=== PATIENT | male | born 1960 | race Caucasian/White ===

== ENCOUNTER 2017-11-24 00:15 | Inpatient (IN) | payer OTHER, SELFPAY ==
[2017-11-24] MEDS ORDERED: Morphine 4 MG/ML VIAL ONE (00:31)
[2017-11-24 01:53] LABS: #Eosinphils 0.6 thou/uL (0.0-0.7); #Lymphocytes 1.1 thou/uL (1.20-3.40); #Monocytes 0.7 thou/uL (0.11-0.59); #Neutrophils 15.6 thou/uL (1.40-6.50); %Basophils 0.2 % (0.0-1.0); %Eosinophils 3.6 % (0.0-10.0); %Lymphocytes 6.1 % (21.0-51.0); %Monocytes 3.8 % (0.0-10.0); %Neutrophils 86.3 % (42.0-75.0); Mean Corpuscular HGB CONC 32.9 g/dL (32.0-36.0); Mean Corpuscular Hemoglobin 29.3 pg (27.0-31.0); Mean Platelet Volume 6.5 fL (7.4-10.4); Platelet Count 448 thou/uL (130-400); RBC Distribution Width 12.1 % (11.5-14.5); Red Blood Cell (RBC) Count 4.11 mill/uL (4.70-6.10); White Blood Cell (WBC) Count 18.1 thou/uL (4.8-10.8)
[2017-11-24 01:56] LABS: Prothrombin Time 13.7 SEC (12.0-14.7)
[2017-11-24 01:57] LABS: ALT (SGPT) 20 U/L (8-55); AST (SGOT) 42 U/L (5-34); Albumin 3.6 g/dL (3.5-5.0); Alkaline Phosphatase 110 U/L (40-150); Anion Gap 21 mmol/L (10-20); BUN (Urea Nitrogen) 70 mg/dL (8.4-25.7); Bilirubin, Total 0.4 mg/dL (0.2-1.2); CK (CPK) 2261 U/L (30-200); Calc. Creatinine Clearance 0 mL/min (70-130); Calcium 7.5 mg/dL (7.8-10.44); Carbon Dioxide 25 mmol/L (22-29); Chloride 88 mmol/L (98-107); Estimated GFR-MDRD 7; Globulin 3.3 g/dL (2.4-3.5); Glucose 105 mg/dL (70-105); Lipase 47 U/L (8-78); PTT 33.9 SEC (22.9-36.1); Potassium 5.1 mmol/L (3.5-5.1); Protein, Total 6.9 g/dL (6.0-8.3); Sodium 129 mmol/L (136-145)
[2017-11-24 02:09] LABS: Troponin I Less than 0.010 ng/mL (< 0.028)
[2017-11-24 02:11] LABS: CKMB 22.8 ng/mL (0-6.6)
[2017-11-24] MEDS ORDERED: Piperacillin/Tazobactam 4.5 GM VIAL ONE (02:24)
[2017-11-24] MEDS ORDERED: Vancomycin HCl 2.5 GM in Sodium Chloride 0.9% 500 ML IVPB SCH (03:00)
[2017-11-24 03:35] LABS: Bilirubin Negative (Negative); Blood, Urine Small (Negative); Clarity CLOUDY (Clear); Glucose, Urine (Dipstick) Negative (Negative); Leukocyte Trace (Negative); Nitrite Negative (Negative); Protein, Urine (Dipstick) Negative (Neg-Trace); Specific Gravity, Urine 1.024 (1.002-1.036); Urobilinogen 0.2 mg/dL (0.2-1.0)
[2017-11-24 03:37] LABS: Bacteria/HPF None Seen HPF (None Seen); Squamous Epithelial 0-3 HPF (0-3); WBC/HPF 0-3 HPF (0-3)
[2017-11-24 03:38] LABS: Pathc Cast-AUWi Flag 5.08 (0-2.49); Yeast-AUWi Flag 97.9 (0-25.0)
[2017-11-24 03:43] LABS: Medtox Reader # READER 1; Opiate Screen Detected (NotDetected)
[2017-11-24 03:44] LABS: Amphetamine Not Detected (NotDetected); Barbiturates Screen Not Detected (NotDetected); Benzodiazepine Screen Not Detected (NotDetected); Cocaine Metabolite Screen Not Detected (NotDetected); Medtox Control Line Valid? VALID (VALID); Methadone Not Detected (NotDetected); Methamphetamine Not Detected (NotDetected); Oxycodone Screen Not Detected (NotDetected); Phencyclidine (PCP) Not Detected (NotDetected); THC/Cannabinoid Screen Not Detected (NotDetected); Tricyclic Screen Not Detected (NotDetected)
[2017-11-24 03:50] LABS: Other Casts/LPF None Seen LPF (0-3 Hyaline); RBC/HPF 0-3 HPF (0-3); Renal Epithelial None Seen HPF (0-3); Transitional Epithelial NONE SEEN HPF (0-3)
--- NOTE | 2017-11-24 03:57 | PDOC.FPRHP ---
- History of Present Illness Chief Complaint: AMS History of Present Illness: This is a 57 yo M who presents to ED after he fell out of bed for the 2nd time today. He was discharged from hospital in [place], [place] 5 days ago with a PICC line being treated for necrotizing fasciitis, MRSA, per the family. They were sent home from hospital with PICC line and were giving him vancomycin at home. They deny any surgeries while at that hospital. He is AxOx1 on presentation with a GCS of 15. He is complaining of pain only on his legs which are dressed. Family states they think he has had slurred speech for 3 days and just decided to bring him in tonight because of the falls. They deny any blows to the head or LOC. Per , patient has had waxing and waning altered mental status stating that he was having delusions but then would have lucid intervals. The states that the patient began having bilateral lower leg wounds in 2011 and has been treated for these wounds off and on since then. She states that since last week the wounds look much improved and are not as erythematous or swollen. Per the , the patient had multiple episodes of vomiting over the last 2 days. The patient also complained of SOB and trouble breathing while lying flat. Denies diarrhea, chest pain, abdominal pain, or fever. ED Course: Central line placed - right IJ; vanc and zosyn; 3L IVF - Allergies/Adverse Reactions Allergies Allergy/AdvReac Type Severity Reaction Status Date / Time No Known Allergies Allergy Unverified 11/24/17 02:51 - History PMHx: MRSA, necrotizing fasciitis, HTN PSHx: debridemnet of wound 1 week ago, carpal tunnel surgery, spinal fusions FHx: non contributory Social: smokeless tobacco daily use; Smoked cigarettes for about 30 years - 1-4 cigarettes/day, quit 10 years ago; no drug use; denied alcohol use - Review of Systems ROS unobtainable: other (obtained from family at the bedside ( and daughter) ) General: denies: fever/chills, weight/appetite/sleep changes, night sweats Respiratory: reports: shortness of breath. denies: cough, congestion Cardiovascular: reports: edema. denies: chest pain, palpitation Gastrointestinal: reports: vomiting. denies: nausea, diarrhea, constipation, abdominal pain Skin: reports: rashes (groin) Psychological: reports: other (delusions) - Vital signs BP: 100/55 HR: 100 RR: 21 Tmax: 98.8F Pox: 99% on 2LNC Wt: 190kg - Physical Exam -Constitutional: in mild distress, uncomfortable on the bed, morbidly obese HEENT: EOMI -Neck: right IJ in place -Heart: hard to appreciate due to body habitus- RRR, no murmurs Lungs: CTAB, no wheezing -Lungs: hard to appreciate due to body habitus Abdomen: soft, bowel sounds present Neurological: no focal deficit -Skin: RLE: trace pitting swelling from knee to foot; erythematous, no drainage LLE: swelling from knee to foot; scaling on calf; no drainage Groin: right groin/testicles mildly erythematous; no drainge -Psychiatric: AXO X 1 FMR H&P: Results - Labs Result Diagrams: 11/24/17 01:20 11/24/17 01:20 Lab results: WBC 18.1 thou/uL (4.8-10.8) H 11/24/17 01:20 Hgb 12.0 g/dL (14.0-18.0) L 11/24/17 01:20 Hct 36.6 % (42.0-52.0) L 11/24/17 01:20 MCV 89.0 fL (78.0-98.0) 11/24/17 01:20 Plt Count 448 thou/uL (130-400) H 11/24/17 01:20 Neutrophils % 86.3 % (42.0-75.0) H 11/24/17 01:20 Sodium 129 mmol/L (136-145) L 11/24/17 01:20 Potassium 5.1 mmol/L (3.5-5.1) 11/24/17 01:20 Chloride 88 mmol/L (98-107) L 11/24/17 01:20 Carbon Dioxide 25 mmol/L (22-29) 11/24/17 01:20 BUN 70 mg/dL (8.4-25.7) H 11/24/17 01:20 Creatinine 8.40 mg/dL (0.6-1.3) H 11/24/17 01:20 Glucose 105 mg/dL (70-105) 11/24/17 01:20 Lactic Acid 0.8 mmol/L (0.5-2.2) 11/24/17 01:20 Calcium 7.5 mg/dL (7.8-10.44) L 11/24/17 01:20 Total Bilirubin 0.4 mg/dL (0.2-1.2) 11/24/17 01:20 AST 42 U/L (5-34) H 11/24/17 01:20 ALT 20 U/L (8-55) 11/24/17 01:20 Alkaline Phosphatase 110 U/L (40-150) 11/24/17 01:20 Ammonia 31 umol/L (18-72) 11/24/17 01:20 Creatine Kinase 2261 U/L (30-200) H 11/24/17 01:20 CK-MB (CK-2) 22.8 ng/mL (0-6.6) H* 11/24/17 01:20 Serum Total Protein 6.9 g/dL (6.0-8.3) 11/24/17 01:20 Albumin 3.6 g/dL (3.5-5.0) 11/24/17 01:20 Lipase 47 U/L (8-78) 11/24/17 01:20 Urine Ketones Trace mg/dL (Negative) H 11/24/17 03:11 Urine Blood Small (Negative) H 11/24/17 03:11 Urine Nitrite Negative (Negative) 11/24/17 03:11 Ur Leukocyte Esterase Trace (Negative) H 11/24/17 03:11 Urine RBC 0-3 HPF (0-3) 11/24/17 03:11 Urine WBC 0-3 HPF (0-3) 11/24/17 03:11 Ur Squamous Epith Cells 0-3 HPF (0-3) 11/24/17 03:11 Urine Bacteria None Seen HPF (None Seen) 11/24/17 03:11 FMR H&P: A/P - Problem List (1) Severe sepsis Current Visit: Yes Status: Acute Code(s): A41.9 - SEPSIS, UNSPECIFIED ORGANISM; R65.20 - SEVERE SEPSIS WITHOUT SEPTIC SHOCK - Plan This is a 57 yo M here with severe sepsis and AMS Severe sepsis - likely 2/2 to inadequately treated necrotizing faciitis vs possible endocarditis vs PICC line infxn - CBC: WBC: 18.1 - blood and urine cx pending; picc line cx pending - Will continue IVF - CXR and CT brain pending - continue zosyn for leg wound; random vanc 45 - given loading dose of 25gms in ER and will check random vanc in 24 hours and dose appropriately - Consider ID consult - Will order Echo due to limited PE from body habitus; EKG showed sinus tach; Discuss case with cards to see if patient needs STEFANY to rule out endocarditis due to patient's hx of MRSA YUNIOR - Will give IVF: LR @ 135mls/hr - BUN/CR: 70/8.4; CrCl is 26 - Will recheck labs on 11/25 Rhabdomyolysis - CK 2261 - Will give IVF: LR @ 135mls/hr - Will trend CK level Encephalopathy - likely 2/2 to sepsis - CT brain pending Hyponatremia - Will give IVF - Will recheck labs HTN - Will hold home meds Case discussed with Dr. Manjarrez FMR H&P: Upper Level - Pertinent history 57 yo male here for AMS for 2+ days. History is obtained from family in the room. Pt has chronic medical history of HTN and b/l lower leg infection for since 2011. Over the past 2 weeks the leg sores have worsened and has required vancomycin via PICC line. Was recently released from [facility]. Wounds were debrided at that time. Starting 3 days ago, says that patient said he didnt feel right, but was unable to further describe what was the matter. He had difficulty speaking appropriately and often answers would not make sense, but then he would snap out of it and return to normal. Has been getting vancomycin in outpatient setting, but apparently his levels were high so she did not give vancomycin 4 days ago and possibly 3 days ago. In ER patient received vanc and zosyn. Central line was placed and he was receiving 2 L NS during interview. - Pertinent findings BP: 97/54 HR: 121 TMax: 99.0 RR: 21 SO2: 99% on 2L exam limited due to body habitus GEN: AOx1, answering questions, but sometimes inappropriately CARD: tachycardic; no m/g/r PULM: CTAB ABD: BSx4, distended, nontender : mildly erythematous rash of right groin extending to scrotum EXTREM: left lateral lower leg erythematous with denuded skin, extending from the ankle to above the midshin, no drainage or bleeding; right lower leg has similar look as left, but slightly smaller in size WBC: 18.1 Neut: 80% Na: 129 BUN: 70 Cr: 8.4 CK: 2261 CKMB: 22.8 Troponin: <0.010 Lactate: 0.8 - Plan Date/Time: 11/24/17 0352 IKain DO, have evaluated this patient and agree with findings/plan as outlined by general internist and physician leader resident. Pertinent changes/additions are listed here. Severe Sepsis Unsure of exact etiology, but he has a couple possible sites of possible infection including his legs with nec fascia MRSA, and PICC line. Blood, urine, and PICC line cultures pending. Continue vanc and zosyn. Will load with vanc 2.5gm and check random vanc at 24 hr paco to dictate how to move forward in dosing. Due to concerns for endocarditis, we will discuss with cardiology for STEFANY. His BP has normalized over the course of the morning; we will continue to monitor and hold off on pressors at this time; central line is in place if the need arises. YUNIOR no baseline, will continue to monitor with daily BMP potassium 5.1 LR @250ml/hr Rhabdo CK: 2261 LR @ 250ml/hr trend with daily checks Hyponatremia fluid rehydration and recheck in AM HTN continue to monitor Encephalopathy suspect this is due to sepsis; will continue to monitor with fall precautions ; PT/OT
[2017-11-24] MEDS ORDERED: Sodium Chloride 0.9% 1,000 ML IV SCH ×2 (05:30→05:47)
[2017-11-24] MEDS ORDERED: Ondansetron HCl/PF 4 MG/2 ML Vial IVP PRN (05:30)
[2017-11-24] MEDS ORDERED: Ondansetron ODT 4 MG TAB SL PRN (05:30)
[2017-11-24] MEDS ORDERED: Acetaminophen 325 MG TAB PO PRN (05:30)
[2017-11-24] MEDS ORDERED: Acetaminophen 650 MG Suppository PR PRN (05:47)
[2017-11-24] MEDS ORDERED: Morphine 4 MG/ML VIAL SLOW IVP PRN (06:06)
--- NOTE | 2017-11-24 07:07 | PDOC.PULCN ---
<Boaz Ordonez - Last Filed: 11/24/17 17:14> Pulmonology Consult: HPI - Date of Consult Date: 11/24/17 Time: 07:00 - Consult Details Reason for Consult: Admission to ICU Requesting Physician: Sheri Cavanaugh - History of Present Illness HPI: GUNNAR CALLE is a 57 year-old Male who presents to ED after falling down at home. Patient was recently hospitalized for Necrotizing Fasciitis in [place], [place]. Patient was then given a PICC line with instructions to continue Vancomycin treatments at home. The patient was not able to get home health services and the patient's family was managing his medications. The patient has had altered mental status for several days and then after two falls and some vomiting at home his family members decided to bring him to the ED. Since admission to the ED, patient is confused and agitated. He can answer questions, however, he may not respond appropriately to all questions. Patient mumbles for many responses. Family was not available at time of this interview and history was obtained through nursing staff, medical records, and patient interview. Pulmonology Consult: ROS - Review of Systems ROS unobtainable: due to mental status Cardiovascular: negative: chest pain Respiratory: negative: no reported symptoms Pulmonology Consult: PMH Source: other Past Medical History: PMHx: MRSA, necrotizing fasciitis, HTN PSHx: debridemnet of wound 1 week ago, carpal tunnel surgery, spinal fusions FHx: non contributory Social: smokeless tobacco daily use; Smoked cigarettes for about 30 years - 1-4 cigarettes/day, quit 10 years ago; no drug use; denied alcohol use - Family History Family history: reviewed and not pertinent - Social History Smoking Status: Former smoker Alcohol Use: none Drug Use History: none Living Situation: independent, Pulmonology Consult: Meds - Medications MAR Reviewed: Yes Medications: Current Medications Acetaminophen (Tylenol) 650 mg PO Q4H PRN PRN Reason: Headache/Fever or Pain Stop: 11/24/17 14:30 Acetaminophen (Tylenol) 650 mg UT Q4H PRN PRN Reason: Headache/Fever or Pain Enoxaparin Sodium (Lovenox) 30 mg SC 0900 LEVON Lactated Ringer's (Lactated Ringer's) 1,000 mls @ 250 mls/hr IV .Q4H LEVON Piperacillin Sod/Tazobactam (Sod 2.25 gm/ Sodium Chloride) 100 mls @ 200 mls/ hr IVPB Q6HR LEVON Morphine Sulfate (Morphine) 2 mg SLOW IVP Q4H PRN PRN Reason: Pain Ondansetron HCl (Zofran) 4 mg IVP Q6H PRN PRN Reason: Nausea/Vomiting Stop: 11/24/17 14:30 Ondansetron HCl (Zofran Odt) 4 mg SL Q6H PRN PRN Reason: Nausea/Vomiting Stop: 11/24/17 14:30 Sodium Chloride (Flush - Normal Saline) 10 ml IVF Q12HR LEVON Sodium Chloride (Flush - Normal Saline) 10 ml IVF PRN PRN PRN Reason: Saline Flush - Allergies Allergies/Adverse Reactions: Allergies Allergy/AdvReac Type Severity Reaction Status Date / Time No Known Allergies Allergy Verified 11/24/17 06:21 Pulmonology Consult: PE - Physical Exam HEENT: moist MMs Deviation from normal: Right IJ in place Cardiovascular: RRR, no significant murmur Deviation from normal: Limited by body habitus Respiratory: clear to auscultation bilaterally Deviation from normal: Limited by body habitus Gastrointestinal: soft, non-tender, no distention, positive bowel sounds Musculoskeletal: no edema Deviation from normal: Trace edema. Open leg wounds bilateral lower extremities with erythema Neurological: moves all 4 limbs Deviation from normal: A&Ox1 Pulmonology Consult: Results - Labs Result Diagrams: 11/24/17 01:20 11/24/17 13:15 Pulmonology Consult: A/P - Problem (1) Metabolic encephalopathy Current Visit: Yes Code(s): G93.41 - METABOLIC ENCEPHALOPATHY Status: Acute (2) Rhabdomyolysis Current Visit: Yes Code(s): M62.82 - RHABDOMYOLYSIS Status: Acute (3) YUNIOR (acute kidney injury) Current Visit: Yes Code(s): N17.9 - ACUTE KIDNEY FAILURE, UNSPECIFIED Status : Acute (4) Hypertension Current Visit: Yes Code(s): I10 - ESSENTIAL (PRIMARY) HYPERTENSION Status: Acute (5) Hyponatremia Current Visit: Yes Code(s): E87.1 - HYPO-OSMOLALITY AND HYPONATREMIA Status : Acute (6) Leg wound, left Current Visit: Yes Code(s): S81.802A - UNSPECIFIED OPEN WOUND, LEFT LOWER LEG , INITIAL ENCOUNTER Status: Acute (7) Leg wound, right Current Visit: Yes Code(s): S81.801A - UNSPECIFIED OPEN WOUND, RIGHT LOWER LEG , INITIAL ENCOUNTER Status: Acute (8) Fungal dermatitis Current Visit: Yes Status: Acute - Time Time: 50% of the time was spent in coordination of care (as documented) at patient's floor/unit and/or counseling patient. Time with Patient: greater than 50 minutes - Plan Plan: 1. Metabolic encephalopathy - Likely secondary to recent infection with treatment of vancomycin - Patient likely got dehydrated from N/V - Hold Vancomycin until levels decrease - Pharmacy to dose Vancomycin going forward - Continue aggressive IVF resuscitation - Request records from previous hospitalization - Obtain more history from family members. - Cultures pending 2. Rhabdomyolysis - Continue IVF fluids - Monitor CK 3. YUNIOR - Unclear baseline Creatinine - Continue IVF - Monitor Creatinine 4. HTN - Hold home BP meds 5. Hyponatremia - Monitor with BMP - Fluid resuscitation 6. Leg wounds bilaterally - Likely source of initial infection - Per family much improved - Continue antibiotics - Wound Care consultation 7. Fungal dermatitis - Groin region - Topical nystatin for symptom relief Disposition: Guarded, continue current plan of care. Obtain more information and await results. <Luis Antonio Schreiber M - Last Filed: 11/25/17 13:37> Pulmonology Consult: HPI - History of Present Illness HPI: LUCGUNNARVIN WADE is a 57 year-old M Pulmonology Consult: Meds - Medications Medications: Current Medications Acetaminophen (Tylenol) 650 mg UT Q4H PRN PRN Reason: Headache/Fever or Pain Heparin Sodium (Porcine) (Heparin) 5,000 units SC TID [facility] Last Admin: 11/25/17 10:16 Dose: 5,000 units Vancomycin HCl 1 gm/ Device 200 mls @ 200 mls/hr IVPB .PENDING LEVEL [facility] Sodium Chloride (1/2 Normal Saline) 1,000 mls @ 50 mls/hr IV .Q20H [facility] Miscellaneous Medication (Pharmacy To Dose) 0 each IVPB PRN PRN PRN Reason: VANC Nystatin (Mycostatin Powder) 1 gm TOP BID PRN PRN Reason: Topical Irritations Last Admin: 11/24/17 13:23 Dose: 1 applic Sodium Chloride (Flush - Normal Saline) 10 ml IVF Q12HR [facility] Last Admin: 11/25/17 10:16 Dose: 10 ml Sodium Chloride (Flush - Normal Saline) 10 ml IVF PRN PRN PRN Reason: Saline Flush Last Admin: 11/24/17 09:19 Dose: 10 ml Pulmonology Consult: Results - Labs Result Diagrams: 11/25/17 04:49 11/25/17 04:49 - ABG Interpretation ABG Results: ABG pH 7.23 (7.35-7.45) L* 11/24/17 10:38 ABG pCO2 61.1 mmHg (35.0-45.0) H* 11/24/17 10:38 ABG O2 Sat Calc/Waqas 97.1 % (94.0-98.0) 11/24/17 10:38 ABG Base Excess -3.4 mEq/L (-2.0 to +3.0) L 11/24/17 10:38 Pulmonology Consult: A/P - Time Time: 50% of the time was spent in coordination of care (as documented) at patient's floor/unit and/or counseling patient. Attending Addendum - Attending Addendum Date/Time: 11/25/17 1336 I personally evaluated the patient and discussed the management with Dr. Ordonez. I agree with the History, Examination, Assessment and Plan documented above with any addition or exceptions noted below. A/P: Acute hypercapnic respiratory failure. MARY. Start BiPAP. 70 minutes have been devoted to this patient in various activities. I personally reviewed all imaging studies and laboratory data noted within this document. For fifty percent of this time, I was interacting with the patient at the bedside or coordinating care with the care team. For the remainder of the time I was immediately available to the patient in the hospital unit.
[2017-11-24] MEDS: Lactated Ringer's 1,000 ML IV SCH ×4 (07:18→16:56)
--- NOTE | 2017-11-24 07:52 | RAD ---
AP VIEW CHEST: HISTORY: Altered mental status. FINDINGS: AP chest is obtained on 11/23/17. Comparison is made to previous exam from 11/17/17. FINDINGS: AP view chest demonstrates a right upper extremity PICC line in place. There has been introduction o f a right jugular central line. Cardiomegaly is seen. Moderate pulmonary vascular congestion is. N o evidence of effusions or pneumonia are seen. IMPRESSION: Cardiomegaly and pulmonary vascular congestion not significantly changed since the previous exam. POS: [facility]
--- NOTE | 2017-11-24 08:52 | CT ---
PRELIMINARY REPORT/[facility]/EMERGENTY AFTER-HOURS PROCEDURE CT Head Without Intravenous Contrast EXAM DATE/TIME: 11/24/2017 1:55 AM CLINICAL HISTORY: Signs and symptoms; Altered mental status/memory loss; Confusion or disorientation TECHNIQUE: Axial computed tomography images of the head/brain without intravenous contrast. COMPARISON: No relevant prior studies available. FINDINGS: Brain: There is minimal bilateral periventricular and subcortical white matter hypodensity which is n onspecific and can be seen in the setting of chronic microvascular angiopathy. Harp-white matter diff erentiation is within normal limits. No hemorrhage. Ventricles: Unremarkable. No ventriculomegaly. Bones/joints: Unremarkable. No acute fracture. Soft tissues: Unremarkable. Vasculature: There is atherosclerotic disease of the internal carotid arteries bilaterally and right vertebral artery. Sinuses: Minimal bilateral maxillary, ethmoid and sphenoid sinus mucosal thickening. Mastoid air cells: Unremarkable as visualized. No mastoid effusion. IMPRESSION: 1. No acute intracranial or extra-axial abnormality. 2. Other findings as above. Thank you for allowing us to participate in the care of your patient. Dictated and Authenticated by: Caridad Farris MD 11/24/2017 2:23 AM Central Time ([place] & [place]) FINAL REPORT CT BRAIN: HISTORY: Altered mental status, memory loss. FINDINGS: Noncontrast-enhanced CT images of the brain are obtained. This the final report. Preliminary exam w as performed by [facility]. I concur with the dictation from [facility]. No evidence of acute intracranial pathology is s een. IMPRESSION: Unremarkable CT brain. POS: [facility]
[2017-11-24] MEDS ORDERED: Enoxaparin Sodium 30 MG/0.3 ML SYRINGE SC SCH (09:00)
[2017-11-24] MEDS ORDERED: Nystatin Powder 15 GM BOT TOP PRN (10:01)
[2017-11-24] MEDS ORDERED: VANCOMYCIN IVPB PRN (10:11)
[2017-11-24 10:58] LABS: Base Excess (BEa) -3.4 mEq/L (-2.0 to +3.0); Calcium, Ionized 0.93 mmol/L (1.12-1.30); Carboxyhemoglobin (COHb) 1.3 gm% (0.0-3.0); Hemoglobin (Hb) 11.9 g/dL (14.0-18.0); Potassium - ABG Lab 4.87 mmol/L (3.70-5.30)
[2017-11-24] MEDS ORDERED: Piperacillin/Tazobactam 2.25 GM in Sodium Chloride 0.9% 100 ML IVPB SCH (12:00)
[2017-11-24 13:24] LABS: ALV-art Gradient 28.265 (0-20); CO2 Tension 61.1 mmHg (35.0-45.0); Puncture Site RRA; pH, Arterial 7.23 (7.35-7.45)
[2017-11-24 13:54] LABS: Anion Gap 18 mmol/L (10-20); BUN (Urea Nitrogen) 65 mg/dL (8.4-25.7); CK (CPK) 1798 U/L (30-200); Calc. Creatinine Clearance 30 mL/min (70-130); Calcium 7.2 mg/dL (7.8-10.44); Carbon Dioxide 22 mmol/L (22-29); Chloride 96 mmol/L (98-107); Estimated GFR-MDRD 10; Glucose 87 mg/dL (70-105); Potassium 4.9 mmol/L (3.5-5.1); Sodium 131 mmol/L (136-145)
[2017-11-24] MEDS: Heparin 5,000 UNITS/ML VIAL SC SCH ×2 (15:28→22:02)
--- NOTE | 2017-11-24 17:10 | EKG ---
Test Reason : SEPSIS Blood Pressure : / mmHG Vent. Rate : 102 BPM Atrial Rate : 102 BPM P-R Int : 156 ms QRS Dur : 080 ms QT Int : 336 ms P-R-T Axes : 041 074 029 degrees QTc Int : 437 ms Sinus tachycardia Low voltage QRS Borderline ECG Confirmed by DR. Lane BORGES MD ([id number]) on 11/24/2017 5:10:08 PM Referred By: Confirmed By:DR. Lane BORGES MD
[2017-11-25] MEDS: Lactated Ringer's 1,000 ML IV SCH ×2 (01:12→08:37)
[2017-11-25 05:04] LABS: #Eosinphils 0.5 thou/uL (0.0-0.7); #Lymphocytes 1.1 thou/uL (1.20-3.40); #Monocytes 0.6 thou/uL (0.11-0.59); #Neutrophils 8.7 thou/uL (1.40-6.50); %Basophils 0.1 % (0.0-1.0); %Eosinophils 4.5 % (0.0-10.0); %Lymphocytes 10.4 % (21.0-51.0); %Monocytes 5.2 % (0.0-10.0); %Neutrophils 79.8 % (42.0-75.0); Hemoglobin 11.8 g/dL (14.0-18.0); Mean Corpuscular HGB CONC 33.1 g/dL (32.0-36.0); Mean Corpuscular Hemoglobin 29.6 pg (27.0-31.0); Mean Corpuscular Volume 89.4 fL (78.0-98.0); Mean Platelet Volume 6.3 fL (7.4-10.4); Platelet Count 446 thou/uL (130-400); RBC Distribution Width 12.2 % (11.5-14.5); Red Blood Cell (RBC) Count 3.98 mill/uL (4.70-6.10); White Blood Cell (WBC) Count 10.9 thou/uL (4.8-10.8)
[2017-11-25 05:24] LABS: Vancomycin, Random 42.3 ug/mL (See Comment)
[2017-11-25 05:28] LABS: Anion Gap 15 mmol/L (10-20); BUN (Urea Nitrogen) 50 mg/dL (8.4-25.7); CK (CPK) 885 U/L (30-200); Calc. Creatinine Clearance 67 mL/min (70-130); Carbon Dioxide 26 mmol/L (22-29); Chloride 100 mmol/L (98-107); Estimated GFR-MDRD 24; Glucose 72 mg/dL (70-105); Magnesium 1.6 mg/dL (1.6-2.6); Phosphorus 4.7 mg/dL (2.3-4.7); Potassium 4.6 mmol/L (3.5-5.1); Sodium 136 mmol/L (136-145)
--- NOTE | 2017-11-25 06:12 | PDOC.FM ---
- Subjective Subjective: Patient is more alert this morning. He knows who he is and what year it is. He is unaware where he is currently at. Patient denies any chest pain, sob, n/v. Patient denies any fevers, chills, or cough. Patient slept with a bipap on last night and is is unsure if he got more sleep or not. Patient denies any diarrhea problems; however, nursing staff has reported at least 8 liquid stools that have saturated his bed. No other complaints today. - Objective Vital Signs & Weight: Vital Signs (12 hours) Temp Pulse Pulse Ox 11/25/17 04:00 97.9 F 11/25/17 02:19 98 11/25/17 00:24 90 11/25/17 00:00 98.0 F 11/24/17 22:55 98 11/24/17 20:00 97.6 F 98 11/24/17 18:40 91 Weight Admit Weight 159.211 kg Weight 159.5 kg Most Recent Monitor Data Heart Rate from ECG 92 NIBP 161/87 NIBP BP-Mean 115 Respiration from ECG 14 SpO2 98 I&O: 11/23/17 11/24/17 11/25/17 06:59 06:59 06:59 Intake Total 4044 Output Total 75 4160 Balance -75 -116 Result Diagrams: 11/25/17 04:49 11/25/17 04:49 <Boaz Ordonez - Last Filed: 11/25/17 10:33> - Objective Vital Signs & Weight: Vital Signs (12 hours) Temp Pulse 11/25/17 11:00 97.5 F L 11/25/17 07:00 97.8 F 11/25/17 06:49 92 11/25/17 04:00 97.9 F 11/25/17 02:19 98 Weight Admit Weight 159.211 kg Weight 159.5 kg Most Recent Monitor Data Heart Rate from ECG 108 NIBP 166/100 NIBP BP-Mean 111 Respiration from ECG 14 SpO2 93 I&O: 11/24/17 11/25/17 11/26/17 06:59 06:59 06:59 Intake Total 4044 Output Total 75 4160 900 Balance -75 -116 -900 Result Diagrams: 11/25/17 04:49 11/25/17 04:49 <Josh Clarke - Last Filed: 11/25/17 13:26> Phys Exam - Physical Examination Constitutional: NAD BIPAP mask in place Neck: no nodes Respiratory: no wheezing, clear to auscultation bilateral limited by body habitus Cardiovascular: RRR, no significant murmur Gastrointestinal: soft, non-tender, no distention, positive bowel sounds Bilateral leg wounds bandaged Neurological: non-focal, moves all 4 limbs Skin: no rash <Boaz Ordonez - Last Filed: 11/25/17 10:33> Dx/Plan (1) Metabolic encephalopathy Code(s): G93.41 - METABOLIC ENCEPHALOPATHY Status: Acute (2) Rhabdomyolysis Code(s): M62.82 - RHABDOMYOLYSIS Status: Acute (3) YUNIOR (acute kidney injury) Code(s): N17.9 - ACUTE KIDNEY FAILURE, UNSPECIFIED Status: Acute (4) Hypertension Code(s): I10 - ESSENTIAL (PRIMARY) HYPERTENSION Status: Acute (5) Hyponatremia Code(s): E87.1 - HYPO-OSMOLALITY AND HYPONATREMIA Status: Acute (6) Leg wound, left Code(s): S81.802A - UNSPECIFIED OPEN WOUND, LEFT LOWER LEG, INITIAL ENCOUNTER Status: Acute (7) Leg wound, right Code(s): S81.801A - UNSPECIFIED OPEN WOUND, RIGHT LOWER LEG, INITIAL ENCOUNTER Status: Acute (8) Fungal dermatitis Status: Acute (9) Diarrhea Code(s): R19.7 - DIARRHEA, UNSPECIFIED Status: Acute - Plan Plan: 1. Metabolic encephalopathy - Likely secondary to recent infection with treatment of vancomycin - Patient likely got dehydrated from N/V - Hold Vancomycin until levels decrease. Random Vanc level this AM 42.3 - Pharmacy to dose Vancomycin going forward - Continue aggressive IVF resuscitation - Request records from previous hospitalization - Obtain more history from family members. - Cultures pending 2. Rhabdomyolysis - Continue IVF fluids - Monitor CK. 885 this AM - Improved 3. YUNIOR - Unclear baseline Creatinine - Continue IVF - Monitor Creatinine. 2.75 this AM - Resolving 4. HTN - Hold home BP meds - If BP continues to run in HTN range will restart 5. Hyponatremia - Monitor with BMP - Fluid resuscitation - Resolved 6. Leg wounds bilaterally - Likely source of initial infection - Per family much improved - Antibiotics held for now, but no systemic signs of infection currently - Wound Care consultation 7. Fungal dermatitis - Groin region - Topical nystatin for symptom relief 8. Diarrhea - Possibly due to Vancomycin use - Will monitor fluid status closely - C diff pending - Rectal tube as needed - Continue IVF Disposition: Stable, continue current plan of care. Can likely move out of ICU today. <Boaz Ordonez - Last Filed: 11/25/17 10:33> Attending Addendum - Attending Addendum Date/Time: 11/25/17 5105 I personally evaluated the patient and discussed the management with Dr. Ordonez. I agree with the History, Examination, Assessment and Plan documented above with any addition or exceptions noted below. <Josh Clarke - Last Filed: 11/25/17 13:26>
[2017-11-25] MEDS: Heparin 5,000 UNITS/ML VIAL SC SCH ×3 (10:16→20:49)
[2017-11-25] MEDS ORDERED: Sodium Chloride 0.45% 1,000 ML IV SCH (10:45)
--- NOTE | 2017-11-25 13:26 | PRG ---
DATE OF SERVICE: 11/25/2017 SERVICE: Pulmonary Medicine. INTERVAL HISTORY: The patient is doing fine from a respiratory standpoint. He is breathing comfortably this morning. He is not confused. He has no apparent complaints. There have been no overnight events. He has not had any fevers or chills. He is not coughing and has no problem with nausea or vomiting. He has had profuse watery diarrhea. OBJECTIVE: VITAL SIGNS: Afebrile, pulse 105, blood pressure 166/100, respirations 13, saturation 93% on room air. GENERAL: The patient is awake, alert, no apparent distress. LUNGS: Decent air entry. There is no prolonged expiratory phase or wheezing present. HEART: Normal rate, regular. ABDOMEN: Soft. Nontender, nondistended. Bowel sounds are positive. MUSCULOSKELETAL: No cyanosis or clubbing. There is no pitting in the bilateral lower extremities. NEUROLOGIC: Grossly nonfocal. LABORATORY DATA: WBC 10.9, hemoglobin 11.8, platelets 446,000. INR 1.3. Creatinine 2.75, BUN 50. Basic metabolic profile, phosphorus and magnesium fall within the normal limits. CK is down trending to 800. Blood cultures are negative in 2 out of 2 from the right IJ. Coag negative Staph is growing in the PICC line which has subsequently been removed. ASSESSMENT: 1. Metabolic encephalopathy, resolved. 2. Acute kidney injury secondary to prerenal azotemia/severe dehydration, resolved. 3. Bilateral lower extremity stasis. 4. Diarrhea. 5. Recent episode of cellulitis and is currently being treated with vancomycin, DISCUSSION AND PLAN: We are still waiting for the vancomycin level to become therapeutic. It is quite elevated. His magnesium and phosphorus will be discontinued. We will allow the patient to eat and start mobilization efforts. He will keep using his BiPAP at night because of his underlying sleep apnea. The patient will need to be diuresed to euvolemia once he stabilizes from this acute insult. That being said, I believe that he previously got too dry too quickly. At this time, he has not need for ongoing pulmonary or critical care opinion, and I will sign off. Please call with additional questions or concerns. MATTHEW
[2017-11-25] MEDS: Sodium Chloride 0.45% 1,000 ML IV SCH (14:24)
[2017-11-25] MEDS ORDERED: Labetalol HCl 100 MG/20 ML VIAL SLOW IVP PRN (17:21)
[2017-11-25] MEDS ORDERED: Acetaminophen 325 MG TAB PO PRN (18:29)
[2017-11-26 05:30] LABS: Vancomycin, Random 17.2 ug/mL (See Comment)
[2017-11-26 05:34] LABS: Band 2 % (5-11); Eosinophils 2 % (0-10); Hemoglobin 12.3 g/dL (14.0-18.0); Lymphocytes 15 % (21-51); MDiff Complete? YES; Mean Corpuscular HGB CONC 33.4 g/dL (32.0-36.0); Mean Corpuscular Hemoglobin 29.8 pg (27.0-31.0); Mean Corpuscular Volume 89.2 fL (78.0-98.0); Mean Platelet Volume 6.5 fL (7.4-10.4); Metamyelocyte 1 % (0-0); Monocytes 7 % (0-10); Neutrophil 72 % (42-75); Platelet Count 484 thou/uL (130-400); Reactive Lymphocytes 1 % (0-10); Red Blood Cell (RBC) Count 4.12 mill/uL (4.70-6.10); White Blood Cell (WBC) Count 11.8 thou/uL (4.8-10.8)
[2017-11-26 05:57] LABS: Anion Gap 16 mmol/L (10-20); BUN (Urea Nitrogen) 29 mg/dL (8.4-25.7); CK (CPK) 384 U/L (30-200); Calc. Creatinine Clearance 163 mL/min (70-130); Carbon Dioxide 25 mmol/L (22-29); Chloride 101 mmol/L (98-107); Estimated GFR-MDRD 67; Glucose 97 mg/dL (70-105); Potassium 4.9 mmol/L (3.5-5.1); Sodium 137 mmol/L (136-145)
[2017-11-26] MEDS ORDERED: Vancomycin HCl 1 GM in Premix Bag 1 BAG IVPB SCH (06:00)
--- NOTE | 2017-11-26 08:49 | PDOC.FM ---
- Subjective Subjective: Pt seen at bedside this am resting in bed. He states that he is cold, but denies any other problems. His diarrhea has resolved and he denies any abdominal pain. Over night the patient removed his rectal tube, this was not replaced. - Objective MAR Reviewed: Yes Vital Signs & Weight: Vital Signs (12 hours) Temp Pulse Resp BP Pulse Ox 11/26/17 04:00 99.1 F 84 18 148/99 H 92 L 11/26/17 00:00 99.1 F 86 18 172/98 H 93 L Weight Admit Weight 159.211 kg Weight 159.778 kg Most Recent Monitor Data Heart Rate from ECG 108 NIBP 166/100 NIBP BP-Mean 111 Respiration from ECG 14 SpO2 93 I&O: 11/25/17 11/26/17 11/27/17 06:59 06:59 06:59 Intake Total 4044 1430 Output Total 4160 3500 Balance -116 -2069 Result Diagrams: 11/26/17 04:21 11/26/17 04:21 <Donaldo Zamora - Last Filed: 11/26/17 08:47> - Objective Vital Signs & Weight: Vital Signs (12 hours) Temp Pulse Resp BP BP Pulse Ox 11/26/17 09:34 82 183/120 H 11/26/17 09:05 98.8 F 82 20 183/120 H 94 L 11/26/17 04:00 99.1 F 84 18 148/99 H 92 L 11/26/17 00:00 99.1 F 86 18 172/98 H 93 L Weight Admit Weight 159.211 kg Weight 159.778 kg Most Recent Monitor Data Heart Rate from ECG 108 NIBP 166/100 NIBP BP-Mean 111 Respiration from ECG 14 SpO2 93 I&O: 11/25/17 11/26/17 11/27/17 06:59 06:59 06:59 Intake Total 4044 1430 Output Total 4160 3500 Balance -116 -207 Result Diagrams: 11/26/17 04:21 11/26/17 04:21 <Josh Clarke - Last Filed: 11/26/17 09:54> Phys Exam - Physical Examination Constitutional: NAD HEENT: PERRLA, moist MMs Neck: no nodes, no JVD Respiratory: clear to auscultation bilateral Difficult to appreciate dt habitus Cardiovascular: RRR, no significant murmur Difficult to appreciate dt habitus Gastrointestinal: soft, non-tender, positive bowel sounds Musculoskeletal: no edema, pulses present Wounds on b/l LE dressed and clean Neurological: non-focal, moves all 4 limbs Skin: no rash, normal turgor <Donaldo Zamora - Last Filed: 11/26/17 08:47> Dx/Plan (1) YUNIOR (acute kidney injury) Code(s): N17.9 - ACUTE KIDNEY FAILURE, UNSPECIFIED Status: Acute (2) Diarrhea Code(s): R19.7 - DIARRHEA, UNSPECIFIED Status: Acute (3) Encephalopathy Code(s): G93.40 - ENCEPHALOPATHY, UNSPECIFIED Status: Acute (4) Hypertension Code(s): I10 - ESSENTIAL (PRIMARY) HYPERTENSION Status: Acute (5) Leg wound, left Code(s): S81.802A - UNSPECIFIED OPEN WOUND, LEFT LOWER LEG, INITIAL ENCOUNTER Status: Acute (6) Leg wound, right Code(s): S81.801A - UNSPECIFIED OPEN WOUND, RIGHT LOWER LEG, INITIAL ENCOUNTER Status: Acute (7) Metabolic encephalopathy Code(s): G93.41 - METABOLIC ENCEPHALOPATHY Status: Acute (8) Rhabdomyolysis Code(s): M62.82 - RHABDOMYOLYSIS Status: Acute - Plan Plan: 1. Metabolic encephalopathy - Given improvement of mental status and toxic vanc level on admission this was most likely secondary to vanc toxicity which has since improved. - Patient likely got dehydrated from N/V which exacerbated the vanc level - Vanc therapeutic this am. - Pharmacy to dose Vancomycin going forward - renal fxn improved, slow IVF. Pt is tolerating PO fluids - Cultures negative 2. Rhabdomyolysis - Improved 3. YUNIOR - improved - Unclear baseline Creatinine - Continue IVF - Monitor Creatinine. 1.13 this am 4. HTN - restart home meds 5. Hyponatremia - resolved 6. Leg wounds bilaterally - Likely source of initial infection - Per family much improved - Wound Care consultation 7. Fungal dermatitis - Groin region - Topical nystatin for symptom relief 8. Diarrhea - Resolved - C diff pending negative Disposition: Stable, continue current plan of care. <LindaDonaldo werner - Last Filed: 11/26/17 08:47> Attending Addendum - Attending Addendum Date/Time: 11/26/17 0954 I personally evaluated the patient and discussed the management with Dr. Zamora. I agree with the History, Examination, Assessment and Plan documented above with any addition or exceptions noted below. <Josh Clarke - Last Filed: 11/26/17 09:54>
[2017-11-26] MEDS ORDERED: Torsemide 20 MG TAB PO SCH (09:00)
[2017-11-26] MEDS: Tamsulosin HCl 0.4 MG CAP PO SCH (09:34)
[2017-11-26] MEDS: Amlodipine 10 MG TAB PO SCH (09:34)
[2017-11-26] MEDS: Heparin 5,000 UNITS/ML VIAL SC SCH ×3 (09:34→19:47)
[2017-11-26] MEDS: Loratadine 10 MG TAB PO SCH (09:34)
[2017-11-26] MEDS: Gabapentin 300 MG CAP PO SCH ×4 (09:34→19:47)
[2017-11-26] MEDS: tiZANidine HCl 4 MG TAB PO SCH ×4 (09:34→19:47)
[2017-11-26] MEDS: Sodium Chloride 0.45% 1,000 ML IV SCH ×2 (09:35→12:14)
[2017-11-26 12:02] VITALS: BMI 53.5
--- NOTE | 2017-11-26 13:04 | PQF ---
CLINICAL DOCUMENTATION IMPROVEMENT CLARIFICATION FORM: ICD-10 Updated PLEASE DO AN ADDENDUM TO THE PROGRESS NOTE WITH ANY DOCUMENTATION UPDATES OR ADDITIONS AND CARRY THROUGH TO DC SUMMARY. THANK YOU. DATE: 11/26 ATTN: DR. MAT LOPEZ/ DR. JULIUS PAEZ Please exercise your independent, professional judgment in responding to the clarification form. Clinical indicators are provided on the bottom of this form for your review. Please check appropriate box(s) to clarify if the following diagnosis has been ruled in or ruled out: SEVERE SEPSIS [ ] Ruled in diagnosis [ ] Continue to treat [ ] Resolved [ x ] Ruled out diagnosis [ ] Other diagnosis [ ] Unable to determine For continuity of documentation, please document condition throughout progress notes and discharge summary. Thank You. CLINICAL INDICATORS - SIGNS / SYMPTOMS / LABS ER PRESENTATION 11/24: ALTERED MENTAL STATUS AR: 106-121 RA SAT 89%, PLACED ON 2L NC: 93-100% BP: 73/54 - 132/113 TREATED W/ 5L NS, IV VANCOMYCIN & ZOSYN ER PHYSICIAN DIAGNOSIS 11/24: SEPSIS, YUNIOR, AMS PHYSICIAN H&P DOCUMENTATION 11/24: PROBLEM LIST: 1) SEVERE SEPSIS; 2) ENCEPHALOPATHY - SUSPECT THIS IS D/T SEPSIS WBC: 18.1 POSITIVE PICC LINE CULTURE: MRSE NO FURTHER MENTION OF SEPSIS TO DATE RISK FACTORS: RECENT HOSPITALIZATION FOR NECROTIZING FASCIITIS & MRSA (DISCHARGED 5 DAYS PRIOR ) PICC LINE MORBID OBESITY ACUTE ENCEPHALOPATHY YUNIOR TREATMENTS: IVF RESUSCITATION (5L NS IN ER, 11/24) IV ANTIBIOTICS (ZOSYN 11/24, VANCOMYCIN 11/24 - PRESENT) IVF (1/2 NS 11/25 - PRESENT) CCU MONITORING (11/24 - ) THANK YOU! Jasmyne (This form is maintained as a part of the permanent medical record) 2014 [employer]. All Rights Reserved Jasmyne Patricia RN, BSN [email or web address] Office: [phone] [facility]
[2017-11-26] MEDS ORDERED: Adenosine 6 MG/2 ML VIAL ONE (13:25)
[2017-11-27] MEDS: Sodium Chloride 0.45% 1,000 ML IV SCH (05:40)
--- NOTE | 2017-11-27 07:07 | PDOC.FM ---
- Subjective Subjective: Pt seen at bedside this am resting comfortably. He denies any problems or new complaints. Over night he pulled his own PICC and refused labs this am. - Objective Vital Signs & Weight: Vital Signs (12 hours) Temp Pulse Resp BP Pulse Ox 11/26/17 20:00 95 11/26/17 19:44 98.1 F 71 16 138/88 95 Weight Admit Weight 159.211 kg Weight 159.778 kg Most Recent Monitor Data Heart Rate from ECG 108 NIBP 166/100 NIBP BP-Mean 111 Respiration from ECG 14 SpO2 93 I&O: 11/26/17 11/27/17 11/28/17 06:59 06:59 06:59 Intake Total 1430 1584 Output Total 3500 1800 Balance -2069 Result Diagrams: 11/26/17 04:21 11/26/17 04:21 <Donaldo Zamora - Last Filed: 11/27/17 07:06> - Objective Vital Signs & Weight: Vital Signs (12 hours) Temp Pulse Resp BP BP Pulse Ox 11/27/17 08:00 94 L 11/27/17 07:51 168/85 H 11/27/17 07:50 84 168/85 H 11/27/17 07:36 98.3 F 84 20 184/102 H 94 L Weight Admit Weight 159.211 kg Weight 159.778 kg Most Recent Monitor Data Heart Rate from ECG 108 NIBP 166/100 NIBP BP-Mean 111 Respiration from ECG 14 SpO2 93 I&O: 11/26/17 11/27/17 11/28/17 06:59 06:59 06:59 Intake Total 1430 1584 Output Total 3500 1800 325 Balance -2069 -325 Result Diagrams: 11/27/17 06:52 11/27/17 06:52 <Gudelia Ayoub - Last Filed: 11/27/17 15:36> Phys Exam - Physical Examination Constitutional: NAD HEENT: PERRLA, moist MMs Neck: no nodes, no JVD Respiratory: clear to auscultation bilateral Difficult to auscultate dt habitus Cardiovascular: RRR, no significant murmur Difficult to auscultate dt habitus Gastrointestinal: soft, non-tender, no distention Musculoskeletal: no edema b/l LE wounds dressed and clean Neurological: moves all 4 limbs Lymphatic: no nodes Psychiatric: normal affect, A&O x 3 Skin: no rash, normal turgor <Donaldo Zamora - Last Filed: 11/27/17 07:06> Dx/Plan (1) YUNIOR (acute kidney injury) Code(s): N17.9 - ACUTE KIDNEY FAILURE, UNSPECIFIED Status: Acute (2) Diarrhea Code(s): R19.7 - DIARRHEA, UNSPECIFIED Status: Acute (3) Encephalopathy Code(s): G93.40 - ENCEPHALOPATHY, UNSPECIFIED Status: Acute (4) Hypertension Code(s): I10 - ESSENTIAL (PRIMARY) HYPERTENSION Status: Acute (5) Leg wound, left Code(s): S81.802A - UNSPECIFIED OPEN WOUND, LEFT LOWER LEG, INITIAL ENCOUNTER Status: Acute (6) Leg wound, right Code(s): S81.801A - UNSPECIFIED OPEN WOUND, RIGHT LOWER LEG, INITIAL ENCOUNTER Status: Acute (7) Metabolic encephalopathy Code(s): G93.41 - METABOLIC ENCEPHALOPATHY Status: Acute (8) Rhabdomyolysis Code(s): M62.82 - RHABDOMYOLYSIS Status: Acute - Plan Plan: 1. Metabolic encephalopathy - Given improvement of mental status and toxic vanc level on admission this was most likely secondary to vanc toxicity which has since improved. - Vanc dc'd today as he has run his 7 day course as ordered by his surgeon in [place]. - Cultures negative 2. Rhabdomyolysis - Improved 3. YUNIOR - improved. Pt refused labs this am, however he is taking PO without issue and was likely at baseline yesterday. 4. HTN - restart home meds 5. Hyponatremia - resolved 6. Leg wounds bilaterally - Likely source of initial infection - Will need outpatient follow up for wound care 7. Fungal dermatitis - Groin region - Topical nystatin for symptom relief 8. Diarrhea - Resolved - C diff pending negative Disposition: Stable, ready to discharge today pending outpatient follow up for wound care <Donaldo Zamora - Last Filed: 11/27/17 07:06> Attending Addendum - Attending Addendum Date/Time: 11/27/17 3379 I personally evaluated the patient and discussed the management with Dr. Zamora. I agree with the History, Examination, Assessment and Plan documented above with any addition or exceptions noted below. The patient's vanc will be d/c'd today. He refused lab draws and pulled out picc though 7 day course of antibiotics is complete. Will work towards discharge. <Gudelia Ayoub - Last Filed: 11/27/17 15:36>
[2017-11-27 07:15] LABS: #Eosinphils 0.6 thou/uL (0.0-0.7); #Lymphocytes 1.9 thou/uL (1.20-3.40); #Monocytes 0.7 thou/uL (0.11-0.59); #Neutrophils 7.8 thou/uL (1.40-6.50); %Basophils 0.2 % (0.0-1.0); %Eosinophils 5.1 % (0.0-10.0); %Lymphocytes 17.1 % (21.0-51.0); %Monocytes 6.5 % (0.0-10.0); Hemoglobin 12.5 g/dL (14.0-18.0); Mean Corpuscular HGB CONC 33.8 g/dL (32.0-36.0); Mean Corpuscular Hemoglobin 30.2 pg (27.0-31.0); Mean Corpuscular Volume 89.3 fL (78.0-98.0); Platelet Count 491 thou/uL (130-400); RBC Distribution Width 11.9 % (11.5-14.5); Red Blood Cell (RBC) Count 4.13 mill/uL (4.70-6.10)
[2017-11-27 07:27] LABS: Vancomycin, Trough 10.8 ug/mL
[2017-11-27 07:29] LABS: Anion Gap 10 mmol/L (10-20); BUN (Urea Nitrogen) 17 mg/dL (8.4-25.7); CK (CPK) 127 U/L (30-200); Calc. Creatinine Clearance 194 mL/min (70-130); Calcium 9.1 mg/dL (7.8-10.44); Carbon Dioxide 31 mmol/L (22-29); Chloride 101 mmol/L (98-107); Estimated GFR-MDRD 82; Glucose 105 mg/dL (70-105); Potassium 4.3 mmol/L (3.5-5.1); Sodium 138 mmol/L (136-145)
[2017-11-27 07:37] VITALS: TEMP 98.3
[2017-11-27] MEDS: Gabapentin 300 MG CAP PO SCH ×3 (07:50→17:23)
[2017-11-27] MEDS: Amlodipine 10 MG TAB PO SCH (07:50)
[2017-11-27] MEDS: tiZANidine HCl 4 MG TAB PO SCH ×3 (07:50→17:23)
[2017-11-27] MEDS: Heparin 5,000 UNITS/ML VIAL SC SCH ×2 (07:51→14:38)
[2017-11-27] MEDS: Loratadine 10 MG TAB PO SCH (07:51)
[2017-11-27] MEDS: Tamsulosin HCl 0.4 MG CAP PO SCH (07:51)
[2017-11-27 07:56] VITALS: BP 168/85
[2017-11-27] MEDS ORDERED: Vancomycin HCl 1 GM in Premix Bag 1 BAG IVPB SCH (08:00)
[2017-11-27] MEDS ORDERED: Ibuprofen 800 MG TAB PO PRN (13:41)
[2017-11-27] MEDS ORDERED: traMADol HCl 50 MG TAB PO PRN (13:41)
--- NOTE | 2017-11-29 14:16 | DIS-2 ---
DATE OF ADMISSION: 11/24/2017 DATE OF DISCHARGE: 11/27/2017 ADMITTING ATTENDING: Eleazar Manjarrez M.D. DISCHARGE ATTENDING: Josh Clarke M.D. RESIDENT: Donaldo Zamora D.O. CONSULTATIONS: Pulmonology, Dr. Luis Antonio Schreiber. PROCEDURES: 1. CT brain on 11/24/2017 with finding of no acute intracranial or extraaxial abnormalities. Minima l periventricular and subcortical hypodensity. 2. Chest x-ray on 11/24/2017, finding of cardiomegaly and pulmonary vascular congestion no significa nt change since previous exam. ADMITTING DIAGNOSES: Toxic encephalopathy and acute kidney injury. SECONDARY DIAGNOSES: Rhabdomyolysis, hypertension, hyponatremia, bilateral leg wounds, fungal dermat itis. DISCHARGE MEDICATIONS: Zyrtec 10 mg p.o. daily, Norvasc 10 mg p.o. daily, torsemide 20 mg p.o. daily , promethazine 25 mg p.o. q.6h. p.r.n. nausea, vomiting. Osteo Bi-Flex 1 tab p.o. daily, Benadryl 25 mg p.o. q.6h. p.r.n. seasonal allergies, simethicone 125 mg p.o. t.i.d. p.r.n. gas. Tramadol 50 mg p.o. q.6 hours p.r.n. for pain, ranitidine 150 mg p.o. daily, tizanidine 4 mg p.o. q. i.d., [place] 10 one p.o. q.6 p.r.n. pain, gabapentin 600 mg p.o. q.i.d., diclofenac 50 mg p.o. b.i.d., benazepril 40 mg p.o. daily, Flomax 0.4 mg p.o. daily and Nystatin powder 1 gram topical b.i.d. unti l resolution of infection. DISCONTINUED MEDICATIONS: None. HISTORY OF PRESENT ILLNESS AND HOSPITAL COURSE: This is a 57-year-old male who initially presented t o the emergency room with acute altered mental status. The patient had previously been admitted to a hospital in [place], [place] where he was diagnosed with necrotizing fasciitis in both legs, is statu s post debridement. During the hospitalization in [place] he had been started on IV vancomycin; how ever, the patient left the hospital AMA, prior to leaving the hospital, a PICC line was placed. The patient was set up with outpatient antibiotics and home health nursing. The patient returned to his home here in [place]. After being home for 2 days his family noticed that he has become obtunded and p resented to the emergency room. In the emergency room, the patient was noted to have a random vancom ycin level of 45. The patient was hypotensive and acute kidney injury was noted with an initial crea tinine of 8.4 and a GFR of 7. After being seen the vancomycin was discontinued. The patient receive d volume resuscitation over the course of the next few days in the ICU. The patient's renal function improved significantly back to what was baseline. Additionally, his vancomycin concentration was fo llowed daily and with a pharmacy order to restart dosing once his level became within therapeutic ran ge. On the second day of admission, the patient's sensorium had improved significantly. After the day of admission, the patient was moved out of the ICU and onto the medical floor. After review of previous hospital records the initial plan by the surgeon in [place] was 10 days of IV antibioti cs, this 10th day was completed, the day prior to discharge home. Therefore, upon discharge, the PIC C line was discontinued or the patient was not sent home with continued IV antibiotics. On the day p rior to admission, the patient pulled his own PICC line out and began to refuse labs as he stated catrachita t he was ready to go home. The patient was discharged home with plans for continued wound care in e outpatient setting. On the day before discharge the patient's vancomycin level was 17.2 and day of discharge it was 10.8 and his GFR on the date of discharge was 82 with a creatinine of 0.95. DISCHARGE INSTRUCTIONS: 1. Location: Home. 2. Diet: Heart healthy. 3. Activity: Ad javi. 4. Followup: Follow up with PCP within 1 week.
== END 2017-11-27 18:38 | disposition home or self-care (01) | DRG 682 ==
LOC: ERS 00:15 → CCU 04:51 → T4-B 11-25 12:28
PROVIDERS: ADMIT Family Medicine; ATTEND Family Medicine
DX: N17.9 Acute kidney failure, unspecified (principal); G93.41 Metabolic encephalopathy; M62.82 Rhabdomyolysis; E87.1 Hypo-osmolality and hyponatremia; E86.0 Dehydration; I10 Essential (primary) hypertension; Z86.14 Personal history of Methicillin resistant Staphylococcus aureus infection; F17.290 Nicotine dependence, other tobacco product, uncomplicated
CPT/HCPCS: 36415; 36556; 51702; 70450; 71045; 80048; 80053; 80202; 80306; 81003; 81015; 82140; 82550; 82553; 82805; 83605; 83690; 83735; 84100; 84443; 84484; 85025; 85610; 85730; 87040; 87324; 87449; 93005; 94660; 96361; 96365; 96367; A4216; G8978-GP-CN; G8979-GP-CM; G8987-GO-CL; G8988-GO-CJ; J0153; J1644; J1650; J2270; J2543; J3370; J7050

== ENCOUNTER 2017-12-08 13:28 | Outpatient (CLI) | payer OTHER ==
[2017-12-08] MEDS ORDERED: Sodium Chloride 0.9% 15 ML NEB ONE (15:00)
--- NOTE | 2017-12-08 18:42 | HP ---
DATE OF SERVICE: 12/08/2017 HISTORY OF PRESENT ILLNESS: Mr. Avi Herrera is a very pleasant 57-year-old gentleman who pre sents to the Wound Center for evaluation of a wound of the right lateral lower leg subsequent to intr aoperative debridement for necrotizing fasciitis in [place], [place]. The patient is accompanied by h is daughter today. He states that during his hospital stay at [facility], the wound improved markedly with dressing changes of Medihoney. Upon the patient's discharge from [facility], the patient was referred to the Wound Center for further evaluation and treatment of the right lateral lower leg wound. Mr. Herrera has no other complaints today. He denies any fever or chills. PAST MEDICAL HISTORY: 1. Hypertension. 2. History of rhabdomyolysis. PAST SURGICAL HISTORY: 1. Carpal tunnel. 2. Neck surgery. 3. Back surgery x2. 4. Intraoperative debridement for necrotizing fasciitis of right and left lower legs. 5. Surgery of left lower extremity x11 for broken callus. 6. Left shoulder surgery. MEDICATIONS: 1. Amlodipine. 2. Benazepril. 3. Torsemide. 4. Diclofenac. 5. Flomax. 6. Tizanidine. 7. Zantac. 8. Phenergan. 9. Ultram. 10. Gabapentin. ALLERGIES: PROPOXYPHENE. SOCIAL HISTORY: Negative for tobacco or ETOH use. FAMILY HISTORY: Significant for coronary artery disease. The patient's mother was diagnosed with co ronary artery disease. Family history is negative for diabetes mellitus. PHYSICAL EXAMINATION: VITAL SIGNS: Temperature 98.0, pulse 111, respirations 21, blood pressure 157/75. GENERAL: A 57-year-old gentleman lying on table in examination room in no acute distress. HEENT: Normocephalic, atraumatic. NECK: No nuchal rigidity. CHEST: Clear to auscultation. CARDIAC: Regular rate and rhythm. ABDOMEN: Soft. EXTREMITIES: A large wound of the right lateral lower leg is present which measures approximately 12 .5 x 7.8 cm. Granulation tissue is present within the wound margins. No purulent drainage is associ ated with the wound. No cellulitis of the right lower leg is appreciated. No maceration of the skin of the periwound is noted. A dorsalis pedis pulse or posterior tibial pulse is not palpable on the right; however, significant edema of the right foot and lower leg is present on exam today. ASSESSMENT AND PLAN: 1. Wound of right lateral lower leg as described above. Dressing changes of Medihoney, Mepilex bord er, Kerlix, and Eder bandages will be initiated today. These dressing changes are to be performed 3 t imes per week after cleansing and irrigation with the assistance of the patient's family members. Ar rangements will be made for the home delivery of dressing supplies. I will see Mr. Herrera again in tw o weeks. No antibiotics will be prescribed today based upon the appearance of the wound. The patien al and his daughter understand and are in agreement with the preceding treatment plan. 2. Hypertension. 3. History of rhabdomyolysis.
== END 2017-12-08 13:29 | disposition home or self-care (01) ==
LOC: WCC 13:28
PROVIDERS: ATTEND Family Medicine
DX: T81.89XD Other complications of procedures, not elsewhere classified, subsequent encounter (principal); I10 Essential (primary) hypertension
CPT/HCPCS: 29581; 99204; A4218; G0463

== ENCOUNTER 2017-12-27 13:26 | Outpatient (CLI) | payer OTHER ==
--- NOTE | 2017-12-27 16:52 | PRG ---
DATE OF SERVICE: 12/27/2017 HISTORY: Mr. Avi Herrera is a very pleasant 57-year-old gentleman who presents to the Wound Center for evaluation of a wound of the right lateral lower leg subsequent to intraoperative debridem ent for necrotizing fasciitis in [place], [place]. The patient is accompanied by his son today. The patient previously stated that during his hospital stay at [facility]. The wo und markedly improved with dressing changes of Medihoney. Upon the patient's discharge from [facility], the patient was referred to the Wound Center for further evaluation and tr eatment of the right lateral lower leg wound. Today, the patient states that he has been experiencin g copious serous drainage from the wound of his right lateral lower leg. The patient has been receiv ing assistance with dressing changes of Medihoney from his son and daughter. The patient has no othe r complaints today. He denies any fever or chills. PHYSICAL EXAMINATION: VITAL SIGNS: Temperature 98.2, pulse 104, respirations 21, blood pressure 174/78. EXTREMITIES: A large wound of the right lateral lower leg is present which measures approximately 19 .5 x 20.0 cm. Granulation tissue is present within the wound margins. A sample of the serous draina ge associated with the wound was sent for aerobic and anaerobic cultures. No purulent drainage is as sociated with the wound. No cellulitis of the right lower leg is appreciated. No maceration of the skin of the periwound is noted. Significant edema of the right foot and lower leg is present on exam today. ASSESSMENT AND PLAN: 1. Wound of right lateral lower leg as described above. Dressing changes of Medihoney will be disco ntinued. Dressing changes of Xeroform gauze, ABDs, Kerlix, and Eder bandages will be initiated today. These dressing changes are to be performed 3 times per week and as needed after cleansing and irrig ation with the assistance of the patient's son and daughter. Arrangements will again be made for the home delivery of dressing supplies. I will see Mr. Herrera again in 3 weeks. The patient has been gi josesito a prescription for Bactrim DS #20 one p.o. b.i.d. x10 days. Antibiotic therapy will be modified based upon the results of the cultures obtained today. The patient and his son understand and are in agreement with the preceding treatment plan. 2. Hypertension. 3. History of rhabdomyolysis.
== END 2017-12-27 13:27 | disposition home or self-care (01) ==
LOC: WCC 13:26
PROVIDERS: ATTEND Family Medicine
DX: M72.6 Necrotizing fasciitis (principal); I10 Essential (primary) hypertension; Z98.890 Other specified postprocedural states; Z87.39 Personal history of other diseases of the musculoskeletal system and connective tissue
CPT/HCPCS: 87070; 87077; 87186; 87205; 97602

== ENCOUNTER 2018-02-03 10:26 | Outpatient (CLI) | payer OTHER ==
--- NOTE | 2018-02-03 11:55 | PRG ---
DATE OF SERVICE: 02/03/2018 SUBJECTIVE: Mr. Avi Herrera is a very pleasant 58-year-old gentleman, who presents to the Wound Center for evaluation of a wound of the right lateral lower leg subsequent to intraoperative debridement for necrotizing fascitis in [place], [place]. The patient is accompanied by his son today. The patient previously stated that during his hospital stay at [facility], the wound markedly improved with dressing changes of Medihoney. Upon the patient's discharge from [facility], the patient was referred to the Wound Center for further evaluation and treatment of the right lateral lower leg wound. Because of copious serous drainage from the wound of his right lateral lower leg, the dressing changes of Medihoney that the patient had been receiving after his discharge from [facility] were discontinued. The patient was placed on dressing changes of Xeroform gauze, ABDs, Kerlix, and Eder bandages. The patient has been receiving these dressing changes on a daily basis after cleansing and irrigation with the assistance of the patient's son and daughter. The patient was also placed on p.o. antibiotics, which he completed taking as prescribed. The patient states that he noted a marked improvement in the appearance of his wound upon completion of the antibiotics. PHYSICAL EXAMINATION: VITAL SIGNS: Pulse 107, respirations 19, blood pressure 171/74. EXTREMITIES: A large wound of the right lateral lower leg is present, which measures approximately 9.0 x 5.5 cm. No purulent drainage is associated with the wound. No cellulitis of the right lower leg is appreciated. No maceration of the skin of the periwound is noted. A posterior tibial pulse is palpable on the right and on the left. Edema of the right foot and lower leg is present on exam today. ASSESSMENT AND PLAN: 1. Wound of right lateral lower leg as described above. Dressing changes of Xeroform gauze, ABDs, Kerlix, and Eder bandages will be continued on a daily basis after cleansing and irrigation with the assistance of the patient's son and daughter. Arrangements were previously made for the home delivery of dressing supplies. I will see Mr. Herrera again in four weeks. The patient has been given a prescription for compression garments, knee-high, open or closed toe to yield a compression of 20 to 30 mmHg. Compression garments will first try to be obtained via home delivery per the patient's request. 2. Hypertension. 3. History of rhabdomyolysis. Job ID: [id number]
== END 2018-02-03 10:27 | disposition home or self-care (01) ==
LOC: WCC 10:26
PROVIDERS: ATTEND Family Medicine
DX: T81.89XD Other complications of procedures, not elsewhere classified, subsequent encounter (principal); I10 Essential (primary) hypertension; Z87.39 Personal history of other diseases of the musculoskeletal system and connective tissue

== ENCOUNTER 2018-02-16 11:29 | Outpatient (CLI) | payer OTHER ==
--- NOTE | 2018-02-16 14:01 | PRG ---
DATE OF SERVICE: 02/16/2018 SUBJECTIVE: Mr. Avi Herrera is a very pleasant 58-year-old gentleman, who presents to the wound center for evaluation of a wound of the right lateral lower leg subsequent to intraoperative debridement for necrotizing fasciitis in [place], [place]. The patient is again accompanied by his son today. The patient previously stated that during his hospital stay at [facility], the wound markedly improved with dressing changes of Medihoney. Upon the patient's discharge from [facility], the patient was referred to the wound center for further evaluation and treatment of the right lateral lower leg wound. Because of copious serous drainage from the wound of his right lateral lower leg, the dressing changes of Medihoney that the patient had been receiving after his discharge from [facility] were discontinued. The patient was placed on dressing changes of Xeroform gauze, ABDs, Kerlix, and Eder bandages. The patient has been receiving these dressing changes on a daily basis after cleansing and irrigation with the assistance of his son and daughter. The patient was also placed on a course of p.o. antibiotics, which he completed taking as prescribed. The patient stated that he noted marked improvement in the appearance of his wound upon completion of the antibiotics. Today, the patient reports copious serous drainage associated with his wound. OBJECTIVE: VITAL SIGNS: Temperature 97.7, pulse 100, respirations 22, and blood pressure 157/90. EXTREMITIES: A large wound of the right lateral lower leg is still present. No purulent drainage is associated with the wound. Copious serous drainage is noted on exam today from the wound and from the skin of the right lower leg. Cellulitis of the right lower leg is also present. Maceration of the skin of the right lower leg is present. Significant edema of the right foot and lower leg is also noted on today's exam. ASSESSMENT AND PLAN: 1. Right lower leg cellulitis. As stated above, a large wound of the right lateral lower leg is also still present. Dressing changes of Xeroform gauze, ABDs, Kerlix, and Eder bandages will be continued on a daily basis after cleansing and irrigation with the assistance of the patient's son and daughter. Arrangements were previously made for the home delivery of dressing supplies. I will see Mr. Herrera again in 4 weeks. The patient has been given a prescription for Levaquin 500 mg #10 one p.o. daily x10 days. The patient has also been given a prescription for Tylenol No. 3 #30 one to two p.o. q.4 to 6 hours p.r.n. pain. 2. Hypertension. 3. History of rhabdomyolysis. Job ID: [id number]
[2018-02-16] MEDS ORDERED: Sodium Chloride 0.9% 15 ML NEB ONE (15:00)
== END 2018-02-16 11:30 | disposition home or self-care (01) ==
LOC: WCC 11:29
PROVIDERS: ATTEND Family Medicine
DX: L03.115 Cellulitis of right lower limb (principal); I10 Essential (primary) hypertension
CPT/HCPCS: 97602; A4218

== ENCOUNTER 2018-02-20 10:29 | Inpatient (IN) | payer OTHER ==
[2018-02-20 11:09] LABS: #Eosinphils 0.2 thou/uL (0.0-0.7); #Lymphocytes 0.9 thou/uL (1.20-3.40); #Monocytes 0.5 thou/uL (0.11-0.59); #Neutrophils 10.4 thou/uL (1.40-6.50); %Basophils 0.2 % (0.0-1.0); %Eosinophils 1.9 % (0.0-10.0); %Lymphocytes 7.7 % (21.0-51.0); %Monocytes 3.9 % (0.0-10.0); %Neutrophils 86.3 % (42.0-75.0); Mean Corpuscular HGB CONC 32.7 g/dL (32.0-36.0); Mean Corpuscular Hemoglobin 28.7 pg (27.0-31.0); Mean Corpuscular Volume 87.9 fL (78.0-98.0); Mean Platelet Volume 6.2 fL (7.4-10.4); Platelet Count 526 thou/uL (130-400); RBC Distribution Width 12.5 % (11.5-14.5); Red Blood Cell (RBC) Count 4.17 mill/uL (4.70-6.10)
[2018-02-20] MEDS ORDERED: Heparin 1,000 UNITS/ML VIAL ONE (11:11)
[2018-02-20 11:35] LABS: ALT (SGPT) 12 U/L (8-55); AST (SGOT) 21 U/L (5-34); Albumin 3.3 g/dL (3.5-5.0); Alkaline Phosphatase 93 U/L (40-150); Anion Gap 17 mmol/L (10-20); BUN (Urea Nitrogen) 66 mg/dL (8.4-25.7); Bilirubin, Total 0.3 mg/dL (0.2-1.2); Calc. Creatinine Clearance 0 mL/min (70-130); Carbon Dioxide 21 mmol/L (22-29); Chloride 99 mmol/L (98-107); Estimated GFR-MDRD 9; Globulin 3.3 g/dL (2.4-3.5); Glucose 136 mg/dL (70-105); Potassium 5.3 mmol/L (3.5-5.1); Protein, Total 6.6 g/dL (6.0-8.3); Sodium 132 mmol/L (136-145)
[2018-02-20 11:42] LABS: Bilirubin Small (Negative); Blood, Urine Small (Negative); Clarity CLOUDY (Clear); Glucose, Urine (Dipstick) Negative (Negative); Leukocyte Negative (Negative); Nitrite Negative (Negative); Protein, Urine (Dipstick) 30 mg/dL (Neg-Trace); Urobilinogen 0.2 mg/dL (0.2-1.0)
[2018-02-20 11:51] LABS: Bacteria/HPF None Seen HPF (None Seen); RBC/HPF 0-3 HPF (0-3); WBC/HPF 0-3 HPF (0-3)
[2018-02-20 11:54] LABS: Pathc Cast-AUWi Flag 8.86 (0-2.49)
--- NOTE | 2018-02-20 11:58 | RAD ---
PORTABLE CHEST 1 VIEW: Date: 02/20/18 Time: 1115 hours HISTORY: Altered mental status. FINDINGS/IMPRESSION: Comparison made with exam of 11/24/17. The heart is enlarged. The lungs are well expanded without lobar consolidation, pneumothoraces, marilu pulmonary edema, or large effusions. POS: [facility]
[2018-02-20 11:59] LABS: CKMB 18.5 ng/mL (0-6.6)
[2018-02-20 12:00] LABS: Hyaline Casts/LPF 0-3 HYALINE CAST LPF (0-3 Hyaline); Yeast-All Forms 1+ HPF (None Seen)
[2018-02-20] MEDS ORDERED: Naloxone HCl 0.4 mg/ml Vial ONE (12:01)
--- NOTE | 2018-02-20 12:14 | CT ---
HEAD CT WITHOUT CONTRAST: Date: 02/20/18 COMPARISON: None. HISTORY: Altered mental status. TECHNIQUE: Axial CT imaging is obtained at 5 mm intervals from vertex through skull base without contrast. FINDINGS: The imaged paranasal sinuses and mastoid air cells appear well aerated. There is no displaced calvari al fracture. No intracranial hemorrhage, midline shift, mass effect, or ventricular enlargement. IMPRESSION: No acute findings. POS: [facility]
[2018-02-20] MEDS ORDERED: Norepinephrine 8 MG/0.9% NS 250 ML ONE (15:00)
[2018-02-20 15:35] LABS: Troponin I 0.038 ng/mL (< 0.028)
[2018-02-20] MEDS ORDERED: Norepinephrine 8 MG/0.9% NS 250 ML IVPB SCH (15:45)
[2018-02-20 16:20] VITALS: BMI 59.9
[2018-02-20 16:24] LABS: Base Excess (BEa) -7.7 mEq/L (-2.0 to +3.0); CO2 Tension 56.7 mmHg (35.0-45.0); Carboxyhemoglobin (COHb) 1.5 gm% (0.0-3.0); Hemoglobin (Hb) 12.9 g/dL (14.0-18.0); O2 Tension (PaO2) 63.1 mmHg (80.0-100.0); Potassium - ABG Lab 5.07 mmol/L (3.70-5.30)
--- NOTE | 2018-02-20 16:26 | CON ---
DATE OF CONSULTATION: NEPHROLOGY CONSULT REASON FOR CONSULTATION: Hyperkalemia. HISTORY OF PRESENT ILLNESS: This is a very pleasant 58-year-old gentleman, who presented to the ER with altered mental status. The patient can give no further history. The patient was hyperkalemic with a BUN of 66 and was not waking up. The patient had a creatinine of 0.95 three months ago, which has increased to 6.5. The patient has had previous episodes of acute renal failure. PAST MEDICAL HISTORY: Morbid obesity; history of multiple antibiotic therapy, on Bactrim, on NSAIDs; history of osteoarthritis; history of altered mentation; history of mental retardation; history of necrotizing fasciitis; hypertension; spinal fusion. SOCIAL HISTORY: No alcohol abuse. FAMILY HISTORY: Negative for ESRD. MEDICATIONS: Home medication, list reviewed. Hospital medication, list reviewed. REVIEW OF SYSTEMS: Unobtainable. PHYSICAL EXAMINATION: CONSTITUTIONAL: On examination, the patient is resting. VITAL SIGNS: Afebrile, pulse 70, breathing is 16, and blood pressure was 70/40. GENERAL APPEARANCE AND MENTAL STATUS: Fair. HEAD/NECK: Normocephalic. Atraumatic. EYES: EOMI. No deformity. EARS: Clear. No ulcers. NOSE: Intact. No lesions. MOUTH: Clear. No discharge. THROAT: Clear. No exudate. LUNGS: Clear. No crackles. CARDIAC: S1, S2. No rub. ABDOMEN: Benign. Bowel sounds positive. GENITALIA/RECTUM: Sanders absent. BACK/EXTREMITIES: Edema 0+. NEUROLOGICAL: Alert and motor intact. SKIN: Shows multiple wounds and lesions. LABORATORY DATA: Labs show potassium 5.3, creatinine 6.52. ASSESSMENT AND RECOMMENDATIONS: 1. Acute kidney injury with chronic kidney disease and hyperkalemia and altered mentation. The patient is anuric. We will plan dialysis. 2. Hyperkalemia, plan dialysis. 3. Anemia, stable. 4. Sepsis management per primary team. Overall prognosis is very poor. 5. Medications based on glomerular filtration rate, avoid diclofenac, avoid Bactrim, and avoid high-dose Neurontin. 6. Acid-base disorder. I wound recommend getting a blood gas. Job ID: [id number]
[2018-02-20 16:30] LABS: ALV-art Gradient 15.755 (0-20); Puncture Site LRA; pH, Arterial 7.19 (7.35-7.45)
[2018-02-20 16:42] LABS: HBSAB Concentration 1.13 mIU/mL; HBSAg Index 0.19 S/CO (0-0.99); Hep B Core Total Ab Non-Reactive (NonReactive); Hep B Core Total Index 0.06 S/CO (0-0.79); Hep B Surf AB Non-Reactive (NonReactive); Hep B Surf Ag Non-Reactive S/CO (NonReactive); Hep C IgG Ab Non-Reactive (NonReactive); Hep C Index 0.07 S/CO (0-0.79)
[2018-02-20] MEDS ORDERED: DAPTOmycin 500 MG in Sodium Chloride 0.9% 100 ML IVPB SCH (18:00)
[2018-02-20] MEDS: Heparin 5,000 UNITS/ML VIAL SC SCH (20:46)
[2018-02-20 21:56] LABS: Troponin I 0.031 ng/mL (< 0.028)
--- NOTE | 2018-02-20 22:05 | HP ---
CHIEF COMPLAINT: Acute onset of confusion. HISTORY OF PRESENTING ILLNESS: This is a 58-year-old gentleman with chronic right leg cellulitis who presented to the ER with 1 to 2 days of increasing confusion and unresponsiveness, weeping RLE cellulitis, hypotension and YUNIOR. The patient was found by his daughter, getting out of bed with garbled speech and not understanding of where he was and what he was doing. The patient was brought to the ER, where the patient became unresponsive and was not responding even to sternal rub. Eventually, the patient responded to Narcan and was more alert. On arrival to the ER, the patient was hypotensive and had to be treated with Levophed GTT. Patient also was uremic with elevated BUN and creatinine of 6+ thought to be side effect of Bactrim he is on presently for his RLE Cellulitis. History is complicated by right LE necrotizing fasciates, rhabdo and repeated B/ L LE cellulitis. Traetment with vanc previously led to severe ATN with subsequent complete recovery of renal function. Patient again now presenting with uremia and acute renal failure with bactrim? The patient also has a history of hypertension. No diabetes. The patient is also morbidly obese and has complaints of confusion and forgetfulness. Family is mentioning that the patient might have overdosed on his narcotics, tizanidine that was prescribed for his pain and muscle cramps. The patient is forgetful and sometimes does not know that he has already taken medication and goes back and takes the same medication all over again. He does live with his and two adult children, but it does not look like anybody is helping him with managing of this medication. PAST MEDICAL HISTORY: Lower extremity cellulitis, necrotizing fasciitis, repeated infection with MRSA. Acute renal failure, initially with vancomycin, now with Bactrim. PAST SURGICAL HISTORY: Right lower extremity Staph infection, requiring extensive I and D; bilateral ankle surgeries, back surgeries x3, neck surgery, right shoulder surgery. REVIEW OF SYSTEMS: CONSTITUTIONAL: The patient does not appear to be in any acute distress. HEENT: No complaints of headache. No complaints of eye pain or discharge from the eyes. No complaints of pain or discharge from the ears. No complaints of sore throat. RESPIRATORY/CHEST: No complaints of chest pain or shortness of breath. CARDIOVASCULAR: No complaints of any palpitations or chest pain. GI: No complaints of nausea, vomiting, constipation, or diarrhea. MUSCULOSKELETAL: Right lower extremity cellulitis that has been ongoing for a long time and weeping in nature. NEUROLOGIC: Complaints of forgetfulness, confusion. PHYSICAL EXAMINATION: VITAL SIGNS: On arrival, the patient's blood pressure was 74/43, pulse 73, respiratory rate 15, and temperature is 97.9. CONSTITUTIONAL: The patient appears in not really any distress. HEENT: Normocephalic and atraumatic head. Normal eyelids and conjunctivae. Reactive and round pupils reactive to light equally. External ears and tympanic membranes are Within normal limits. No redness or discharge seen. Trachea is midline. No nodes felt with full range of motion of the neck. RESPIRATORY/CHEST: No respiratory distress noted. Good air entry into both lung weaver. No wheezes, no rales. CARDIOVASCULAR: Regular rate and rhythm, no murmurs, no gallops, no rubs. MUSCULOSKELETAL: 2+ pitting edema in both lower extremities, right lower extremity is swollen, red with weeping discharge all over. NEUROLOGIC: The patient appears to be confused, alert, and oriented x1. No focal deficits noted. The patient is moving all the four extremities equally. LABORATORY DATA: White count is 12, hemoglobin 12 with hematocrit of 36.7, and platelet count of 726. Sodium is 132, high potassium at 5.3 with BUN 66 and creatinine of 6.52. The patient's creatinine in 10/2017 was within normal limits. Mildly elevated troponin, initial troponin is 0.038. Next one was 0.040. Creatine kinase is elevated at 917. Brain CT was obtained, showed no acute findings. ASSESSMENT AND PLAN: 1. Toxic encephalopathy: Multifactorial cause, possible overdosing on the medications, in the setting of severe acute renal failure and uremia. 2. Severe acute renal failure: Renal was consulted and the patient has been started on dialysis, home Bactrim was discontinued. The patient had similar acute renal failure with vancomycin in the past. We will avoid both Bactrim and vancomycin in the future. 3. Hypotension: Requiring Levophed here in the hospital. We titrated it accordingly and keep blood pressure around systolic of 100 at least and try to wean as the patient can sustain it. 4. Right lower extremity cellulitis. We will dose the patient with daptomycin x1 and we will renally dosed the patient once in 48 hours. Also have consulted ID. We will wait for the ID recommendation for antibiotics in the future. Job ID: [id number] [facility]TD[facility]
[2018-02-20] MEDS: HYDROcodone/Acetaminophen 5/325 mg Tablet PO PRN (22:56)
[2018-02-21] MEDS: Sodium Chloride 0.9% 1,000 ML IV SCH ×3 (00:20→21:34)
[2018-02-21 05:10] LABS: ALT (SGPT) 15 U/L (8-55); AST (SGOT) 25 U/L (5-34); Albumin 3.6 g/dL (3.5-5.0); Alkaline Phosphatase 108 U/L (40-150); Anion Gap 20 mmol/L (10-20); BUN (Urea Nitrogen) 52 mg/dL (8.4-25.7); Bilirubin, Total 0.3 mg/dL (0.2-1.2); CK (CPK) 827 U/L (30-200); Calc. Creatinine Clearance 31 mL/min (70-130); Calcium 8.2 mg/dL (7.8-10.44); Carbon Dioxide 17 mmol/L (22-29); Chloride 102 mmol/L (98-107); Estimated GFR-MDRD 10; Globulin 3.8 g/dL (2.4-3.5); Glucose 87 mg/dL (70-105); Potassium 5.8 mmol/L (3.5-5.1); Protein, Total 7.4 g/dL (6.0-8.3); Sodium 133 mmol/L (136-145)
[2018-02-21 05:16] LABS: Band 2 % (5-11); Hemoglobin 12.7 g/dL (14.0-18.0); Lymphocytes 7 % (21-51); MDiff Complete? YES; Mean Corpuscular HGB CONC 34.3 g/dL (32.0-36.0); Mean Corpuscular Hemoglobin 29.5 pg (27.0-31.0); Mean Corpuscular Volume 86.1 fL (78.0-98.0); Mean Platelet Volume 6.3 fL (7.4-10.4); Monocytes 8 % (0-10); Neutrophil 83 % (42-75); Platelet Count 423 thou/uL (130-400); RBC Distribution Width 12.7 % (11.5-14.5); Red Blood Cell (RBC) Count 4.29 mill/uL (4.70-6.10); White Blood Cell (WBC) Count 15.5 thou/uL (4.8-10.8)
[2018-02-21] MEDS: Heparin 5,000 UNITS/ML VIAL SC SCH ×3 (09:07→21:04)
[2018-02-21] MEDS: HYDROcodone/Acetaminophen 5/325 mg Tablet PO PRN ×2 (09:10→17:18)
--- NOTE | 2018-02-21 12:16 | PRG ---
DATE OF SERVICE: 02/21/2018 SUBJECTIVE: A 58-year-old gentleman, being seen for acute kidney injury. The patient denies any nausea, vomiting, or chest pain. OBJECTIVE: CONSTITUTIONAL: On examination, the patient is awake and alert, in no acute distress. VITAL SIGNS: Afebrile, pulse 96, breathing 16, and blood pressure 135/94. GENERAL APPEARANCE AND MENTAL STATUS: Fair. HEAD/NECK: Normocephalic, atraumatic. EYES: EOMI. No deformity. EARS: Clear. No ulcers. NOSE: Intact. No lesions. MOUTH: Clear. No discharge. THROAT: Clear. No exudate. LUNGS: Clear. No crackles. CARDIAC: S1, S2. No rub. ABDOMEN: Benign. Bowel sounds positive. GENITALIA/RECTUM: Sanders absent. BACK/EXTREMITIES: Edema 0+. NEUROLOGICAL: Alert and motor intact. LABORATORY DATA: Labs show hemoglobin 12.7, potassium 5.8. ASSESSMENT AND PLAN: 1. Acute kidney injury with chronic kidney disease. We will plan dialysis. 2. Hyperkalemia. We will plan dialysis. 3. Anemia, stable. Job ID: [id number]
--- NOTE | 2018-02-21 12:34 | PDOC.PN ---
- Subjective Encounter Start Date: 02/21/18 Encounter Start Time: 12:33 Subjective: feels better, has no recollection of yesterday - Objective Resuscitation Status - Order Detail: 02/20/18 15:25 Resuscitation Status Routine Resuscitation Status: FULL: Full Resuscitation MAR Reviewed: Yes Vital Signs & Weight: Vital Signs (12 hours) Temp Pulse Ox 02/21/18 08:00 98.8 F 97 02/21/18 04:00 99.8 F H Weight Weight 360 lb 0.238 oz Most Recent Monitor Data Heart Rate from ECG 96 NIBP 135/94 NIBP BP-Mean 107 Respiration from ECG 29 SpO2 95 I&O: 02/20/18 02/21/18 02/22/18 06:59 06:59 06:59 Intake Total 1191.8 Output Total 252 90 Balance 939.8 -90 Result Diagrams: 02/21/18 04:18 02/21/18 04:18 Phys Exam - Physical Examination morbid obesity HEENT: PERRLA, moist MMs, sclera anicteric, TM's clear, oral pharynx no lesions , 2+ tonsils Neck: no nodes, no JVD, supple Respiratory: no wheezing, no rales Cardiovascular: RRR, no significant murmur Gastrointestinal: soft, non-tender, no distention Musculoskeletal: edema present Deviation from normal: right lower extremity cellulitis, weeping edema, redness Dx/Plan (1) Encephalopathy Code(s): G93.40 - ENCEPHALOPATHY, UNSPECIFIED Status: Acute Comment: Possible accidentla overdosing of narcotics, muscle relaxants and etc. Looks like patient has baseline dementia, family mentions that he is often forgetful and takes meds again and again. Cause is also multifactorial with YUNIOR, significant uremia and cellulites. We will hold all narcotics and muscle relxants for now and observe. CTH with no acute changes (2) Hypotension Status: Acute Qualifiers: Hypotension type: hypotension due to drug Qualified Code(s): I95.2 - Hypotension due to drugs Comment: possibly due to accidental overdosing of narcotics, initiually was treated with Levophed. Will hold home BP meds and reinstitute as needed. (3) Cellulitis Code(s): L03.90 - CELLULITIS, UNSPECIFIED Status: Acute Qualifiers: Site of cellulitis of extremity: lower extremity Laterality: right Comment: Daptomycin X 2 q 48 hours, will switch to Clindamycin after that. Follow up on CK levels. History of Rhabdo and now with increased CK on admission that is trending down now. ID consulted (4) YUNIOR (acute kidney injury) Code(s): N17.9 - ACUTE KIDNEY FAILURE, UNSPECIFIED Status: Acute Comment: Patient had significant YUNIOR previously with Vanc, function had completely recovered as of Oct 2017. Patient again with severe renal failure, possibly with Bactrim. Will avoid both medicines in the future. Patient started on dialysis, persisting uremia and hyperkalemia. Renal on board (5) Rhabdomyolysis Code(s): M62.82 - RHABDOMYOLYSIS Status: Acute Qualifiers: Rhabdomyolysis type: non-traumatic Qualified Code(s): M62.82 - Rhabdomyolysis Comment: history of Rhabdo, trend CK especially with Daptomycin - Plan cont current plan of care, continue antibiotics, DVT proph w/lovenox * .
--- NOTE | 2018-02-21 12:53 | CON ---
DATE OF CONSULTATION: 02/21/2018 SERVICE: Pulmonary Medicine. REASON FOR CONSULT: ICU patient. HISTORY OF PRESENT ILLNESS: The patient is a 58-year-old white male with past medical history significant for chronic pain and discomfort. He ended up presenting to the emergency department with altered mentation. This was an acute onset. Apparently, he has been given some pain medication, and muscle relaxants previously. In the emergency department, he was incoherent, had an acute kidney injury, and he was not making any sense. His blood pressure was extremely low. As such, he was tucked in the ICU. He was initiated on dialysis. He is making nonsensical speech. It is essentially just garbled/word salad. He cannot provide any additional elements of the history at this point. PAST MEDICAL HISTORY: 1. Morbid obesity. 2. History of necrotizing fasciitis. PAST SURGERY HISTORY: 1. Dialysis catheter placement. 2. Right lower extremity debridement for necrotizing fasciitis. 3. Ankle surgery, bilateral. 4. Back surgery x3. 5. Neck surgery. 6. Shoulder surgery. FAMILY HISTORY: Noncontributory. SOCIAL HISTORY: Negative for significant alcohol, tobacco, or illicit drug use currently. Otherwise, this cannot be obtained. ALLERGIES: NO KNOWN DRUG ALLERGIES. MEDICATIONS: List of the patient's inpatient medications was reviewed. Couple of small updates were made. REVIEW OF SYSTEMS: This cannot be obtained as the patient is not able to provide any significant history here. PHYSICAL EXAMINATION: HEENT: Normocephalic and atraumatic. Sclerae white. Conjunctivae pink. Oral mucosa is moist without lesions. VITAL SIGNS: His T-max overnight was 99.8. Pulse 97, blood pressure 130/69, respirations 24, and saturation 97% on 3 L nasal cannula. GENERAL: The patient is awake and alert, in no apparent distress. LUNGS: Decent air entry. Dependent crackles are noted. No prolonged expiratory phase or wheezing is appreciated. HEART: Normal rate, regular. ABDOMEN: Soft, nontender, and nondistended. Bowel sounds are positive. MUSCULOSKELETAL: No cyanosis or clubbing. There is diffuse pitting throughout bilateral upper and lower extremities. : No Sanders. NEUROLOGIC: Grossly nonfocal. This is with the exception that he is not able to generate coherent speech. That being said, he is moving all 4 extremities and following some simple commands. LABORATORY DATA: WBC 15.5, hemoglobin 12.7, and platelets 423,000. Band count is 2% on top of 83% neutrophils. A pH of 7.19, pCO2 of 56, and pO2 of 63. Creatinine 6.0 and downtrending, BUN 52. Basic metabolic profile is otherwise unremarkable except for potassium that is up trending to 5.8. Liver function studies are essentially unremarkable. CK is downtrending, troponin is 0.031. This is also downtrending. Urinalysis is unremarkable. Influenza A and B are unremarkable. Urine culture is also unremarkable. IMAGING: CT of the brain demonstrates no acute intracranial abnormality. Chest x-ray demonstrates no acute cardiopulmonary abnormality. ASSESSMENT: 1. Metabolic encephalopathy. 2. Acute kidney injury. DISCUSSION AND PLAN: From my perspective, the patient is stable for transition out of the ICU to the medical unit. Pulmonary/Critical Care will continue to follow along for the time being. If the encephalopathy does not continue to clear within 24 to 48 hours, and he persistently has problems with speech, an MRI of the brain will need to be considered. Antibiotics per Primary Service and Infectious Disease. 70 minutes have been devoted to this patient in various activities. I personally reviewed all imaging studies and laboratory data noted within this document. For fifty percent of this time, I was interacting with the patient at the bedside or coordinating care with the care team. For the remainder of the time I was immediately available to the patient in the hospital unit. Job ID: [id number] [facility]
--- NOTE | 2018-02-21 17:48 | CON ---
DATE OF CONSULTATION: 02/21/2018 REASON FOR CONSULTATION: Sepsis, cellulitis. HISTORY OF PRESENT ILLNESS: A 58-year-old patient, who has a history of hypertension and previous soft tissue infection of the right leg, which was labeled as necrotizing fasciitis elsewhere a few years ago and treated I believe in [place], [place]. Reportedly had MRSA retrieved from the site. In October 2017, the patient had been discharged from the hospital in [place], [place] with a PICC line for treatment of the necrotizing fasciitis and they had been administering vancomycin at home. He then developed slurred speech, and they noticed that he had been falling frequently with delusional thinking process. The laboratory data indicated one set of blood cultures with coagulase negative Staph likely contaminant and his white cell count was 18,000, hemoglobin 12.3, platelets of 484. His pH then was 7.23 , his pCO2 was 61, and the sodium was 131 and potassium 4.6, and creatinine was 6.07. CK was 2200. CT scan of brain then showed no acute intracranial abnormalities. A chest x-ray with cardiomegaly and pulmonary vascular congestion. According to the history from the recent admission at [facility], the patient had left the hospital in the [place] against medical advice after a PICC line had been placed. It is not clear this part of the history. The patient was admitted to the ICU and given volume resuscitation with steady improvement and renal function back to baseline. He was discharged on Zyrtec, torsemide, promethazine, Osteo Bi-Flex, Benadryl, simethicone, tramadol, ranitidine, tizanidine, [place], gabapentin, diclofenac, benazepril, Flomax. The patient was followed at [facility] since and she initially saw him in November 2017 and discontinued Medihoney dressing changes because of increase in drainage. There is no evidence of cellulitis in the right lower leg appreciated. Dressings were performed with ABDs, Kerlix, and Eder bandages, and he was given a prescription for Bactrim twice daily for 10 days. Next visit was in February 03, and the wound measured 9 x 5.5 cm without purulent drainage and no cellulitis appreciated. Finally, on February 16, he was seen again at the wound care center and the wound still present and he was given a prescription for levofloxacin and Tylenol No.3. Two days later, the found the patient confused and less responsive with garbled speech and was immediately brought to the emergency room, he became unresponsive and was given Narcan and became more alert. He was started on Levophed because of hypotension, after IV fluids. Initial BP was 74/ 43, pulse 73, respirations 15, and temperature 97.9. He does not appear to be in distress. The lung examination was normal. Heart examination was normal. Abdomen was nontender. There was pitting edema in lower extremities with an erythematous right leg. Initial white cell count was 12,000 with hemoglobin 12, platelets 526 with 86% neutrophils. Sodium was 132, creatinine 6.52, carbon dioxide 21. Liver profile normal. Troponin was 0.049. BNP 151. Albumin 3.3. Urinalysis with 0 to 3 wbc's and 30 protein. Hepatitis serology was nonreactive. Cultures obtained from Dr. Canela's office in November, which prompted her to start the antimicrobials described above included MRSA and Pseudomonas aeruginosa, but those were surface wound cultures, which could perfectly represent colonization of the surface of the skin rather than pathogenic role. The patient has had a Trialysis catheter inserted in the right groin and has been dialyzed at this point finishing his dialysis. He is awake, but has altered mental status. He is a bit drowsy. He is able to reply to questions, but pretty much just repeats what I say to him. Therefore, the reliability of his personal account is questionable. He denied any headaches. No sore throat. Denied shortness of breath or abdominal pain. He has a Sanders catheter in place and right Trialysis catheter. PAST MEDICAL HISTORY: Obesity. He must have some element of hypoventilation syndrome in view of the findings above with CO2 retention, but this is not listed in his past history. Recurrent episodes of acute renal failure associated with those admissions where he is brought in with altered mental status. The last one was associated with rhabdomyolysis and recurring problems with lower extremity inflammatory process, most likely associated with venous insufficiency and cellulitis. There is reported diagnosis of necrotizing fasciitis secondary to MRSA made elsewhere. We do not have the records to evaluate that diagnosis. PAST SURGICAL HISTORY: As above. He also had laminectomy and some form of neck surgery, right shoulder repair. SOCIAL HISTORY: No smoking history. No history of alcoholic beverage use. Lives with family. ALLERGIES: TYLENOL AND CODEINE WITH UNKNOWN ADVERSE REACTION. CURRENT MEDICATIONS: 1. Tylenol. 2. [place]. 3. Cubicin. 4. Heparin. 5. Levophed. 6. Zofran. PHYSICAL EXAMINATION: VITAL SIGNS: T-max 99.8, blood pressure 130/94. I believe he is off pressors right now, respiratory rate 29, O2 saturation 95% with 2 L. SKIN: Shows the linear wound in the lateral aspect of the right leg and sort of area of hyperemia in the right leg, which appears more consistent with stasis dermatitis or what appears to be a residual hyperemia from the recent cellulitic episodes. He has evidence of stasis dermatitis in the right lower extremity. Trialysis catheter in the right groin. HEENT: His ocular movements are conjugate. Nasal passage is patent. Oral cavity normal. NECK: Supple. No jugular venous distention. LUNGS: Symmetric air entry. S1, S2. Regular rate. ABDOMEN: Soft, moderately distended without tenderness. Bowel sounds are present. No penile or scrotal edema. EXTREMITIES: Pulses are 1+ in dorsalis pedis. He is able to move extremities on command. NEUROLOGIC: He is awake, knows his name. He could not tell me where he was, but he just kept repeating what I said to him to replace his own thought process sort of. LABORATORY DATA: His white cell count is now at 15.5, hemoglobin 12.7, platelets 423, 83% neutrophils. Sodium 132, creatinine 6.52 and now it is 6.03. Sodium 133, carbon dioxide 17. Liver profile normal. CK had peaked on arrival at 917 and now is down to 827. Urinalysis has been discussed. IMAGING STUDIES: Include a chest x-ray with enlarged heart, well-expanded lungs , but no consolidation. There is a brain CT scan done on admission with no acute findings. ASSESSMENT: 1. Obesity. 2. Likely some element of hypoventilation syndrome. 3. Polypharmacy with number of prescribed medications with psychotropic effects. 4. Soft tissue infection in the right leg, treated elsewhere with a diagnosis of necrotizing fasciitis, having been discharged on IV vancomycin with PICC line. This story is somewhat confusing since it is reported that he had tried to sign out against medical advice, ended up receiving vancomycin for another 10 days and gets admitted to [facility] with acute renal failure, rhabdomyolysis, altered mental status, and now the exact same presentation again with these changes in the right leg and altered mental status, hypotension, and acute renal failure. DISCUSSION: The differential diagnosis includes polypharmacy with numerous agents that are associated with sedation, which may have led to repeated falls and rhabdomyolysis plus medications that are associated with reduction in glomerular filtration rate and the combination may have led to the repeat of what he had experienced in October of this year. The findings in the right leg could be the aftermath of the treatment for the previous episodes of cellulitis. The organisms that are retrieved from the surface of the wound are more likely to represent colonization of that area rather than have a true pathogenic role. In that regard, it is possible that he does not require antimicrobial therapy whatsoever, but we will continue what he is on right now or could use another antistaphylococcal agent or even just plain Rocephin since beta-hemolytic streptococci are the more likely agents for this type of process. I still believe that he probably has what represents the aftermath of the previous episodes of cellulitis and does not require treatment with antimicrobial therapy just compression devices. The delayed healing is probably secondary to this to the absence of compressive dressing or the inadequacy of the compressive dressing applied by the family in the home setting. The CO2 retention probably is evidence of some underlying hypoventilation syndrome and then this has contributed to the visual cycle of the events that has led to those recurrences. So, in summarizing, I believe that polypharmacy, some underlying hypoventilation syndrome has led to rhabdomyolysis episodes and that the right leg most likely represents the aftermath of the previous cellulitic episodes rather than true active cellulitis at this point in time. Job ID: [id number] [facility]
--- NOTE | 2018-02-21 18:10 | ULT ---
BILATERAL LOWER EXTREMITY VENOUS ULTRASOUND: Date: 02/21/18 COMPARISON: None. HISTORY: Right lower extremity edema. Recent cardiac catheterization. TECHNIQUE: Multiplanar Harp scale and color Doppler images were obtained in a bilateral lower extremity venous u ltrasound. Spectral analysis of the Doppler waveforms were performed. FINDINGS: The left common femoral vein, profunda femoral vein, superficial femoral vein, and popliteal vein are normal in appearance without visible thrombus. These vessels demonstrate normal compression, flow, a nd augmentation. Evaluation of the right lower extremity was limited secondary to catheter in the patient's right groi n and an overlying bandage. The right common femoral vein and greater saphenous vein were not complet lili compressible secondary to catheter in the inguinal region. The right proximal superficial femoral vein and popliteal vein were not visualized secondary to bandage for the patient's catheter. The mid and distal right superficial femoral vein and popliteal vein are patent without evidence of thrombus . The right common femoral vein shows normal flow without evidence of thrombus, although was noncomp ressible as staged above secondary to catheter. The venous structures distal to the knee are unremarkable. IMPRESSION: No evidence of deep venous thrombosis in either leg. Please note evaluation of the proximal aspect of the right leg is limited secondary to the inguinal catheter and overlying dressing. POS: GRADY
[2018-02-21] MEDS ORDERED: Ziprasidone 20 MG VIAL IM SCH (21:15)
[2018-02-22] MEDS: Heparin 5,000 UNITS/ML VIAL SC SCH ×3 (08:30→20:14)
[2018-02-22 09:09] LABS: Hemoglobin 12.3 g/dL (14.0-18.0)
[2018-02-22 09:27] LABS: Anion Gap 17 mmol/L (10-20); BUN (Urea Nitrogen) 39 mg/dL (8.4-25.7); Calc. Creatinine Clearance 54 mL/min (70-130); Calcium 8.9 mg/dL (7.8-10.44); Carbon Dioxide 22 mmol/L (22-29); Chloride 103 mmol/L (98-107); Estimated GFR-MDRD 18; Glucose 83 mg/dL (70-105); Sodium 137 mmol/L (136-145)
[2018-02-22] MEDS: Linezolid 600 MG in Premix Bag 1 BAG IVPB SCH ×2 (10:36→20:14)
[2018-02-22] MEDS: Acetaminophen 325 MG TAB PO PRN (10:38)
--- NOTE | 2018-02-22 11:08 | PDOC.PN ---
- Subjective Encounter Start Date: 02/22/18 Encounter Start Time: 11:03 Subjective: very confused, talking loudly to himself, keeps repeating -: Does not look distressed - Objective Resuscitation Status - Order Detail: 02/20/18 15:25 Resuscitation Status Routine Resuscitation Status: FULL: Full Resuscitation MAR Reviewed: Yes Vital Signs & Weight: Vital Signs (12 hours) Temp Pulse Resp BP Pulse Ox 02/22/18 08:12 100.8 F H 112 H 20 149/85 H 95 02/22/18 04:00 98.7 F 114 H 20 150/81 H 93 L 02/22/18 00:00 98.7 F 111 H 20 151/81 H 92 L Weight Weight 360 lb 0.238 oz Most Recent Monitor Data Heart Rate from ECG 101 NIBP 126/98 NIBP BP-Mean 107 Respiration from ECG 23 SpO2 99 I&O: 02/21/18 02/22/18 02/23/18 06:59 06:59 06:59 Intake Total 1191.8 1439 Output Total 252 2470 Balance 939.8 -1031 Result Diagrams: 02/22/18 09:00 02/22/18 09:00 Phys Exam - Physical Examination HEENT: PERRLA, moist MMs, sclera anicteric, TM's clear, oral pharynx no lesions , 2+ tonsils Neck: no nodes, no JVD, supple, full ROM Respiratory: no wheezing, no rales Cardiovascular: no significant murmur, no rub Tachy Gastrointestinal: soft, non-tender, no distention 3+ pitting edema of right LE, VERY Cofused, not following commands Lymphatic: no nodes Deviation from normal: weeping cellulites of the right LE Dx/Plan (1) Encephalopathy Code(s): G93.40 - ENCEPHALOPATHY, UNSPECIFIED Status: Acute Comment: Patient more confused than when he was admitted. Narcotics withdrawal? Started on PRN Seroquel. (Admitted for confusion and lethargey with Possible accidental overdosing of narcotics, muscle relaxants and etc. Looks like patient has baseline dementia, family mentions that he is often forgetful and takes meds again and again. Cause is also multifactorial with YUNIOR, significant uremia and cellulites. We will hold all narcotics and muscle relxants for now and observe. CTH with no acute changes). (2) Hypotension Status: Acute Qualifiers: Hypotension type: hypotension due to drug Qualified Code(s): I95.2 - Hypotension due to drugs Comment: possibly due to accidental overdosing of narcotics, initiually was treated with Levophed. Will hold home BP meds and reinstitute as needed. (3) Cellulitis Code(s): L03.90 - CELLULITIS, UNSPECIFIED Status: Acute Qualifiers: Site of cellulitis of extremity: lower extremity Laterality: right Comment: Daptomycin X 1 q. Stopped Dapto with increasing CK 900>1300 (History of Rhanbdo and admission CK was in 900's). Patient started on Zyvox by ID (4) YUNIOR (acute kidney injury) Code(s): N17.9 - ACUTE KIDNEY FAILURE, UNSPECIFIED Status: Acute Comment: Patient had significant YUNIOR previously with Vanc, function had completely recovered as of Oct 2017. Patient again with severe renal failure, possibly with Bactrim. Will avoid both medicines in the future. Patient started on dialysis, persisting uremia and hyperkalemia. Renal on board (5) Rhabdomyolysis Code(s): M62.82 - RHABDOMYOLYSIS Status: Acute Qualifiers: Rhabdomyolysis type: non-traumatic Qualified Code(s): M62.82 - Rhabdomyolysis Comment: history of Rhabdo, trend CK especially with Daptomycin - Plan cont current plan of care, continue antibiotics, DVT proph w/lovenox * .
--- NOTE | 2018-02-22 11:56 | PRG ---
DATE OF SERVICE: 02/22/2018 SUBJECTIVE: A 58-year-old gentleman, being seen for acute kidney injury. The patient denies any nausea, vomiting, or chest pain. PHYSICAL EXAMINATION: GENERAL: The patient is awake and alert. VITAL SIGNS: Afebrile. Pulse 114, breathing 16, blood pressure 149/85. Awake, alert, in no acute distress. GENERAL APPEARANCE AND MENTAL STATUS: Fair. HEAD/NECK: Normocephalic. Atraumatic. EYES: EOMI. No deformity. EARS: Clear. No ulcers. NOSE: Intact. No lesions. MOUTH: Clear. No discharge. THROAT: Clear. No exudate. LUNGS: Clear. No crackles. CARDIAC: S1, S2. No rub. ABDOMEN: Benign. Bowel sounds positive. GENITALIA/RECTUM: Sanders absent. BACK/EXTREMITIES: Edema 0+. NEUROLOGICAL: Alert and motor intact. SKIN: LYMPHATICS: LABORATORY DATA: Labs show hemoglobin 12.3. Potassium 5.0. ASSESSMENT: 1. Acute kidney injury with chronic kidney disease, stable. 2. Hyperkalemia, stable. 3. Uremia, stable. 4. No urgent indication for dialysis today. We will plan dialysis tomorrow if needed. Job ID: [id number]
[2018-02-22] MEDS: Sodium Chloride 0.9% 1,000 ML IV SCH ×2 (14:12→18:18)
[2018-02-22] MEDS ORDERED: DAPTOmycin 500 MG VIAL SLOW IVP SCH (17:00)
--- NOTE | 2018-02-22 17:15 | PRG ---
DATE OF SERVICE: 02/22/2018 SUBJECTIVE: Mr. Herrera remains encephalopathic. OBJECTIVE: VITAL SIGNS: His temperature is up to 100.8 this morning, heart rate is 112 with his fever, respiratory rate is 20, oximetry is 95% on room air, and blood pressure 149/85. LUNGS: Clear. HEART: Regular rate and rhythm. ABDOMEN: Soft, nontender. EXTREMITIES: Without edema. For some reason, the mobile lab technician did not have the nurse remove the Sanders catheter dressing on the right thigh, so yesterday's venogram was compromised by that. Otherwise, there were no clots seen. IMPRESSION: 1. Febrile illness, encephalopathy. 2. He told he has not improved at all. 3. He reportedly has a history of necrotizing fasciitis, negative head CT. 4. He is stable from a Pulmonary standpoint, but still encephalopathic. 5. There is no clear focus of any infection. Evidence of stasis changes in his lower extremities. 6. There are no blood cultures that reported out so far. 7. I would doubt that he has sleep apnea but I doubt that would explain his encephalopathy. Infectious Disease is following. We will follow. He is stable for now. Job ID: [id number]
[2018-02-23] MEDS: Sodium Chloride 0.9% 1,000 ML IV SCH ×2 (05:39→13:10)
[2018-02-23] MEDS: Heparin 5,000 UNITS/ML VIAL SC SCH ×3 (08:50→20:38)
[2018-02-23 10:12] LABS: Anion Gap 17 mmol/L (10-20); BUN (Urea Nitrogen) 32 mg/dL (8.4-25.7); Calc. Creatinine Clearance 93 mL/min (70-130); Calcium 9.5 mg/dL (7.8-10.44); Carbon Dioxide 24 mmol/L (22-29); Chloride 105 mmol/L (98-107); Estimated GFR-MDRD 34; Glucose 96 mg/dL (70-105); Potassium 4.3 mmol/L (3.5-5.1); Sodium 142 mmol/L (136-145)
[2018-02-23] MEDS: Linezolid 600 MG in Premix Bag 1 BAG IVPB SCH ×2 (10:22→21:32)
--- NOTE | 2018-02-23 11:29 | PRG ---
DATE OF SERVICE: SUBJECTIVE: This is a 58-year-old male being seen for acute kidney injury. The patient is nonverbal. OBJECTIVE: CONSTITUTIONAL: The patient is resting. VITAL SIGNS: Afebrile. Pulse 93, breathing 16, blood pressure 172/89. CONSTITUTIONAL: Awake, alert, in no acute distress. GENERAL APPEARANCE AND MENTAL STATUS: Fair. HEAD/NECK: Normocephalic. Atraumatic. EYES: EOMI. No deformity. EARS: Clear. No ulcers. NOSE: Intact. No lesions. MOUTH: Clear. No discharge. THROAT: Clear. No exudate. LUNGS: Clear. No crackles. CARDIAC: S1, S2. No rub. ABDOMEN: Benign. Bowel sounds positive. GENITALIA/RECTUM: Sanders absent. BACK/EXTREMITIES: Edema 0+. NEUROLOGICAL: Alert and motor intact. SKIN: LYMPHATICS: LABORATORY DATA: Creatinine is 2.0. ASSESSMENT: 1. Acute kidney injury, improved. 2. Hypertension, stable. 3. Anemia, stable. 4. Hyperlipidemia, stable. No indication for dialysis. Job ID: [id number]
--- NOTE | 2018-02-23 12:20 | PDOC.PN ---
- Subjective Encounter Start Date: 02/23/18 Encounter Start Time: 12:00 Subjective: Patient a little more coherent today, but still mostly not -: making sense. Did know it was 2017 which is an improvement -: per . - Objective Resuscitation Status - Order Detail: 02/20/18 15:25 Resuscitation Status Routine Resuscitation Status: FULL: Full Resuscitation MAR Reviewed: Yes Vital Signs & Weight: Vital Signs (12 hours) Temp Pulse Resp BP Pulse Ox 02/23/18 08:57 99.9 F H 93 20 171/105 H 95 02/23/18 04:00 98.5 F 99 20 172/89 H 97 02/23/18 02:11 94 L Weight Weight 360 lb 0.238 oz Most Recent Monitor Data Heart Rate from ECG 101 NIBP 126/98 NIBP BP-Mean 107 Respiration from ECG 23 SpO2 99 I&O: 02/22/18 02/23/18 02/24/18 06:59 06:59 06:59 Intake Total 1439 3620 Output Total 2470 4450 Balance -1031 -830 Result Diagrams: 02/22/18 09:00 02/23/18 09:12 Phys Exam - Physical Examination mildly agitated HEENT: moist MMs Respiratory: no wheezing, no rales, no rhonchi Cardiovascular: RRR, no significant murmur Gastrointestinal: soft, non-tender, positive bowel sounds Obese right leg with dressing in place Neurological: non-focal, moves all 4 limbs Deviation from normal: Oriented to person and year only Dx/Plan (1) Encephalopathy Code(s): G93.40 - ENCEPHALOPATHY, UNSPECIFIED Status: Acute Comment: Patient more confused than when he was admitted. Narcotics withdrawal? Started on PRN Seroquel. (Admitted for confusion and lethargey with Possible accidental overdosing of narcotics, muscle relaxants and etc. Looks like patient has baseline dementia, family mentions that he is often forgetful and takes meds again and again. Cause is also multifactorial with YUNIOR, significant uremia and cellulites. We will hold all narcotics and muscle relxants for now and observe. CTH with no acute changes). (2) Hypotension Status: Resolved Qualifiers: Hypotension type: hypotension due to drug Qualified Code(s): I95.2 - Hypotension due to drugs Comment: possibly due to accidental overdosing of narcotics, initiually was treated with Levophed. Will hold home BP meds and reinstitute as needed. (3) Hypertension Code(s): I10 - ESSENTIAL (PRIMARY) HYPERTENSION Status: Chronic Qualifiers: Hypertension type: essential hypertension Qualified Code(s): I10 - Essential (primary) hypertension Comment: Up after holding home meds. Will slowly reintroduce. (4) Cellulitis Code(s): L03.90 - CELLULITIS, UNSPECIFIED Status: Acute Qualifiers: Site of cellulitis of extremity: lower extremity Laterality: right Comment: Daptomycin X 1 q. Stopped Dapto with increasing CK 900>1300 (History of Rhanbdo and admission CK was in 900's). Patient started on Zyvox by ID (5) YUNIOR (acute kidney injury) Code(s): N17.9 - ACUTE KIDNEY FAILURE, UNSPECIFIED Status: Acute Comment: Patient had significant YUNIOR previously with Vanc, function had completely recovered as of Oct 2017. Patient again with severe renal failure, possibly with Bactrim. Will avoid both medicines in the future. Creatinine improving after dialysis, no further dialysis at this time per Dr. Hubbard. (6) Rhabdomyolysis Code(s): M62.82 - RHABDOMYOLYSIS Status: Acute Qualifiers: Rhabdomyolysis type: non-traumatic Qualified Code(s): M62.82 - Rhabdomyolysis Comment: improving after Dapto stopped - Plan cont current plan of care, continue antibiotics, DVT proph w/heparin * . - Discharge Day Encounter end time: 12:15
[2018-02-23] MEDS ORDERED: Amlodipine 10 MG TAB PO SCH (13:00)
[2018-02-23] MEDS: Acetaminophen 325 MG TAB PO PRN ×2 (13:03→20:39)
[2018-02-23] MEDS: Ondansetron ODT 4 MG TAB PO PRN ×2 (14:31→20:48)
[2018-02-23] MEDS: Labetalol HCl 100 MG/20 ML VIAL SLOW IVP PRN (20:37)
--- NOTE | 2018-02-24 07:47 | PDOC.PN ---
- Subjective Encounter Start Date: 02/24/18 Encounter Start Time: 09:30 Subjective: Patient still very confused. Labile emotions. - Objective Resuscitation Status - Order Detail: 02/20/18 15:25 Resuscitation Status Routine Resuscitation Status: FULL: Full Resuscitation MAR Reviewed: Yes Vital Signs & Weight: Vital Signs (12 hours) Temp Pulse Resp BP BP Pulse Ox 02/24/18 07:14 97 02/24/18 03:00 98.9 F 63 18 173/93 H 93 L 02/24/18 00:00 98.8 F 87 18 173/94 H 95 02/23/18 21:39 177/98 H 02/23/18 20:37 102 H 183/96 H 02/23/18 20:00 95 02/23/18 19:59 99.5 F 102 H 20 95 Weight Admit Weight 360 lb 0.238 oz Weight 360 lb 0.238 oz Most Recent Monitor Data Heart Rate from ECG 101 NIBP 126/98 NIBP BP-Mean 107 Respiration from ECG 23 SpO2 99 I&O: 02/23/18 02/24/18 02/25/18 06:59 06:59 06:59 Intake Total 3620 1100 Output Total 4450 650 Balance -830 450 Result Diagrams: 02/24/18 07:11 02/24/18 07:11 Phys Exam - Physical Examination Constitutional: NAD HEENT: moist MMs Respiratory: no wheezing, no rales, no rhonchi Cardiovascular: RRR, no significant murmur Gastrointestinal: soft, non-tender, positive bowel sounds Neurological: non-focal, moves all 4 limbs Deviation from normal: Oriented only to person Dx/Plan (1) Encephalopathy Code(s): G93.40 - ENCEPHALOPATHY, UNSPECIFIED Status: Acute Comment: Patient more confused than when he was admitted. Narcotics withdrawal? Started on PRN Seroquel. (Admitted for confusion and lethargey with Possible accidental overdosing of narcotics, muscle relaxants and etc. Looks like patient has baseline dementia, family mentions that he is often forgetful and takes meds again and again. Cause is also multifactorial with YUNIOR, significant uremia and cellulites. We will hold all narcotics and muscle relxants for now and observe. CTH with no acute changes). (2) Hypotension Status: Resolved Qualifiers: Hypotension type: hypotension due to drug Qualified Code(s): I95.2 - Hypotension due to drugs Comment: possibly due to accidental overdosing of narcotics, initiually was treated with Levophed. Will hold home BP meds and reinstitute as needed. (3) Hypertension Code(s): I10 - ESSENTIAL (PRIMARY) HYPERTENSION Status: Chronic Qualifiers: Hypertension type: essential hypertension Qualified Code(s): I10 - Essential (primary) hypertension Comment: Up after holding home meds. Will slowly reintroduce. (4) Cellulitis Code(s): L03.90 - CELLULITIS, UNSPECIFIED Status: Acute Qualifiers: Site of cellulitis of extremity: lower extremity Laterality: right Comment: Daptomycin X 1 q. Stopped Dapto with increasing CK 900>1300 (History of Rhanbdo and admission CK was in 900's). Patient started on Zyvox by ID (5) YUNIOR (acute kidney injury) Code(s): N17.9 - ACUTE KIDNEY FAILURE, UNSPECIFIED Status: Acute Comment: Patient had significant YUNIOR previously with Vanc, function had completely recovered as of Oct 2017. Patient again with severe renal failure, possibly with Bactrim. Will avoid both medicines in the future. Creatinine improving after dialysis, no further dialysis at this time per Dr. Hubbard. (6) Rhabdomyolysis Code(s): M62.82 - RHABDOMYOLYSIS Status: Acute Qualifiers: Rhabdomyolysis type: non-traumatic Qualified Code(s): M62.82 - Rhabdomyolysis Comment: improving after Dapto stopped - Plan cont current plan of care Awaiting AM lab results * . - Discharge Day Encounter end time: 09:45
[2018-02-24 07:50] LABS: Hemoglobin 13.9 g/dL (14.0-18.0); Mean Corpuscular HGB CONC 32.4 g/dL (32.0-36.0); Mean Corpuscular Hemoglobin 27.9 pg (27.0-31.0); Mean Platelet Volume 6.1 fL (7.4-10.4); Platelet Count 547 thou/uL (130-400); RBC Distribution Width 12.1 % (11.5-14.5); Red Blood Cell (RBC) Count 4.98 mill/uL (4.70-6.10); White Blood Cell (WBC) Count 18.8 thou/uL (4.8-10.8)
[2018-02-24 07:55] LABS: Anion Gap 16 mmol/L (10-20); BUN (Urea Nitrogen) 33 mg/dL (8.4-25.7); Calc. Creatinine Clearance 110 mL/min (70-130); Calcium 9.6 mg/dL (7.8-10.44); Carbon Dioxide 28 mmol/L (22-29); Chloride 103 mmol/L (98-107); Estimated GFR-MDRD 42; Glucose 137 mg/dL (70-105); Potassium 4.6 mmol/L (3.5-5.1); Sodium 142 mmol/L (136-145)
[2018-02-24] MEDS: Amlodipine 10 MG TAB PO SCH (08:43)
[2018-02-24] MEDS: Heparin 5,000 UNITS/ML VIAL SC SCH ×3 (08:44→21:00)
[2018-02-24 09:30] LABS: Band 3 % (5-11); Lymphocytes 6 % (21-51); MDiff Complete? YES; Monocytes 8 % (0-10); Neutrophil 83 % (42-75); RBC Morphology Normal
--- NOTE | 2018-02-24 10:52 | PRG ---
DATE OF SERVICE: SUBJECTIVE: Mr. Herrera continues to be very confused, having hallucinations and delusional thinking process. The patient is not restrained at this point in time. OBJECTIVE: VITAL SIGNS: Temperature max 100.6, blood pressure 170/90, pulse 72, respiratory rate is 20, O2 saturation 95%. EXTREMITIES: Right leg with area of erythema and in the same area is the linear ulcerated region which is the one that which is having a very delayed healing process. It has a yellow greenish base along the entire extension of the wound. There is a lot of flaky skin numbing the surface of the erythematous patch along the right leg. It has a little of a purpuric color rather than bright red. No lymphadenopathy. HEENT: Ocular movements conjugate. Oral cavity moist. LUNGS: Symmetric. Clear breath sounds. HEART: S1 and S2, regular rate. ABDOMEN: Slightly distended, but not tender to palpation. The patient has indwelling Sandesr catheter. LABORATORY DATA: White cell count was at 15.5 two days ago, and has not been repeated since. Hemoglobin 12.7, platelets 423 with 83% neutrophils. Sodium stable, creatinine is down to 2.01. Liver profile normal. CK is at 480. 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 ASSESSMENT AND DISCUSSION: 1. Morbid obesity. 2. Hypoventilation syndrome. 3. Polypharmacy with psychotropic medications with delirium. 4. Previous soft-tissue cellulitis in the right leg, treated elsewhere with a diagnosis of necrotizing fascitis. At this point in time, it is not clear that this represents active infection or if it could be just a residual or the aftermath of recent cellulitis/abscess. patient will continue on Zyvox for few days, but for the most part, he will require compressive device, probably a velcro-wrapped type device or compression with elastic band in the right leg for acceleration of the healing process. Still with quite a bit of delirium associated with multiple psychotropic medications that he takes on chronic basis. Job ID: [id number] [facility]
[2018-02-24] MEDS: Linezolid 600 MG in Premix Bag 1 BAG IVPB SCH ×2 (12:00→21:03)
[2018-02-24] MEDS: Sodium Chloride 0.9% 1,000 ML IV SCH ×3 (12:30→21:04)
--- NOTE | 2018-02-25 01:40 | PRG ---
DATE OF SERVICE: 02/24/2018 SUBJECTIVE: A 58-year-old male being seen for acute kidney injury. The patient denies any nausea, vomiting, or chest pain. OBJECTIVE: CONSTITUTIONAL: On examination, the patient is awake, alert. VITAL SIGNS: , breathing is 16, and blood pressure 174/100. GENERAL APPEARANCE AND MENTAL STATUS: Fair. HEAD/NECK: Normocephalic. Atraumatic. EYES: EOMI. No deformity. EARS: Clear. No ulcers. NOSE: Intact. No lesions. MOUTH: Clear. No discharge. THROAT: Clear. No exudate. LUNGS: Clear. No crackles. CARDIAC: S1, S2. No rub. ABDOMEN: Benign. Bowel sounds positive. GENITALIA/RECTUM: Sanders absent. BACK/EXTREMITIES: Edema 0+. NEUROLOGICAL: Alert and motor intact. LABORATORY DATA: Labs show hemoglobin 13.9, creatinine 1.6. ASSESSMENT AND PLAN: 1. Acute kidney injury, improved. 2. Hypertension, stable. 3. Hyperlipidemia, stable. 4. No indication for dialysis. I will remove central line. Job ID: [id number]
[2018-02-25] MEDS: Labetalol HCl 100 MG/20 ML VIAL SLOW IVP PRN ×2 (02:30→11:35)
--- NOTE | 2018-02-25 08:01 | PDOC.PN ---
- Subjective Encounter Start Date: 02/25/18 Encounter Start Time: 13:00 Subjective: Patient sleeping currently. Was still confused this AM. BP shot up. - Objective Resuscitation Status - Order Detail: 02/20/18 15:25 Resuscitation Status Routine Resuscitation Status: FULL: Full Resuscitation MAR Reviewed: Yes Vital Signs & Weight: Vital Signs (12 hours) Temp Pulse Resp BP BP BP Pulse Ox 02/25/18 07:35 98.5 F 80 18 156/97 H 96 02/25/18 05:07 83 18 171/94 H 02/25/18 04:26 98.3 F 88 18 175/107 H 96 02/25/18 02:30 81 180/106 H 02/25/18 00:00 98.5 F 81 18 180/106 H 95 Weight Admit Weight 360 lb 0.238 oz Weight 360 lb 0.238 oz Most Recent Monitor Data Heart Rate from ECG 101 NIBP 126/98 NIBP BP-Mean 107 Respiration from ECG 23 SpO2 99 I&O: 02/24/18 02/25/18 02/26/18 06:59 06:59 06:59 Intake Total 1100 1301 Output Total 650 501 Balance 450 800 Result Diagrams: 02/24/18 07:11 02/25/18 08:36 Additional Labs: Accuchecks 02/25/18 02/24/18 05:02 20:11 POC Glucose 94 110 Phys Exam - Physical Examination Constitutional: NAD HEENT: moist MMs Respiratory: no wheezing, no rales, no rhonchi Cardiovascular: RRR, no significant murmur Gastrointestinal: soft, non-tender, positive bowel sounds obese right leg wound with dressing in place, c/d/i Neurological: non-focal Deviation from normal: sleeping Dx/Plan (1) Encephalopathy Code(s): G93.40 - ENCEPHALOPATHY, UNSPECIFIED Status: Acute Comment: Patient more confused than when he was admitted. Narcotics withdrawal? Started on PRN Seroquel. (Admitted for confusion and lethargey with Possible accidental overdosing of narcotics, muscle relaxants and etc. Looks like patient has baseline dementia, family mentions that he is often forgetful and takes meds again and again. Cause is also multifactorial with YUNIOR, significant uremia and cellulites. We will hold all narcotics and muscle relxants for now and observe. CTH with no acute changes). (2) Hypotension Status: Resolved Qualifiers: Hypotension type: hypotension due to drug Qualified Code(s): I95.2 - Hypotension due to drugs Comment: possibly due to accidental overdosing of narcotics, initiually was treated with Levophed. Back on Amlodipine and adding carvedilol. (3) Hypertension Code(s): I10 - ESSENTIAL (PRIMARY) HYPERTENSION Status: Chronic Qualifiers: Hypertension type: essential hypertension Qualified Code(s): I10 - Essential (primary) hypertension Comment: back on Amlodipine, adding carvedilol. (4) Cellulitis Code(s): L03.90 - CELLULITIS, UNSPECIFIED Status: Acute Qualifiers: Site of cellulitis of extremity: lower extremity Laterality: right Comment: Daptomycin X 1 q. Stopped Dapto with increasing CK 900>1300 (History of Rhanbdo and admission CK was in 900's). Patient started on Zyvox by ID (5) YUNIOR (acute kidney injury) Code(s): N17.9 - ACUTE KIDNEY FAILURE, UNSPECIFIED Status: Acute Comment: Patient had significant YUNIOR previously with Vanc, function had completely recovered as of Oct 2017. Patient again with severe renal failure, possibly with Bactrim. Will avoid both medicines in the future. Creatinine improving after dialysis, no further dialysis at this time per Dr. Hubbard. (6) Rhabdomyolysis Code(s): M62.82 - RHABDOMYOLYSIS Status: Acute Qualifiers: Rhabdomyolysis type: non-traumatic Qualified Code(s): M62.82 - Rhabdomyolysis Comment: improving after Dapto stopped - Plan cont current plan of care, continue antibiotics, PT/OT, DVT proph w/heparin * . - Discharge Day Encounter end time: 13:20
[2018-02-25 09:15] LABS: Anion Gap 16 mmol/L (10-20); BUN (Urea Nitrogen) 28 mg/dL (8.4-25.7); Calc. Creatinine Clearance 144 mL/min (70-130); Calcium 8.8 mg/dL (7.8-10.44); Carbon Dioxide 25 mmol/L (22-29); Chloride 103 mmol/L (98-107); Estimated GFR-MDRD 57; Glucose 96 mg/dL (70-105); Potassium 4.3 mmol/L (3.5-5.1); Sodium 140 mmol/L (136-145)
[2018-02-25] MEDS: Amlodipine 10 MG TAB PO SCH (09:15)
[2018-02-25] MEDS: Heparin 5,000 UNITS/ML VIAL SC SCH ×3 (09:16→20:20)
[2018-02-25] MEDS: Sodium Chloride 0.9% 1,000 ML IV SCH (09:16)
[2018-02-25] MEDS: Linezolid 600 MG in Premix Bag 1 BAG IVPB SCH ×2 (11:38→21:40)
--- NOTE | 2018-02-25 15:22 | PRG ---
DATE OF SERVICE: 02/25/2018 SUBJECTIVE: A 58-year-old gentleman, being seen for acute kidney injury. The patient denies nausea, vomiting, or chest pain. OBJECTIVE: CONSTITUTIONAL: On examination, the patient is awake and alert. VITAL SIGNS: Afebrile, pulse 80, breathing 16, and blood pressure 156/97. GENERAL APPEARANCE AND MENTAL STATUS: Fair. HEAD/NECK: Normocephalic, atraumatic. EYES: EOMI. No deformity. EARS: Clear. No ulcers. NOSE: Intact. No lesions. MOUTH: Clear. No discharge. THROAT: Clear. No exudate. LUNGS: Clear. No crackles. CARDIAC: S1, S2. No rub. ABDOMEN: Benign. Bowel sounds positive. GENITALIA/RECTUM: Sanders absent. BACK/EXTREMITIES: Edema 0+. NEUROLOGICAL: Alert and motor intact. LABORATORY DATA: Labs show hemoglobin 13.9, creatinine 1.2. ASSESSMENT AND PLAN: 1. Acute kidney injury, resolved. 2. Hypertension, stable. 3. Anemia, stable. 4. Chronic kidney disease, stage 3, stable. I will sign off on this patient. The patient will follow up to see me in 1 month. Job ID: [id number]
[2018-02-25] MEDS ORDERED: Carvedilol 6.25 MG TAB PO SCH (17:00)
[2018-02-25] MEDS: Acetaminophen 325 MG TAB PO PRN (20:20)
--- NOTE | 2018-02-26 07:47 | PDOC.PN ---
- Subjective Encounter Start Date: 02/26/18 Encounter Start Time: 08:45 Subjective: Patient cleared mentally yesterday afternoon. Now completely oriented -: and talkative. Still a bit goofy personality, but making sense. No pain -: currently. Thinks he may have accidentally taken his home meds mult times. - Objective Resuscitation Status - Order Detail: 02/20/18 15:25 Resuscitation Status Routine Resuscitation Status: FULL: Full Resuscitation MAR Reviewed: Yes Vital Signs & Weight: Vital Signs (12 hours) Temp Pulse Resp BP BP Pulse Ox 02/26/18 07:25 98.4 F 75 19 166/100 H 94 L 02/25/18 20:00 98.5 F 75 18 175/83 H 94 L Weight Admit Weight 360 lb 0.238 oz Weight 360 lb 0.238 oz Most Recent Monitor Data Heart Rate from ECG 101 NIBP 126/98 NIBP BP-Mean 107 Respiration from ECG 23 SpO2 99 I&O: 02/25/18 02/26/18 02/27/18 06:59 06:59 06:59 Intake Total 1301 1330 Output Total 501 1550 Balance 800 -220 Result Diagrams: 02/24/18 07:11 02/25/18 08:36 Additional Labs: Accuchecks 02/25/18 11:29 POC Glucose 101 Phys Exam - Physical Examination Constitutional: NAD HEENT: moist MMs Respiratory: no wheezing, no rales, no rhonchi Cardiovascular: RRR, no significant murmur Gastrointestinal: soft, non-tender, positive bowel sounds Musculoskeletal: edema present right leg with dressing intact Neurological: non-focal, moves all 4 limbs Psychiatric: normal affect, A&O x 3 Dx/Plan (1) Encephalopathy Code(s): G93.40 - ENCEPHALOPATHY, UNSPECIFIED Status: Acute Comment: Patient more confused than when he was admitted. Narcotics withdrawal? Started on PRN Seroquel. (Admitted for confusion and lethargey with Possible accidental overdosing of narcotics, muscle relaxants and etc. Looks like patient has baseline dementia, family mentions that he is often forgetful and takes meds again and again. Cause is also multifactorial with YUNIOR, significant uremia and cellulites. We will hold all narcotics and muscle relxants for now and observe. CTH with no acute changes). (2) Hypotension Status: Resolved Qualifiers: Hypotension type: hypotension due to drug Qualified Code(s): I95.2 - Hypotension due to drugs Comment: possibly due to accidental overdosing of narcotics, initiually was treated with Levophed. Back on Amlodipine and adding carvedilol. (3) Hypertension Code(s): I10 - ESSENTIAL (PRIMARY) HYPERTENSION Status: Chronic Qualifiers: Hypertension type: essential hypertension Qualified Code(s): I10 - Essential (primary) hypertension Comment: back on Amlodipine, adding carvedilol. (4) Cellulitis Code(s): L03.90 - CELLULITIS, UNSPECIFIED Status: Acute Qualifiers: Site of cellulitis of extremity: lower extremity Laterality: right Comment: Daptomycin X 1 q. Stopped Dapto with increasing CK 900>1300 (History of Rhanbdo and admission CK was in 900's). Patient started on Zyvox by ID (5) YUNIOR (acute kidney injury) Code(s): N17.9 - ACUTE KIDNEY FAILURE, UNSPECIFIED Status: Acute Comment: Patient had significant YUNIOR previously with Vanc, function had completely recovered as of Oct 2017. Patient again with severe renal failure, possibly with Bactrim. Will avoid both medicines in the future. Creatinine improving after dialysis, no further dialysis at this time per Dr. Hubbard. (6) Rhabdomyolysis Code(s): M62.82 - RHABDOMYOLYSIS Status: Resolved Qualifiers: Rhabdomyolysis type: non-traumatic Qualified Code(s): M62.82 - Rhabdomyolysis Comment: improving after Dapto stopped - Plan cont current plan of care, continue antibiotics, PT/OT PT to ambulate, may be able to go home in next couple days if can move -: around, otherwise will need SNF. Patient agrees that he needs to start -: having his give him his medications at home. * . - Discharge Day Encounter end time: 09:00
[2018-02-26] MEDS: Heparin 5,000 UNITS/ML VIAL SC SCH ×3 (08:58→21:01)
[2018-02-26] MEDS: Amlodipine 10 MG TAB PO SCH (08:58)
[2018-02-26] MEDS: Carvedilol 6.25 MG TAB PO SCH ×2 (09:07→18:42)
[2018-02-26] MEDS: Linezolid 600 MG in Premix Bag 1 BAG IVPB SCH ×2 (14:59→15:00)
[2018-02-26] MEDS: HYDROcodone/Acetaminophen 5/325 mg Tablet PO PRN (15:13)
--- NOTE | 2018-02-26 17:16 | EKG ---
Test Reason : Blood Pressure : / mmHG Vent. Rate : 076 BPM Atrial Rate : 076 BPM P-R Int : 144 ms QRS Dur : 094 ms QT Int : 368 ms P-R-T Axes : 011 080 030 degrees QTc Int : 414 ms Normal sinus rhythm Low voltage QRS Borderline ECG Confirmed by HUANG SMITH ([id number]), slot editor CAROLANN HERNÁNDEZ ([id number]) on 02/26/2018 5:16:04 PM Referred By: Confirmed By:HUANG SMITH
[2018-02-26] MEDS: Acetaminophen 325 MG TAB PO PRN (21:01)
[2018-02-27] MEDS: Linezolid 600 MG in Premix Bag 1 BAG IVPB SCH ×2 (02:18→15:16)
[2018-02-27] MEDS: Nystatin Powder 15 GM BOT TOP PRN (02:24)
[2018-02-27 07:14] LABS: Anion Gap 15 mmol/L (10-20); BUN (Urea Nitrogen) 21 mg/dL (8.4-25.7); Calc. Creatinine Clearance 171 mL/min (70-130); Calcium 9.3 mg/dL (7.8-10.44); Carbon Dioxide 26 mmol/L (22-29); Chloride 101 mmol/L (98-107); Estimated GFR-MDRD 69; Glucose 95 mg/dL (70-105); Potassium 4.3 mmol/L (3.5-5.1); Sodium 138 mmol/L (136-145)
[2018-02-27 07:33] LABS: #Basophils 0.1 thou/uL (0.0-0.2); #Eosinphils 0.7 thou/uL (0.0-0.7); #Monocytes 0.7 thou/uL (0.11-0.59); #Neutrophils 10.5 thou/uL (1.40-6.50); %Basophils 0.5 % (0.0-1.0); %Eosinophils 4.9 % (0.0-10.0); %Lymphocytes 14.6 % (21.0-51.0); %Monocytes 4.9 % (0.0-10.0); %Neutrophils 75.2 % (42.0-75.0); Hemoglobin 13.8 g/dL (14.0-18.0); Mean Corpuscular HGB CONC 32.9 g/dL (32.0-36.0); Mean Corpuscular Hemoglobin 27.8 pg (27.0-31.0); Mean Corpuscular Volume 84.3 fL (78.0-98.0); Mean Platelet Volume 6.2 fL (7.4-10.4); Platelet Count 545 thou/uL (130-400); RBC Distribution Width 12.1 % (11.5-14.5); Red Blood Cell (RBC) Count 4.98 mill/uL (4.70-6.10)
[2018-02-27] MEDS: Heparin 5,000 UNITS/ML VIAL SC SCH ×3 (08:27→21:21)
[2018-02-27] MEDS: Carvedilol 6.25 MG TAB PO SCH ×2 (08:28→16:27)
[2018-02-27] MEDS: Amlodipine 10 MG TAB PO SCH (08:28)
[2018-02-27] MEDS: HYDROcodone/Acetaminophen 5/325 mg Tablet PO PRN ×2 (08:33→16:26)
--- NOTE | 2018-02-27 14:12 | PDOC.PN ---
- Subjective Encounter Start Date: 02/27/18 Encounter Start Time: 14:00 Subjective: f/u for AMS likely iatrogenic due to polypharmacy and Rx medication -: overdose. Overall improved. States he hasn't eaten in over a week due -: to nausea and vomiting after eating. Wt 360lbs. - Objective Resuscitation Status - Order Detail: 02/20/18 15:25 Resuscitation Status Routine Resuscitation Status: FULL: Full Resuscitation MAR Reviewed: Yes Vital Signs & Weight: Vital Signs (12 hours) Temp Pulse Resp BP BP Pulse Ox 02/27/18 08:28 71 166/88 H 02/27/18 08:00 94 L 02/27/18 07:33 98.5 F 71 20 166/93 H 94 L Weight Admit Weight 360 lb 0.238 oz Weight 360 lb 0.238 oz Most Recent Monitor Data Heart Rate from ECG 101 NIBP 126/98 NIBP BP-Mean 107 Respiration from ECG 23 SpO2 99 I&O: 02/26/18 02/27/18 02/28/18 06:59 06:59 06:59 Intake Total 1330 840 Output Total 1550 1500 Balance -220 -660 Result Diagrams: 02/27/18 06:22 02/27/18 06:22 Additional Labs: Laboratory Tests 02/20/18 02/21/18 02/24/18 10:58 04:18 07:11 WBC 12.0 H 15.5 H 18.8 H BUN Creatinine 02/25/18 08:36 WBC BUN 28 H Creatinine 1.29 Phys Exam - Physical Examination Constitutional: NAD HEENT: PERRLA, sclera anicteric, oral pharynx no lesions Neck: no nodes, no JVD, supple, full ROM Respiratory: no wheezing, no rales, no rhonchi, clear to auscultation bilateral S1, S2 Cardiovascular: RRR, no significant murmur, no rub, gallop Gastrointestinal: soft, non-tender, no distention, positive bowel sounds RLE wound dressing in place Musculoskeletal: pulses present, edema present Neurological: normal sensation, moves all 4 limbs Psychiatric: A&O x 3 Skin: normal turgor, cap refill <2 seconds Dx/Plan (1) Acute metabolic encephalopathy Code(s): G93.41 - METABOLIC ENCEPHALOPATHY Status: Acute Comment: Secondary to polypharmacy and rx-medication overdose, resolving (2) Cellulitis Code(s): L03.90 - CELLULITIS, UNSPECIFIED Status: Acute Qualifiers: Site of cellulitis of extremity: lower extremity Laterality: right Comment: Currently on Linezolid, consider po option for home rx (3) YUNIOR (acute kidney injury) Code(s): N17.9 - ACUTE KIDNEY FAILURE, UNSPECIFIED Status: Acute Comment: s/ p HD, renal function stabilized, avoid nephrotoxic meds and limit contrast exposure (4) Leg wound, right Code(s): S81.801A - UNSPECIFIED OPEN WOUND, RIGHT LOWER LEG, INITIAL ENCOUNTER Status: Acute Comment: Continue Linezolid, consider po option, WCT (5) Rhabdomyolysis Code(s): M62.82 - RHABDOMYOLYSIS Status: Acute Qualifiers: Rhabdomyolysis type: non-traumatic Qualified Code(s): M62.82 - Rhabdomyolysis Comment: Improved and likely iatrogenic - Plan continue antibiotics, 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
[2018-02-27] MEDS: Acetaminophen 325 MG TAB PO PRN (21:21)
[2018-02-28] MEDS: Linezolid 600 MG in Premix Bag 1 BAG IVPB SCH ×2 (02:27→14:10)
[2018-02-28] MEDS: HYDROcodone/Acetaminophen 5/325 mg Tablet PO PRN ×2 (08:20→14:09)
[2018-02-28] MEDS: Carvedilol 6.25 MG TAB PO SCH ×2 (08:21→15:49)
[2018-02-28] MEDS: Amlodipine 10 MG TAB PO SCH (08:21)
[2018-02-28] MEDS: Heparin 5,000 UNITS/ML VIAL SC SCH ×3 (08:22→20:59)
--- NOTE | 2018-02-28 12:24 | PDOC.PN ---
- Subjective Encounter Start Date: 02/28/18 Encounter Start Time: 12:05 Subjective: f/u for AMS, YUNIOR now resolved. Feels ok except for LE neuropathy( chronic) -: which is worse being off his Gabapentin. Appetite better. - Objective Resuscitation Status - Order Detail: 02/20/18 15:25 Resuscitation Status Routine Resuscitation Status: FULL: Full Resuscitation MAR Reviewed: Yes Vital Signs & Weight: Vital Signs (12 hours) Temp Pulse Resp BP BP Pulse Ox 02/28/18 08:21 80 154/91 H 02/28/18 08:00 98.5 F 80 18 154/91 H 92 L Weight Admit Weight 360 lb 0.238 oz Weight 360 lb 0.238 oz Most Recent Monitor Data Heart Rate from ECG 101 NIBP 126/98 NIBP BP-Mean 107 Respiration from ECG 23 SpO2 99 I&O: 02/27/18 02/28/18 03/01/18 06:59 06:59 06:59 Intake Total 840 1100 240 Output Total 1500 3250 Balance -660 -2150 240 Result Diagrams: 02/27/18 06:22 02/27/18 06:22 Additional Labs: Laboratory Tests 02/20/18 02/21/18 02/24/18 10:58 04:18 07:11 WBC 12.0 H 15.5 H 18.8 H BUN Creatinine 02/25/18 08:36 WBC BUN 28 H Creatinine 1.29 Phys Exam - Physical Examination Constitutional: NAD HEENT: PERRLA, sclera anicteric, oral pharynx no lesions Neck: no nodes, no JVD, supple, full ROM Respiratory: no wheezing, no rales, no rhonchi, clear to auscultation bilateral S1, S2 Cardiovascular: RRR, no significant murmur, no rub, gallop Gastrointestinal: soft, non-tender, no distention, positive bowel sounds RLE with chronic venous stasis changes, dried skin, bandage over ulcer Musculoskeletal: pulses present, edema present Neurological: normal sensation, moves all 4 limbs Psychiatric: A&O x 3 Skin: normal turgor, cap refill <2 seconds Dx/Plan (1) Acute metabolic encephalopathy Code(s): G93.41 - METABOLIC ENCEPHALOPATHY Status: Acute Comment: Secondary to polypharmacy and rx-medication overdose, resolving (2) Cellulitis Code(s): L03.90 - CELLULITIS, UNSPECIFIED Status: Acute Qualifiers: Site of cellulitis of extremity: lower extremity Laterality: right Comment: Currently on Linezolid, likely will d/c abx for home (3) YUNIOR (acute kidney injury) Code(s): N17.9 - ACUTE KIDNEY FAILURE, UNSPECIFIED Status: Acute Comment: s/ p HD, renal function stabilized, avoid nephrotoxic meds and limit contrast exposure (4) Leg wound, right Code(s): S81.801A - UNSPECIFIED OPEN WOUND, RIGHT LOWER LEG, INITIAL ENCOUNTER Status: Acute Comment: Continue Linezolid, local WCT, compression dressings , outpt wound care (5) Rhabdomyolysis Code(s): M62.82 - RHABDOMYOLYSIS Status: Acute Qualifiers: Rhabdomyolysis type: non-traumatic Qualified Code(s): M62.82 - Rhabdomyolysis Comment: Improved and likely iatrogenic - Plan continue antibiotics, PT/OT, 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
[2018-02-28] MEDS ORDERED: Non-Formulary Item 1 EACH (Gabapentin [Gabapentin] 600 MG) PO SCH (12:30)
[2018-02-28] MEDS ORDERED: Gabapentin 300 MG CAP PO SCH (12:30)
[2018-02-28] MEDS: Gabapentin 300 MG CAP PO SCH (20:59)
[2018-03-01] MEDS: Linezolid 600 MG in Premix Bag 1 BAG IVPB SCH ×2 (01:30→14:17)
[2018-03-01] MEDS: HYDROcodone/Acetaminophen 5/325 mg Tablet PO PRN ×2 (02:46→08:51)
[2018-03-01] MEDS: Carvedilol 6.25 MG TAB PO SCH (08:49)
[2018-03-01] MEDS: Gabapentin 300 MG CAP PO SCH (08:50)
[2018-03-01] MEDS: Amlodipine 10 MG TAB PO SCH (08:50)
[2018-03-01] MEDS: Heparin 5,000 UNITS/ML VIAL SC SCH (08:51)
[2018-03-01] MEDS ORDERED: Tamsulosin HCl 0.4 MG CAP PO SCH (09:00)
[2018-03-01] MEDS: Nystatin Powder 15 GM BOT TOP PRN (09:01)
--- NOTE | 2018-03-01 09:53 | DIS ---
DATE OF ADMISSION: 02/20/2018 DATE OF DISCHARGE: 03/01/2018 DISCHARGE DIAGNOSES: 1. Acute metabolic encephalopathy, multifactorial including polypharmacy, resolved. 2. Acute on chronic right lower extremity cellulitis, improved. 3. Acute kidney injury, iatrogenic, resolving. 4. Acute rhabdomyolysis, iatrogenic, resolving. 5. Chronic lower extremity venous stasis dermatitis/lymphedema. 6. Morbid obesity. CONSULTATIONS: 1. Dr. Hubbard with Nephrology Service. 2. Dr. Salvadro with Infectious Disease Service. 3. Dr. Goins with Pulmonology/Critical Care Service. PERTINENT LABORATORY DATA AND X-RAY FINDINGS: Creatinine ranged between 1.09 to 6.52. Estimated GFR ranged between 9 to 69. Lactic acid level 1.3. Total CK ranged between 480 and 1392. CBC showed a white blood cell count ranged between 12.0 to 18.8, hemoglobin ranged between 12.0 to 13.9. Potassium level ranged between 4.3 to 5.8. Hepatitis B and C negative on 02/20/2018. Urine culture dated on 02/20/2018 showed presumptive Irma species. Influenza A and B antigen on 02/20/2018, negative. C difficile antigen and toxin on 02/25/2018, negative. Stool Hemoccult dated on 02/25/2018, negative x1. CT of the brain without contrast dated on 02/20/2018 showed no acute intracranial process. Portable chest x-ray dated on 02/20/2018 showed no acute cardiopulmonary process. Bilateral lower extremity venous Doppler study dated on 02/21/2018 showed no evidence for DVT. HOSPITAL COURSE: The patient was initially admitted to the Critical Care Unit after presenting with acute confusional state and altered mentation. The patient with multiple metabolic derangements including acute kidney injury as well as likely toxic metabolic encephalopathy. The patient was initially placed on IV fluids in addition to Levophed due to hypotension. The patient with multifactorial encephalopathy secondary to polypharmacy and likely medication overdose. The patient also noted with severe acute kidney injury, likely iatrogenic with multiple medications renally cleared on an outpatient basis. The patient was evaluated by the Nephrology Service, at which point the patient received hemodialysis initially for stabilization. The patient's overall renal function did stabilize with hemodialysis and avoidance of nephrotoxic agents with normalization of the creatinine prior to discharge. The patient was also noted with severe encephalopathy, slow to clinically improve. However, discontinuation of multiple psychotropic and pain medications showed overall improving mentation throughout the hospital course. The patient was titrated on his antihypertensive regimen as well as multiple medications, which were renally cleared including diclofenac and AUDI inhibitors. The patient was evaluated by the Physical Therapy Service and received local care by the Wound Care Service for chronic right lower extremity cellulitis and venous stasis changes. The patient did receive antibiotic therapy after evaluation by the Infectious Disease Service. The patient was placed on Zyvox during the hospital course, however, recommendations were to discontinue prior to discharge and to continue local care for the lower extremity including management of edema. I have examined the patient at the time of discharge and discussed followup instructions. The patient verbalizes understanding and agreement and ready for discharge on 03/01/2018. DISCHARGE MEDICATIONS: 1. Amlodipine 10 mg p.o. daily. 2. Gabapentin 600 mg two tablets p.o. b.i.d. 3. [place] 10/325 mg one tablet p.o. q.6 hours p.r.n. 4. Ranitidine 150 mg p.o. daily. 5. Simethicone 125 mg p.o. t.i.d. 6. Flomax 0.4 mg p.o. daily. 7. Coreg 12.5 mg p.o. b.i.d. FOLLOWUP: The patient may follow up with a local community health clinic or [facility] to establish care in the [facility] [place]. CONDITION ON DISCHARGE: Fair. ACTIVITY: Ad-javi. DIET: Heart healthy. CODE STATUS: Full. DISPOSITION: To home on 03/01/2018. Total time preparing and coordinating discharge, 32 minutes. Job ID: [id number]
[2018-03-01 14:08] VITALS: BP 115/87; TEMP 98.2
== END 2018-03-01 14:04 | disposition home or self-care (01) | DRG 917 ==
LOC: ERS 10:29 → CCU 16:01 → T4-A 02-21 19:47
PROVIDERS: ADMIT Family Medicine; ATTEND Family Medicine
PROC: 5A1D70Z Performance of Urinary Filtration, Intermittent, Less than 6 Hours Per Day (ICD-10-PCS; principal; 2018-02-20)
DX: T42.8X1A Poisoning by antiparkinsonism drugs and other central muscle-tone depressants, accidental (unintentional), initial encounter (principal); G92 Toxic encephalopathy; N17.9 Acute kidney failure, unspecified; L03.115 Cellulitis of right lower limb; Z68.43 Body mass index [BMI] 50.0-59.9, adult; M62.82 Rhabdomyolysis; E66.2 Morbid (severe) obesity with alveolar hypoventilation; E87.5 Hyperkalemia; D64.9 Anemia, unspecified; I95.9 Hypotension, unspecified; Z86.14 Personal history of Methicillin resistant Staphylococcus aureus infection; N18.3 Chronic kidney disease, stage 3 (moderate); I12.9 Hypertensive chronic kidney disease with stage 1 through stage 4 chronic kidney disease, or unspecified chronic kidney disease; I87.8 Other specified disorders of veins
CPT/HCPCS: 36415; 36416; 36556; 51701; 70450; 71045; 80048; 80053; 81003; 81015; 82274; 82550; 82553; 82805; 83605; 83630; 83880; 84484; 85007; 85014; 85018; 85025; 85027; 86704; 86706; 86803; 87045; 87046; 87086; 87324; 87340; 87449; 87804; 87899; 90935; 93005; 93970; 96361; 96365; 96375; G0257; G8978-GP-CK; G8979-GP-CI; J0878; J1644; J2020; J2310; J3486; J7050; Q0162

== ENCOUNTER 2018-03-05 16:59 | Inpatient (IN) | payer OTHER, SELFPAY ==
[2018-03-05 17:48] LABS: #Eosinphils 0.2 thou/uL (0.0-0.7); #Lymphocytes 1.4 thou/uL (1.20-3.40); #Monocytes 0.7 thou/uL (0.11-0.59); #Neutrophils 10.9 thou/uL (1.40-6.50); %Basophils 0.1 % (0.0-1.0); %Eosinophils 1.6 % (0.0-10.0); %Lymphocytes 10.4 % (21.0-51.0); %Monocytes 5.4 % (0.0-10.0); %Neutrophils 82.5 % (42.0-75.0); Hemoglobin 13.2 g/dL (14.0-18.0); Mean Corpuscular Hemoglobin 28.9 pg (27.0-31.0); Mean Corpuscular Volume 84.8 fL (78.0-98.0); Mean Platelet Volume 5.9 fL (7.4-10.4); Platelet Count 642 thou/uL (130-400); RBC Distribution Width 12.9 % (11.5-14.5); Red Blood Cell (RBC) Count 4.56 mill/uL (4.70-6.10); White Blood Cell (WBC) Count 13.2 thou/uL (4.8-10.8)
[2018-03-05 18:09] LABS: ALT (SGPT) 37 U/L (8-55); AST (SGOT) 15 U/L (5-34); Acetaminophen Less than 6.0 mcg/mL (10.0-30.0); Albumin 3.5 g/dL (3.5-5.0); Alcohol Less than 10 mg/dL (Less than 10); Alkaline Phosphatase 103 U/L (40-150); Anion Gap 20 mmol/L (10-20); BUN (Urea Nitrogen) 65 mg/dL (8.4-25.7); Bilirubin, Total 0.4 mg/dL (0.2-1.2); Calc. Creatinine Clearance 0 mL/min (70-130); Carbon Dioxide 20 mmol/L (22-29); Chloride 98 mmol/L (98-107); Estimated GFR-MDRD 7; Glucose 105 mg/dL (70-105); Lipase 30 U/L (8-78); Potassium 4.4 mmol/L (3.5-5.1); Protein, Total 7.5 g/dL (6.0-8.3); Salicylate Less than 8.0 mg/dL (15.0-30.0); Sodium 134 mmol/L (136-145)
[2018-03-05 19:07] LABS: Bilirubin Small (Negative); Blood, Urine Moderate (Negative); Clarity CLOUDY (Clear); Glucose, Urine (Dipstick) Negative (Negative); Leukocyte Moderate (Negative); Nitrite Negative (Negative); Protein, Urine (Dipstick) 30 mg/dL (Neg-Trace); Specific Gravity, Urine 1.017 (1.002-1.036); Urobilinogen 0.2 mg/dL (0.2-1.0)
[2018-03-05 19:10] LABS: Bacteria/HPF 1+ HPF (None Seen); Pathc Cast-AUWi Flag 1.01 (0-2.49); RBC/HPF 0-3 HPF (0-3); Squamous Epithelial 0-3 HPF (0-3)
[2018-03-05 19:12] LABS: Yeast-AUWi Flag 82.4 (0-25.0)
[2018-03-05 19:17] LABS: Amphetamine Not Detected (NotDetected); Barbiturates Screen Not Detected (NotDetected); Benzodiazepine Screen Not Detected (NotDetected); Cocaine Metabolite Screen Not Detected (NotDetected); Medtox Control Line Valid? VALID (VALID); Medtox Reader # READER 1; Methadone Not Detected (NotDetected); Methamphetamine Not Detected (NotDetected); Opiate Screen Detected (NotDetected); Oxycodone Screen Not Detected (NotDetected); Phencyclidine (PCP) Not Detected (NotDetected); THC/Cannabinoid Screen Not Detected (NotDetected); Tricyclic Screen Not Detected (NotDetected)
[2018-03-05 19:19] LABS: Hyaline Casts/LPF NONE SEEN LPF (0-3 Hyaline); Yeast-All Forms None Seen HPF (None Seen)
--- NOTE | 2018-03-05 19:43 | RAD ---
FRONTAL VIEW CHEST SERIES: 03/05/18 COMPARISON: 02/20/18. INDICATION: Altered mental status. FINDINGS: There is extrinsic artifact overlying the chest which limits assessment. There remains enlargement of the cardiomediastinal silhouette. No obvious consolidation within normal limitations. Chest is other hunter similar. IMPRESSION: Extrinsic artifact limits visualization. Chest is grossly stable to 02/20/18 exam. POS: [facility]
--- NOTE | 2018-03-05 19:50 | CT ---
HEAD CT NONCONTRAST: 03/05/18 COMPARISON: 02/20/18. INDICATION: Altered mental status. FINDINGS: No evidence of intracranial hemorrhage, mass effect, midline shift, or ventriculomegaly. Exam is [place] sly stable to 02/20/18 exam. IMPRESSION: No acute intracranial hemorrhage or mass effect. POS: [facility]
[2018-03-05] MEDS ORDERED: cefTRIAXone\\ROCEPHIN 1 GM VIAL ONE (21:42)
[2018-03-06] MEDS ORDERED: Guaifenesin DM 100-10/5 ML UDCUP PO PRN (01:10)
[2018-03-06] MEDS ORDERED: Senokot S 8.6-50 MG TAB PO PRN (01:10)
[2018-03-06] MEDS ORDERED: hydrALAZINE 20 MG/ML VIAL SLOW IVP PRN (01:10)
[2018-03-06] MEDS ORDERED: Acetaminophen 650 MG Suppository PR PRN (01:10)
[2018-03-06] MEDS ORDERED: Acetaminophen 325 MG TAB PO PRN (01:10)
[2018-03-06] MEDS ORDERED: Aspirin 300 MG Suppository PR SCH (01:15)
--- NOTE | 2018-03-06 02:06 | HP ---
REASON FOR ADMISSION: Acute encephalopathy, possible CVA with aphasia, acute renal failure, and urinary tract infection. HISTORY OF PRESENTING ILLNESS: Please note majority of this history is obtained by talking to the patient's at bedside as patient is encephalopathic and is noncommunicative at present. Per , patient got discharged on the . He was hospitalized here on the for a staph infection in his right leg. Patient also went into renal failure and had dialysis done twice. He was evaluated by Dr. Hubbard. After going home, patient has been eating less and was urinating less. From on, patient has been bed bound and has stopped completely eating and barely sipping some water. He has been off medications from last three days as his speech was not legible per . This has been going on from the . The also mentions that he was like this during his previous hospitalization here, but then became more lucid on the and was discharged on the 01 of March home. Before his last hospitalization on the 20 of February, patient was using crutches and was mobilizing himself a little bit, but since then has not been ambulating now. PAST MEDICAL HISTORY AND PAST SURGICAL HISTORY: 1. Was briefly on dialysis during his last hospitalization here. He has had this done twice. During last hospitalization before, he pulled his hemodialysis catheter from his right groin area. 2. History of CKD. 3. History of necrotizing fasciitis with MRSA infection in the past. 4. Hypertension. 5. Prior history of rhabdomyolysis. 6. Carpal tunnel surgery. 7. Neck surgery and back surgery x2. 8. He has had multiple surgeries on both his lower extremities. 9. Left shoulder surgery. SOCIAL HISTORY: Chews tobacco. Does not abuse alcohol or drugs. FAMILY HISTORY: Mother in her 60s, had a history of [place] and had a defibrillator as well. Father was in the [employer] and was exposed to Agent [place] and of its complications in his 60s. CODE STATUS: Full. Power of bankruptcy attorney is his . I have discussed this with her at bedside. ALLERGIES: NO KNOWN DRUG ALLERGIES. MEDICATIONS: The patient was discharged on: 1. Norvasc 10 mg daily. 2. Ranitidine 150 mg daily. 3. Simethicone 125 mg twice daily. 4. Flomax 0.4 mg daily. 5. Coreg 12.5 mg twice daily. 6. Gabapentin 1200 mg p.o. twice daily. REVIEW OF SYSTEMS: Cannot be done as patient has encephalopathy at present. PHYSICAL EXAMINATION: GENERAL: Patient is a 58-year-old male who is currently encephalopathic and is not oriented fully. VITAL SIGNS: Blood pressure on arrival 150/106, pulse 106 per minute, respiratory rate 20 per minute, temperature 98.7 degrees Fahrenheit, and saturating 94% on room air. NECK: Supple. No elevated JVD. HEENT: Eyes; extraocular muscles intact. Pupils reacting to light. Oral cavity, mucous membranes are dry. No exudates or congestion. CARDIOVASCULAR SYSTEM: S1 and S2 heard, loud S2. No murmur. Regular rhythm. RESPIRATORY SYSTEM: Air entry 1+ bilateral. No rales or rhonchi. ABDOMEN: Soft. Bowel sounds heard. No tenderness, rigidity, or guarding. EXTREMITIES: Patient has chronic wounds on the right lower extremity and has dressings on it. Peripheral pulses are 1+ bilateral. No ischemic gangrene seen on the toes. CENTRAL NERVOUS SYSTEM: Patient appears to have aphasia. He seems to move his right extremities better than left extremities. A thorough neurologic exam is difficult due to patient's current encephalopathy. On repeated verbal stimuli at least 3 to 4 times, patient follows 1 to 2 out of 5 times. He is seen freely moving both upper extremities, but not so much in the lower extremities. He has moved his toes, but has not been able to bend his knee or lift his legs in both extremities. The patient is left handed and he seems to have a strength of 3/5 in the left upper extremity when compared to right. PSYCHIATRIC: Cannot be accurately assessed as the patient is encephalopathic at present. LABORATORY DATA: Chest x-ray done, shows no acute infiltrate. CT brain shows no acute intracranial hemorrhage or mass effect. White count of 13, H and H 13 and 38, platelet count 642, MCV is 84 with 82% neutrophils. Serum bicarb 20, BUN 65, and creatinine 7.8. Creatinine was 1.0 on the 30th. Albumin is 3.5. Ammonia levels are 18. UA shows moderate leukocyte esterase, greater than 50 wbc's, and 1+ bacteria. Urine tox screen is positive for opiates. EKG done, shows sinus tach at 110 beats per minute. There is poor R-wave progression seen. CLINICAL IMPRESSION AND PLAN: Patient will be admitted to telemetry for acute renal failure, acute encephalopathy, possible acute cerebrovascular accident with left hemiparesis and aphasia. It is the dominant side for patient. He will be on aspirin 300 mg per rectal daily, D5 water at 75 mL per hour, hydralazine p.r.n. IV. We will keep him n.p.o. until cleared by Speech. He will be on ceftriaxone 1 g IV daily for urinary tract infection. The patient likely needs to get back on hemodialysis. We will consult Dr. Hubbard for Nephrology. If Patient is not co- operative at present for an MRI, this can be done when he is more conscious and oriented. We will obtain echo with 2D Doppler for LV function, MRI without contrast to rule out CVA. We will continue his Flomax and atorvastatin orally when he is cleared by Speech. Wound Care will be consulted for the chronic wounds in right lower extremity. His overall prognosis is guarded. His code status is full. I have discussed this with at bedside. We will also consult Dr. Chiu for Neurology who is on-call. Job ID: [id number] [facility]
[2018-03-06 03:32] LABS: #Eosinphils 0.2 thou/uL (0.0-0.7); #Lymphocytes 1.5 thou/uL (1.20-3.40); #Monocytes 0.8 thou/uL (0.11-0.59); #Neutrophils 9.3 thou/uL (1.40-6.50); %Basophils 0.1 % (0.0-1.0); %Eosinophils 1.8 % (0.0-10.0); %Lymphocytes 12.9 % (21.0-51.0); %Monocytes 6.8 % (0.0-10.0); %Neutrophils 78.4 % (42.0-75.0); Hemoglobin 13.5 g/dL (14.0-18.0); Mean Corpuscular HGB CONC 34.6 g/dL (32.0-36.0); Mean Corpuscular Hemoglobin 29.2 pg (27.0-31.0); Mean Corpuscular Volume 84.6 fL (78.0-98.0); Mean Platelet Volume 5.9 fL (7.4-10.4); Platelet Count 628 thou/uL (130-400); RBC Distribution Width 12.9 % (11.5-14.5); Red Blood Cell (RBC) Count 4.62 mill/uL (4.70-6.10); White Blood Cell (WBC) Count 11.9 thou/uL (4.8-10.8)
[2018-03-06 03:53] LABS: Albumin 3.4 g/dL (3.5-5.0); Anion Gap 19 mmol/L (10-20); BUN (Urea Nitrogen) 69 mg/dL (8.4-25.7); BUN/Creatinine Ratio 13.12; Calc. Creatinine Clearance 0 mL/min (70-130); Calcium 9.3 mg/dL (7.8-10.44); Carbon Dioxide 18 mmol/L (22-29); Cardiac Risk 2.5 (Less than 4.5); Chloride 103 mmol/L (98-107); Cholesterol 121 mg/dl (< 200 Desired); Estimated GFR-MDRD 11; Glucose 96 mg/dL (70-105); HDL Cholesterol 49 mg/dL (>60 Neg Risk); LDL Cholesterol, Calculated 53 mg/dL; Potassium 4.3 mmol/L (3.5-5.1); Sodium 136 mmol/L (136-145); Triglycerides 95 mg/dL (Less than 150)
[2018-03-06] MEDS ORDERED: Aspirin 300 MG Suppository ONE (03:57)
[2018-03-06] MEDS: Dextrose 5% in Water 1,000 ML IV SCH ×2 (03:59→15:46)
[2018-03-06 08:35] VITALS: BMI 56.7
[2018-03-06] MEDS ORDERED: Prevnar 13-Val Conj/PF 0.5 ML SYRINGE IM ONE (09:00)
--- NOTE | 2018-03-06 10:05 | PDOC.PN ---
- Subjective Encounter Start Date: 03/06/18 Encounter Start Time: 10:04 Mr. Herrera was seen today in follow-up of metabolic encephalopathy. He is confused and talking but not making sense. - Objective Resuscitation Status - Order Detail: 03/06/18 01:06 Resuscitation Status Routine Resuscitation Status: FULL: Full Resuscitation Discussed with: POA: BERNICE Reviewed: Yes Vital Signs & Weight: Vital Signs (12 hours) Temp Pulse Resp BP Pulse Ox 03/06/18 07:46 98.4 F 108 H 19 164/96 H 97 03/06/18 04:13 98.2 F 109 H 20 121/78 100 Weight Weight 320 lb 1.779 oz I&O: 03/05/18 03/06/18 03/07/18 06:59 06:59 06:59 Intake Total 225 Balance 225 Result Diagrams: 03/06/18 03:19 03/06/18 03:19 Phys Exam - Physical Examination HEENT: PERRLA Respiratory: no wheezing, no rales, no rhonchi, clear to auscultation bilateral Cardiovascular: RRR, no significant murmur, no rub Gastrointestinal: soft, non-tender, positive bowel sounds Musculoskeletal: pulses present, edema present Left leg dressed Dx/Plan (1) YUNIOR (acute kidney injury) Code(s): N17.9 - ACUTE KIDNEY FAILURE, UNSPECIFIED Status: Acute Comment: s/ p HD, renal function stabilized, avoid nephrotoxic meds and limit contrast exposure (2) Acute metabolic encephalopathy Code(s): G93.41 - METABOLIC ENCEPHALOPATHY Status: Acute Comment: Secondary to polypharmacy and rx-medication overdose, resolving (3) Leg wound, left Code(s): S81.802A - UNSPECIFIED OPEN WOUND, LEFT LOWER LEG, INITIAL ENCOUNTER Status: Acute (4) Hypertension Code(s): I10 - ESSENTIAL (PRIMARY) HYPERTENSION Status: Chronic Qualifiers: Hypertension type: essential hypertension Qualified Code(s): I10 - Essential (primary) hypertension Comment: back on Amlodipine, adding carvedilol. (5) Morbid obesity with BMI of 50.0-59.9, adult Code(s): E66.01 - MORBID (SEVERE) OBESITY DUE TO EXCESS CALORIES; Z68.43 - BODY MASS INDEX (BMI) 50-59.9, ADULT Status: Acute - Plan * Metabolic encephalopathy- ? etiology- possibly due to acute kidney injury, and there is also concern for CVA, with expressive aphasia * Acute kidney injury- his GFR is elevated- possibly due to pre-renal azotemia- continue hydration and follow- Nephrology has also been consulted * ? CVA- MRI has been ordered, and await Neurology input * HTN- blood pressure is elevated- continue PRN medications * Obesity- morbid- his describes periods of somnolence- ? undiagnosed sleep apnea- will need outpatient sleep study- and if present this may explain some of the encephalopathy.
[2018-03-06 14:26] LABS: Anion Gap 18 mmol/L (10-20); BUN (Urea Nitrogen) 66 mg/dL (8.4-25.7); Calc. Creatinine Clearance 49 mL/min (70-130); Calcium 9.3 mg/dL (7.8-10.44); Carbon Dioxide 19 mmol/L (22-29); Chloride 104 mmol/L (98-107); Estimated GFR-MDRD 19; Glucose 110 mg/dL (70-105); Potassium 4.4 mmol/L (3.5-5.1); Sodium 137 mmol/L (136-145)
[2018-03-06] MEDS: Aspirin 300 MG Suppository PR SCH (14:40)
[2018-03-06] MEDS: Famotidine 20 MG TAB PO SCH (14:41)
[2018-03-06] MEDS: Tamsulosin HCl 0.4 MG CAP PO SCH (14:42)
--- NOTE | 2018-03-06 15:16 | PRG ---
DATE OF SERVICE: 03/06/2018 SUBJECTIVE: A 58-year-old gentleman being seen for acute kidney injury. The patient is alert with more awake today. OBJECTIVE: CONSTITUTIONAL: Awake, alert, in no acute distress. VITAL SIGNS: Afebrile. Pulse , breathing 16, blood pressure 121/78. GENERAL APPEARANCE AND MENTAL STATUS: Fair. HEAD/NECK: Normocephalic. Atraumatic. EYES: EOMI. No deformity. EARS: Clear. No ulcers. NOSE: Intact. No lesions. MOUTH: Clear. No discharge. THROAT: Clear. No exudate. LUNGS: Clear. No crackles. CARDIAC: S1, S2. No rub. ABDOMEN: Benign. Bowel sounds positive. GENITALIA/RECTUM: Sanders absent. BACK/EXTREMITIES: Edema 0+. NEUROLOGICAL: Alert and motor intact. SKIN: LYMPHATICS: LABORATORY DATA: Show creatinine 5.2. ASSESSMENT AND PLAN: 1. Acute kidney injury, improved. 2. Hypertension, stable. 3. Anemia, stable. No indication for dialysis. I will get nurse educated for Palliative evaluation. Job ID: [id number]
[2018-03-06] MEDS: Sodium Chloride 0.9% 1,000 ML IV SCH (17:12)
[2018-03-06] MEDS: Enoxaparin Sodium 30 MG/0.3 ML SYRINGE SC SCH (17:15)
--- NOTE | 2018-03-06 18:04 | CON ---
DATE OF CONSULTATION: 03/05/2018 This is a nephrology consult. REASON FOR CONSULTATION: Elevated creatinine. HISTORY OF PRESENT ILLNESS: A 58-year-old gentleman, who has altered mental status, presented to the hospital again with acute renal failure. His last creatinine was 1 and is now more than 7. The patient has had poor p.o. intake per family. The patient can give no further history. PAST MEDICAL HISTORY: History of acute kidney injury, CKD, hypertension, rhabdomyolysis, noncompliance with medication, overdosing of medications, narcotics, and left shoulder surgery. SOCIAL HISTORY: No alcohol or drug use. FAMILY HISTORY: Family history is negative for ESRD. ALLERGIES: REVIEWED. REVIEW OF SYSTEMS: Unobtainable. PHYSICAL EXAMINATION: GENERAL: The patient is resting. VITAL SIGNS: Afebrile, pulse 80, breathing 16, and blood pressure 150/106. GENERAL APPEARANCE AND MENTAL STATUS: Fair. HEAD/NECK: Normocephalic. Atraumatic. EYES: EOMI. No deformity. EARS: Clear. No ulcers. NOSE: Intact. No lesions. MOUTH: Clear. No discharge. THROAT: Clear. No exudate. LUNGS: Clear. No crackles. CARDIAC: S1, S2. No rub. ABDOMEN: Benign. Bowel sounds positive. GENITALIA/RECTUM: Sanders absent. BACK/EXTREMITIES: Edema 0+. NEUROLOGICAL: Alert and motor intact. LABORATORY DATA: Labs show creatinine is 7.8, potassium 4.0. 1. Acute kidney injury with chronic kidney disease due to decreased effective arterial blood volume. No indication for dialysis. 2. Hypertension, stable. 3. Anemia, stable. 4. Medication list is not available. Prognosis is poor. I would recommend hospice. Job ID: [id number]
[2018-03-06] MEDS: cefTRIAXone\\ROCEPHIN 1 GM in Sodium Chloride 0.9% 100 ML IVPB SCH (22:23)
[2018-03-06] MEDS: Atorvastatin Calcium 40 MG TAB PO SCH (22:23)
[2018-03-06] MEDS: Loperamide HCl 2 MG CAP PO PRN (23:12)
[2018-03-07] MEDS: cefTRIAXone\\ROCEPHIN 1 GM in Sodium Chloride 0.9% 100 ML IVPB SCH (00:25)
[2018-03-07] MEDS: Sodium Chloride 0.9% 1,000 ML IV SCH ×2 (02:13→18:25)
[2018-03-07] MEDS: Loperamide HCl 2 MG CAP PO PRN ×2 (02:13→18:24)
[2018-03-07 06:02] LABS: #Eosinphils 0.2 thou/uL (0.0-0.7); #Lymphocytes 1.7 thou/uL (1.20-3.40); #Monocytes 0.9 thou/uL (0.11-0.59); #Neutrophils 10.3 thou/uL (1.40-6.50); %Basophils 0.1 % (0.0-1.0); %Eosinophils 1.7 % (0.0-10.0); %Lymphocytes 12.9 % (21.0-51.0); %Monocytes 6.5 % (0.0-10.0); %Neutrophils 78.8 % (42.0-75.0); Hemoglobin 14.3 g/dL (14.0-18.0); Mean Corpuscular HGB CONC 33.7 g/dL (32.0-36.0); Mean Corpuscular Hemoglobin 28.2 pg (27.0-31.0); Mean Corpuscular Volume 83.7 fL (78.0-98.0); Platelet Count 668 thou/uL (130-400); RBC Distribution Width 12.8 % (11.5-14.5); Red Blood Cell (RBC) Count 5.09 mill/uL (4.70-6.10)
[2018-03-07 06:13] LABS: Anion Gap 17 mmol/L (10-20); BUN (Urea Nitrogen) 58 mg/dL (8.4-25.7); Calc. Creatinine Clearance 87 mL/min (70-130); Calcium 9.5 mg/dL (7.8-10.44); Carbon Dioxide 21 mmol/L (22-29); Chloride 104 mmol/L (98-107); Estimated GFR-MDRD 37; Glucose 99 mg/dL (70-105); Potassium 4.1 mmol/L (3.5-5.1); Sodium 138 mmol/L (136-145)
[2018-03-07] MEDS: Aspirin 300 MG Suppository PR SCH (11:02)
[2018-03-07] MEDS: Saccharomyces boulardii 250 MG CAP PO SCH (11:03)
[2018-03-07] MEDS: Famotidine 20 MG TAB PO SCH (11:03)
[2018-03-07] MEDS: Tamsulosin HCl 0.4 MG CAP PO SCH (11:03)
[2018-03-07] MEDS: Enoxaparin Sodium 30 MG/0.3 ML SYRINGE SC SCH (12:07)
--- NOTE | 2018-03-07 15:26 | PDOC.PN ---
- Subjective Encounter Start Date: 03/07/18 Encounter Start Time: 11:00 Mr. Herrera was seen today in follow-up of Altered mental status. He is a bit better today. He is still saying things that do not make sense with regards to the question asked, but he isnot repeating things over and over, and not calling out constantly as he was yesterday. - Objective Resuscitation Status - Order Detail: 03/06/18 01:06 Resuscitation Status Routine Resuscitation Status: FULL: Full Resuscitation Discussed with: POA: BERNICE Reviewed: Yes Vital Signs & Weight: Vital Signs (12 hours) Temp Pulse Resp BP Pulse Ox 03/07/18 11:44 98.2 F 96 18 164/86 H 96 03/07/18 08:30 98 03/07/18 07:58 98.5 F 108 H 20 190/90 H 99 03/07/18 06:20 97.7 F 103 H 18 136/100 H 98 Weight Admit Weight 320 lb 1.779 oz Weight 320 lb 1.779 oz I&O: 03/06/18 03/07/18 03/08/18 06:59 06:59 06:59 Intake Total 225 600 Balance 225 600 Result Diagrams: 03/07/18 05:41 03/07/18 05:41 Phys Exam - Physical Examination HEENT: PERRLA Respiratory: no wheezing, no rales, no rhonchi, clear to auscultation bilateral Cardiovascular: RRR, no significant murmur, no rub Gastrointestinal: soft, non-tender, no distention, positive bowel sounds Musculoskeletal: pulses present, edema present + lower extremity edema, and mild erythema, wound to left lower extremity is dressed Dx/Plan (1) YUNIOR (acute kidney injury) Code(s): N17.9 - ACUTE KIDNEY FAILURE, UNSPECIFIED Status: Acute Comment: s/ p HD, renal function stabilized, avoid nephrotoxic meds and limit contrast exposure (2) Acute metabolic encephalopathy Code(s): G93.41 - METABOLIC ENCEPHALOPATHY Status: Acute Comment: Secondary to polypharmacy and rx-medication overdose, resolving (3) Leg wound, left Code(s): S81.802A - UNSPECIFIED OPEN WOUND, LEFT LOWER LEG, INITIAL ENCOUNTER Status: Chronic (4) Hypertension Code(s): I10 - ESSENTIAL (PRIMARY) HYPERTENSION Status: Chronic Qualifiers: Hypertension type: essential hypertension Qualified Code(s): I10 - Essential (primary) hypertension Comment: back on Amlodipine, adding carvedilol. (5) Morbid obesity with BMI of 50.0-59.9, adult Code(s): E66.01 - MORBID (SEVERE) OBESITY DUE TO EXCESS CALORIES; Z68.43 - BODY MASS INDEX (BMI) 50-59.9, ADULT Status: Acute - Plan * Metabolic encephalopathy- likely from acute kidney injury, and suspected Obesity Hypoventilation Syndrome. * Acute Kidney injury- improving with hydration * Possible CVA- awaiting MRI, and Neurology evaluation * Morbid Obesity- Administrative Appeals Tribunal Member consult once he is more lucid- Suspected MARY- discussed with the patient's - She explains that he gets so somnolent that he sleeps for 2-3 days stright, during which time he doesn't eat or drink ( this could be due to MARY)- then he likely becomes severely dehydrated, and then develops YUNIOR- She says he has been told to Obtain a sleep study, but has not yet * HTN- blood pressure is elevated- will re-start Amlodipine
[2018-03-07] MEDS ORDERED: Gabapentin 400 MG CAP PO SCH (17:00)
[2018-03-07] MEDS ORDERED: HYDROcodone/Acetaminophen 10/325 mg Tablet PO PRN (17:08)
[2018-03-07] MEDS ORDERED: HYDROcodone/Acetaminophen 5/325 mg Tablet PO PRN (18:05)
--- NOTE | 2018-03-07 18:07 | PDOC.EVN ---
Event Note - Event Note Event Note: Gabapentin and [place] were re-started but at a lower dose due to his confusion
[2018-03-07] MEDS: Amlodipine 10 MG TAB PO SCH (23:29)
[2018-03-07] MEDS: Atorvastatin Calcium 40 MG TAB PO SCH (23:29)
[2018-03-07] MEDS: Gabapentin 300 MG CAP PO SCH (23:30)
--- NOTE | 2018-03-08 00:27 | PDOC.EVN ---
Event Note - Event Note Event Note: Nurse notified me that the patient's IV has been lost and a new one could not be established. BP is high. Patient taking PO's. Ordered Hydralazine PO and IM Rocephin for tonight. May need PICC in am.
[2018-03-08] MEDS: cefTRIAXone\\ROCEPHIN 1 GM in Sodium Chloride 0.9% 100 ML IVPB SCH (00:44)
[2018-03-08] MEDS ORDERED: cefTRIAXone\\ROCEPHIN 1 GM VIAL IM SCH (00:45)
[2018-03-08] MEDS ORDERED: hydrALAZINE 25 MG TAB PO SCH ×2 (01:15→21:00)
--- NOTE | 2018-03-08 07:40 | PRG ---
DATE OF SERVICE: 03/07/2018 SUBJECTIVE: Patient was seen and examined at bedside and overnight events noted. Patient denies any shortness of breath or chest pain or palpitation. No history of nausea or vomiting or diarrhea or fever or chills or cramps. OBJECTIVE: GENERAL: This is a well-built male, in no apparent distress. VITAL SIGNS: Temperature 98.2, pulse 96, respiratory rate, 18. Blood pressure 164/86. HEENT: Atraumatic, normocephalic. Oral mucosa is moist NECK: Supple. CARDIOVASCULAR: S1, S2 heard. Rate and rhythm regular. RESPIRATORY: Clear to auscultation. GASTROINTESTINAL: Abdomen is soft. MUSCULOSKELETAL: No tenderness. No edema. DERMATOLOGIC: No skin rash. NEUROLOGIC: Alert and awake and oriented X3. No focal neurologic deficits. Moving all the extremities. PSYCHIATRIC: Mood and affect normal. LABORATORY DATA: Potassium is 4.1, BUN is 58, creatinine 1.9. ASSESSMENT AND PLAN: 1. Acute kidney injury . 2. Hypertension, stable. 3. Anemia, stable. 4. much better. Avoid nephrotoxins and we will follow. Job ID: [id number]
[2018-03-08] MEDS ORDERED: Cipro 250 MG TAB PO SCH (09:00)
[2018-03-08 09:35] LABS: Anion Gap 15 mmol/L (10-20); BUN (Urea Nitrogen) 37 mg/dL (8.4-25.7); Calc. Creatinine Clearance 126 mL/min (70-130); Calcium 9.4 mg/dL (7.8-10.44); Carbon Dioxide 25 mmol/L (22-29); Chloride 102 mmol/L (98-107); Estimated GFR-MDRD 56; Glucose 142 mg/dL (70-105); Potassium 3.8 mmol/L (3.5-5.1); Sodium 138 mmol/L (136-145)
[2018-03-08] MEDS: Aspirin 325 MG TAB PO SCH (10:58)
[2018-03-08] MEDS: Saccharomyces boulardii 250 MG CAP PO SCH (10:59)
[2018-03-08] MEDS: Gabapentin 300 MG CAP PO SCH ×4 (10:59→21:19)
[2018-03-08] MEDS: Enoxaparin Sodium 30 MG/0.3 ML SYRINGE SC SCH (10:59)
[2018-03-08] MEDS: Sodium Chloride 0.9% 1,000 ML IV SCH (10:59)
[2018-03-08] MEDS: Famotidine 20 MG TAB PO SCH (10:59)
[2018-03-08] MEDS: Tamsulosin HCl 0.4 MG CAP PO SCH (11:00)
--- NOTE | 2018-03-08 13:15 | PDOC.PN ---
- Subjective Encounter Start Date: 03/08/18 Encounter Start Time: 09:30 Subjective: is awake, conversing well, son at bedside -: is moving all extremities -: is fully oriented and has no trouble with speech this morning - Objective Resuscitation Status - Order Detail: 03/06/18 01:06 Resuscitation Status Routine Resuscitation Status: FULL: Full Resuscitation Discussed with: POA: BERNICE Reviewed: Yes Vital Signs & Weight: Vital Signs (12 hours) Temp Pulse Resp BP BP Pulse Ox 03/08/18 11:58 98.0 F 87 20 176/96 H 95 03/08/18 07:46 97.9 F 98 18 172/87 H 96 03/08/18 05:06 97.5 F L 107 H 16 144/85 H 96 03/08/18 01:45 99 210/110 H Weight Admit Weight 320 lb 1.779 oz Weight 320 lb 1.779 oz I&O: 03/07/18 03/08/18 03/09/18 06:59 06:59 06:59 Intake Total 1794 Balance 1794 Result Diagrams: 03/07/18 05:41 03/08/18 08:55 Phys Exam - Physical Examination HEENT: PERRLA, moist MMs Neck: no JVD, supple Respiratory: no wheezing, no rales Cardiovascular: RRR, no significant murmur Gastrointestinal: soft, non-tender, positive bowel sounds Musculoskeletal: pulses present, edema present Neurological: non-focal, moves all 4 limbs Psychiatric: normal affect, A&O x 3 Dx/Plan (1) YUNIOR (acute kidney injury) Code(s): N17.9 - ACUTE KIDNEY FAILURE, UNSPECIFIED Status: Acute (2) Acute metabolic encephalopathy Code(s): G93.41 - METABOLIC ENCEPHALOPATHY Status: Acute (3) Physical deconditioning Code(s): R53.81 - OTHER MALAISE Status: Chronic (4) Morbid obesity with BMI of 50.0-59.9, adult Code(s): E66.01 - MORBID (SEVERE) OBESITY DUE TO EXCESS CALORIES; Z68.43 - BODY MASS INDEX (BMI) 50-59.9, ADULT Status: Chronic (5) Leg wound, right Code(s): S81.801A - UNSPECIFIED OPEN WOUND, RIGHT LOWER LEG, INITIAL ENCOUNTER Status: Chronic (6) Hypertension Code(s): I10 - ESSENTIAL (PRIMARY) HYPERTENSION Status: Chronic Qualifiers: Hypertension type: essential hypertension Qualified Code(s): I10 - Essential (primary) hypertension - Plan no evidence of cva, suspected aphasia initially is fully resolved, likely -: -from met encephalopathy, yunior and uremia -: june tx to med floor -: PT to mobilize with crutches as tolerated -: d/w CM, has no insurance, [facility] will be arranged along with med assist * . continue asp, lipitor, norvasc, gabapentin. cipro for uti, no cultures are available add hydralazine for htn bid. Review of Systems - Medications/Allergies Allergies/Adverse Reactions: Allergies Allergy/AdvReac Type Severity Reaction Status Date / Time codeine Allergy Verified 03/06/18 14:24 Medications: Current Medications Acetaminophen (Tylenol) 650 mg PO Q4H PRN PRN Reason: Headache/Fever/Mild Pain (1-3) Acetaminophen (Tylenol) 650 mg LA Q4H PRN PRN Reason: Headache/Fever/Mild Pain (1-3) Hydrocodone Bitart/Acetaminophen ([place] 5/325) 1 tab PO Q6HR PRN PRN Reason: Moderate Pain (4-6) Amlodipine Besylate (Norvasc) 10 mg PO HS [facility] Last Admin: 03/07/18 23:29 Dose: 10 mg Aspirin (Aspirin) 300 mg PO DAILY [facility] Last Admin: 03/08/18 10:58 Dose: 300 mg Atorvastatin Calcium (Lipitor) 40 mg PO HS [facility] Last Admin: 03/07/18 23:29 Dose: 40 mg Ciprofloxacin (Cipro) 250 mg PO 0600,2000 [facility] Enoxaparin Sodium (Lovenox) 30 mg SC 0900 [facility] Last Admin: 03/08/18 10:59 Dose: 30 mg Famotidine (Pepcid) 20 mg PO DAILY [facility] Last Admin: 03/08/18 10:59 Dose: 20 mg Gabapentin (Neurontin) 600 mg PO QID [facility] Last Admin: 03/08/18 10:59 Dose: 600 mg Guaifenesin/Dextromethorphan (Robitussin Dm) 15 ml PO Q4H PRN PRN Reason: Cough Hydralazine HCl (Apresoline) 10 mg SLOW IVP Q4H PRN PRN Reason: BP > 220/110 Loperamide HCl (Imodium) 2 mg PO PRN PRN PRN Reason: Diarrhea/Loose Stools Last Admin: 03/07/18 18:24 Dose: 2 mg Saccharomyces Boulardii (Florastor) 250 mg PO DAILY [facility] Last Admin: 03/08/18 10:59 Dose: 250 mg Senna/Docusate Sodium (Senokot S) 2 tab PO BIDPRN PRN PRN Reason: Constipation Sodium Chloride (Flush - Normal Saline) 10 ml IVF PRN PRN PRN Reason: Saline Flush Tamsulosin HCl (Flomax) 0.4 mg PO DAILY [facility] Last Admin: 03/08/18 11:00 Dose: 0.4 mg
--- NOTE | 2018-03-08 17:13 | PRG ---
DATE OF SERVICE: 03/08/2018 SUBJECTIVE: Patient was seen and examined at bedside and overnight events noted. Patient denies any shortness of breath or chest pain or palpitation. No history of nausea or vomiting or diarrhea or fever or chills or cramps. OBJECTIVE: GENERAL: This is a well-built male, in no apparent distress. VITAL SIGNS: Temperature 97.8. Heart rate 85. Respiratory rate 20. Blood pressure 179/108. HEENT: Atraumatic, normocephalic. Oral mucosa is moist NECK: Supple. CARDIOVASCULAR: S1, S2 heard. Rate and rhythm regular. RESPIRATORY: Clear to auscultation. GASTROINTESTINAL: Abdomen is soft. MUSCULOSKELETAL: No tenderness. No edema. DERMATOLOGIC: No skin rash. NEUROLOGIC: Alert and awake and oriented X3. No focal neurologic deficits. Moving all the extremities. PSYCHIATRIC: Mood and affect normal. LABORATORY DATA: Potassium is 3.8, BUN is 37, and creatinine is 1.3. ASSESSMENT AND PLAN: 1. Acute kidney injury, much better. 2. Edema, controlled. 3. Hypertension. 4. Anemia. Creatinine is much better. I will sign off. Please call back with any questions. Job ID: [id number]
[2018-03-08] MEDS: Cipro 250 MG TAB PO SCH (21:18)
[2018-03-08] MEDS: Amlodipine 10 MG TAB PO SCH (21:19)
[2018-03-08] MEDS: Atorvastatin Calcium 40 MG TAB PO SCH (21:19)
[2018-03-09] MEDS: Cipro 250 MG TAB PO SCH ×2 (06:13→21:03)
[2018-03-09] MEDS: Saccharomyces boulardii 250 MG CAP PO SCH (09:00)
[2018-03-09] MEDS: Enoxaparin Sodium 30 MG/0.3 ML SYRINGE SC SCH (09:00)
[2018-03-09] MEDS: Tamsulosin HCl 0.4 MG CAP PO SCH (09:00)
[2018-03-09] MEDS: hydrALAZINE 25 MG TAB PO SCH ×3 (09:01→20:44)
[2018-03-09] MEDS: Gabapentin 300 MG CAP PO SCH ×4 (09:01→20:42)
[2018-03-09] MEDS: Famotidine 20 MG TAB PO SCH (09:01)
[2018-03-09] MEDS: Aspirin 325 MG TAB PO SCH (09:03)
[2018-03-09] MEDS: Furosemide 40 MG TAB PO SCH (09:04)
--- NOTE | 2018-03-09 10:03 | PDOC.PN ---
- Subjective Encounter Start Date: 03/09/18 Encounter Start Time: 09:15 Subjective: no sob or chest pain -: has not amb yet, wants crutches to mobilize - Objective Resuscitation Status - Order Detail: 03/06/18 01:06 Resuscitation Status Routine Resuscitation Status: FULL: Full Resuscitation Discussed with: POA: BERNICE Reviewed: Yes Vital Signs & Weight: Vital Signs (12 hours) Temp Pulse Resp BP BP Pulse Ox 03/09/18 09:01 96 192/102 H 03/09/18 08:00 98.1 F 96 20 192/102 H 97 03/09/18 04:00 98.4 F 106 H 16 174/94 H 93 L 03/09/18 03:22 140/93 H 03/09/18 00:20 97.7 F 92 16 183/97 H 94 L 03/08/18 22:20 97.9 F 97 20 170/86 H 94 L Weight Admit Weight 320 lb 1.779 oz Weight 320 lb 1.779 oz I&O: 03/08/18 03/09/18 03/10/18 06:59 06:59 06:59 Intake Total 1794 1230 Output Total 525 Balance 1794 705 Result Diagrams: 03/07/18 05:41 03/08/18 08:55 Phys Exam - Physical Examination HEENT: PERRLA, moist MMs Neck: no JVD, supple Respiratory: no wheezing, no rales Cardiovascular: RRR, no significant murmur Gastrointestinal: soft, non-tender, positive bowel sounds Musculoskeletal: pulses present, edema present Neurological: non-focal, moves all 4 limbs Psychiatric: normal affect, A&O x 3 Dx/Plan (1) YUNIOR (acute kidney injury) Code(s): N17.9 - ACUTE KIDNEY FAILURE, UNSPECIFIED Status: Acute Comment: resolving (2) Acute metabolic encephalopathy Code(s): G93.41 - METABOLIC ENCEPHALOPATHY Status: Resolved (3) Physical deconditioning Code(s): R53.81 - OTHER MALAISE Status: Chronic (4) Morbid obesity with BMI of 50.0-59.9, adult Code(s): E66.01 - MORBID (SEVERE) OBESITY DUE TO EXCESS CALORIES; Z68.43 - BODY MASS INDEX (BMI) 50-59.9, ADULT Status: Chronic (5) Leg wound, right Code(s): S81.801A - UNSPECIFIED OPEN WOUND, RIGHT LOWER LEG, INITIAL ENCOUNTER Status: Chronic (6) Hypertension Code(s): I10 - ESSENTIAL (PRIMARY) HYPERTENSION Status: Chronic Qualifiers: Hypertension type: essential hypertension Qualified Code(s): I10 - Essential (primary) hypertension Comment: uncontrolled - Plan is on lasix before meals -: increase hydralazine to 75mg tid -: to ambulate with PT today -: encephalopathy has cleared up from last 48hrs now -: renal function is stabilizing, almost at baseline * . Review of Systems - Medications/Allergies Allergies/Adverse Reactions: Allergies Allergy/AdvReac Type Severity Reaction Status Date / Time codeine Allergy Verified 03/06/18 14:24 Medications: Current Medications Acetaminophen (Tylenol) 650 mg PO Q4H PRN PRN Reason: Headache/Fever/Mild Pain (1-3) Acetaminophen (Tylenol) 650 mg SC Q4H PRN PRN Reason: Headache/Fever/Mild Pain (1-3) Hydrocodone Bitart/Acetaminophen ([place] 5/325) 1 tab PO Q6HR PRN PRN Reason: Moderate Pain (4-6) Amlodipine Besylate (Norvasc) 10 mg PO HS [facility] Last Admin: 03/08/18 21:19 Dose: 10 mg Aspirin (Aspirin) 300 mg PO DAILY [facility] Last Admin: 03/09/18 09:03 Dose: 300 mg Atorvastatin Calcium (Lipitor) 40 mg PO HS [facility] Last Admin: 03/08/18 21:19 Dose: 40 mg Ciprofloxacin (Cipro) 250 mg PO 0600,1999 [facility] Last Admin: 03/09/18 06:13 Dose: 250 mg Enoxaparin Sodium (Lovenox) 30 mg SC 0900 [facility] Last Admin: 03/09/18 09:00 Dose: 30 mg Famotidine (Pepcid) 20 mg PO DAILY [facility] Last Admin: 03/09/18 09:01 Dose: 20 mg Furosemide (Lasix) 40 mg PO DAILY-AC [facility] Last Admin: 03/09/18 09:04 Dose: 40 mg Gabapentin (Neurontin) 600 mg PO QID [facility] Last Admin: 03/09/18 09:01 Dose: 600 mg Guaifenesin/Dextromethorphan (Robitussin Dm) 15 ml PO Q4H PRN PRN Reason: Cough Hydralazine HCl (Apresoline) 10 mg SLOW IVP Q4H PRN PRN Reason: SBP Greater Than 170 Hydralazine HCl (Apresoline) 75 mg PO TID [facility] Last Admin: 03/09/18 09:01 Dose: 75 mg Loperamide HCl (Imodium) 2 mg PO PRN PRN PRN Reason: Diarrhea/Loose Stools Last Admin: 03/07/18 18:24 Dose: 2 mg Saccharomyces Boulardii (Florastor) 250 mg PO DAILY [facility] Last Admin: 03/09/18 09:00 Dose: 250 mg Senna/Docusate Sodium (Senokot S) 2 tab PO BIDPRN PRN PRN Reason: Constipation Sodium Chloride (Flush - Normal Saline) 10 ml IVF PRN PRN PRN Reason: Saline Flush Tamsulosin HCl (Flomax) 0.4 mg PO DAILY [facility] Last Admin: 03/09/18 09:00 Dose: 0.4 mg
[2018-03-09 10:38] LABS: Albumin 3.3 g/dL (3.5-5.0)
[2018-03-09 10:39] LABS: Chloride 100 mmol/L (98-107); Potassium 3.4 mmol/L (3.5-5.1); Sodium 138 mmol/L (136-145)
[2018-03-09 10:40] LABS: Calcium 9.2 mg/dL (7.8-10.44); Glucose 153 mg/dL (70-105)
[2018-03-09 10:42] LABS: Anion Gap 14 mmol/L (10-20); Carbon Dioxide 27 mmol/L (22-29)
[2018-03-09 10:43] LABS: Phosphorus 2.8 mg/dL (2.3-4.7)
[2018-03-09 10:44] LABS: BUN (Urea Nitrogen) 23 mg/dL (8.4-25.7); BUN/Creatinine Ratio 19.49; Calc. Creatinine Clearance 140 mL/min (70-130); Estimated GFR-MDRD 63
[2018-03-09] MEDS: Amlodipine 10 MG TAB PO SCH (20:42)
[2018-03-09] MEDS: Atorvastatin Calcium 40 MG TAB PO SCH (20:42)
[2018-03-10] MEDS: Cipro 250 MG TAB PO SCH (05:37)
[2018-03-10 06:18] LABS: Albumin 3.6 g/dL (3.5-5.0); Anion Gap 18 mmol/L (10-20); BUN (Urea Nitrogen) 17 mg/dL (8.4-25.7); BUN/Creatinine Ratio 15.74; Calc. Creatinine Clearance 153 mL/min (70-130); Calcium 9.3 mg/dL (7.8-10.44); Carbon Dioxide 26 mmol/L (22-29); Chloride 97 mmol/L (98-107); Estimated GFR-MDRD 70; Glucose 109 mg/dL (70-105); Phosphorus 2.8 mg/dL (2.3-4.7); Potassium 3.6 mmol/L (3.5-5.1); Sodium 137 mmol/L (136-145)
[2018-03-10] MEDS: Gabapentin 300 MG CAP PO SCH ×3 (08:02→18:04)
[2018-03-10] MEDS: hydrALAZINE 25 MG TAB PO SCH ×2 (08:02→17:27)
[2018-03-10] MEDS: Enoxaparin Sodium 30 MG/0.3 ML SYRINGE SC SCH (08:02)
[2018-03-10] MEDS: Furosemide 40 MG TAB PO SCH (08:03)
[2018-03-10] MEDS: Tamsulosin HCl 0.4 MG CAP PO SCH (08:03)
[2018-03-10] MEDS: Aspirin 325 MG TAB PO SCH (08:04)
[2018-03-10] MEDS: Famotidine 20 MG TAB PO SCH (08:04)
[2018-03-10] MEDS: Saccharomyces boulardii 250 MG CAP PO SCH (08:05)
[2018-03-10 09:24] VITALS: TEMP 98.1
--- NOTE | 2018-03-10 09:59 | PDOC.PN ---
- Subjective Encounter Start Date: 03/10/18 Encounter Start Time: 09:15 Subjective: awake, oriented well -: says he can walk with crutches and will use walker as well -: wants to go home - Objective Resuscitation Status - Order Detail: 03/06/18 01:06 Resuscitation Status Routine Resuscitation Status: FULL: Full Resuscitation Discussed with: POA: BERNICE Reviewed: Yes Vital Signs & Weight: Vital Signs (12 hours) Temp Pulse Resp BP BP Pulse Ox 03/10/18 08:02 97 178/101 H 03/10/18 08:00 98.1 F 97 18 178/101 H 97 03/10/18 04:00 97.9 F 98 18 144/94 H 97 Weight Admit Weight 320 lb 1.779 oz Weight 320 lb 1.779 oz I&O: 03/09/18 03/10/18 03/11/18 06:59 06:59 06:59 Intake Total 1230 1100 Output Total 525 125 Balance 705 975 Result Diagrams: 03/07/18 05:41 03/10/18 04:25 Additional Labs: Accuchecks 03/09/18 19:38 POC Glucose 149 H Phys Exam - Physical Examination HEENT: PERRLA, moist MMs Neck: no JVD, supple Respiratory: no wheezing, no rales Cardiovascular: RRR, no significant murmur Gastrointestinal: soft, non-tender, positive bowel sounds Musculoskeletal: pulses present, edema present Neurological: non-focal, moves all 4 limbs Psychiatric: normal affect, A&O x 3 Dx/Plan (1) YUNIOR (acute kidney injury) Code(s): N17.9 - ACUTE KIDNEY FAILURE, UNSPECIFIED Status: Resolved (2) Acute metabolic encephalopathy Code(s): G93.41 - METABOLIC ENCEPHALOPATHY Status: Resolved (3) Physical deconditioning Code(s): R53.81 - OTHER MALAISE Status: Chronic (4) Morbid obesity with BMI of 50.0-59.9, adult Code(s): E66.01 - MORBID (SEVERE) OBESITY DUE TO EXCESS CALORIES; Z68.43 - BODY MASS INDEX (BMI) 50-59.9, ADULT Status: Chronic (5) Leg wound, right Code(s): S81.801A - UNSPECIFIED OPEN WOUND, RIGHT LOWER LEG, INITIAL ENCOUNTER Status: Chronic (6) Hypertension Code(s): I10 - ESSENTIAL (PRIMARY) HYPERTENSION Status: Chronic Qualifiers: Hypertension type: essential hypertension Qualified Code(s): I10 - Essential (primary) hypertension Comment: - Plan hemostable -: renal function normal today -: has deconditioning, needs to amb with PT -: dc plan based on PT mobilization -: counselled reg med and diet compliance, to reduce pain meds * . He was told not to take all pain meds at once and to redistribute it through out the day as prescribed. All his meds were faxed to pharmacy. Review of Systems - Medications/Allergies Allergies/Adverse Reactions: Allergies Allergy/AdvReac Type Severity Reaction Status Date / Time codeine Allergy Verified 03/06/18 14:24 Medications: Current Medications Acetaminophen (Tylenol) 650 mg PO Q4H PRN PRN Reason: Headache/Fever/Mild Pain (1-3) Acetaminophen (Tylenol) 650 mg IN Q4H PRN PRN Reason: Headache/Fever/Mild Pain (1-3) Hydrocodone Bitart/Acetaminophen ([place] 5/325) 1 tab PO Q6HR PRN PRN Reason: Moderate Pain (4-6) Amlodipine Besylate (Norvasc) 10 mg PO HS [facility] Last Admin: 03/09/18 20:42 Dose: 10 mg Aspirin (Aspirin) 300 mg PO DAILY [facility] Last Admin: 03/10/18 08:04 Dose: 300 mg Atorvastatin Calcium (Lipitor) 40 mg PO HS [facility] Last Admin: 03/09/18 20:42 Dose: 40 mg Ciprofloxacin (Cipro) 250 mg PO 0600,2000 [facility] Last Admin: 03/10/18 05:37 Dose: 250 mg Enoxaparin Sodium (Lovenox) 30 mg SC 0900 [facility] Last Admin: 03/10/18 08:02 Dose: 30 mg Famotidine (Pepcid) 20 mg PO DAILY [facility] Last Admin: 03/10/18 08:04 Dose: 20 mg Furosemide (Lasix) 40 mg PO DAILY-AC [facility] Last Admin: 03/10/18 08:03 Dose: 40 mg Gabapentin (Neurontin) 600 mg PO QID [facility] Last Admin: 03/10/18 08:02 Dose: 600 mg Guaifenesin/Dextromethorphan (Robitussin Dm) 15 ml PO Q4H PRN PRN Reason: Cough Hydralazine HCl (Apresoline) 10 mg SLOW IVP Q4H PRN PRN Reason: SBP Greater Than 170 Hydralazine HCl (Apresoline) 75 mg PO TID [facility] Last Admin: 03/10/18 08:02 Dose: 75 mg Loperamide HCl (Imodium) 2 mg PO PRN PRN PRN Reason: Diarrhea/Loose Stools Last Admin: 03/07/18 18:24 Dose: 2 mg Saccharomyces Boulardii (Florastor) 250 mg PO DAILY [facility] Last Admin: 03/10/18 08:05 Dose: 250 mg Senna/Docusate Sodium (Senokot S) 2 tab PO BIDPRN PRN PRN Reason: Constipation Sodium Chloride (Flush - Normal Saline) 10 ml IVF PRN PRN PRN Reason: Saline Flush Tamsulosin HCl (Flomax) 0.4 mg PO DAILY [facility] Last Admin: 03/10/18 08:03 Dose: 0.4 mg
[2018-03-10 12:58] VITALS: BP 134/84
== END 2018-03-10 19:45 | disposition home or self-care (01) | DRG 682 ==
LOC: ERS 16:59 → ERHOLD 22:15 → 2SE 03-06 15:30 → ONC 03-08 22:02
PROVIDERS: ADMIT Internal Medicine; ATTEND Internal Medicine
DX: N17.9 Acute kidney failure, unspecified (principal); G93.41 Metabolic encephalopathy; Z68.43 Body mass index [BMI] 50.0-59.9, adult; N39.0 Urinary tract infection, site not specified; F17.220 Nicotine dependence, chewing tobacco, uncomplicated; D64.9 Anemia, unspecified; I12.9 Hypertensive chronic kidney disease with stage 1 through stage 4 chronic kidney disease, or unspecified chronic kidney disease; N18.9 Chronic kidney disease, unspecified; E66.01 Morbid (severe) obesity due to excess calories; Z79.899 Other long term (current) drug therapy; Z88.5 Allergy status to narcotic agent
CPT/HCPCS: 36415; 36416; 51701; 70450; 71045; 80048; 80053; 80061; 80069; 80306; 80307; 81003; 81015; 82140; 83690; 85025; 87324; 87449; 90471; 90686; 93005; 93306; 96374; G0008; J0696; J1650; J7050

== ENCOUNTER 2018-03-16 09:03 | Outpatient (CLI) | payer OTHER ==
--- NOTE | 2018-03-16 10:56 | PRG ---
DATE OF SERVICE: 03/16/2018 SUBJECTIVE: Mr. Avi Herrera is a very pleasant 58-year-old gentleman, who presents to the Wound Center for evaluation of a wound of the right lateral lower leg subsequent to intraoperative debridement for necrotizing fasciitis in [place], [place]. Since the patient's last visit, Mr. Herrera was admitted to [facility] with acute renal failure. Today, the patient presents with multiple small superficial ulcerations of the left anterior lower leg. The patient continues to receive assistance with dressing changes from his son and daughter. The patient has no other complaints today. He denies any fever or chills. OBJECTIVE: VITAL SIGNS: Temperature 98.3, pulse 105, respirations 23, and blood pressure 158/77. EXTREMITIES: A large wound of the right lateral lower leg is present, which measures approximately 11.7 x 5.5 cm. Multiple small superficial ulcerations are present over the left anterior lower leg. No purulent drainage is associated with any of the wounds. No maceration of the skin of the periwound of any of the wound is noted. A dorsalis pedis pulse is palpable on the left. Edema of the right and left feet and lower legs is present on exam today. ASSESSMENT AND PLAN: 1. Multiple ulcerations of right and left lower leg as described above. Xeroform gauze, ABD, Webril, and 3M Coban 2 Layer Compression System will be applied to the ulcerations of the left anterior lower leg. For the right lower leg ulceration, dressing changes of Xeroform gauze, ABDs, Kerlix, and Eder bandages will be continued on a daily basis after cleansing and irrigation with the assistance of the patient's son and daughter. Arrangements were previously made for the home delivery of dressing supplies. I will see Mr. Herrera again in 4 weeks. The patient's son and daughter have been instructed to discontinue the compression wrap in one week and resume dressing changes of Xeroform gauze, ABDs, Kerlix, and Eder bandages on a daily basis. The patient and his son and daughter understand and are in agreement with the preceding treatment plan. 2. Hypertension. 3. History of rhabdomyolysis. Job ID: [id number]
[2018-03-16] MEDS ORDERED: Sodium Chloride 0.9% 15 ML NEB ONE (13:33)
== END 2018-03-16 09:04 | disposition home or self-care (01) ==
LOC: WCC 09:03
PROVIDERS: ATTEND Family Medicine
DX: L97.929 Non-pressure chronic ulcer of unspecified part of left lower leg with unspecified severity (principal); L97.919 Non-pressure chronic ulcer of unspecified part of right lower leg with unspecified severity; I10 Essential (primary) hypertension; Z87.39 Personal history of other diseases of the musculoskeletal system and connective tissue
CPT/HCPCS: A4218

== ENCOUNTER 2018-05-25 15:37 | Outpatient (CLI) | payer OTHER ==
--- NOTE | 2018-05-25 16:26 | PRG ---
DATE OF SERVICE: 05/25/2018 HISTORY: Mr. Avi Herrera is a very pleasant 58-year-old gentleman, who presents to the Wound Center for evaluation of a wound of the right lateral lower leg subsequent to intraoperative debridement for necrotizing fasciitis in [place], [place]. The patient continues to receive assistance with dressing changes of Xeroform gauze for the wound of his right lateral lower leg from his son and daughter. Today, Mr. Herrera complains of copious green drainage associated with his right lower leg wound. The patient denies any fever or chills. PHYSICAL EXAMINATION: VITAL SIGNS: Temperature 97.7, pulse 106, and blood pressure 131/102. EXTREMITIES: A large wound of the right lateral lower leg is present, which measures approximately 13.0 x 6.0 cm. Copious green serous drainage is associated with the wound. Cellulitis of the right lower leg is present. Edema of the right foot and lower leg is present on exam today. ASSESSMENT AND PLAN: 1. Ulceration of right lateral lower leg as described above. Xeroform gauze, ABDs, Webril, and the 3M Coban 2 layer Compression System will be applied to the right lateral lower leg ulceration today. The patient has also been given a prescription for ciprofloxacin 500 mg #21 p.o. b.i.d. x10 days. The patient states he will schedule a followup visit in 4 weeks or alternatively follow up as needed. The patient's son has been instructed to discontinue the compression wrap in 1 week and resume dressing changes of Xeroform gauze, ABDs, Kerlix, and Eder bandages on a daily basis. The patient and his son understand and are in agreement with the preceding treatment plan. 2. Hypertension. 3. History of rhabdomyolysis. Job ID: [id number]
== END 2018-05-25 15:38 | disposition home or self-care (01) ==
LOC: WCC 15:37
PROVIDERS: ATTEND Family Medicine
DX: L97.919 Non-pressure chronic ulcer of unspecified part of right lower leg with unspecified severity (principal); I10 Essential (primary) hypertension; Z87.39 Personal history of other diseases of the musculoskeletal system and connective tissue
CPT/HCPCS: 29581

== ENCOUNTER 2018-07-18 15:28 | Outpatient (CLI) | payer OTHER ==
--- NOTE | 2018-07-18 16:26 | PRG ---
DATE OF SERVICE: 07/18/2018 HISTORY: Mr. Avi Herrera is a very pleasant 58-year-old gentleman, who presents to the Wound Center for evaluation of a wound of the right lateral lower leg subsequent to intraoperative debridement for necrotizing fasciitis in [place], [place]. The patient continues to receive assistance with dressing changes of Xeroform gauze for the wound of his right lateral lower leg from his son and daughter. Today, Mr. Herrera complains of significant erythema of his right lower extremity in addition to copious drainage from another wound of his right lower extremity. The patient denies any fever or chills. PHYSICAL EXAMINATION: VITAL SIGNS: Temperature 98.1, pulse 119, respirations 23, blood pressure 175/85. EXTREMITIES: A wound of the right lateral lower leg is present, which measures approximately 12.0 x 5.0 cm. Copious green serous drainage is associated with another wound of the right lateral lower leg just below the knee. Cellulitis of the right lower leg is present. Edema of the right and left feet and lower legs is present on today's exam. ASSESSMENT AND PLAN: 1. Right lower extremity cellulitis. The patient has been given a prescription for ciprofloxacin 500 mg, #20, one p.o. b.i.d. x10 days. 2. Ulceration of right lateral lower leg. Xeroform gauze, ABDs, Kerlix, and Eder bandages will be applied to the right lateral lower leg ulceration today. The preceding dressing changes are to be performed on a daily basis after cleansing and irrigation. The patient states he will contact the Wound Center in order to schedule a followup visit. 3. Lymphedema. The patient will be referred to [facility] for lymphedema therapy. 4. Hypertension. 5. History of rhabdomyolysis. Job ID: [id number]
== END 2018-07-18 15:29 | disposition home or self-care (01) ==
LOC: WCC 15:28
PROVIDERS: ATTEND Family Medicine
DX: L97.919 Non-pressure chronic ulcer of unspecified part of right lower leg with unspecified severity (principal); L03.115 Cellulitis of right lower limb; I89.0 Lymphedema, not elsewhere classified; I10 Essential (primary) hypertension; Z87.39 Personal history of other diseases of the musculoskeletal system and connective tissue
CPT/HCPCS: 97602

== ENCOUNTER 2018-07-30 23:32 | Inpatient (IN) | payer MEDICARE, OTHER ==
[2018-07-31] MEDS ORDERED: Clindamycin/D5W 600 mg/50 ml Premix Bag ONE (00:17)
[2018-07-31] MEDS ORDERED: Morphine 4 MG/ML VIAL ONE (00:17)
[2018-07-31] MEDS ORDERED: Ondansetron PF 4 MG/2 ML Vial ONE ×2 (00:17→00:23)
[2018-07-31] MEDS ORDERED: Piperacillin/Tazobactam 4.5 GM VIAL ONE (00:17)
[2018-07-31 00:30] LABS: #Basophils 0.1 thou/uL (0.0-0.2); #Eosinphils 0.4 thou/uL (0.0-0.7); #Monocytes 0.6 thou/uL (0.11-0.59); #Neutrophils 6.5 thou/uL (1.40-6.50); %Basophils 0.7 % (0.0-1.0); %Eosinophils 4.5 % (0.0-10.0); %Neutrophils 67.9 % (42.0-75.0); Hemoglobin 13.2 g/dL (14.0-18.0); Mean Corpuscular HGB CONC 31.5 g/dL (32.0-36.0); Mean Corpuscular Volume 79.4 fL (78.0-98.0); Mean Platelet Volume 6.6 fL (7.4-10.4); Platelet Count 440 thou/uL (130-400); RBC Distribution Width 14.9 % (11.5-14.5); Red Blood Cell (RBC) Count 5.27 mill/uL (4.70-6.10); White Blood Cell (WBC) Count 9.6 thou/uL (4.8-10.8)
[2018-07-31 00:50] LABS: ALT (SGPT) 11 U/L (8-55); AST (SGOT) 13 U/L (5-34); Alkaline Phosphatase 141 U/L (40-150); Anion Gap 12 mmol/L (10-20); BUN (Urea Nitrogen) 13 mg/dL (8.4-25.7); Bilirubin, Total 0.4 mg/dL (0.2-1.2); Calc. Creatinine Clearance 0 mL/min (70-130); Calcium 9.7 mg/dL (7.8-10.44); Carbon Dioxide 28 mmol/L (22-29); Chloride 99 mmol/L (98-107); Estimated GFR-MDRD 76; Globulin 4.2 g/dL (2.4-3.5); Glucose 133 mg/dL (70-105); Potassium 3.7 mmol/L (3.5-5.1); Protein, Total 8.2 g/dL (6.0-8.3); Sodium 135 mmol/L (136-145)
[2018-07-31] MEDS ORDERED: cloNIDine 0.1 MG TAB PO PRN (02:25)
[2018-07-31] MEDS ORDERED: hydrALAZINE 20 MG/ML VIAL SLOW IVP PRN (02:25)
[2018-07-31] MEDS ORDERED: Ondansetron PF 4 MG/2 ML Vial IVP PRN (02:30)
[2018-07-31] MEDS ORDERED: Acetaminophen 325 MG TAB PO PRN (02:30)
[2018-07-31] MEDS ORDERED: Ondansetron ODT 4 MG TAB PO PRN (02:30)
[2018-07-31] MEDS ORDERED: Calcium Carbonate 500 MG ChewTAB PO PRN (02:30)
[2018-07-31] MEDS ORDERED: hydrALAZINE 20 MG/ML VIAL ONE (02:50)
[2018-07-31] MEDS ORDERED: RENALLY ADJUST ANTIBIOTICS IVPB PRN (03:10)
[2018-07-31] MEDS: Morphine 2 MG/ML SYRINGE SLOW IVP PRN ×3 (04:25→11:22)
[2018-07-31] MEDS: Piperacillin/Tazobactam 3.375 GM in Sodium Chloride 0.9% 100 ML IVPB SCH ×3 (05:22→18:34)
[2018-07-31] MEDS: Vancomycin HCl 1.5 GM in Sodium Chloride 0.9% 250 ML 300 ML IVPB SCH ×3 (05:26→22:25)
[2018-07-31] MEDS: HYDROcodone/Acetaminophen 5/325 mg Tablet PO PRN ×2 (06:18→10:01)
[2018-07-31] MEDS: Enoxaparin Sodium 40 MG/0.4 ML SYRINGE SC SCH (08:36)
[2018-07-31] MEDS: Aspirin 81 mg Enteric Coated Tablet PO SCH (08:36)
[2018-07-31] MEDS: hydrALAZINE 25 MG TAB PO SCH ×3 (08:36→20:16)
[2018-07-31] MEDS: Gabapentin 400 MG CAP PO SCH ×3 (08:37→20:16)
[2018-07-31] MEDS: Amlodipine 10 MG TAB PO SCH (08:38)
[2018-07-31] MEDS: Senokot S 8.6-50 MG TAB PO SCH ×2 (08:38→20:17)
[2018-07-31] MEDS: Nystatin Powder 15 GM BOT TOP SCH ×2 (08:39→20:17)
--- NOTE | 2018-07-31 13:24 | RAD ---
Exam: Chest one view HISTORY:Fever Comparison: 03/05/2018 FINDINGS: Lungs: Bilateral interstitial, and linear parenchymal densities Cardiac silhouette:Enlarged Pulmonary vessels: Engorged Pleural Spaces: No significant effusion Pneumothorax: None Osseous abnormalities: None of acuity. IMPRESSION: CHF. Linear densities bilaterally some of which likely relate to edema. Superimposed subsegmental atelecta sis also present.
--- NOTE | 2018-07-31 14:04 | PDOC.PN ---
- Subjective Encounter Start Date: 07/31/18 Encounter Start Time: 10:15 Subjective: pt up in bed complains of pain to his lower ext - Objective Resuscitation Status - Order Detail: 07/31/18 02:30 Resuscitation Status Routine Resuscitation Status: FULL: Full Resuscitation Vital Signs & Weight: Vital Signs (12 hours) Temp Pulse Resp BP BP Pulse Ox 07/31/18 11:40 98.3 F 89 18 151/81 H 94 L 07/31/18 08:38 101 H 146/76 H 07/31/18 08:36 101 H 146/76 H 07/31/18 08:00 98.0 F 95 20 153/78 H 94 L 07/31/18 07:00 95 07/31/18 04:46 99 07/31/18 03:35 97.8 F 101 H 24 H 146/76 H 99 Weight Weight 335 lb 3.2 oz Result Diagrams: 07/31/18 00:12 07/31/18 00:12 Phys Exam - Physical Examination Neck: no nodes, no JVD, supple, full ROM Respiratory: no wheezing, no rales, no rhonchi, wheezing present, clear to auscultation bilateral Cardiovascular: RRR, no significant murmur, no rub, gallop, irregular Gastrointestinal: soft, non-tender, no distention, positive bowel sounds Musculoskeletal: edema present significant erythema to lower ext and fungal Neurological: non-focal, normal sensation, moves all 4 limbs Dx/Plan (1) Cellulitis Code(s): L03.90 - CELLULITIS, UNSPECIFIED Status: Acute Qualifiers: Site of cellulitis of extremity: lower extremity Laterality: right Comment: Currently on Linezolid, likely will d/c abx for home (2) Fungal dermatitis Status: Acute (3) Hypertension Code(s): I10 - ESSENTIAL (PRIMARY) HYPERTENSION Status: Chronic Qualifiers: Hypertension type: essential hypertension Qualified Code(s): I10 - Essential (primary) hypertension Comment: (4) Morbid obesity with BMI of 50.0-59.9, adult Code(s): E66.01 - MORBID (SEVERE) OBESITY DUE TO EXCESS CALORIES; Z68.43 - BODY MASS INDEX (BMI) 50-59.9, ADULT Status: Chronic - Plan will get dopplers to rule of dvt, will add antifungal cream -: will also give a dose of lasix. wound care consulted * . Review of Systems - Review of Systems Respiratory: negative: Cough, Dry, Shortness of Breath, Hemoptysis, SOB with Excertion, Pleuritic Pain, Sputum, Wheezing Cardiovascular: negative: chest pain, palpitations, orthopnea, paroxysmal nocturnal dyspnea, edema, light headedness, other Gastrointestinal: negative: Nausea, Vomiting, Abdominal Pain, Diarrhea, Constipation, Melena, Hematochezia, Other - Medications/Allergies Allergies/Adverse Reactions: Allergies Allergy/AdvReac Type Severity Reaction Status Date / Time venom-wasp Allergy Severe Anaphylaxis Verified 07/31/18 04:00 propoxyphene Allergy Mild Rash Verified 07/31/18 03:58 Medications: Current Medications Acetaminophen (Tylenol) 650 mg PO Q4H PRN PRN Reason: Headache/Fever/Mild Pain (1-3) Amlodipine Besylate (Norvasc) 10 mg PO DAILY [facility] Last Admin: 07/31/18 08:38 Dose: 10 mg Aspirin (Ecotrin) 81 mg PO DAILY [facility] Last Admin: 07/31/18 08:36 Dose: 81 mg Calcium Carbonate (Tums) 1,000 mg PO Q4H PRN PRN Reason: Heartburn or Indigestion Clonidine (Catapres) 0.1 mg PO Q4H PRN PRN Reason: SBP Greater Than 180 Clotrimazole (Lotrimin 1% Cream) 1 gm TOP DAILY [facility] Enoxaparin Sodium (Lovenox) 40 mg SC 0900 [facility] Last Admin: 07/31/18 08:36 Dose: 40 mg Furosemide (Lasix) 40 mg SLOW IVP ONE [facility] Gabapentin (Neurontin) 800 mg PO TID [facility] Last Admin: 07/31/18 08:37 Dose: 800 mg Hydralazine HCl (Apresoline) 75 mg PO TID [facility] Last Admin: 07/31/18 08:36 Dose: 75 mg Hydralazine HCl (Apresoline) 10 mg SLOW IVP Q4H PRN PRN Reason: SBP Greater Than 180 Vancomycin HCl 1.5 gm/ Sodium (Chloride) 300 mls @ 300 mls/hr IVPB Q8HR [facility] Last Admin: 07/31/18 05:26 Dose: 300 mls Piperacillin Sod/Tazobactam (Sod 3.375 gm/ Sodium Chloride) 100 mls @ 200 mls/ hr IVPB Q6HR [facility] Last Admin: 07/31/18 11:23 Dose: 100 mls Miscellaneous Medication (Pharmacy To Dose) 1 each IVPB PRN PRN PRN Reason: Pharmacy to dose Miscellaneous Medication (Pharmacy To Dose) 1 each IVPB PRN PRN PRN Reason: Pharmacy to dose Nystatin (Mycostatin Powder) 0 gm TOP BID [facility] Last Admin: 07/31/18 08:39 Dose: 1 applic Ondansetron HCl (Zofran Odt) 4 mg PO Q6H PRN PRN Reason: Nausea/Vomiting Ondansetron HCl (Zofran) 4 mg IVP Q6H PRN PRN Reason: Nausea/Vomiting Senna/Docusate Sodium (Senokot S) 1 tab PO BID [facility] Last Admin: 07/31/18 08:38 Dose: 1 tab Sodium Chloride (Flush - Normal Saline) 10 ml IVF PRN PRN PRN Reason: Saline Flush
[2018-07-31] MEDS ORDERED: Furosemide 40 MG/4 ML VIAL SLOW IVP SCH (14:15)
[2018-07-31] MEDS: HYDROcodone/Acetaminophen 10/325 mg Tablet PO PRN ×2 (16:46→22:25)
[2018-07-31] MEDS: traMADol HCl 50 MG TAB PO PRN (21:24)
[2018-08-01] MEDS: HYDROcodone/Acetaminophen 10/325 mg Tablet PO PRN ×3 (00:03→15:33)
[2018-08-01] MEDS: Piperacillin/Tazobactam 3.375 GM in Sodium Chloride 0.9% 100 ML IVPB SCH ×4 (01:29→18:19)
[2018-08-01] MEDS ORDERED: Morphine 2 MG/ML SYRINGE SLOW IVP SCH (02:15)
[2018-08-01 05:34] LABS: Anion Gap 11 mmol/L (10-20); BUN (Urea Nitrogen) 8 mg/dL (8.4-25.7); Calc. Creatinine Clearance 180 mL/min (70-130); Calcium 8.8 mg/dL (7.8-10.44); Carbon Dioxide 31 mmol/L (22-29); Chloride 95 mmol/L (98-107); Estimated GFR-MDRD 80; Glucose 131 mg/dL (70-105); Magnesium 2.2 mg/dL (1.6-2.6); Potassium 4.3 mmol/L (3.5-5.1); Sodium 133 mmol/L (136-145)
[2018-08-01] MEDS: Vancomycin HCl 1.5 GM in Sodium Chloride 0.9% 250 ML 300 ML IVPB SCH (05:39)
[2018-08-01] MEDS ORDERED: Furosemide 100 MG/10 ML VIAL SLOW IVP SCH (06:00)
[2018-08-01 06:34] LABS: Band 9 % (5-11); Eosinophils 2 % (0-10); Hemoglobin 13.4 g/dL (14.0-18.0); Lymphocytes 7 % (21-51); MDiff Complete? YES; Mean Corpuscular HGB CONC 31.3 g/dL (32.0-36.0); Mean Corpuscular Volume 79.9 fL (78.0-98.0); Mean Platelet Volume 6.9 fL (7.4-10.4); Monocytes 4 % (0-10); Neutrophil 77 % (42-75); Platelet Count 428 thou/uL (130-400); Red Blood Cell (RBC) Count 5.36 mill/uL (4.70-6.10); White Blood Cell (WBC) Count 10.5 thou/uL (4.8-10.8)
[2018-08-01] MEDS: Gabapentin 400 MG CAP PO SCH ×3 (08:12→20:17)
[2018-08-01] MEDS: Aspirin 81 mg Enteric Coated Tablet PO SCH (08:12)
[2018-08-01] MEDS: Enoxaparin Sodium 40 MG/0.4 ML SYRINGE SC SCH (08:12)
[2018-08-01] MEDS: Tamsulosin HCl 0.4 MG CAP PO SCH (08:13)
[2018-08-01] MEDS: Amlodipine 10 MG TAB PO SCH (08:13)
[2018-08-01] MEDS: hydrALAZINE 25 MG TAB PO SCH ×3 (08:13→20:17)
--- NOTE | 2018-08-01 08:13 | HP ---
CHIEF COMPLAINT: Bilateral lower extremity erythema, right more than left. HISTORY OF PRESENT ILLNESS: The patient is a 58-year-old male with recent right lower extremity cellulitis, completed ciprofloxacin, along with venous stasis in bilateral lower extremity, presented to the emergency room with above complaints. The patient was evaluated by Dr. Canela recently for right lower extremity erythema along with increased drainage. He was diagnosed with cellulitis and was started on ciprofloxacin. He completed ciprofloxacin yesterday. However, he continues to have significant erythema along with tenderness and increased serosanguineous drainage from the right leg. He felt feverish, however, did not record his temperature. He denies any trauma or injury to his right leg. He contacted the Wound Care team and was advised to go to the emergency room for IV antibiotics. His pain in the right leg is 9/10, constant without any aggravating or relieving factor. PAST MEDICAL HISTORY: 1. History of necrotizing fasciitis with MRSA in the past. 2. Hypertension. 3. Obesity. 4. Chronic pain syndrome. 5. Benign prostatic hypertrophy. 6. History of renal failure, requiring dialysis in the past. PAST SURGICAL HISTORY: 1. Carpal tunnel surgery. 2. Back surgery x2. 3. Multiple surgeries on his lower extremity. 4. Left shoulder surgery. ALLERGIES: THE PATIENT IS ALLERGIC TO CODEINE. CURRENT HOME MEDICATIONS: The patient is unable to recall any of his home medications. He is able to name some of them which include amlodipine, gabapentin, and Flomax. FAMILY HISTORY: Mother in her 60s from cardiac issues. SOCIAL HISTORY: The patient chews tobacco. Denies any alcohol or drug use. REVIEW OF SYSTEMS: All other review of systems were reviewed and were found negative. PHYSICAL EXAMINATION: VITAL SIGNS: In the emergency room, temperature 97.8, respirations 22, pulse rate of 94, blood pressure of 205/83, O2 saturation 95% on room air. GENERAL: A 58-year-old male, in mild distress due to pain. HEENT: Head, atraumatic and normocephalic. Sclerae anicteric. Moist mucous membranes. No oral lesion. NECK: Supple. No JVD appreciated. No carotid bruit. LUNGS: Showed diminished air entry at bilateral bases. No wheezing, rales, or rhonchi. HEART: S1 and S2 present. Regular rate and rhythm. No significant heaves or pulsation. ABDOMEN: Soft, obese. Bowel sounds present. EXTREMITIES: There is significant erythema along with warmth and tenderness, mainly in the right leg. There is chronic venous stasis in bilateral lower extremity. There is serosanguineous drainage from bilateral leg. There is 4+ pitting edema. SKIN: As discussed above. LYMPH NODES: No palpable lymph nodes in the neck. PERIPHERAL VASCULAR: Radial pulses palpable bilaterally. MUSCULOSKELETAL: No joint swelling or tenderness. LABORATORY FINDINGS: WBC of 9.6 with hemoglobin 13.2, hematocrit 41.8, platelets 440. Chemistry showed sodium 135, potassium 3.7, chloride 99, bicarb 28, BUN 13, creatinine 1.01. Lactic acid was normal. LFTs in normal range. Blood cultures were sent. EKG by my review showed sinus rhythm without significant ST-T wave changes. IMPRESSION: 1. Right lower extremity cellulitis. Please note that the patient failed outpatient therapy. 2. Bilateral lower extremity venous stasis. 3. Lymphedema. 4. Hypertension with hypertensive urgency. 5. Chronic kidney disease, stage 2. 6. Mild hyponatremia. 7. Mild chronic anemia. 8. Benign prostatic hypertrophy. 9. Hyperlipidemia. 10. Chronic pain syndrome. 11. Physical deconditioning. PLAN: The patient will be monitored on the medical floor. He has been started on vancomycin and Zosyn, which will be continued. We will monitor vancomycin level closely. He has a history of renal failure, requiring dialysis in the past. We will resume selected home medications once confirmed. P.r.n. antihypertensives. We will resume amlodipine, hydralazine, as well as Flomax based on recent discharge summary. Wound Care consult. Plan of care was discussed with the patient in detail. He stated understanding. Job ID: [id number]
[2018-08-01] MEDS: Senokot S 8.6-50 MG TAB PO SCH ×2 (08:14→20:11)
[2018-08-01] MEDS ORDERED: Morphine 4 MG/ML VIAL SLOW IVP SCH ×2 (11:45→13:45)
--- NOTE | 2018-08-01 12:29 | PDOC.PN ---
- Subjective Encounter Start Date: 08/01/18 Encounter Start Time: 10:15 Subjective: pt up in bed complains of pain to his right leg and hip area - Objective Resuscitation Status - Order Detail: 07/31/18 02:30 Resuscitation Status Routine Resuscitation Status: FULL: Full Resuscitation Vital Signs & Weight: Vital Signs (12 hours) Temp Pulse Resp BP BP Pulse Ox 08/01/18 12:00 98.3 F 68 20 117/70 94 L 08/01/18 08:13 109 H 143/79 H 08/01/18 08:00 98.9 F 104 H 20 143/79 H 98 08/01/18 05:06 100.1 F H 109 H 16 143/79 H 98 08/01/18 02:45 100.8 F H Weight Weight 335 lb 3.2 oz I&O: 07/31/18 08/01/18 08/02/18 06:59 06:59 06:59 Intake Total 1315 Output Total 4500 1800 Balance -4500 -485 Result Diagrams: 08/01/18 04:56 08/01/18 04:56 Phys Exam - Physical Examination Neck: no nodes, no JVD, supple, full ROM Respiratory: no wheezing, no rales, no rhonchi, wheezing present, clear to auscultation bilateral Cardiovascular: RRR, no significant murmur, no rub, gallop, irregular Gastrointestinal: soft, non-tender, no distention, positive bowel sounds Musculoskeletal: edema present erythema to bilateral lower ext Dx/Plan (1) Cellulitis Code(s): L03.90 - CELLULITIS, UNSPECIFIED Status: Acute Qualifiers: Site of cellulitis of extremity: lower extremity Laterality: right Comment: Currently on Linezolid, likely will d/c abx for home (2) Fungal dermatitis Status: Acute (3) Hypertension Code(s): I10 - ESSENTIAL (PRIMARY) HYPERTENSION Status: Chronic Qualifiers: Hypertension type: essential hypertension Qualified Code(s): I10 - Essential (primary) hypertension Comment: (4) Morbid obesity with BMI of 50.0-59.9, adult Code(s): E66.01 - MORBID (SEVERE) OBESITY DUE TO EXCESS CALORIES; Z68.43 - BODY MASS INDEX (BMI) 50-59.9, ADULT Status: Chronic - Plan will give pain meds iv x1 one since pt states his right leg -: hurts. pt initially refused doppler due to pain -: pt's swelling has improved. will continue abx * . Review of Systems - Review of Systems Respiratory: negative: Cough, Dry, Shortness of Breath, Hemoptysis, SOB with Excertion, Pleuritic Pain, Sputum, Wheezing Cardiovascular: negative: chest pain, palpitations, orthopnea, paroxysmal nocturnal dyspnea, edema, light headedness, other Gastrointestinal: negative: Nausea, Vomiting, Abdominal Pain, Diarrhea, Constipation, Melena, Hematochezia, Other Genitourinary: negative: Dysuria, Frequency, Incontinence, Hematuria, Retention , Other - Medications/Allergies Allergies/Adverse Reactions: Allergies Allergy/AdvReac Type Severity Reaction Status Date / Time venom-wasp Allergy Severe Anaphylaxis Verified 07/31/18 04:00 propoxyphene Allergy Mild Rash Verified 07/31/18 03:58 Medications: Current Medications Acetaminophen (Tylenol) 650 mg PO Q4H PRN PRN Reason: Headache/Fever/Mild Pain (1-3) Last Admin: 08/01/18 02:50 Dose: 650 mg Hydrocodone Bitart/Acetaminophen ([place] 10/325) 1 tab PO Q6H PRN PRN Reason: Pain 4-6 Last Admin: 08/01/18 05:54 Dose: 1 tab Amlodipine Besylate (Norvasc) 10 mg PO DAILY [facility] Last Admin: 08/01/18 08:13 Dose: 10 mg Aspirin (Ecotrin) 81 mg PO DAILY [facility] Last Admin: 08/01/18 08:12 Dose: 81 mg Calcium Carbonate (Tums) 1,000 mg PO Q4H PRN PRN Reason: Heartburn or Indigestion Clonidine (Catapres) 0.1 mg PO Q4H PRN PRN Reason: SBP Greater Than 180 Clotrimazole (Lotrimin 1% Cream) 1 gm TOP DAILY [facility] Enoxaparin Sodium (Lovenox) 40 mg SC 0900 [facility] Last Admin: 08/01/18 08:12 Dose: 40 mg Fluticasone Propionate (Flonase Nasal [place]) 1 gm NASAL DAILY [facility] Gabapentin (Neurontin) 800 mg PO TID [facility] Last Admin: 08/01/18 08:12 Dose: 800 mg Hydralazine HCl (Apresoline) 75 mg PO TID [facility] Last Admin: 08/01/18 08:13 Dose: 75 mg Hydralazine HCl (Apresoline) 10 mg SLOW IVP Q4H PRN PRN Reason: SBP Greater Than 180 Piperacillin Sod/Tazobactam (Sod 3.375 gm/ Sodium Chloride) 100 mls @ 200 mls/ hr IVPB Q6HR [facility] Last Admin: 08/01/18 11:45 Dose: 100 mls Vancomycin HCl 1.5 gm/ Sodium (Chloride) 300 mls @ 300 mls/hr IVPB .PENDING LEVEL <20 [facility] Miscellaneous Medication (Pharmacy To Dose) 1 each IVPB PRN PRN PRN Reason: Pharmacy to dose Miscellaneous Medication (Pharmacy To Dose) 1 each IVPB PRN PRN PRN Reason: Pharmacy to dose Morphine Sulfate (Morphine) 4 mg SLOW IVP ONE [facility] Stop: 08/01/18 14:00 Morphine Sulfate (Morphine) 4 mg SLOW IVP Q6H PRN PRN Reason: Mild-Moderate Pain (1-5) Nystatin (Mycostatin Powder) 0 gm TOP BID [facility] Last Admin: 07/31/18 20:17 Dose: 1 applic Ondansetron HCl (Zofran Odt) 4 mg PO Q6H PRN PRN Reason: Nausea/Vomiting Ondansetron HCl (Zofran) 4 mg IVP Q6H PRN PRN Reason: Nausea/Vomiting Senna/Docusate Sodium (Senokot S) 1 tab PO BID [facility] Last Admin: 08/01/18 08:14 Dose: Not Given Sodium Chloride (Flush - Normal Saline) 10 ml IVF PRN PRN PRN Reason: Saline Flush Tamsulosin HCl (Flomax) 0.4 mg PO DAILY [facility] Last Admin: 08/01/18 08:13 Dose: 0.4 mg Tramadol HCl (Ultram) 50 mg PO TID PRN PRN Reason: Pain Last Admin: 07/31/18 21:24 Dose: 50 mg
[2018-08-01] MEDS: Fluticasone Propionate Nasal Spray 16 gm Bottle NASAL SCH (12:49)
[2018-08-01] MEDS: Nystatin Powder 15 GM BOT TOP SCH ×2 (12:49→20:19)
[2018-08-01] MEDS: Clotrimazole 1 % Cream 30 GM TUBE TOP SCH (12:49)
--- NOTE | 2018-08-01 14:42 | ULT ---
BILATERAL LOWER EXTREMITY VENOUS DOPPLER ULTRASOUND EVALUATION: HISTORY: Bilateral lower extremity swelling, necrotizing fasciitis. FINDINGS: Multiple longitudinal and transverse images of the right and left lower extremity venous systems are obtained using MultiHertz linear ray transducer. Real-time, color flow and spectral waveform Doppler analysis demonstrates no evidence of acute or old clot seen in the right or left common femor al, superficial femoral, femoral profunda, popliteal, posterior tibial veins and greater saphenous veins. Exam is limited due to patient's body habitus. IMPRESSION: No evidence of right or left lower extremity deep venous thrombosis. Transcribed Date/Time: 08/01/2018 2:53 PM
--- NOTE | 2018-08-01 14:43 | PQF ---
CLINICAL DOCUMENTATION IMPROVEMENT CLARIFICATION FORM: ICD-10 Updated PLEASE DO AN ADDENDUM TO THE PROGRESS NOTE WITH ANY DOCUMENTATION UPDATES OR ADDITIONS AND CARRY THROUGH TO DC SUMMARY. THANK YOU. DATE: 07/31/18 ATTN: DR. MCCRACKEN Please exercise your independent, professional judgment in responding to the clarification form. Clinical indicators are provided on the bottom of this form for your review Please check appropriate box(s) to clarify if the following diagnosis has been ruled in or ruled out: "SEPSIS" [ ] Ruled in diagnosis [ ] Continue to treat [ ] Resolved [ x ] Ruled out diagnosis [ ] Cannot rule out diagnosis [ ] Other diagnosis [ ] Unable to determine In addition, please specify: Present on Admission (POA): [ x] Yes [ ] No [ ] Unable to determine For continuity of documentation, please document condition throughout progress notes and discharge summary. Thank You. CLINICAL INDICATORS - SIGNS / SYMPTOMS / LABS ER NOTE: "SEPSIS" PULSE 101-109 RR 22 "CHILLS" PER ER NOTE RISKS: WOUNDS TO BILATERAL LOWER EXTREMITIES TREATMENT: IV VANCOMYCIN (ER-/2) IV ZOSYN (ER-PRESENT) IV CLINDAMYCIN (ER) BLOOD CULTURES (This form is maintained as a part of the permanent medical record) [employer] Secretary/Transcriptionist [employer] 2015 [employer]. All Rights Reserved [email or web address] Office: [phone] MATTHEW
[2018-08-01 18:00] LABS: Vancomycin, Random 17.1 ug/mL (See Comment)
[2018-08-01] MEDS ORDERED: Vancomycin HCl 1.5 GM in Sodium Chloride 0.9% 250 ML 300 ML IVPB SCH (18:00)
[2018-08-01] MEDS: Morphine 4 MG/ML VIAL SLOW IVP PRN (20:16)
[2018-08-01] MEDS: Vancomycin HCl 1 GM in Premix Bag 1 BAG IVPB SCH (20:33)
[2018-08-02] MEDS: Piperacillin/Tazobactam 3.375 GM in Sodium Chloride 0.9% 100 ML IVPB SCH ×5 (00:31→22:59)
[2018-08-02] MEDS: HYDROcodone/Acetaminophen 10/325 mg Tablet PO PRN (00:35)
[2018-08-02] MEDS: Morphine 4 MG/ML VIAL SLOW IVP PRN ×2 (02:07→22:52)
[2018-08-02] MEDS ORDERED: Metoprolol Tartrate 5 MG/5 ML VIAL ONE (08:46)
[2018-08-02] MEDS ORDERED: Lorazepam 2 MG/ML VIAL ONE (08:46)
[2018-08-02] MEDS ORDERED: Diltiazem 125 MG in Sodium Chloride 0.9% 100 ML IVPB SCH ×2 (09:00→11:08)
[2018-08-02 09:05] LABS: #Eosinphils 0.5 thou/uL (0.0-0.7); #Lymphocytes 1.5 thou/uL (1.20-3.40); #Monocytes 0.6 thou/uL (0.11-0.59); #Neutrophils 7.1 thou/uL (1.40-6.50); %Basophils 0.2 % (0.0-1.0); %Eosinophils 4.9 % (0.0-10.0); %Lymphocytes 15.1 % (21.0-51.0); %Monocytes 6.5 % (0.0-10.0); %Neutrophils 73.3 % (42.0-75.0); Hemoglobin 13.9 g/dL (14.0-18.0); Mean Corpuscular HGB CONC 30.6 g/dL (32.0-36.0); Mean Corpuscular Hemoglobin 24.8 pg (27.0-31.0); Mean Platelet Volume 6.5 fL (7.4-10.4); Platelet Count 440 thou/uL (130-400); RBC Distribution Width 14.9 % (11.5-14.5); Red Blood Cell (RBC) Count 5.63 mill/uL (4.70-6.10); White Blood Cell (WBC) Count 9.6 thou/uL (4.8-10.8)
[2018-08-02 09:18] LABS: INR-International Normal Ratio 1.1; Prothrombin Time 14.5 SEC (12.0-14.7)
[2018-08-02 09:22] LABS: Anion Gap 10 mmol/L (10-20); BUN (Urea Nitrogen) 8 mg/dL (8.4-25.7); Calc. Creatinine Clearance 184 mL/min (70-130); Carbon Dioxide 34 mmol/L (22-29); Chloride 96 mmol/L (98-107); Estimated GFR-MDRD 82; Glucose 148 mg/dL (70-105); Potassium 3.5 mmol/L (3.5-5.1); Sodium 136 mmol/L (136-145)
[2018-08-02] MEDS: Gabapentin 400 MG CAP PO SCH ×3 (09:49→21:38)
[2018-08-02] MEDS: Aspirin 81 mg Enteric Coated Tablet PO SCH (09:49)
[2018-08-02] MEDS: Amlodipine 10 MG TAB PO SCH (09:49)
[2018-08-02] MEDS: Enoxaparin Sodium 40 MG/0.4 ML SYRINGE SC SCH ×2 (09:49→21:34)
[2018-08-02] MEDS: Tamsulosin HCl 0.4 MG CAP PO SCH (09:49)
[2018-08-02] MEDS: Senokot S 8.6-50 MG TAB PO SCH ×3 (09:49→22:48)
[2018-08-02] MEDS: Fluticasone Propionate Nasal Spray 16 gm Bottle NASAL SCH (09:50)
[2018-08-02] MEDS: Clotrimazole 1 % Cream 30 GM TUBE TOP SCH (09:51)
[2018-08-02] MEDS: Nystatin Powder 15 GM BOT TOP SCH ×2 (09:51→21:35)
[2018-08-02] MEDS: Vancomycin HCl 1 GM in Premix Bag 1 BAG IVPB SCH (09:54)
[2018-08-02] MEDS: hydrALAZINE 25 MG TAB PO SCH ×3 (09:54→21:33)
[2018-08-02] MEDS ORDERED: Potassium Chloride 20 MEQ TAB PO SCH (11:15)
[2018-08-02] MEDS ORDERED: Enoxaparin Sodium 120 MG/0.8 ML SYRINGE SC SCH (11:30)
[2018-08-02] MEDS ORDERED: Enoxaparin Sodium 100 MG/ML SYRINGE SC SCH (11:30)
[2018-08-02] MEDS ORDERED: Enoxaparin Sodium 40 MG/0.4 ML SYRINGE SC SCH (11:30)
--- NOTE | 2018-08-02 11:43 | CON ---
DATE OF CONSULTATION: 08/02/2018 REASON FOR CONSULTATION: The patient had a code green from atrial fibrillation with rapid ventricular response. HISTORY OF PRESENT ILLNESS: This patient was admitted to the hospital by Dr. Garrison on 07/31 for the treatment of lower extremity cellulitis that had failed outpatient therapy. He has been started on IV antibiotics. He was up on the medical floor when he had a heart rate up to 150 and was discovered to be in atrial fibrillation with rapid ventricular response. He has been started on a Cardizem drip. He was also given some Ativan. The history I obtained from him somewhat limited. I do not know if this is an effect of the Ativan or if this is his baseline. PAST MEDICAL HISTORY: 1. Necrotizing fasciitis from MRSA. 2. Lower extremity cellulitis. 3. MARY, currently not on CPAP at home, but he says he has had a study in the past. 4. Hypertension. 5. Obesity. 6. Chronic pain. 7. Prostatic hypertrophy. 8. Renal failure requiring dialysis in the past. PAST SURGICAL HISTORY: 1. Carpal tunnel release. 2. Back surgery x2. 3. Multiple surgeries in lower extremity. 4. Left shoulder surgery. ALLERGIES: CODEINE. FAMILY MEDICAL HISTORY: Remarkable for coronary artery disease. SOCIAL HISTORY: Chews tobacco. Does not use alcohol. Does not use illicit drugs. REVIEW OF SYSTEMS: Difficult to obtain due to the patient's seemingly altered mental status. MEDICATIONS: Prior to admission; 1. Hydralazine 75 mg t.i.d. 2. Nystatin powder topically b.i.d. 3. Neurontin 800 mg t.i.d. 4. Lasix 40 mg daily. 5. Tamsulosin 0.4 mg daily. 6. Amlodipine 10 mg daily. 7. Hydrocodone/APAP one every 6 hours as needed. PHYSICAL EXAMINATION: VITAL SIGNS: Temperature 98.4, pulse is currently 116, blood pressure 129/91, and O2 saturation 100%. GENERAL: The patient is lying comfortably in bed. HEENT: Pupils are reactive. Sclerae icteric. Oropharynx, class 4 Mallampati airway. NECK: No JVD. No bruits. CARDIAC: S1 and S2. Irregularly irregular and tachycardic. LUNGS: Clear to auscultation. ABDOMEN: Soft and obese. EXTREMITIES: He has extreme stasis changes between his knees and his ankles bilaterally with weeping wounds. LABORATORY DATA: White blood cell count 9.6, hematocrit 45.6, and platelet count 440. INR 1.1. Sodium 136, potassium 3.5, chloride 96, CO2 of 34, BUN 8, creatinine 0.9, and glucose 148. ASSESSMENT: 1. Atrial fibrillation with rapid ventricular response, seemingly new onset. 2. Lower extremity cellulitis. 3. Obstructive sleep apnea. 4. Morbid obesity. 5. History of hypertension. PLAN: 1. The patient is currently on a Cardizem drip, may need to be increased above current rate. 2. Initiate BiPAP therapy while sleep given the patient probably has underlying MARY, which may be exacerbating his atrial fibrillation. 3. Continue IV antibiotics for lower extremity cellulitis. 4. I will inform Dr. Schreiber, the patient's admission since he has seen the patient before. Job ID: [id number]
--- NOTE | 2018-08-02 13:20 | EKG ---
Test Reason : CODE GREEN Blood Pressure : / mmHG Vent. Rate : 158 BPM Atrial Rate : 144 BPM P-R Int : 000 ms QRS Dur : 084 ms QT Int : 260 ms P-R-T Axes : 000 104 -03 degrees QTc Int : 421 ms Atrial fibrillation with rapid ventricular response Rightward axis Junctional ST depression, probably normal Abnormal QRS-T angle, consider primary T wave abnormality Abnormal ECG No previous ECGs available Confirmed by JONY BONNER, SGenny ([id number]) on 08/02/2018 1:19:52 PM Referred By: Confirmed By:DR. Lane BORGES MD
--- NOTE | 2018-08-02 15:20 | CON ---
DATE OF CONSULTATION: 08/02/2018 REASON FOR CONSULTATION: Atrial fibrillation with rapid ventricular response. HISTORY OF PRESENT ILLNESS: Mr. Avi Herrera is a 58-year-old gentleman with severe cellulitis and obstructive sleep apnea with morbid obesity, who developed atrial fibrillation with a rapid rate. Mr. Herrera was admitted to the hospital, 07/31/2018, with severe cellulitis associated with severe peripheral edema. He has been on intravenous antibiotics. The patient this morning developed a rapid heart rate and was transferred to the intermediate care unit for further therapy. The patient is on CPAP now, very sleepy. The patient was admitted to the hospital with increasing cellulitis with increased drainage. PAST MEDICAL HISTORY: 1. Necrotizing fasciitis, MRSA in the past. 2. Hypertension. 3. Obesity. 4. Obesity hypoventilation. 5. Benign prostatic hypertrophy. 6. History of renal failure, at one point required dialysis. PAST SURGICAL HISTORY: Carpal tunnel surgery, back surgery, multiple surgeries in lower extremities, left shoulder surgery. ALLERGIES: CODEINE. MEDICATION: Uncertain at home, that was the initial understanding. Currently listed home medicines were, 1. Hydrocodone. 2. Furosemide. 3. Hydralazine. 4. Amlodipine. 5. Gabapentin. The patient now is on intravenous diltiazem. PHYSICAL EXAMINATION: VITAL SIGNS: This is an extremely overweight, 5 feet 9 inches tall, 335 pounds, BMI 49.5, which correlates with severe morbid obesity. The patient has had the CPAP in place. Blood pressure 126/88, pulse is variable anywhere between 100 to 140, it is irregularly irregular. GENERAL: He is sleepy, but he wakes up appropriately. NECK: Veins normal. Carotid normal upstrokes. LUNGS: Clear. CARDIAC: Irregularly irregular. ABDOMEN: Severe obesity. EXTREMITIES: There is cellulitis noted in the right lower extremity, severe. Please see the notes for full details. PERTINENT LABORATORY DATA: Potassium is 3.5, BUN is 8, creatinine 0.9. Hemoglobin is 13.9. IMAGING STUDIES: EKG did show atrial fibrillation with a rapid ventricular response. ASSESSMENT: 1. Atrial fibrillation with a rapid ventricular response. 2. Obesity hypoventilation. 3. Cellulitis. PLAN: 1. He is on the intravenous diltiazem, will increase the heart rate. 2. Full anticoagulation. 3. Add Multaq later today. 4. We will follow with you. 5. Echocardiogram done earlier this year revealed normal left ventricular function. Ejection fraction of 60% to 60%. Mild mitral regurgitation. Mild tricuspid insufficiency. Job ID: [id number]
[2018-08-02] MEDS: Dronedarone HCl 400 MG TAB PO SCH (17:25)
--- NOTE | 2018-08-02 17:40 | PDOC.PN ---
- Subjective Encounter Start Date: 08/02/18 Encounter Start Time: 08:45 Subjective: pt was found to be in afib with RVR -: code green was called - Objective Resuscitation Status - Order Detail: 07/31/18 02:30 Resuscitation Status Routine Resuscitation Status: FULL: Full Resuscitation Vital Signs & Weight: Vital Signs (12 hours) Temp Pulse Resp BP BP Pulse Ox 08/02/18 15:33 96.7 F L 08/02/18 15:04 103 H 08/02/18 14:09 122 H 08/02/18 12:00 100 08/02/18 11:06 97.1 F L 08/02/18 10:45 122 H 08/02/18 09:54 149 H 08/02/18 09:49 149 H 124/93 H 08/02/18 09:33 149 H 08/02/18 09:12 97 08/02/18 08:26 98.4 F 149 H 18 128/75 96 Weight Admit Weight 335 lb 3.2 oz Weight 335 lb 3.2 oz Most Recent Monitor Data Heart Rate from ECG 118 NIBP 125/91 NIBP BP-Mean 102 Respiration from ECG 19 SpO2 98 I&O: 08/01/18 08/02/18 08/03/18 06:59 06:59 06:59 Intake Total 1315 Output Total 4500 1800 Balance -4500 -485 Result Diagrams: 08/02/18 08:54 08/02/18 08:54 Additional Labs: Accuchecks 08/02/18 08:42 POC Glucose 136 H Phys Exam - Physical Examination Neck: no nodes, no JVD, supple, full ROM Respiratory: no wheezing, no rales, no rhonchi, wheezing present, clear to auscultation bilateral Cardiovascular: RRR, no significant murmur, no rub, gallop, irregular Gastrointestinal: soft, non-tender, no distention, positive bowel sounds Dx/Plan (1) Cellulitis Code(s): L03.90 - CELLULITIS, UNSPECIFIED Status: Acute Qualifiers: Site of cellulitis of extremity: lower extremity Laterality: right Comment: Currently on Linezolid, likely will d/c abx for home (2) Fungal dermatitis Status: Acute (3) Hypertension Code(s): I10 - ESSENTIAL (PRIMARY) HYPERTENSION Status: Chronic Qualifiers: Hypertension type: essential hypertension Qualified Code(s): I10 - Essential (primary) hypertension Comment: (4) Morbid obesity with BMI of 50.0-59.9, adult Code(s): E66.01 - MORBID (SEVERE) OBESITY DUE TO EXCESS CALORIES; Z68.43 - BODY MASS INDEX (BMI) 50-59.9, ADULT Status: Chronic (5) Atrial fibrillation Code(s): I48.91 - UNSPECIFIED ATRIAL FIBRILLATION Status: Acute - Plan pt was very agitated and was given ativan, pt put on cpap in imcu -: He was given cardizam and started on a drip -: will discontinue his vanco, venous doppler negative -: will consult PT * . Review of Systems - Review of Systems Respiratory: negative: Cough, Dry, Shortness of Breath, Hemoptysis, SOB with Excertion, Pleuritic Pain, Sputum, Wheezing Cardiovascular: negative: chest pain, palpitations, orthopnea, paroxysmal nocturnal dyspnea, edema, light headedness, other Gastrointestinal: negative: Nausea, Vomiting, Abdominal Pain, Diarrhea, Constipation, Melena, Hematochezia, Other - Medications/Allergies Allergies/Adverse Reactions: Allergies Allergy/AdvReac Type Severity Reaction Status Date / Time venom-wasp Allergy Severe Anaphylaxis Verified 07/31/18 04:00 propoxyphene Allergy Mild Rash Verified 07/31/18 03:58 Medications: Current Medications Acetaminophen (Tylenol) 650 mg PO Q4H PRN PRN Reason: Headache/Fever/Mild Pain (1-3) Last Admin: 08/01/18 02:50 Dose: 650 mg Hydrocodone Bitart/Acetaminophen ([place] 10/325) 1 tab PO Q6H PRN PRN Reason: Pain 4-6 Last Admin: 08/02/18 00:35 Dose: 1 tab Amlodipine Besylate (Norvasc) 10 mg PO DAILY [facility] Last Admin: 08/02/18 09:49 Dose: 10 mg Aspirin (Ecotrin) 81 mg PO DAILY [facility] Last Admin: 08/02/18 09:49 Dose: 81 mg Calcium Carbonate (Tums) 1,000 mg PO Q4H PRN PRN Reason: Heartburn or Indigestion Clonidine (Catapres) 0.1 mg PO Q4H PRN PRN Reason: SBP Greater Than 180 Clotrimazole (Lotrimin 1% Cream) 1 gm TOP DAILY [facility] Last Admin: 08/02/18 09:51 Dose: Not Given Dronedarone (Multaq) 400 mg PO BID-WM [facility] Last Admin: 08/02/18 17:25 Dose: 400 mg Enoxaparin Sodium (Lovenox) 100 mg SC 0900,2100 [facility] Enoxaparin Sodium (Lovenox) 40 mg SC Q12HR [facility] Fluticasone Propionate (Flonase Nasal [place]) 1 gm NASAL DAILY [facility] Last Admin: 08/02/18 09:50 Dose: 1 spray Gabapentin (Neurontin) 800 mg PO TID [facility] Last Admin: 08/02/18 14:09 Dose: Not Given Hydralazine HCl (Apresoline) 75 mg PO TID [facility] Last Admin: 08/02/18 14:09 Dose: Not Given Hydralazine HCl (Apresoline) 10 mg SLOW IVP Q4H PRN PRN Reason: SBP Greater Than 180 Piperacillin Sod/Tazobactam (Sod 3.375 gm/ Sodium Chloride) 100 mls @ 200 mls/ hr IVPB Q6HR [facility] Last Admin: 08/02/18 17:26 Dose: 100 mls Diltiazem HCl 125 mg/ Sodium (Chloride) 125 mls @ 10 mls/hr IVPB INF [facility]; Protocol Miscellaneous Medication (Pharmacy To Dose) 1 each IVPB PRN PRN PRN Reason: Pharmacy to dose Miscellaneous Medication (Pharmacy To Dose) 1 each IVPB PRN PRN PRN Reason: Pharmacy to dose Morphine Sulfate (Morphine) 4 mg SLOW IVP Q6H PRN PRN Reason: Mild-Moderate Pain (1-5) Last Admin: 08/02/18 02:07 Dose: 4 mg Nystatin (Mycostatin Powder) 0 gm TOP BID [facility] Last Admin: 08/02/18 09:51 Dose: 1 applic Ondansetron HCl (Zofran Odt) 4 mg PO Q6H PRN PRN Reason: Nausea/Vomiting Ondansetron HCl (Zofran) 4 mg IVP Q6H PRN PRN Reason: Nausea/Vomiting Senna/Docusate Sodium (Senokot S) 1 tab PO BID [facility] Last Admin: 08/02/18 09:49 Dose: Not Given Sodium Chloride (Flush - Normal Saline) 10 ml IVF PRN PRN PRN Reason: Saline Flush Tamsulosin HCl (Flomax) 0.4 mg PO DAILY [facility] Last Admin: 08/02/18 09:49 Dose: 0.4 mg Tramadol HCl (Ultram) 50 mg PO TID PRN PRN Reason: Pain Last Admin: 07/31/18 21:24 Dose: 50 mg
[2018-08-02] MEDS: Enoxaparin Sodium 100 MG/ML SYRINGE SC SCH (21:34)
[2018-08-03] MEDS: Piperacillin/Tazobactam 3.375 GM in Sodium Chloride 0.9% 100 ML IVPB SCH ×3 (05:21→17:13)
[2018-08-03] MEDS: Morphine 4 MG/ML VIAL SLOW IVP PRN (06:55)
--- NOTE | 2018-08-03 08:50 | PDOC.PULPN ---
Progress Note: Subj/Obj - Subjective Date: 08/03/18 Time: 08:45 - Objective Allergies/Adverse Reactions: Allergies Allergy/AdvReac Type Severity Reaction Status Date / Time venom-wasp Allergy Severe Anaphylaxis Verified 07/31/18 04:00 propoxyphene Allergy Mild Rash Verified 07/31/18 03:58 Vital Signs: Vital Signs Temp 97.9 F 08/03/18 07:00 Pulse 80 08/02/18 22:20 Resp 18 08/02/18 08:26 BP 124/93 H 08/02/18 09:49 Pulse Ox 96 08/03/18 07:39 Intake & Output 08/02/18 08/03/18 08/03/18 18:59 06:59 18:59 Intake Total 716.3 480 Output Total 1025 Balance 716.3 -545 Intake: Intake, IV Amount 476.3 Diltiazem 125 mg In 74.3 Sodium Chloride 0.9% 100 ml @ 10 mls/hr IVPB INF [facility] Rx#:[id number] Diltiazem HCl 10 mg SLOW 2 IVP NOW [facility] Rx#:[id number] Piperacillin/Tazobactam 3 200 .375 gm In Sodium Chloride 0.9% 100 ml @ 200 mls/hr IVPB Q6HR [facility] Rx#:[id number] Vancomycin HCl 1 gm In 200 Premix Bag 1 bag @ 300 mls/hr IVPB Q12HR [facility] Rx# :[id number] Oral 240 480 Output: Urine 1025 Other: Voiding Method Urinal Urinal # Urine Diapers 1 # Bowel Movements 1 Progress Note: Data - Labs Result Diagrams: 08/02/18 08:54 08/02/18 08:54 Progress Note: A/P - Problems (1) Atrial fibrillation Current Visit: Yes Status: Acute Code(s): I48.91 - UNSPECIFIED ATRIAL FIBRILLATION (2) Hypertension Current Visit: No Status: Chronic Code(s): I10 - ESSENTIAL (PRIMARY) HYPERTENSION Qualifiers: Hypertension type: essential hypertension Qualified Code(s): I10 - Essential (primary) hypertension (3) Leg wound, right Current Visit: No Status: Chronic Code(s): S81.801A - UNSPECIFIED OPEN WOUND , RIGHT LOWER LEG, INITIAL ENCOUNTER (4) Morbid obesity with BMI of 50.0-59.9, adult Current Visit: No Status: Chronic Code(s): E66.01 - MORBID (SEVERE) OBESITY DUE TO EXCESS CALORIES; Z68.43 - BODY MASS INDEX (BMI) 50-59.9, ADULT (5) Physical deconditioning Current Visit: No Status: Chronic Code(s): R53.81 - OTHER MALAISE (6) YUNIOR (acute kidney injury) Current Visit: No Status: Resolved Code(s): N17.9 - ACUTE KIDNEY FAILURE, UNSPECIFIED - Plan Plan: HPI: No acute events overnight. On amio PO and diltiazem drip. HR well-controlled overnight. Mild pain in legs somewhat better than yesterday. PHYSICAL EXAMINATION: General: NAD, alert and oriented x3 HEENT: PERRLA Heart/Cardiovascular System: RRR, Cap refill < 3 seconds, no rub, no murmur Lungs/Respiratory System: clear to auscultation bilaterally. No increased work of breathing. Room air. Abdomen/Gastro-Intestinal System: no abdominal tenderness, normal bowel sounds, no masses, no organomegaly Extremities: Warm extremities. Venous stasis changes on lower extremities, tender to palpation, no induration Neuro: No gross deficits appreciated. CN 2-12 grossly intact Skin: venous stasis changes to bilateral lower extremities Musculoskeletal: walks with walker at home per report, PT/OT consulted ASSESSMENT AND PLAN # new onset a fib with RVR- controlled - likely paroxysmal, now controlled on diltiazem 10 gtt, amio PO - anticipate transition to PO diltiazem today - continue telemetry - echo Mar 2018 shows EF 60-65% # failed outpt tx of cellulitus, venous stasis - hx of MRSA nec fasc, finished course of Cipro before admission - Bcx NGTD, WBC 9.6] - venous Doppler negative bilaterally - on zosyn # MARY - used bipap overnight - snores at home, never had sleep study, sleeps in another room - would benefit from cpap at home # CKD w/ Hx of dialysis - gfr 82 PPx: lovenox Dispo: likely ok for transfer to [facility] today Addendum - Attending - Attending Attestation Date/Time: 08/03/18 [id number] I personally evaluated the patient and discussed the management with Dr. Lagunas. I agree with the History, Examination, Assessment and Plan documented above with any addition or exceptions noted below.
[2018-08-03] MEDS: Enoxaparin Sodium 100 MG/ML SYRINGE SC SCH ×2 (09:59→21:32)
[2018-08-03] MEDS: Enoxaparin Sodium 40 MG/0.4 ML SYRINGE SC SCH ×2 (10:00→21:33)
[2018-08-03] MEDS: Fluticasone Propionate Nasal Spray 16 gm Bottle NASAL SCH (10:01)
[2018-08-03] MEDS: Gabapentin 400 MG CAP PO SCH ×3 (10:01→21:33)
[2018-08-03] MEDS: Senokot S 8.6-50 MG TAB PO SCH ×2 (10:02→21:33)
[2018-08-03] MEDS: Amlodipine 10 MG TAB PO SCH (10:02)
[2018-08-03] MEDS: Aspirin 81 mg Enteric Coated Tablet PO SCH (10:02)
[2018-08-03] MEDS: Dronedarone HCl 400 MG TAB PO SCH ×2 (10:03→17:13)
[2018-08-03] MEDS: Nystatin Powder 15 GM BOT TOP SCH ×2 (10:05→21:33)
[2018-08-03] MEDS: Tamsulosin HCl 0.4 MG CAP PO SCH (10:06)
[2018-08-03] MEDS: hydrALAZINE 25 MG TAB PO SCH ×3 (10:09→21:33)
[2018-08-03] MEDS: Clotrimazole 1 % Cream 30 GM TUBE TOP SCH (11:00)
--- NOTE | 2018-08-03 13:25 | PRG ---
DATE OF SERVICE: 08/03/2018 SUBJECTIVE: Mr. Herrera is doing better. He is much more awake and alert today. No chest pain or pressure. He is back in normal sinus rhythm. OBJECTIVE: VITAL SIGNS: Blood pressure is 148/109 as recorded, pulse in the 70s and sinus. LUNGS: Clear. CARDIAC: Normal S1, normal S2. ABDOMEN: Obese, nontender. ASSESSMENT: 1. Paroxysmal atrial fibrillation, now in sinus rhythm. 2. Morbid obesity. 3. Obesity hypoventilation. PLAN: 1. Stop intravenous diltiazem. 2. We will reduce enoxaparin, back in sinus rhythm. 3. When he goes home, would need to be on antithrombotic such as Eliquis. The patient could be moved off intermediate care unit from my standpoint. Job ID: [id number]
[2018-08-03] MEDS ORDERED: Enoxaparin Sodium 100 MG/ML SYRINGE SC SCH (21:00)
[2018-08-03] MEDS ORDERED: Enoxaparin Sodium 40 MG/0.4 ML SYRINGE SC SCH ×2 (21:00)
[2018-08-04] MEDS: Piperacillin/Tazobactam 3.375 GM in Sodium Chloride 0.9% 100 ML IVPB SCH ×5 (00:10→23:31)
--- NOTE | 2018-08-04 07:37 | PDOC.PN ---
- Subjective Encounter Start Date: 08/03/18 Encounter Start Time: 10:30 Subjective: pt up in bed no complains - Objective Resuscitation Status - Order Detail: 07/31/18 02:30 Resuscitation Status Routine Resuscitation Status: FULL: Full Resuscitation Vital Signs & Weight: Vital Signs (12 hours) Temp Pulse BP Pulse Ox 08/04/18 03:00 98.5 F 08/04/18 02:48 94 08/03/18 23:00 98.6 F 08/03/18 22:15 96 08/03/18 21:33 97 138/88 08/03/18 20:00 98 Weight Admit Weight 335 lb 3.2 oz Weight 335 lb 3.2 oz Most Recent Monitor Data Heart Rate from ECG 95 NIBP 139/79 NIBP BP-Mean 99 Respiration from ECG 16 SpO2 97 I&O: 08/03/18 08/04/18 08/05/18 06:59 06:59 06:59 Intake Total 1196.3 1320 Output Total 1025 3100 Balance 171.3 -1780 Result Diagrams: 08/02/18 08:54 08/02/18 08:54 Phys Exam - Physical Examination Neck: no nodes, no JVD, supple, full ROM Respiratory: no wheezing, no rales, no rhonchi, wheezing present, clear to auscultation bilateral Cardiovascular: RRR, no significant murmur, no rub, gallop, irregular Gastrointestinal: soft, non-tender, no distention, positive bowel sounds Dx/Plan (1) Cellulitis Code(s): L03.90 - CELLULITIS, UNSPECIFIED Status: Acute Qualifiers: Site of cellulitis of extremity: lower extremity Laterality: right Comment: Currently on Linezolid, likely will d/c abx for home (2) Fungal dermatitis Status: Acute (3) Hypertension Code(s): I10 - ESSENTIAL (PRIMARY) HYPERTENSION Status: Chronic Qualifiers: Hypertension type: essential hypertension Qualified Code(s): I10 - Essential (primary) hypertension Comment: (4) Morbid obesity with BMI of 50.0-59.9, adult Code(s): E66.01 - MORBID (SEVERE) OBESITY DUE TO EXCESS CALORIES; Z68.43 - BODY MASS INDEX (BMI) 50-59.9, ADULT Status: Chronic (5) Atrial fibrillation Code(s): I48.91 - UNSPECIFIED ATRIAL FIBRILLATION Status: Acute - Plan will need AC per cardiology, pt back to SR. -: will change his abx to oral today -: pt can be transferred out of IM -: pt on antiarrthymic * . Review of Systems - Review of Systems Respiratory: negative: Cough, Dry, Shortness of Breath, Hemoptysis, SOB with Excertion, Pleuritic Pain, Sputum, Wheezing Cardiovascular: negative: chest pain, palpitations, orthopnea, paroxysmal nocturnal dyspnea, edema, light headedness, other - Medications/Allergies Allergies/Adverse Reactions: Allergies Allergy/AdvReac Type Severity Reaction Status Date / Time venom-wasp Allergy Severe Anaphylaxis Verified 07/31/18 04:00 propoxyphene Allergy Mild Rash Verified 07/31/18 03:58 Medications: Current Medications Acetaminophen (Tylenol) 650 mg PO Q4H PRN PRN Reason: Headache/Fever/Mild Pain (1-3) Last Admin: 08/01/18 02:50 Dose: 650 mg Hydrocodone Bitart/Acetaminophen ([place] 10/325) 1 tab PO Q6H PRN PRN Reason: Pain 4-6 Last Admin: 08/02/18 00:35 Dose: 1 tab Amlodipine Besylate (Norvasc) 10 mg PO DAILY [facility] Last Admin: 08/03/18 10:02 Dose: 10 mg Aspirin (Ecotrin) 81 mg PO DAILY [facility] Last Admin: 08/03/18 10:02 Dose: 81 mg Calcium Carbonate (Tums) 1,000 mg PO Q4H PRN PRN Reason: Heartburn or Indigestion Clonidine (Catapres) 0.1 mg PO Q4H PRN PRN Reason: SBP Greater Than 180 Clotrimazole (Lotrimin 1% Cream) 1 gm TOP DAILY [facility] Last Admin: 08/03/18 11:00 Dose: 1 applic Dronedarone (Multaq) 400 mg PO BID-WM [facility] Last Admin: 08/03/18 17:13 Dose: 400 mg Enoxaparin Sodium (Lovenox) 100 mg SC 0900,2100 [facility] Last Admin: 08/03/18 21:32 Dose: 100 mg Enoxaparin Sodium (Lovenox) 40 mg SC Q12HR [facility] Last Admin: 08/03/18 21:33 Dose: 40 mg Fluticasone Propionate (Flonase Nasal [place]) 1 gm NASAL DAILY [facility] Last Admin: 08/03/18 10:01 Dose: 1 spray Gabapentin (Neurontin) 800 mg PO TID [facility] Last Admin: 08/03/18 21:33 Dose: 800 mg Hydralazine HCl (Apresoline) 75 mg PO TID [facility] Last Admin: 08/03/18 21:33 Dose: 75 mg Hydralazine HCl (Apresoline) 10 mg SLOW IVP Q4H PRN PRN Reason: SBP Greater Than 180 Piperacillin Sod/Tazobactam (Sod 3.375 gm/ Sodium Chloride) 100 mls @ 200 mls/ hr IVPB Q6HR [facility] Last Admin: 08/04/18 05:47 Dose: 100 mls Miscellaneous Medication (Pharmacy To Dose) 1 each IVPB PRN PRN PRN Reason: Pharmacy to dose Morphine Sulfate (Morphine) 4 mg SLOW IVP Q6H PRN PRN Reason: Mild-Moderate Pain (1-5) Last Admin: 08/03/18 06:55 Dose: 4 mg Nystatin (Mycostatin Powder) 0 gm TOP BID [facility] Last Admin: 08/03/18 21:33 Dose: 1 applic Ondansetron HCl (Zofran Odt) 4 mg PO Q6H PRN PRN Reason: Nausea/Vomiting Ondansetron HCl (Zofran) 4 mg IVP Q6H PRN PRN Reason: Nausea/Vomiting Senna/Docusate Sodium (Senokot S) 1 tab PO BID [facility] Last Admin: 08/03/18 21:33 Dose: 1 tab Sodium Chloride (Flush - Normal Saline) 10 ml IVF PRN PRN PRN Reason: Saline Flush Tamsulosin HCl (Flomax) 0.4 mg PO DAILY [facility] Last Admin: 08/03/18 10:06 Dose: 0.4 mg Tramadol HCl (Ultram) 50 mg PO TID PRN PRN Reason: Pain Last Admin: 07/31/18 21:24 Dose: 50 mg
[2018-08-04] MEDS: Enoxaparin Sodium 100 MG/ML SYRINGE SC SCH (09:27)
[2018-08-04] MEDS: Nystatin Powder 15 GM BOT TOP SCH ×2 (09:43→21:59)
[2018-08-04] MEDS: Fluticasone Propionate Nasal Spray 16 gm Bottle NASAL SCH (09:43)
[2018-08-04] MEDS: Dronedarone HCl 400 MG TAB PO SCH ×2 (09:44→17:04)
[2018-08-04] MEDS: Clotrimazole 1 % Cream 30 GM TUBE TOP SCH (09:44)
[2018-08-04] MEDS: Amlodipine 10 MG TAB PO SCH (09:46)
[2018-08-04] MEDS: Gabapentin 400 MG CAP PO SCH ×3 (09:46→21:57)
[2018-08-04] MEDS: Enoxaparin Sodium 40 MG/0.4 ML SYRINGE SC SCH ×2 (09:47→21:56)
[2018-08-04] MEDS: Aspirin 81 mg Enteric Coated Tablet PO SCH (09:47)
[2018-08-04] MEDS: hydrALAZINE 25 MG TAB PO SCH ×3 (09:47→21:57)
[2018-08-04] MEDS: Tamsulosin HCl 0.4 MG CAP PO SCH (09:47)
[2018-08-04] MEDS: Senokot S 8.6-50 MG TAB PO SCH ×2 (09:48→21:57)
--- NOTE | 2018-08-04 11:35 | PRG ---
DATE OF SERVICE: 08/04/2018 SUBJECTIVE: Mr. Herrera is feeling much better. He is awake, alert, and in no distress. He is continuing to use the BiPAP at night. 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 He has never had a formal outpatient sleep study. OBJECTIVE: VITAL SIGNS: His temperature is 98.4, pulse 95, and blood pressure 139/97. HEENT: Unremarkable. NECK: No adenopathy or JVD. LUNGS: Clear. CARDIAC: S1 and S2. Regular. ABDOMEN: Soft and nontender. EXTREMITIES: He has cellulitis changes over both ankle regions. LABORATORY DATA: No labs were done today. ASSESSMENT: 1. Paroxysmal atrial fibrillation - now sinus rhythm. 2. Likely underlying severe obstructive sleep apnea. 3. Lower extremity cellulitis. PLAN: This patient is stable for transfer out to the floor. He is continuing antibiotic therapy for his cellulitis. He will need an outpatient sleep study. In the meantime, he can continue BiPAP at night while in the hospital. Job ID: [id number]
[2018-08-04 11:41] LABS: #Eosinphils 0.3 thou/uL (0.0-0.7); #Lymphocytes 1.9 thou/uL (1.20-3.40); #Monocytes 0.8 thou/uL (0.11-0.59); #Neutrophils 5.8 thou/uL (1.40-6.50); %Basophils 0.2 % (0.0-1.0); %Lymphocytes 21.9 % (21.0-51.0); %Monocytes 9.4 % (0.0-10.0); %Neutrophils 65.6 % (42.0-75.0); Hemoglobin 13.5 g/dL (14.0-18.0); Mean Corpuscular HGB CONC 31.7 g/dL (32.0-36.0); Mean Corpuscular Volume 78.8 fL (78.0-98.0); Mean Platelet Volume 6.8 fL (7.4-10.4); Platelet Count 467 thou/uL (130-400); RBC Distribution Width 15.4 % (11.5-14.5); Red Blood Cell (RBC) Count 5.42 mill/uL (4.70-6.10); White Blood Cell (WBC) Count 8.8 thou/uL (4.8-10.8)
--- NOTE | 2018-08-04 13:39 | PDOC.PN ---
- Subjective Encounter Start Date: 08/04/18 Encounter Start Time: 10:15 Subjective: pt up in bed no complains - Objective Resuscitation Status - Order Detail: 07/31/18 02:30 Resuscitation Status Routine Resuscitation Status: FULL: Full Resuscitation Vital Signs & Weight: Vital Signs (12 hours) Temp Pulse BP 08/04/18 11:10 98.0 F 08/04/18 09:46 100 160/101 H 08/04/18 07:42 98.4 F 08/04/18 03:00 98.5 F 08/04/18 02:48 94 Weight Admit Weight 335 lb 3.2 oz Weight 335 lb 3.2 oz Most Recent Monitor Data Heart Rate from ECG 94 NIBP 181/98 NIBP BP-Mean 125 Respiration from ECG 28 SpO2 98 I&O: 08/03/18 08/04/18 08/05/18 06:59 06:59 06:59 Intake Total 1196.3 1320 Output Total 1025 3100 550 Balance 171.3 -1780 -550 Result Diagrams: 08/04/18 11:21 08/02/18 08:54 Phys Exam - Physical Examination Neck: no nodes, no JVD, supple, full ROM Respiratory: no wheezing, no rales, no rhonchi, wheezing present, clear to auscultation bilateral Cardiovascular: RRR, no significant murmur, no rub, gallop, irregular Gastrointestinal: soft, non-tender, no distention, positive bowel sounds Dx/Plan (1) Cellulitis Code(s): L03.90 - CELLULITIS, UNSPECIFIED Status: Acute Qualifiers: Site of cellulitis of extremity: lower extremity Laterality: right Comment: Currently on Linezolid, likely will d/c abx for home (2) Fungal dermatitis Status: Acute (3) Hypertension Code(s): I10 - ESSENTIAL (PRIMARY) HYPERTENSION Status: Chronic Qualifiers: Hypertension type: essential hypertension Qualified Code(s): I10 - Essential (primary) hypertension Comment: (4) Morbid obesity with BMI of 50.0-59.9, adult Code(s): E66.01 - MORBID (SEVERE) OBESITY DUE TO EXCESS CALORIES; Z68.43 - BODY MASS INDEX (BMI) 50-59.9, ADULT Status: Chronic (5) Atrial fibrillation Code(s): I48.91 - UNSPECIFIED ATRIAL FIBRILLATION Status: Acute - Plan pt now in SR will add eliquis -: will change abx to oral * . Review of Systems - Review of Systems Respiratory: negative: Cough, Dry, Shortness of Breath, Hemoptysis, SOB with Excertion, Pleuritic Pain, Sputum, Wheezing Cardiovascular: negative: chest pain, palpitations, orthopnea, paroxysmal nocturnal dyspnea, edema, light headedness, other Gastrointestinal: negative: Nausea, Vomiting, Abdominal Pain, Diarrhea, Constipation, Melena, Hematochezia, Other - Medications/Allergies Allergies/Adverse Reactions: Allergies Allergy/AdvReac Type Severity Reaction Status Date / Time venom-wasp Allergy Severe Anaphylaxis Verified 07/31/18 04:00 propoxyphene Allergy Mild Rash Verified 07/31/18 03:58 Medications: Current Medications Acetaminophen (Tylenol) 650 mg PO Q4H PRN PRN Reason: Headache/Fever/Mild Pain (1-3) Last Admin: 08/01/18 02:50 Dose: 650 mg Hydrocodone Bitart/Acetaminophen ([place] 10/325) 1 tab PO Q6H PRN PRN Reason: Pain 4-6 Last Admin: 08/02/18 00:35 Dose: 1 tab Amlodipine Besylate (Norvasc) 10 mg PO DAILY [facility] Last Admin: 08/04/18 09:46 Dose: 10 mg Apixaban (Eliquis) 5 mg PO BID [facility] Calcium Carbonate (Tums) 1,000 mg PO Q4H PRN PRN Reason: Heartburn or Indigestion Clonidine (Catapres) 0.1 mg PO Q4H PRN PRN Reason: SBP Greater Than 180 Clotrimazole (Lotrimin 1% Cream) 1 gm TOP DAILY [facility] Last Admin: 08/04/18 09:44 Dose: 1 applic Dronedarone (Multaq) 400 mg PO BID-WM [facility] Last Admin: 08/04/18 09:44 Dose: 400 mg Enoxaparin Sodium (Lovenox) 40 mg SC Q12HR [facility] Last Admin: 08/04/18 09:47 Dose: 40 mg Fluticasone Propionate (Flonase Nasal [place]) 1 gm NASAL DAILY [facility] Last Admin: 08/04/18 09:43 Dose: 1 spray Gabapentin (Neurontin) 800 mg PO TID [facility] Last Admin: 08/04/18 09:46 Dose: 800 mg Hydralazine HCl (Apresoline) 75 mg PO TID [facility] Last Admin: 08/04/18 09:47 Dose: 75 mg Hydralazine HCl (Apresoline) 10 mg SLOW IVP Q4H PRN PRN Reason: SBP Greater Than 180 Piperacillin Sod/Tazobactam (Sod 3.375 gm/ Sodium Chloride) 100 mls @ 200 mls/ hr IVPB Q6HR [facility] Last Admin: 08/04/18 12:59 Dose: 100 mls Miscellaneous Medication (Pharmacy To Dose) 1 each IVPB PRN PRN PRN Reason: Pharmacy to dose Morphine Sulfate (Morphine) 4 mg SLOW IVP Q6H PRN PRN Reason: Mild-Moderate Pain (1-5) Last Admin: 08/03/18 06:55 Dose: 4 mg Nystatin (Mycostatin Powder) 0 gm TOP BID [facility] Last Admin: 08/04/18 09:43 Dose: 1 applic Ondansetron HCl (Zofran Odt) 4 mg PO Q6H PRN PRN Reason: Nausea/Vomiting Last Admin: 08/04/18 13:05 Dose: 4 mg Ondansetron HCl (Zofran) 4 mg IVP Q6H PRN PRN Reason: Nausea/Vomiting Potassium Chloride (K-Dur) 40 meq PO ONE [facility] Senna/Docusate Sodium (Senokot S) 1 tab PO BID [facility] Last Admin: 08/04/18 09:48 Dose: Not Given Sodium Chloride (Flush - Normal Saline) 10 ml IVF PRN PRN PRN Reason: Saline Flush Tamsulosin HCl (Flomax) 0.4 mg PO DAILY [facility] Last Admin: 08/04/18 09:47 Dose: 0.4 mg Tramadol HCl (Ultram) 50 mg PO TID PRN PRN Reason: Pain Last Admin: 07/31/18 21:24 Dose: 50 mg
[2018-08-04] MEDS ORDERED: Potassium Chloride 20 MEQ TAB PO SCH (13:45)
--- NOTE | 2018-08-04 16:05 | PRG ---
DATE OF SERVICE: 08/04/2018 SUBJECTIVE: Mr. Herrera is doing well, no complaints. He has been maintaining normal sinus rhythm. OBJECTIVE: VITAL SIGNS: Blood pressure 160/100 earlier, it is 138/88. Pulse 90, it is regular, it is sinus. LUNGS: Clear. CARDIAC: Normal S1 and normal S2. ASSESSMENT: 1. Paroxysmal atrial fibrillation. 2. Sleep apnea. 3. Morbid obesity. PLAN: 1. Change from enoxaparin to Eliquis. 2. We will go ahead and stop aspirin at this point since he is going to be on Eliquis. 3. Continue Multaq. Job ID: [id number]
[2018-08-04] MEDS ORDERED: Famotidine 20 MG TAB PO SCH (17:30)
[2018-08-04] MEDS: Apixaban 5 MG TAB PO SCH (21:58)
[2018-08-04] MEDS: Famotidine 20 MG TAB PO SCH (21:58)
[2018-08-04] MEDS: HYDROcodone/Acetaminophen 10/325 mg Tablet PO PRN (22:22)
[2018-08-05 04:54] LABS: #Basophils 0.1 thou/uL (0.0-0.2); #Eosinphils 0.3 thou/uL (0.0-0.7); #Lymphocytes 1.8 thou/uL (1.20-3.40); #Monocytes 0.5 thou/uL (0.11-0.59); #Neutrophils 6.2 thou/uL (1.40-6.50); %Basophils 1.2 % (0.0-1.0); %Lymphocytes 20.2 % (21.0-51.0); %Neutrophils 69.7 % (42.0-75.0); Hemoglobin 12.5 g/dL (14.0-18.0); Mean Corpuscular HGB CONC 30.8 g/dL (32.0-36.0); Mean Corpuscular Hemoglobin 24.7 pg (27.0-31.0); Mean Corpuscular Volume 80.1 fL (78.0-98.0); Mean Platelet Volume 7.1 fL (7.4-10.4); Platelet Count 409 thou/uL (130-400); RBC Distribution Width 15.6 % (11.5-14.5); Red Blood Cell (RBC) Count 5.08 mill/uL (4.70-6.10); White Blood Cell (WBC) Count 8.9 thou/uL (4.8-10.8)
[2018-08-05 05:15] LABS: Calc. Creatinine Clearance 204 mL/min (70-130); Estimated GFR-MDRD Greater than 90
[2018-08-05] MEDS: Piperacillin/Tazobactam 3.375 GM in Sodium Chloride 0.9% 100 ML IVPB SCH (05:28)
[2018-08-05] MEDS ORDERED: Potassium Chloride 20 MEQ TAB PO SCH (08:45)
[2018-08-05] MEDS ORDERED: Lisinopril 10 MG TAB PO SCH (09:00)
[2018-08-05] MEDS ORDERED: Famotidine 20 MG TAB PO SCH (09:00)
--- NOTE | 2018-08-05 09:53 | PRG ---
DATE OF SERVICE: 08/05/2018 SUBJECTIVE: Mr. Herrera is doing well. He awakens to stimuli, but then goes right back to sleep. OBJECTIVE: VITAL SIGNS: Blood pressure 119/70, pulse 88. LUNGS: Clear. CARDIAC: Normal S1 and normal S2. ABDOMEN: Soft, nontender. EXTREMITIES: He has cellulitis. He has also severe edema. ASSESSMENT: 1. Obstructive sleep apnea. 2. Paroxysmal atrial fibrillation, back in sinus rhythm. 3. Peripheral edema. 4. History of hypokalemia. PLAN: 1. Stop amlodipine. 2. Change to lisinopril that amlodipine causes. 3. Reduce hydralazine, try to simplify medications. 4. He is on Eliquis and Multaq. 5. We will sign off at this point. Please re-consult if needed. My partners will be available if needed. I will be out next week. Job ID: [id number]
[2018-08-05] MEDS: Apixaban 5 MG TAB PO SCH ×2 (10:07→21:07)
[2018-08-05] MEDS: Lisinopril 10 MG TAB PO SCH (10:08)
[2018-08-05] MEDS: Famotidine 20 MG TAB PO SCH ×2 (10:08→21:06)
[2018-08-05] MEDS: Gabapentin 400 MG CAP PO SCH ×3 (10:08→21:06)
[2018-08-05] MEDS: Doxycycline 100 MG CAP PO SCH ×2 (10:08→21:07)
[2018-08-05] MEDS: Dronedarone HCl 400 MG TAB PO SCH ×2 (10:09→18:04)
[2018-08-05] MEDS: Senokot S 8.6-50 MG TAB PO SCH ×2 (10:09→21:07)
[2018-08-05] MEDS: Tamsulosin HCl 0.4 MG CAP PO SCH (10:09)
[2018-08-05] MEDS: Fluticasone Propionate Nasal Spray 16 gm Bottle NASAL SCH (10:10)
[2018-08-05] MEDS: Clotrimazole 1 % Cream 30 GM TUBE TOP SCH (10:10)
[2018-08-05] MEDS: Nystatin Powder 15 GM BOT TOP SCH ×2 (10:11→21:07)
[2018-08-05] MEDS: hydrALAZINE 25 MG TAB PO SCH ×3 (10:14→21:05)
--- NOTE | 2018-08-05 11:03 | PRG ---
DATE OF SERVICE: 08/05/2018 SUBJECTIVE: Mr. Herrera is rather quite today, does not have much to say. He used the BiPAP last night. OBJECTIVE: VITAL SIGNS: Temperature 97.7, pulse 80, blood pressure 119/71, and O2 saturation 100%. HEENT: Unremarkable. NECK: No JVD. LUNGS: Clear. CARDIAC: S1 and S2, regular. ABDOMEN: Soft and obese. EXTREMITIES: Edematous with cellulitis in both ankle regions. LABORATORY DATA: White blood cell count 8.9, hematocrit 40, and platelet count 409. ASSESSMENT: 1. Cellulitis. 2. Likely underlying severe obstructive sleep apnea. 3. Paroxysmal atrial fibrillation. PLAN: The patient is stable to move to medical. He still needs an outpatient sleep study that can be arranged as an outpatient through my office. Job ID: [id number]
[2018-08-05] MEDS: HYDROcodone/Acetaminophen 10/325 mg Tablet PO PRN ×2 (15:09→21:09)
[2018-08-05] MEDS: traMADol HCl 50 MG TAB PO PRN (18:08)
[2018-08-06] MEDS: Morphine 4 MG/ML VIAL SLOW IVP PRN ×2 (04:07→12:18)
[2018-08-06 04:31] VITALS: BMI 47.6
[2018-08-06] MEDS: Doxycycline 100 MG CAP PO SCH (09:51)
[2018-08-06] MEDS: Famotidine 20 MG TAB PO SCH (09:52)
[2018-08-06] MEDS: hydrALAZINE 25 MG TAB PO SCH ×2 (09:52→16:48)
[2018-08-06] MEDS: Gabapentin 400 MG CAP PO SCH ×2 (09:52→16:47)
[2018-08-06] MEDS: Dronedarone HCl 400 MG TAB PO SCH (09:53)
[2018-08-06] MEDS: Tamsulosin HCl 0.4 MG CAP PO SCH (09:53)
[2018-08-06] MEDS: Lisinopril 10 MG TAB PO SCH (09:53)
[2018-08-06] MEDS: Senokot S 8.6-50 MG TAB PO SCH (09:54)
[2018-08-06] MEDS: Fluticasone Propionate Nasal Spray 16 gm Bottle NASAL SCH (09:55)
[2018-08-06] MEDS: Clotrimazole 1 % Cream 30 GM TUBE TOP SCH (09:56)
[2018-08-06] MEDS: Nystatin Powder 15 GM BOT TOP SCH (09:56)
[2018-08-06] MEDS: Apixaban 5 MG TAB PO SCH (09:57)
[2018-08-06 10:26] VITALS: TEMP 98.1
[2018-08-06] MEDS ORDERED: Furosemide 40 MG/4 ML VIAL SLOW IVP SCH (11:45)
[2018-08-06 12:14] VITALS: BP 150/83
[2018-08-06 12:38] LABS: Anion Gap 11 mmol/L (10-20); BUN (Urea Nitrogen) 19 mg/dL (8.4-25.7); Calc. Creatinine Clearance 196 mL/min (70-130); Calcium 9.5 mg/dL (7.8-10.44); Carbon Dioxide 26 mmol/L (22-29); Chloride 103 mmol/L (98-107); Estimated GFR-MDRD Greater than 90; Glucose 109 mg/dL (70-105); Potassium 4.2 mmol/L (3.5-5.1); Sodium 136 mmol/L (136-145)
--- NOTE | 2018-08-06 15:11 | EKG ---
Test Reason : Blood Pressure : / mmHG Vent. Rate : 097 BPM Atrial Rate : 097 BPM P-R Int : 132 ms QRS Dur : 090 ms QT Int : 346 ms P-R-T Axes : 051 089 031 degrees QTc Int : 439 ms Normal sinus rhythm Normal ECG Confirmed by JUDITH TUCKER ([id number]), international editorial producer JANINE KAPLAN ([id number]) on 08/06/2018 3:11:22 PM Referred By: Confirmed By:JUDITH TUCKER
[2018-08-06] MEDS: HYDROcodone/Acetaminophen 10/325 mg Tablet PO PRN (16:47)
--- NOTE | 2018-08-06 17:19 | PDOC.PN ---
- Subjective Encounter Start Date: 08/05/18 Encounter Start Time: 10:30 Subjective: pt up in bed no complains - Objective Resuscitation Status - Order Detail: 07/31/18 02:30 Resuscitation Status Routine Resuscitation Status: FULL: Full Resuscitation MAR Reviewed: Yes Vital Signs & Weight: Vital Signs (12 hours) Temp Pulse Resp BP BP Pulse Ox 08/06/18 16:48 150/83 H 08/06/18 12:00 81 18 150/83 H 100 08/06/18 10:26 98.1 F 08/06/18 09:53 145/78 H 08/06/18 09:52 84 145/78 H 08/06/18 07:40 100 08/06/18 07:08 97.5 F L Weight Admit Weight 335 lb 3.2 oz Weight 321 lb 11.2 oz Most Recent Monitor Data Heart Rate from ECG 82 NIBP 150/83 NIBP BP-Mean 105 Respiration from ECG 14 SpO2 100 I&O: 08/05/18 08/06/18 08/07/18 06:59 06:59 06:59 Intake Total 2500 1960 Output Total 1965 920 Balance 535 1040 Result Diagrams: 08/05/18 03:59 08/06/18 11:57 Phys Exam - Physical Examination Neck: no nodes, no JVD, supple, full ROM Respiratory: no wheezing, no rales, no rhonchi, clear to auscultation bilateral Cardiovascular: RRR, no significant murmur, no rub, gallop, irregular Gastrointestinal: soft, non-tender, no distention, positive bowel sounds Musculoskeletal: no edema, pulses present, edema present Dx/Plan (1) Cellulitis Code(s): L03.90 - CELLULITIS, UNSPECIFIED Status: Acute Qualifiers: Site of cellulitis of extremity: lower extremity Laterality: right Comment: Currently on Linezolid, likely will d/c abx for home (2) Fungal dermatitis Status: Acute (3) Hypertension Code(s): I10 - ESSENTIAL (PRIMARY) HYPERTENSION Status: Chronic Qualifiers: Hypertension type: essential hypertension Qualified Code(s): I10 - Essential (primary) hypertension Comment: (4) Morbid obesity with BMI of 50.0-59.9, adult Code(s): E66.01 - MORBID (SEVERE) OBESITY DUE TO EXCESS CALORIES; Z68.43 - BODY MASS INDEX (BMI) 50-59.9, ADULT Status: Chronic (5) Atrial fibrillation Code(s): I48.91 - UNSPECIFIED ATRIAL FIBRILLATION Status: Acute - Plan will change abx to oral -: possible home in am -: pt will need sleep study -: Did talk to pt about weight loss diet and exercise. * . Review of Systems - Review of Systems Respiratory: negative: Cough, Dry, Shortness of Breath, Hemoptysis, SOB with Excertion, Pleuritic Pain, Sputum, Wheezing Cardiovascular: negative: chest pain, palpitations, orthopnea, paroxysmal nocturnal dyspnea, edema, light headedness, other Gastrointestinal: negative: Nausea, Vomiting, Abdominal Pain, Diarrhea, Constipation, Melena, Hematochezia, Other - Medications/Allergies Allergies/Adverse Reactions: Allergies Allergy/AdvReac Type Severity Reaction Status Date / Time venom-wasp Allergy Severe Anaphylaxis Verified 07/31/18 04:00 propoxyphene Allergy Mild Rash Verified 07/31/18 03:58 Medications: Current Medications Acetaminophen (Tylenol) 650 mg PO Q4H PRN PRN Reason: Headache/Fever/Mild Pain (1-3) Last Admin: 08/01/18 02:50 Dose: 650 mg Hydrocodone Bitart/Acetaminophen ([place] 10/325) 1 tab PO Q6H PRN PRN Reason: Pain 4-6 Last Admin: 08/06/18 16:47 Dose: 1 tab Apixaban (Eliquis) 5 mg PO BID [facility] Last Admin: 08/06/18 09:57 Dose: 5 mg Calcium Carbonate (Tums) 1,000 mg PO Q4H PRN PRN Reason: Heartburn or Indigestion Last Admin: 08/04/18 17:03 Dose: 1,000 mg Clonidine (Catapres) 0.1 mg PO Q4H PRN PRN Reason: SBP Greater Than 180 Clotrimazole (Lotrimin 1% Cream) 1 gm TOP DAILY [facility] Last Admin: 08/06/18 09:56 Dose: 1 applic Doxycycline Hyclate (Vibramycin) 100 mg PO BID [facility] Last Admin: 08/06/18 09:51 Dose: 100 mg Dronedarone (Multaq) 400 mg PO BID[facility] Last Admin: 08/06/18 09:53 Dose: 400 mg Famotidine (Pepcid) 20 mg PO BID [facility] Last Admin: 08/06/18 09:52 Dose: 20 mg Fluticasone Propionate (Flonase Nasal [place]) 1 gm NASAL DAILY [facility] Last Admin: 08/06/18 09:55 Dose: 1 spray Gabapentin (Neurontin) 800 mg PO TID [facility] Last Admin: 08/06/18 16:47 Dose: 800 mg Hydralazine HCl (Apresoline) 10 mg SLOW IVP Q4H PRN PRN Reason: SBP Greater Than 180 Hydralazine HCl (Apresoline) 50 mg PO TID [facility] Last Admin: 08/06/18 16:48 Dose: 50 mg Lisinopril (Zestril) 20 mg PO DAILY [facility] Last Admin: 08/06/18 09:53 Dose: 20 mg Miscellaneous Medication (Pharmacy To Dose) 1 each IVPB PRN PRN PRN Reason: Pharmacy to dose Morphine Sulfate (Morphine) 4 mg SLOW IVP Q6H PRN PRN Reason: Mild-Moderate Pain (1-5) Last Admin: 08/06/18 12:18 Dose: 4 mg Nystatin (Mycostatin Powder) 0 gm TOP BID [facility] Last Admin: 08/06/18 09:56 Dose: 1 applic Ondansetron HCl (Zofran Odt) 4 mg PO Q6H PRN PRN Reason: Nausea/Vomiting Last Admin: 08/04/18 13:05 Dose: 4 mg Ondansetron HCl (Zofran) 4 mg IVP Q6H PRN PRN Reason: Nausea/Vomiting Senna/Docusate Sodium (Senokot S) 1 tab PO BID [facility] Last Admin: 08/06/18 09:54 Dose: 1 tab Sodium Chloride (Flush - Normal Saline) 10 ml IVF PRN PRN PRN Reason: Saline Flush Last Admin: 08/05/18 21:05 Dose: 10 ml Tamsulosin HCl (Flomax) 0.4 mg PO DAILY [facility] Last Admin: 08/06/18 09:53 Dose: 0.4 mg Tramadol HCl (Ultram) 50 mg PO TID PRN PRN Reason: Pain Last Admin: 08/05/18 18:08 Dose: 50 mg
--- NOTE | 2018-08-06 19:43 | DIS ---
DATE OF ADMISSION: 07/31/2018 DATE OF DISCHARGE: 08/06/2018 DISCHARGE DIAGNOSES: 1. . 2. Fungal dermatitis. 3. Hypertension. 4. Atrial fibrillation with rapid ventricular response. 5. Obesity. HOSPITAL COURSE: The patient is a 58-year-old male, who has a history of chronic lower extremity venous stasis and has an ulcer, which has been worked on by Wound Care, who presented to the hospital with worsening right leg pain. The patient did undergo a venogram, which did not indicate any acute DVT. The patient at this time also was put on IV antibiotics. However, he never really had leukocytosis. The patient's pain continued to improve. He was also given some IV diuretics, which really help with his lower extremity swelling. However, while he was in the hospital, he went into atrial fibrillation with rapid ventricular response and at this time, he was transferred to the [facility], was put on Cardizem drip and was seen by Cardiology. The patient's echo in March 2018 showed an EF of 60% to 65%. He was also seen by Pulmonary while he was in the [facility] and recommendation was to do a sleep study as an outpatient. The patient also was educated about diet, exercise, and weight loss. The patient's IV medications for his atrial fibrillation were changed to oral. He was put on dronedarone 400 mg b.i.d. and also was put on Eliquis b.i.d. Risks and benefits of bleeding was discussed with the patient, the patient understood. The patient will be discharged home and follow up with his primary care doctor, Cardiology and also with Pulmonology for sleep study. MEDICATIONS: As of the followin. Eliquis 5 mg b.i.d. 2. Doxycycline 100 mg b.i.d. 3. Multaq 400 mg b.i.d. 4. Pepcid 20 mg daily. 5. He wanted torsemide 40 mg daily. 6. Lisinopril 20 mg daily. 7. Hydralazine 50 mg t.i.d. 8. Norvasc was discontinued. 9. Flomax 0.4 mg daily. 10. Neurontin 800 mg t.i.d. PHYSICAL EXAMINATION: VITAL SIGNS: Temperature of 98.8, heart rate 81, 100% on room air, 150/80. GENERAL: He is awake, alert, oriented x3. Does not appear in pain or distress. CV: S1, S2 present. No murmurs, rubs, or gallops. ABDOMEN: Soft and nontender. Bowel sounds are present x2. EXTREMITIES: No edema. Pedal pulses are present x2. Again, he will be discharged home, follow up with primary care doctor and Cardiology. Job ID: [id number]
--- NOTE | 2018-08-08 12:31 | PRG ---
DATE OF SERVICE: 08/06/2018 SUBJECTIVE: Mr. Herrera is tentatively scheduled to go home. He is tolerating wearing BiPAP in the hospital. He is hemodynamically stable. His lungs are clear. Heart, regular rhythm. Abdomen is soft. 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 He tells me based on simply overnight oximetry. He needs a sleep study. I have given him my phone number. He will call the office next week and we will see if we can get one arranged either by just placing an order or if he does not qualify by having him come to the office, so we can do [id number] visit in the office to get him in for a sleep study either in the sleep lab or home sleep study. Probably benefit from an in-lab study given his size. Apparently wound care arrangements have been made. We will see him as an outpatient in our office. Job ID: [id number]
== END 2018-08-06 17:56 | disposition home health service (06) | DRG 603 ==
LOC: ERS 23:32 → T4-B 07-31 03:29 → IMCU/EMU 08-02 08:57
PROVIDERS: ADMIT Internal Medicine; ATTEND Internal Medicine
DX: L03.115 Cellulitis of right lower limb (principal); E87.1 Hypo-osmolality and hyponatremia; E66.2 Morbid (severe) obesity with alveolar hypoventilation; N17.9 Acute kidney failure, unspecified; Z68.42 Body mass index [BMI] 45.0-49.9, adult; I48.0 Paroxysmal atrial fibrillation; G89.4 Chronic pain syndrome; N40.0 Benign prostatic hyperplasia without lower urinary tract symptoms; F17.220 Nicotine dependence, chewing tobacco, uncomplicated; I12.9 Hypertensive chronic kidney disease with stage 1 through stage 4 chronic kidney disease, or unspecified chronic kidney disease; N18.2 Chronic kidney disease, stage 2 (mild); L03.116 Cellulitis of left lower limb; D64.9 Anemia, unspecified; E78.5 Hyperlipidemia, unspecified; B36.9 Superficial mycosis, unspecified; R53.81 Other malaise; Z99.2 Dependence on renal dialysis; Z88.5 Allergy status to narcotic agent; Z98.890 Other specified postprocedural states
CPT/HCPCS: 36415; 36416; 71045; 80048; 80053; 80202; 82565; 83036; 83605; 83735; 85025; 85610; 87040; 93005; 93010; 93970; 94660; 96365; 96367; 96375; J0360; J1650; J1940; J2060; J2270; J2405; J2543; J3370; J3490; J7050; Q0162

== ENCOUNTER 2018-08-23 10:07 | Inpatient (IN) | payer MEDICARE ==
[2018-08-23 11:01] LABS: #Eosinphils 0.4 thou/uL (0.0-0.7); #Lymphocytes 1.6 thou/uL (1.20-3.40); #Monocytes 0.5 thou/uL (0.11-0.59); #Neutrophils 6.9 thou/uL (1.40-6.50); %Basophils 0.3 % (0.0-1.0); %Eosinophils 4.1 % (0.0-10.0); %Lymphocytes 16.5 % (21.0-51.0); %Monocytes 5.7 % (0.0-10.0); %Neutrophils 73.4 % (42.0-75.0); Hemoglobin 11.7 g/dL (14.0-18.0); Mean Corpuscular HGB CONC 31.4 g/dL (32.0-36.0); Mean Corpuscular Volume 79.8 fL (78.0-98.0); Mean Platelet Volume 7.3 fL (7.4-10.4); Platelet Count 350 thou/uL (130-400); RBC Distribution Width 16.3 % (11.5-14.5); Red Blood Cell (RBC) Count 4.66 mill/uL (4.70-6.10); White Blood Cell (WBC) Count 9.4 thou/uL (4.8-10.8)
[2018-08-23] MEDS ORDERED: Piperacillin/Tazobactam 4.5 GM VIAL ONE (11:03)
[2018-08-23] MEDS ORDERED: Sodium Chloride 0.9% 100 ML ONE (11:03)
--- NOTE | 2018-08-23 11:07 | RAD ---
XR Chest 1 View Portable HISTORY: Shortness of breath COMPARISON: 07/31/2018 study FINDINGS: Heart size is enlarged. No signs of overt failure or focal infiltrates. IMPRESSION: Cardiomegaly.
[2018-08-23 11:28] LABS: ALT (SGPT) 12 U/L (8-55); AST (SGOT) 12 U/L (5-34); Albumin 3.8 g/dL (3.5-5.0); Alkaline Phosphatase 122 U/L (40-150); Anion Gap 15 mmol/L (10-20); BUN (Urea Nitrogen) 41 mg/dL (8.4-25.7); Bilirubin, Total 0.5 mg/dL (0.2-1.2); CK (CPK) 53 U/L (30-200); Calc. Creatinine Clearance 0 mL/min (70-130); Calcium 8.6 mg/dL (7.8-10.44); Carbon Dioxide 28 mmol/L (22-29); Chloride 93 mmol/L (98-107); Estimated GFR-MDRD 15; Globulin 3.8 g/dL (2.4-3.5); Glucose 74 mg/dL (70-105); Lipase 13 U/L (8-78); Potassium 5.1 mmol/L (3.5-5.1); Protein, Total 7.6 g/dL (6.0-8.3); Sodium 131 mmol/L (136-145)
[2018-08-23] MEDS ORDERED: Enoxaparin Sodium 60 MG/0.6 ML SYRINGE ONE (11:50)
[2018-08-23] MEDS ORDERED: Enoxaparin Sodium 100 MG/ML SYRINGE ONE (11:50)
[2018-08-23] MEDS ORDERED: hydrALAZINE 20 MG/ML VIAL SLOW IVP PRN (11:59)
[2018-08-23] MEDS ORDERED: Nitroglycerin 0.4 MG TAB (25 Tab Bottle) SL PRN (11:59)
[2018-08-23] MEDS ORDERED: cloNIDine 0.1 MG TAB PO PRN (11:59)
[2018-08-23] MEDS ORDERED: Acetaminophen 325 MG TAB PO PRN (11:59)
[2018-08-23] MEDS ORDERED: Calcium Carbonate 500 MG ChewTAB PO PRN (11:59)
[2018-08-23] MEDS ORDERED: Ondansetron ODT 4 MG TAB PO PRN (11:59)
[2018-08-23] MEDS ORDERED: Benzonatate 100 MG CAP PO PRN (11:59)
[2018-08-23] MEDS ORDERED: Sodium Chloride 0.65% Nasal 44 ML BOT EA NARE PRN (11:59)
[2018-08-23] MEDS ORDERED: Diabetic Tussin 200 MG/10 ML UDCUP PO PRN (11:59)
[2018-08-23] MEDS ORDERED: Ondansetron PF 4 MG/2 ML Vial IVP PRN ×2 (11:59)
[2018-08-23] MEDS ORDERED: Bisacodyl 5 MG TAB PO PRN ×2 (11:59)
[2018-08-23] MEDS ORDERED: Senokot S 8.6-50 MG TAB PO PRN ×2 (11:59)
[2018-08-23] MEDS ORDERED: Morphine 4 MG/ML VIAL ONE (12:47)
--- NOTE | 2018-08-23 13:32 | ULT ---
BILATERAL LOWER EXTREMITY VENOUS DOPPLER ULTRASOUND: 08/23/18 HISTORY: Bilateral lower leg pain. Staph infections in the bilateral lower legs with bandages. TECHNIQUE: Harp scale, color flow and spectral Doppler imaging of the deep venous system of the lower extremity was performed bilaterally. The posterior tibial veins are not satisfactorily visualized due to presen ce of bandages. FINDINGS: There is good flow, compression and augmentation noted in the common femoral, femoral, deep femoral, popliteal, and visualized portions of the posterior tibial veins. IMPRESSION: No definite evidence of DVT in either lower extremity. POS: OFF
--- NOTE | 2018-08-23 14:07 | CON ---
DATE OF CONSULTATION: 08/23/2018 CONSULTING PHYSICIAN: ER doctor. REASON FOR CONSULT: Acute kidney injury. REASON FOR ADMISSION: Not feeling well. HISTORY OF PRESENT ILLNESS: This is a 58-year-old white male with history of necrotizing fascitis, hypertension, and CKD, came to the hospital with above complaints and was found to have elevated creatinine. His baseline creatinine is around 0.8, which was 2 weeks back and this morning it was found to be 4.03. Nephrology was consulted. The patient complaints of nausea and few episodes of vomiting yesterday. No diarrhea. No chest pain or palpitation. No fever or chills. PAST MEDICAL HISTORY: Positive for necrotizing fascitis; hypertension; obesity; chronic pain; BPH; and history of YUNIOR, needing dialysis. PAST SURGICAL HISTORY: Carpal tunnel surgery, back surgery, left shoulder surgery, and lower extremity surgery. HOME MEDICATIONS: List includes; 1. Hydralazine. 2. Demadex. 3. Flomax. 4. Sen[place]ot. 5. Nystatin. 6. Lisinopril. 7. Neurontin. 8. Flonase. 9. Pepcid. 10. Multaq. 11. Vibramycin. 12. Eliquis. ALLERGIES: TO PROPOXYPHENE. SOCIAL HISTORY: No smoking, alcohol, or illicit drug use. He chews tobacco. FAMILY HISTORY: No history of kidney disease. REVIEW OF SYSTEMS: CONSTITUTIONAL: Negative for weight loss or gain, ability to conduct usual activities. SKIN: Negative for rash, itching. EYES: Negative for double vision, pain. ENT/MOUTH: Negative for nose bleeding, neck stiffness, pain, tenderness. CARDIOVASCULAR: Negative for palpitations, dyspnea on exertion, orthopnea. RESPIRATORY: Negative for shortness of breath, wheezing, cough, hemoptysis, fever or night sweats. GASTROINTESTINAL: Negative for poor appetite, abdominal pain, heartburn, nausea, vomiting, constipation, or diarrhea. GENITOURINARY: Negative for urgency, frequency, dysuria, nocturia. MUSCULOSKELETAL: Negative for pain, swelling. NEUROLOGIC/PSYCHIATRIC: Negative for anxiety, depression. ALLERGY/IMMUNOLOGIC: Negative for skin rash, bleeding tendency. Rest are negative review of systems. PHYSICAL EXAMINATION: GENERAL: This is a well built, morbidly obese white male, in no apparent distress. VITAL SIGNS: Temperature 98.6, pulse 78, respiratory rate 18, and blood pressure 176/84. HEENT: Atraumatic and normocephalic. Oral mucosa is moist. NECK: Supple. CV: S1 and S2 heard. Regular rate and rhythm. RESPIRATORY: Clear. GI: Abdomen is soft. MUSCULOSKELETAL: 2+ edema. DERMATOLOGIC: Chronic skin lesions. NEUROLOGIC: Alert and awake. PSYCH: Normal mood and affect. LABORATORY DATA: Hemoglobin is 7.7. Potassium is 5.1, BUN is 41, and creatinine is 4.0. ASSESSMENT AND PLAN: 1. Acute kidney injury, most likely secondary to volume depletion. Recommend hydration as tolerated. 2. Hyperkalemia, mild. Hold lisinopril and limit potassium. 3. Hyponatremia. IV fluids as tolerated. 4. Hypochloremia. 5. Anemia of chronic disease. 6. Morbid obesity. 7. Edema. 8. Mild hypoalbuminemia. Plan to continue hydration if tolerated with close monitoring. Avoid nephrotoxins. We will follow. Thank you for the consult. Job ID: [id number]
[2018-08-23] MEDS ORDERED: Gabapentin 300 MG CAP PO SCH (15:00)
[2018-08-23] MEDS ORDERED: Sodium Chloride 0.9% 1,000 ML IV SCH (15:30)
--- NOTE | 2018-08-23 16:12 | HP ---
PRIMARY CARE PHYSICIAN: Dr. Gamez at [facility]. CHIEF COMPLAINT: Excessive somnolence and lethargy. HISTORY OF PRESENTING ILLNESS: Mr. Herrera is a 58-year-old male with multiple medical problems including chronic lymphedema as well as recurrent cellulitis; history of renal failure, requiring transient dialysis in 2018; as well as hypertension; BPH; necrotizing fasciitis with MRSA in the past of leg, who presented to the emergency room with above-mentioned complaint. History is mainly obtained by the patient's present at the bedside. The patient is somewhat somnolent and defers to his for history taking. The patient was recently admitted to the hospital from 07/31/2018 to 08/06/2018. During that hospitalization, he was once again diagnosed with having cellulitis and received a total of 10 days of doxycycline inpatient and outpatient. During that hospitalization earlier this month: He was found to have AFib with RVR. He was seen by Cardiology and was started on Multaq and Eliquis and was supposed to follow up in the outpatient setting. He was also seen by Pulmonary Medicine and it was thought that he most likely has obesity hypoventilation versus sleep apnea, and would require outpatient sleep study. Since then, they have established with [facility], and have been referred to [facility], but they have not been able to establish care at the [facility] yet. His brought him to the emergency room today for complaints of worsening lethargy, somnolence for the last 2 or 3 days. He has been having slurred speech and has been "just sleeping for the last 3 days and acting abnormal." He also had some episode of vomiting last night. Denies any fever or chills. Denies any chest pain or shortness of breath. The thinks that he is taking his Ultram and tizanidine back again since his discharge and that was a contributing to his sleepiness. She also stated that he has been complaining more and more of the back pain. She also reports that, since earlier this morning, his legs have started to seep more and more and now they are having bloody discharge. She reported that when he was discharged from the hospital on 08/06/2018: His legs had definitely looked better, but for the last day or so, they have started to look more red and swollen. Upon presentation to the emergency room, he was found to have low blood pressure and with systolic as low as 90s as per the emergency room physician. I do not see documented however. His oxygen saturation was low 90s on room air per EMS. His blood work did not show any overt abnormalities. WBCs 9.4 without any left shift or bandemia. D-dimer was 0.50, but the most dramatic was his creatinine. His creatinine has jumped back up to 4 from 0.85 on 08/06/2018. He underwent a lower extremity ultrasound, which is negative for any DVT. His chest x-ray is unremarkable. On-call investigator welfare has been consulted for acute renal insufficiency. He was treated with empiric vancomycin and Zosyn in the ER due to hypotension and possible recurrent cellulitis. He is now medically stable and will be admitted to the hospital for further evaluation and care. Past medical, past surgical, social, family history remain unchanged from his last hospitalization. Please see H and P dictated by Dr. Garrison on 07/31/2018 for full details. In the same, he was treated for cellulitis during this hospitalization earlier this month. REVIEW OF SYSTEMS: Difficult to obtain as the patient is very somnolent, but he states that he feels better now. LABORATORY DATA: CBC shows WBCs 9.4, hemoglobin 11.7, platelet count of 350. D-dimer 0.50. Serum chemistry shows sodium 131, chloride 93, BUN 41, creatinine 4.03, with GFR of 15. Lactic acid is normal. BNP normal. Troponin normal. Lipase normal. Lower extremity ultrasound Doppler bilaterally without any evidence of DVT. Chest x-ray by my review shows no pleural effusion, edema, or infiltrate. PHYSICAL EXAMINATION: VITAL SIGNS: Most recent vital signs; blood pressure 127/77, temperature 97.5, respirations 25, saturating 94% on 2 L oxygen, and heart rate 72. GENERAL: He is lying comfortably in bed. He is morbidly obese, but has no respiratory difficulty, lying flat at this time. He is somnolent, but wakes up easily and is coherent and awake, alert, oriented when woken up. is at bedside and appears quite agitated. HEENT: Mucous membrane is dry. No oropharyngeal exudate or erythema. Head is normocephalic and atraumatic. Pupils are equal and reactive to light and accommodation. Extraocular movement intact. NECK: Supple without any lymphadenopathy, JVD, or bruit. CHEST: Clear to auscultation without any wheezing, rales, or rhonchi. HEART: Rate and rhythm are regular without any murmurs, rubs, or gallops. ABDOMEN: Soft, nontender, and nondistended. Positive bowel sounds. He is morbidly obese. EXTREMITIES: Show extensive redness seeping up from his ankles upwards. It is somewhat warm. Both legs are wrapped in bandages, which have a significant amount of bloody drainage on them. His left leg has more bloody drainage than his right leg. He has significant edema +3 to +[address] from his toes upwards. NEUROLOGIC: Nonfocal. ALLERGIES: PROPOXYPHENE. CURRENT MEDICATIONS: 1. Tizanidine 4 mg every 8 hours p.r.n. 2. Gabapentin 800 t.i.d. 3. Tamsulosin 0.4 mg daily. 4. Ranitidine 150 daily. 5. Amlodipine 10 daily. 6. Multaq 400 b.i.d. 7. Tramadol p.r.n. every 6 hours, 2 tablets of 50 mg. 8. Atorvastatin 40 mg daily. 9. [place] p.r.n. 10. Torsemide 40 mg daily. 11. Hydralazine 25 mg two tablets 3 times a day. 12. Nystatin powder. IMPRESSION AND PLAN: 1. Altered mental status. This is most likely metabolic toxic encephalopathy, which is multifactorial in nature. The patient appears dehydrated with acute renal failure. He also has polypharmacy in the form of tizanidine, Ultram, [place], and gabapentin. Also, sepsis cannot be ruled out as his reports that his legs have started to get worse and he was hypotensive upon presentation. We will consult Nephrology for renal failure and start him on gentle IV fluids for now and monitor for any signs and symptoms of fluid overload. Empiric IV antibiotics will also be added. We will obtain urinalysis and renal ultrasound to rule out nephrolithiasis as a cause of renal failure. Urinary tract infection also cannot be ruled out. UA has not been obtained as of now. Cardiac causes are less likely given his cardiac enzyme and BNP are normal. 2. Sepsis. Sepsis is suspected based on his presenting symptoms of worsening leg swelling, redness, and hypotension. We will hold his antihypertensives, give him some normal saline for resuscitation, and continue empiric antibiotics which will be renally dosed. Please note that, this patient has multiple hospitalizations repeatedly since November last year for possible cellulitis with questionable history of necrotizing fasciitis of legs with MRSA in the past. We will request consultation with Infectious Disease, Dr. Salvador, for clarification. Meanwhile, he will be treated with vancomycin and meropenem. He has been treated with vancomycin, doxycycline, Zosyn during his last hospitalizations. Blood cultures have been obtained and we will follow the results. We will also obtain a urinalysis and rule out urinary tract infection with renal failure. 3. Acute renal insufficiency. This most likely is iatrogenic. The patient was taking Demadex and lisinopril with very poor p.o. intake because of encephalopathy for the last 2 or 3 days. He has history of chronic kidney disease requiring dialysis in the past. I have discussed the case with on-call investigator welfare, Dr. Myles. We will gently rehydrate him and hold his diuretics and AUDI inhibitors for now. Recheck in the morning and avoid any other nephrotoxic medications. 4. Hypotension. Once again, seems to be more due to polypharmacy than sepsis or septic shock. His blood pressure has spontaneously improved. We will hold his antihypertensives for now and provide him in gentle IV fluids. 5. Atrial fibrillation, currently rate controlled. We will restart his Multaq, but hold Eliquis given acute renal failure. Please note, that the patient has not actually taken any Eliquis since his discharge on 08/06/2018 due to financial reasons. He will be on telemetry bed. 6. Chronic lymphedema. We will consult Wound Care again for his significant swelling and seeping of his legs including serosanguineous fluid. 7. Morbid obesity with possible sleep apnea versus obesity hypoventilation syndrome. The patient was seen by Pulmonary Medicine in the hospital last time and was treated with BiPAP at bedtime. We will put him on BiPAP while in the hospital. 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 He will require outpatient sleep study. 8. Benign prostatic hyperplasia. We will restart his Flomax for now. 9. Chronic pain syndrome. Avoid any narcotics or sedatives due to #1. 10. Severe physical deconditioning. OT/PT will be requested to follow the patient along. DISPOSITION: Mr. Avi Herrera is admitted to telemetry unit with acute metabolic encephalopathy likely due to acute renal failure and rule out sepsis. The patient has had multiple hospitalizations in the last few months and his prognosis is rather poor because of severe morbid obesity and chronic lymphedema due to that. Further management will depend upon his clinical course. Estimated length of stay 3 to 4 midnights. Job ID: [id number]
[2018-08-23] MEDS: Heparin 5,000 UNITS/ML VIAL SC SCH ×2 (16:24→22:39)
[2018-08-23 18:11] VITALS: BMI 49.8
[2018-08-23] MEDS: Dronedarone HCl 400 MG TAB PO SCH (18:39)
[2018-08-23] MEDS ORDERED: Gabapentin 400 MG CAP PO SCH (18:45)
--- NOTE | 2018-08-23 19:09 | PDOC.EVN ---
Event Note - Event Note Event Note: Called by RN re: patient requesting pain medication. Was held due to lethargy. Will reconcile [place] once home meds verified. Will hold on any further Morphine. Also informed patient received 2L NS in ER, has not urinated. Admitted with severe dehydration. Cr 4, normally 0.85. Nephrology following. Patient without any suprapubic discomfort. Advised bladder scan, if retaining will need to place cannon and for renal US. ADDENDUM: Patient has started voiding, per RN. Remains without any abdominal pain. Urine very dark in appearance. Sent for UA and drug screen.
[2018-08-23 20:36] LABS: Bilirubin Small (Negative); Blood, Urine Negative (Negative); Glucose, Urine (Dipstick) Negative (Negative); Leukocyte Negative (Negative); Nitrite Negative (Negative); Protein, Urine (Dipstick) Trace mg/dL (Neg-Trace); Urobilinogen 0.2 mg/dL (0.2-1.0)
[2018-08-23 20:37] LABS: Clarity Hazy (Clear)
[2018-08-23 20:38] LABS: Urine Culture Reflex No No
[2018-08-23 20:40] LABS: Bacteria/HPF None Seen HPF (None Seen); Crystals/HPF RARE CA OXALATE HPF (Negative); Hyaline Casts/LPF 0-3 HYALINE CAST LPF (0-3 Hyaline); RBC/HPF 0-3 HPF (0-3); Squamous Epithelial 0-3 HPF (0-3); WBC/HPF 0-3 HPF (0-3); Yeast-All Forms None Seen HPF (None Seen)
[2018-08-23 20:46] LABS: Amphetamine Not Detected (NotDetected); Barbiturates Screen Not Detected (NotDetected); Benzodiazepine Screen Not Detected (NotDetected); Cocaine Metabolite Screen Not Detected (NotDetected); Medtox Control Line Valid? VALID (VALID); Medtox Reader # READER 1; Methadone Not Detected (NotDetected); Methamphetamine Not Detected (NotDetected); Opiate Screen Detected (NotDetected); Oxycodone Screen Not Detected (NotDetected); Phencyclidine (PCP) Not Detected (NotDetected); THC/Cannabinoid Screen Not Detected (NotDetected); Tricyclic Screen Not Detected (NotDetected)
[2018-08-23] MEDS ORDERED: Meropenem 1 GM in Sodium Chloride 0.9% 100 ML IVPB SCH (22:00)
[2018-08-23] MEDS ORDERED: Acetaminophen 1,000 MG in Premix Bag 1 BAG IVPB SCH (22:15)
[2018-08-23] MEDS: Gabapentin 400 MG CAP PO SCH (22:39)
[2018-08-23] MEDS: Famotidine 20 MG TAB PO SCH (22:39)
[2018-08-23] MEDS: MEROPENEM 1 GM/50 ML 1 GM in Premix Bag 1 BAG IVPB SCH (22:40)
[2018-08-24] MEDS ORDERED: Acetaminophen 650 MG in Premix Bag 1 BAG IVPB PRN ×2 (03:18→11:15)
[2018-08-24] MEDS: MEROPENEM 1 GM/50 ML 1 GM in Premix Bag 1 BAG IVPB SCH ×2 (05:40→15:31)
[2018-08-24 05:50] LABS: #Eosinphils 0.5 thou/uL (0.0-0.7); #Lymphocytes 0.8 thou/uL (1.20-3.40); #Monocytes 0.6 thou/uL (0.11-0.59); #Neutrophils 6.2 thou/uL (1.40-6.50); %Basophils 0.6 % (0.0-1.0); %Eosinophils 5.9 % (0.0-10.0); %Lymphocytes 9.6 % (21.0-51.0); %Monocytes 7.4 % (0.0-10.0); %Neutrophils 76.6 % (42.0-75.0); Hemoglobin 11.8 g/dL (14.0-18.0); Mean Corpuscular HGB CONC 31.8 g/dL (32.0-36.0); Mean Corpuscular Hemoglobin 25.5 pg (27.0-31.0); Mean Corpuscular Volume 80.2 fL (78.0-98.0); Mean Platelet Volume 7.4 fL (7.4-10.4); Platelet Count 320 thou/uL (130-400); RBC Distribution Width 16.2 % (11.5-14.5); Red Blood Cell (RBC) Count 4.61 mill/uL (4.70-6.10)
[2018-08-24 06:00] LABS: Anion Gap 12 mmol/L (10-20); BUN (Urea Nitrogen) 30 mg/dL (8.4-25.7); Calc. Creatinine Clearance 82 mL/min (70-130); Carbon Dioxide 27 mmol/L (22-29); Chloride 100 mmol/L (98-107); Estimated GFR-MDRD 33; Glucose 73 mg/dL (70-105); Potassium 4.7 mmol/L (3.5-5.1); Sodium 134 mmol/L (136-145)
--- NOTE | 2018-08-24 07:38 | ULT ---
RENAL ULTRASOUND: HISTORY: Acute renal insufficiency. FINDINGS: Real-time imaging of the right and left kidneys was performed. The kidneys are normal in size, the r ight kidney measuring 12.0 and the left kidney 12.4 cm. Echogenicity of cortex is normal. No cyst, mass, or obstruction. Bladder region appears unremarkable. IMPRESSION: Unremarkable renal ultrasound. POS: [facility]
[2018-08-24] MEDS ORDERED: Vancomycin HCl 500 MG in Sodium Chloride 0.9% 100 ML IVPB SCH (09:00)
[2018-08-24] MEDS ORDERED: VANCOMYCIN HCL IVPB SCH (09:00)
[2018-08-24] MEDS: Dronedarone HCl 400 MG TAB PO SCH ×2 (09:02→15:31)
[2018-08-24] MEDS: Gabapentin 400 MG CAP PO SCH ×3 (09:02→21:13)
[2018-08-24] MEDS: Famotidine 20 MG TAB PO SCH ×2 (09:02→09:03)
[2018-08-24] MEDS: Heparin 5,000 UNITS/ML VIAL SC SCH (09:03)
--- NOTE | 2018-08-24 10:41 | PRG ---
DATE OF SERVICE: 08/24/2018 SUBJECTIVE: Patient was seen and examined at bedside and overnight events noted. Patient denies any shortness of breath or chest pain or palpitation. No history of nausea or vomiting or diarrhea or fever or chills or cramps. OBJECTIVE: GENERAL: This is a morbidly obese male, in no apparent distress. VITAL SIGNS: Temperature 97.6. Heart rate 70. Respiratory rate 21. Blood pressure 131/75. HEENT: Atraumatic, normocephalic. Oral mucosa is moist NECK: Supple. CARDIOVASCULAR: S1, S2 heard. Rate and rhythm regular. RESPIRATORY: Clear to auscultation. GASTROINTESTINAL: Abdomen is soft. MUSCULOSKELETAL: No tenderness. No edema. DERMATOLOGIC: No skin rash. NEUROLOGIC: Alert and awake and oriented X3. No focal neurologic deficits. Moving all the extremities. PSYCHIATRIC: Mood and affect normal. LABORATORY DATA: Potassium is 4.7, BUN is 30, and creatinine is 2.0. ASSESSMENT AND PLAN: 1. Acute kidney injury, most likely from volume depletion. Creatinine is much better. 2. Edema. Controlled. 3. Hyperkalemia. 4. Hyponatremia. 5. Morbid obesity. 6. Hypertension. Stable. Labs are much better. Continue IV fluids for one more day. Avoid nephrotoxins. Renally dose the medications. We will follow. Job ID: [id number]
--- NOTE | 2018-08-24 10:42 | PDOC.PN ---
- Subjective Encounter Start Date: 08/24/18 Encounter Start Time: 08:00 -: old records requested/rev Patient seen and examined. No overnight events pt has pain after dressing change - Objective MAR Reviewed: Yes Vital Signs & Weight: Vital Signs (12 hours) Temp Pulse Resp BP Pulse Ox 08/24/18 07:55 97.6 F 88 18 145/75 H 99 08/24/18 04:00 78 20 131/75 96 08/24/18 00:00 79 142/67 H Weight Weight 327 lb 7 oz I&O: 08/23/18 08/24/18 08/25/18 06:59 06:59 06:59 Intake Total 1000 Output Total 1200 Balance -200 Result Diagrams: 08/24/18 05:17 08/24/18 05:17 Radiology Reviewed by me: Yes (renal US normal) EKG Reviewed by me: Yes Phys Exam - Physical Examination Constitutional: NAD HEENT: PERRLA, moist MMs, sclera anicteric Neck: no JVD, supple Respiratory: no wheezing, no rales, no rhonchi Cardiovascular: RRR, no significant murmur, no rub Gastrointestinal: soft, non-tender, no distention, positive bowel sounds obesity+ Musculoskeletal: edema present bilateral lower extrimity wound with dressing Neurological: non-focal, normal sensation Lymphatic: no nodes Psychiatric: normal affect, A&O x 3 Skin: no rash, normal turgor Dx/Plan (1) Cellulitis of both lower extremities Code(s): L03.115 - CELLULITIS OF RIGHT LOWER LIMB; L03.116 - CELLULITIS OF LEFT LOWER LIMB Status: Acute Comment: with chronic wound over both leg (2) Acute metabolic encephalopathy Code(s): G93.41 - METABOLIC ENCEPHALOPATHY Status: Acute (3) Hypotension Status: Resolved Qualifiers: Comment: (4) BPH (benign prostatic hyperplasia) Code(s): N40.0 - BENIGN PROSTATIC HYPERPLASIA WITHOUT LOWER URINRY TRACT SYMP Status: Chronic (5) Physical deconditioning Code(s): R53.81 - OTHER MALAISE Status: Chronic (6) Chronic atrial fibrillation Code(s): I48.2 - CHRONIC ATRIAL FIBRILLATION Status: Chronic (7) Chronic anticoagulation Code(s): Z79.01 - 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 * home medication reconciled Review of Systems - Review of Systems ENT: negative: Ear Pain, Ear Discharge, Nose Pain, Nose Discharge, Nose Congestion, Mouth Pain, Mouth Swelling, Throat Pain, Throat Swelling, Other Respiratory: negative: Cough, Dry, Shortness of Breath, Hemoptysis, SOB with Excertion, Pleuritic Pain, Sputum, Wheezing Cardiovascular: negative: chest pain, palpitations, orthopnea, paroxysmal nocturnal dyspnea, edema, light headedness, other Gastrointestinal: negative: Nausea, Vomiting, Abdominal Pain, Diarrhea, Constipation, Melena, Hematochezia, Other Genitourinary: negative: Dysuria, Frequency, Incontinence, Hematuria, Retention , Other Musculoskeletal: Leg Pain. negative: Neck Pain, Shoulder Pain, Arm Pain, Back Pain, Hand Pain, Foot Pain, Other - Medications/Allergies Allergies/Adverse Reactions: Allergies Allergy/AdvReac Type Severity Reaction Status Date / Time venom-wasp Allergy Severe Anaphylaxis Verified 07/31/18 04:00 propoxyphene Allergy Mild Rash Verified 07/31/18 03:58 Medications: Current Medications Acetaminophen (Tylenol) 650 mg PO Q4H PRN PRN Reason: Headache/Fever/Mild Pain (1-3) Benzonatate (Tessalon) 100 mg PO Q6H PRN PRN Reason: Cough Bisacodyl (Dulcolax) 10 mg PO DAILYPRN PRN PRN Reason: Constipation Calcium Carbonate (Tums) 1,000 mg PO Q4H PRN PRN Reason: Heartburn or Indigestion Clonidine (Catapres) 0.1 mg PO Q4H PRN PRN Reason: SBP > 160____ Dronedarone (Multaq) 400 mg PO BID-[facility] Last Admin: 08/24/18 09:02 Dose: 400 mg Famotidine (Pepcid) 20 mg PO BID [facility] Last Admin: 08/24/18 09:02 Dose: 20 mg Famotidine (Pepcid) 20 mg PO DAILY [facility] Last Admin: 08/24/18 09:03 Dose: Not Given Fluticasone Propionate (Flonase Nasal [place]) 1 gm NASAL DAILY [facility] Gabapentin (Neurontin) 800 mg PO TID [facility] Last Admin: 08/24/18 09:02 Dose: 800 mg Guaifenesin (Robitussin Sf) 200 mg PO Q4H PRN PRN Reason: Cough Heparin Sodium (Porcine) (Heparin) 5,000 units SC TID [facility] Last Admin: 08/24/18 09:03 Dose: 5,000 units Hydralazine HCl (Apresoline) 10 mg SLOW IVP Q4H PRN PRN Reason: SBP > 180 and HR < 70 Sodium Chloride (Normal Saline 0.9%) 1,000 mls @ 50 mls/hr IV .Q20H [facility] Last Admin: 08/23/18 16:37 Dose: 1,000 mls Vancomycin HCl 500 mg/ Sodium (Chloride) 100 mls @ 100 mls/hr IVPB DAILY [facility] Last Admin: 08/24/18 09:03 Dose: 100 mls Meropenem 1 gm/ Device 50 mls @ 100 mls/hr IVPB Q8HR [facility] Last Admin: 08/24/18 05:40 Dose: 50 mls Acetaminophen 650 mg/ Device 65 mls @ 400 mls/hr IVPB Q6HR PRN PRN Reason: Pain Stop: 08/25/18 00:09 Last Admin: 08/24/18 04:48 Dose: 65 mls Nitroglycerin (Nitrostat) 0.4 mg SL Q5MIN PRN PRN Reason: Chest Pain Ondansetron HCl (Zofran Odt) 4 mg PO Q6H PRN PRN Reason: Nausea/Vomiting Ondansetron HCl (Zofran) 4 mg IVP Q6H PRN PRN Reason: Nausea/Vomiting Senna/Docusate Sodium (Senokot S) 2 tab PO BID PRN PRN Reason: Constipation Sodium Chloride ([place] Nasal [place] 0.65%) 0 ml EA NARE QIDPRN PRN PRN Reason: Nasal Congestion
[2018-08-24] MEDS ORDERED: Cepastat Lozenges 1 LOZ PO PRN (10:45)
[2018-08-24] MEDS ORDERED: Loperamide HCl 2 MG CAP PO PRN (10:45)
[2018-08-24] MEDS ORDERED: Loratadine 10 MG TAB PO PRN (10:45)
[2018-08-24] MEDS ORDERED: HYDROcodone/Acetaminophen 10/325 mg Tablet PO PRN (10:46)
[2018-08-24] MEDS: Fluticasone Propionate Nasal Spray 16 gm Bottle NASAL SCH (11:20)
[2018-08-24 12:07] LABS: Hemoglobin 12.1 g/dL (14.0-18.0); Platelet Count 317 thou/uL (130-400)
[2018-08-24] MEDS: cefTRIAXone\\ROCEPHIN 1 GM in Sodium Chloride 0.9% 100 ML IVPB SCH (18:19)
[2018-08-24] MEDS ORDERED: Nystatin Powder 15 GM BOT TOP SCH (21:00)
[2018-08-24] MEDS: tiZANidine HCl 4 MG TAB PO SCH (21:13)
[2018-08-24] MEDS: Apixaban 5 MG TAB PO SCH (21:13)
[2018-08-24] MEDS: Nystatin Powder 15 GM BOT TOP SCH (21:14)
[2018-08-24] MEDS: HYDROcodone/Acetaminophen 10/325 mg Tablet PO PRN (21:17)
--- NOTE | 2018-08-25 01:30 | CON ---
DATE OF CONSULTATION: 08/24/2018 REASON FOR CONSULTATION: Question of cellulitis in the lower extremities. HISTORY OF PRESENT ILLNESS: A 58-year-old patient whom I had last seen in January 2018, when he presented with a history of hypertension, necrotizing fasciitis in right lower extremity, obesity, hypoventilation syndrome, and polypharmacy with recurrent episodes of altered mental status. During this admission, we felt that the organisms retrieved from the surface of the wound were more likely to reflect colonization rather than an invasive infection. This time, he presents with altered mental status, vomiting, back pain. Initial findings included a BP 120/70, temperature 97.5, respirations 25, O2 saturation 94 on oxygen. He appeared comfortable, although he was somnolent, there was redness and serous drainage from the skin of the lower extremities around the ankles. Initial laboratory findings; white cell count 9.4, hemoglobin 11.7, platelets 350, with 73% neutrophils. Creatinine baseline was 0.85 on August 06 and had gone up to 4.03 on admission. Now, it has improved to 1.61. Currently, Mr. Herrera is awake, he replies to questions. He has sort of a flat affect in his voice, but the replies are pretty accurate. He seems to be oriented. He denies any headaches. No visual symptoms, sore throat, odynophagia, dysphagia. No dyspnea or chest pain. No abdominal pain. He still has some degree of lower back pain. He does not have much pain in lower extremities, just pruritus. PAST MEDICAL HISTORY: Includes obesity, hypoventilation syndrome, venous insufficiency, stasis dermatitis infection in right lower extremity with necrotizing features, BPH, renal insufficiency with brief dialysis in the past which has been discontinued. PAST SURGICAL HISTORY: Laminectomy, shoulder repair. SOCIAL HISTORY: Never smoker. No alcoholic beverage use. ALLERGIES: TYLENOL, PROPOXYPHENE. MEDICATIONS: Medications on admission include; 1. Tizanidine. 2. Gabapentin. 3. Tamsulosin. 4. Ranitidine. 5. Norvasc. 6. Multaq. 7. Tramadol. 8. Atorvastatin. 9. [place]. 10. Torsemide. 11. Hydralazine. 12. Nystatin. Current medication lists; 1. Tylenol. 2. [place]. 3. Eliquis. 4. Tessalon. 5. Dulcolax. 6. Tums. 7. Catapres. 8. Lotrimin. 9. Multaq. 10. Pepcid. 11. Neurontin. 12. Loperamide. 13. Meropenem. 14. Ondansetron. 15. Tizanidine. 16. Vancomycin. PHYSICAL EXAMINATION: VITAL SIGNS: T-max 98.2, blood pressure 130/65, pulse 89, respirations 18. O2 saturation 96%. SKIN: Demonstrates the areas of stasis dermatitis in lower extremity, quite symmetric distribution with hyperkeratosis. The left side has a more weeping with shallow ulceration, a bit more erythematous. There is a little bit of intertriginous eruption, macerations in the groin areas. No lymphadenopathy. HEENT: Ocular movements conjugate. Conjunctivae normal. Oral cavity not remarkable. NECK: Supple. LUNGS: Symmetric. Clear breath sounds. HEART: S1, S2. Regular rate without S3 or S4. ABDOMEN: Soft with some distention, but not tender. No bladder distention. He is voiding in the diaper. MUSCULOSKELETAL: He is diffusely weak. He is able to wiggle his toes and barely lifts the knees from the bed. He is able to lift his upper extremities. NEUROLOGICAL: He knows his name and he knew he was in the hospital, needed some prompting to identify the name of the hospital. Recollection was somewhat limited. LABORATORY DATA: The labs showed a sodium 131 and now 134, creatinine was 4.03 down to 1.6. Liver profile normal and albumin 3.8. Urinalysis was fairly normal. Two sets of blood cultures thus far no growth. IMAGING STUDIES: We have a venogram without any evidence of deep vein thrombosis. There is a chest x-ray with cardiomegaly, but no infiltrates. ASSESSMENT: Obesity, hypoventilation syndrome, multiple psychotropic medications, acute renal failure probably secondary to volume depletion associated with diuretic use plus other contributing factor. Possibility of cellulitis in the left leg is considered, although it is more likely that the left leg changes are reflective of stasis dermatitis. The right side is definitely just a stasis dermatitis. May continue Rocephin for a few days, maybe 2 or 3 days and then see how he does and transition him to suppressive penicillin VK 250 mg twice daily. Discontinue vancomycin and meropenem. Job ID: [id number]
[2018-08-25] MEDS: Dronedarone HCl 400 MG TAB PO SCH ×2 (08:36→17:58)
[2018-08-25] MEDS: Apixaban 5 MG TAB PO SCH ×2 (08:37→20:07)
[2018-08-25] MEDS: Gabapentin 400 MG CAP PO SCH ×3 (08:37→20:07)
[2018-08-25] MEDS: Tamsulosin HCl 0.4 MG CAP PO SCH (08:37)
[2018-08-25] MEDS: HYDROcodone/Acetaminophen 10/325 mg Tablet PO PRN ×2 (08:37→20:07)
[2018-08-25] MEDS: Famotidine 20 MG TAB PO SCH (08:38)
[2018-08-25] MEDS: Fluticasone Propionate Nasal Spray 16 gm Bottle NASAL SCH (08:44)
[2018-08-25] MEDS: Nystatin Powder 15 GM BOT TOP SCH ×2 (08:44→20:13)
[2018-08-25] MEDS: Clotrimazole 1 % Cream 30 GM TUBE TOP SCH (10:04)
[2018-08-25] MEDS: traMADol HCl 50 MG TAB PO PRN (12:03)
--- NOTE | 2018-08-25 12:24 | PRG ---
DATE OF SERVICE: 08/25/2018 SUBJECTIVE: Patient was seen and examined at bedside and overnight events noted. Patient denies any shortness of breath or chest pain or palpitation. No history of nausea or vomiting or diarrhea or fever or chills or cramps. OBJECTIVE: GENERAL: This is a well-built male, in no apparent distress. VITAL SIGNS: Temperature 98.4. Heart rate 82. Respiratory rate 20. Blood pressure . HEENT: Atraumatic, normocephalic. Oral mucosa is moist NECK: Supple. CARDIOVASCULAR: S1, S2 heard. Rate and rhythm regular. RESPIRATORY: Clear to auscultation. GASTROINTESTINAL: Abdomen is soft. MUSCULOSKELETAL: No tenderness. No edema. DERMATOLOGIC: No skin rash. NEUROLOGIC: Alert and awake and oriented X3. No focal neurologic deficits. Moving all the extremities. PSYCHIATRIC: Mood and affect normal. LABORATORY DATA: Potassium is 4.7, BUN is 30, creatinine is 2.06. ASSESSMENT AND PLAN: 1. Acute kidney injury, stable. 2. Edema, chronic. 3. Hyperkalemia. 4. Morbid obesity. 5. Hypertension. 6. Renal function getting better. Avoid nephrotoxins. We will follow. Job ID: [id number]
--- NOTE | 2018-08-25 12:37 | PDOC.PN ---
- Subjective Encounter Start Date: 08/25/18 Encounter Start Time: 08:15 Patient seen and examined. No new complaints. No overnight events - Objective MAR Reviewed: Yes Vital Signs & Weight: Vital Signs (12 hours) Temp Pulse Resp BP Pulse Ox 08/25/18 12:10 98.3 F 74 18 169/74 H 08/25/18 08:35 98 08/25/18 08:32 98.2 F 82 18 175/116 H 98 08/25/18 05:02 147/83 H 08/25/18 04:24 97.6 F 77 18 196/95 H 99 Weight Admit Weight 327 lb 7 oz Weight 327 lb 7 oz I&O: 08/24/18 08/25/18 08/26/18 06:59 06:59 06:59 Intake Total 1000 720 Output Total 1200 501 550 Balance -200 219 -550 Result Diagrams: 08/24/18 11:44 08/24/18 11:44 EKG Reviewed by me: Yes Phys Exam - Physical Examination Constitutional: NAD HEENT: PERRLA, moist MMs, sclera anicteric Neck: no JVD, supple Respiratory: no wheezing, no rales, no rhonchi Cardiovascular: no significant murmur, irregular Gastrointestinal: soft, non-tender, no distention, positive bowel sounds chronic stasis dermatitis, with dressing with wound Neurological: non-focal, normal sensation, moves all 4 limbs Lymphatic: no nodes Psychiatric: normal affect, A&O x 3 Skin: no rash, normal turgor Dx/Plan (1) Cellulitis of both lower extremities Code(s): L03.115 - CELLULITIS OF RIGHT LOWER LIMB; L03.116 - CELLULITIS OF LEFT LOWER LIMB Status: Acute Comment: with chronic wound over both leg (2) Acute metabolic encephalopathy Code(s): G93.41 - METABOLIC ENCEPHALOPATHY Status: Acute (3) Hypotension Status: Resolved Qualifiers: Comment: (4) BPH (benign prostatic hyperplasia) Code(s): N40.0 - BENIGN PROSTATIC HYPERPLASIA WITHOUT LOWER URINRY TRACT SYMP Status: Chronic (5) Physical deconditioning Code(s): R53.81 - OTHER MALAISE Status: Chronic - Plan cont current plan of care, continue antibiotics * continue rocephin as per ID * DC tele and transfer to medical * medication reviewed as below * symptomatic treatment * wound care. * repeat labs tomorrow Review of Systems - Review of Systems ENT: negative: Ear Pain, Ear Discharge, Nose Pain, Nose Discharge, Nose Congestion, Mouth Pain, Mouth Swelling, Throat Pain, Throat Swelling, Other Respiratory: negative: Cough, Dry, Shortness of Breath, Hemoptysis, SOB with Excertion, Pleuritic Pain, Sputum, Wheezing Cardiovascular: negative: chest pain, palpitations, orthopnea, paroxysmal nocturnal dyspnea, edema, light headedness, other Gastrointestinal: negative: Nausea, Vomiting, Abdominal Pain, Diarrhea, Constipation, Melena, Hematochezia, Other Genitourinary: negative: Dysuria, Frequency, Incontinence, Hematuria, Retention , Other Musculoskeletal: negative: Neck Pain, Shoulder Pain, Arm Pain, Back Pain, Hand Pain, Leg Pain, Foot Pain, Other Skin: negative: Rash, Lesions, [place], Bruising, Other - Medications/Allergies Allergies/Adverse Reactions: Allergies Allergy/AdvReac Type Severity Reaction Status Date / Time venom-wasp Allergy Severe Anaphylaxis Verified 07/31/18 04:00 propoxyphene Allergy Mild Rash Verified 07/31/18 03:58 Medications: Current Medications Acetaminophen (Tylenol) 650 mg PO Q4H PRN PRN Reason: Headache/Fever/Mild Pain (1-3) Hydrocodone Bitart/Acetaminophen ([place] 10/325) 1 tab PO Q6H PRN PRN Reason: Pain Last Admin: 08/25/18 08:37 Dose: 1 tab Apixaban (Eliquis) 5 mg PO BID [facility] Last Admin: 08/25/18 08:37 Dose: 5 mg Benzonatate (Tessalon) 100 mg PO Q6H PRN PRN Reason: Cough Bisacodyl (Dulcolax) 10 mg PO DAILYPRN PRN PRN Reason: Constipation Calcium Carbonate (Tums) 1,000 mg PO Q4H PRN PRN Reason: Heartburn or Indigestion Clonidine (Catapres) 0.1 mg PO Q4H PRN PRN Reason: SBP > 160____ Clotrimazole (Lotrimin 1% Cream) 30 gm TOP DAILY [facility] Last Admin: 08/25/18 10:04 Dose: Not Given Dronedarone (Multaq) 400 mg PO BID-[facility] Last Admin: 08/25/18 08:36 Dose: 400 mg Famotidine (Pepcid) 20 mg PO DAILY [facility] Last Admin: 08/25/18 08:38 Dose: 20 mg Fluticasone Propionate (Flonase Nasal [place]) 1 gm NASAL DAILY [facility] Last Admin: 08/25/18 08:44 Dose: 1 spr Gabapentin (Neurontin) 800 mg PO TID [facility] Last Admin: 08/25/18 08:37 Dose: 800 mg Guaifenesin (Robitussin Sf) 200 mg PO Q4H PRN PRN Reason: Cough Hydralazine HCl (Apresoline) 10 mg SLOW IVP Q4H PRN PRN Reason: SBP > 180 and HR < 70 Acetaminophen 650 mg/ Device 65 mls @ 400 mls/hr IVPB Q6H PRN PRN Reason: Pain Last Admin: 08/24/18 11:20 Dose: 65 mls Ceftriaxone Sodium 1 gm/ (Sodium Chloride) 100 mls @ 200 mls/hr IVPB Q24HR [facility] Last Admin: 08/24/18 18:19 Dose: 100 mls Loperamide HCl (Imodium) 2 mg PO PRN PRN PRN Reason: Diarrhea/Loose Stools Loratadine (Claritin) 10 mg PO DAILYPRN PRN PRN Reason: Sinus Symptoms Nitroglycerin (Nitrostat) 0.4 mg SL Q5MIN PRN PRN Reason: Chest Pain Nystatin (Mycostatin Powder) 0 gm TOP BID [facility] Last Admin: 08/25/18 08:44 Dose: 1 gm Ondansetron HCl (Zofran Odt) 4 mg PO Q6H PRN PRN Reason: Nausea/Vomiting Ondansetron HCl (Zofran) 4 mg IVP Q6H PRN PRN Reason: Nausea/Vomiting Senna/Docusate Sodium (Senokot S) 2 tab PO BID PRN PRN Reason: Constipation Sodium Chloride ([place] Nasal [place] 0.65%) 0 ml EA NARE QIDPRN PRN PRN Reason: Nasal Congestion Sodium Chloride (Flush - Normal Saline) 10 ml IVF Q12HR [facility] Last Admin: 08/25/18 08:45 Dose: 10 ml Sodium Chloride (Flush - Normal Saline) 10 ml IVF PRN PRN PRN Reason: Saline Flush Tamsulosin HCl (Flomax) 0.4 mg PO DAILY [facility] Last Admin: 08/25/18 08:37 Dose: 0.4 mg Throat Lozenges (Cepastat Lozenges) 1 mani PO Q2H PRN PRN Reason: Sore Throat Tizanidine HCl (Zanaflex) 4 mg PO HS [place] Last Admin: 08/24/18 21:13 Dose: 4 mg Tramadol HCl (Ultram) 50 mg PO Q4H PRN PRN Reason: Pain Last Admin: 08/25/18 12:03 Dose: 50 mg
[2018-08-25] MEDS: cefTRIAXone\\ROCEPHIN 1 GM in Sodium Chloride 0.9% 100 ML IVPB SCH (17:57)
[2018-08-25] MEDS: tiZANidine HCl 4 MG TAB PO SCH (20:07)
[2018-08-26 05:51] LABS: #Eosinphils 0.5 thou/uL (0.0-0.7); #Lymphocytes 1.7 thou/uL (1.20-3.40); #Monocytes 0.6 thou/uL (0.11-0.59); #Neutrophils 5.4 thou/uL (1.40-6.50); %Basophils 0.4 % (0.0-1.0); %Eosinophils 5.5 % (0.0-10.0); %Lymphocytes 20.3 % (21.0-51.0); %Monocytes 7.5 % (0.0-10.0); %Neutrophils 66.3 % (42.0-75.0); Hemoglobin 12.8 g/dL (14.0-18.0); Mean Corpuscular HGB CONC 30.5 g/dL (32.0-36.0); Mean Corpuscular Hemoglobin 24.1 pg (27.0-31.0); Mean Corpuscular Volume 79.1 fL (78.0-98.0); Mean Platelet Volume 7.1 fL (7.4-10.4); Platelet Count 389 thou/uL (130-400); RBC Distribution Width 16.3 % (11.5-14.5); Red Blood Cell (RBC) Count 5.33 mill/uL (4.70-6.10); White Blood Cell (WBC) Count 8.2 thou/uL (4.8-10.8)
[2018-08-26] MEDS: HYDROcodone/Acetaminophen 10/325 mg Tablet PO PRN (06:09)
[2018-08-26 06:14] LABS: Anion Gap 15 mmol/L (10-20); BUN (Urea Nitrogen) 12 mg/dL (8.4-25.7); CRP (Inflammatory) 4.11 mg/dL (= or < 0.5); Calc. Creatinine Clearance 178 mL/min (70-130); Calcium 9.6 mg/dL (7.8-10.44); Carbon Dioxide 25 mmol/L (22-29); Chloride 99 mmol/L (98-107); Estimated GFR-MDRD 81; Glucose 95 mg/dL (70-105); Potassium 4.5 mmol/L (3.5-5.1); Sodium 134 mmol/L (136-145)
[2018-08-26] MEDS: Apixaban 5 MG TAB PO SCH ×2 (08:01→19:34)
[2018-08-26] MEDS: Dronedarone HCl 400 MG TAB PO SCH ×2 (08:01→18:05)
[2018-08-26] MEDS: Tamsulosin HCl 0.4 MG CAP PO SCH (08:01)
[2018-08-26] MEDS: Famotidine 20 MG TAB PO SCH (08:01)
[2018-08-26] MEDS: Gabapentin 400 MG CAP PO SCH ×3 (08:02→19:34)
[2018-08-26] MEDS: Nystatin Powder 15 GM BOT TOP SCH ×2 (08:03→19:35)
[2018-08-26] MEDS: Clotrimazole 1 % Cream 30 GM TUBE TOP SCH (08:04)
[2018-08-26] MEDS: traMADol HCl 50 MG TAB PO PRN (08:11)
[2018-08-26] MEDS: Fluticasone Propionate Nasal Spray 16 gm Bottle NASAL SCH (11:09)
[2018-08-26] MEDS: Morphine 4 MG/ML VIAL SLOW IVP PRN ×3 (11:27→23:44)
[2018-08-26 11:37] LABS: Hemoglobin 13.3 g/dL (14.0-18.0); Platelet Count 394 thou/uL (130-400)
--- NOTE | 2018-08-26 11:46 | PDOC.PN ---
- Subjective Encounter Start Date: 08/26/18 Encounter Start Time: 10:20 Patient seen and examined. No overnight events he has pain in leg which is not controlled with norco - Objective MAR Reviewed: Yes Vital Signs & Weight: Vital Signs (12 hours) Temp Pulse Resp BP Pulse Ox 08/26/18 07:43 98.3 F 70 20 158/83 H 97 08/26/18 04:00 98.1 F 66 18 136/82 96 08/26/18 00:04 98.2 F 83 18 134/85 97 Weight Admit Weight 327 lb 7 oz Weight 327 lb 7 oz I&O: 08/25/18 08/26/18 08/27/18 06:59 06:59 06:59 Intake Total 720 370 480 Output Total 501 1600 Balance 219 -1230 480 Result Diagrams: 08/26/18 11:25 08/26/18 05:27 Phys Exam - Physical Examination Constitutional: NAD HEENT: PERRLA, moist MMs, sclera anicteric Neck: no JVD, supple Respiratory: no wheezing, no rales, no rhonchi Cardiovascular: RRR, no significant murmur, no rub Gastrointestinal: soft, non-tender, no distention, positive bowel sounds obesity+ chronic venous stasis edema with wound covered with dressing Neurological: non-focal, normal sensation, moves all 4 limbs Lymphatic: no nodes Psychiatric: normal affect, A&O x 3 Skin: no rash, normal turgor Dx/Plan (1) Cellulitis of both lower extremities Code(s): L03.115 - CELLULITIS OF RIGHT LOWER LIMB; L03.116 - CELLULITIS OF LEFT LOWER LIMB Status: Acute Comment: with chronic wound over both leg (2) Acute metabolic encephalopathy Code(s): G93.41 - METABOLIC ENCEPHALOPATHY Status: Acute (3) Hypotension Status: Resolved Qualifiers: Comment: (4) BPH (benign prostatic hyperplasia) Code(s): N40.0 - BENIGN PROSTATIC HYPERPLASIA WITHOUT LOWER URINRY TRACT SYMP Status: Chronic (5) Physical deconditioning Code(s): R53.81 - OTHER [place] Status: Chronic - Plan cont current plan of care, continue antibiotics * continue rocephin as per ID * will add morphin for pain control * medication reviewed as below * symptomatic treatment * wound care. Review of Systems - Review of Systems ENT: negative: Ear Pain, Ear Discharge, Nose Pain, Nose Discharge, Nose Congestion, Mouth Pain, Mouth Swelling, Throat Pain, Throat Swelling, Other Respiratory: negative: Cough, Dry, Shortness of Breath, Hemoptysis, SOB with Excertion, Pleuritic Pain, Sputum, Wheezing Cardiovascular: negative: chest pain, palpitations, orthopnea, paroxysmal nocturnal dyspnea, edema, light headedness, other Gastrointestinal: negative: Nausea, Vomiting, Abdominal Pain, Diarrhea, Constipation, Melena, Hematochezia, Other Genitourinary: negative: Dysuria, Frequency, Incontinence, Hematuria, Retention , Other Musculoskeletal: Leg Pain. negative: Neck Pain, Shoulder Pain, Arm Pain, Back Pain, Hand Pain, Foot Pain, Other - Medications/Allergies Allergies/Adverse Reactions: Allergies Allergy/AdvReac Type Severity Reaction Status Date / Time venom-wasp Allergy Severe Anaphylaxis Verified 07/31/18 04:00 propoxyphene Allergy Mild Rash Verified 07/31/18 03:58 Medications: Current Medications Acetaminophen (Tylenol) 650 mg PO Q4H PRN PRN Reason: Headache/Fever/Mild Pain (1-3) Hydrocodone Bitart/Acetaminophen ([place] 10/325) 1 tab PO Q6H PRN PRN Reason: Severe Pain (7-10) Last Admin: 08/26/18 06:09 Dose: 1 tab Apixaban (Eliquis) 5 mg PO BID [facility] Last Admin: 08/26/18 08:01 Dose: 5 mg Benzonatate (Tessalon) 100 mg PO Q6H PRN PRN Reason: Cough Bisacodyl (Dulcolax) 10 mg PO DAILYPRN PRN PRN Reason: Constipation Calcium Carbonate (Tums) 1,000 mg PO Q4H PRN PRN Reason: Heartburn or Indigestion Clonidine (Catapres) 0.1 mg PO Q4H PRN PRN Reason: SBP > 160____ Clotrimazole (Lotrimin 1% Cream) 30 gm TOP DAILY [facility] Last Admin: 08/26/18 08:04 Dose: Not Given Dronedarone (Multaq) 400 mg PO BID-[facility] Last Admin: 08/26/18 08:01 Dose: 400 mg Famotidine (Pepcid) 20 mg PO DAILY [facility] Last Admin: 08/26/18 08:01 Dose: 20 mg Fluticasone Propionate (Flonase Nasal [place]) 1 gm NASAL DAILY [facility] Last Admin: 08/26/18 11:09 Dose: 1 spr Gabapentin (Neurontin) 800 mg PO TID [facility] Last Admin: 08/26/18 08:02 Dose: 800 mg Guaifenesin (Robitussin Sf) 200 mg PO Q4H PRN PRN Reason: Cough Hydralazine HCl (Apresoline) 10 mg SLOW IVP Q4H PRN PRN Reason: SBP > 180 and HR < 70 Ceftriaxone Sodium 1 gm/ (Sodium Chloride) 100 mls @ 200 mls/hr IVPB Q24HR [facility] Last Admin: 08/25/18 17:57 Dose: 100 mls Loperamide HCl (Imodium) 2 mg PO PRN PRN PRN Reason: Diarrhea/Loose Stools Loratadine (Claritin) 10 mg PO DAILYPRN PRN PRN Reason: Sinus Symptoms Morphine Sulfate (Morphine) 4 mg SLOW IVP Q4H PRN PRN Reason: Severe Pain (7-10) Last Admin: 08/26/18 11:27 Dose: 4 mg Nitroglycerin (Nitrostat) 0.4 mg SL Q5MIN PRN PRN Reason: Chest Pain Nystatin (Mycostatin Powder) 0 gm TOP BID [facility] Last Admin: 08/26/18 08:03 Dose: 1 gm Ondansetron HCl (Zofran Odt) 4 mg PO Q6H PRN PRN Reason: Nausea/Vomiting Ondansetron HCl (Zofran) 4 mg IVP Q6H PRN PRN Reason: Nausea/Vomiting Senna/Docusate Sodium (Senokot S) 2 tab PO BID PRN PRN Reason: Constipation Sodium Chloride ([place] Nasal [place] 0.65%) 0 ml EA NARE QIDPRN PRN PRN Reason: Nasal Congestion Sodium Chloride (Flush - Normal Saline) 10 ml IVF Q12HR [facility] Last Admin: 08/26/18 08:03 Dose: 10 ml Sodium Chloride (Flush - Normal Saline) 10 ml IVF PRN PRN PRN Reason: Saline Flush Tamsulosin HCl (Flomax) 0.4 mg PO DAILY [facility] Last Admin: 08/26/18 08:01 Dose: 0.4 mg Throat Lozenges (Cepastat Lozenges) 1 mani PO Q2H PRN PRN Reason: Sore Throat Tizanidine HCl (Zanaflex) 4 mg PO HS [place] Last Admin: 08/25/18 20:07 Dose: 4 mg Tramadol HCl (Ultram) 50 mg PO Q4H PRN PRN Reason: Moderate Pain (4-6) Last Admin: 08/26/18 08:11 Dose: 50 mg
[2018-08-26 11:57] LABS: Calc. Creatinine Clearance 199 mL/min (70-130); Estimated GFR-MDRD Greater than 90
--- NOTE | 2018-08-26 12:54 | EKG ---
Test Reason : Blood Pressure : / mmHG Vent. Rate : 075 BPM Atrial Rate : 075 BPM P-R Int : 172 ms QRS Dur : 098 ms QT Int : 386 ms P-R-T Axes : 026 080 030 degrees QTc Int : 431 ms Sinus rhythm with Premature atrial complexes Otherwise normal ECG Confirmed by NEDA BONNER, SONALI ([id number]), video news editor JANINE KAPLAN ([id number]) on 08/26/2018 12:54:18 PM Referred By: Confirmed By:SONALI RED MD
--- NOTE | 2018-08-26 17:02 | PRG ---
DATE OF SERVICE: 08/26/2018 SUBJECTIVE: Patient was seen and examined at bedside and overnight events noted. Patient denies any shortness of breath or chest pain or palpitation. No history of nausea or vomiting or diarrhea or fever or chills or cramps. OBJECTIVE: GENERAL: This is a morbidly obese, in no apparent distress. VITAL SIGNS: Temperature 98.3, heart rate 70, respiratory rate 20, blood pressure 136/82. HEENT: Atraumatic, normocephalic. Oral mucosa is moist NECK: Supple. CARDIOVASCULAR: S1, S2 heard. Rate and rhythm regular. RESPIRATORY: Clear to auscultation. GASTROINTESTINAL: Abdomen is soft. MUSCULOSKELETAL: No tenderness. No edema. DERMATOLOGIC: No skin rash. NEUROLOGIC: Alert and awake and oriented X3. No focal neurologic deficits. Moving all the extremities. PSYCHIATRIC: Mood and affect normal. LABORATORY DATA: Potassium is 4.5, BUN is 12, and creatinine is 0.8. ASSESSMENT AND PLAN: 1. Acute kidney injury, much better. 2. Edema, chronic. 3. Hyperkalemia. 4. Morbid obesity. 5. Hypertension, monitor. 6. Creatinine is better. I will sign off. Please call back with any questions. Job ID: [id number]
[2018-08-26] MEDS: cefTRIAXone\\ROCEPHIN 1 GM in Sodium Chloride 0.9% 100 ML IVPB SCH (18:06)
[2018-08-26] MEDS: tiZANidine HCl 4 MG TAB PO SCH (19:34)
[2018-08-27 07:43] VITALS: BP 157/89; TEMP 98.3
[2018-08-27] MEDS: Famotidine 20 MG TAB PO SCH (08:35)
[2018-08-27] MEDS: Gabapentin 400 MG CAP PO SCH ×2 (08:35→16:06)
[2018-08-27] MEDS: Tamsulosin HCl 0.4 MG CAP PO SCH (08:35)
[2018-08-27] MEDS: Dronedarone HCl 400 MG TAB PO SCH (08:35)
[2018-08-27] MEDS: Apixaban 5 MG TAB PO SCH (08:35)
[2018-08-27] MEDS: Fluticasone Propionate Nasal Spray 16 gm Bottle NASAL SCH (08:35)
[2018-08-27] MEDS: Nystatin Powder 15 GM BOT TOP SCH (08:36)
[2018-08-27] MEDS: Clotrimazole 1 % Cream 30 GM TUBE TOP SCH (08:36)
[2018-08-27] MEDS: HYDROcodone/Acetaminophen 10/325 mg Tablet PO PRN (08:43)
[2018-08-27] MEDS: Morphine 4 MG/ML VIAL SLOW IVP PRN ×2 (10:49→16:03)
--- NOTE | 2018-08-27 11:24 | DIS ---
DATE OF ADMISSION: 08/23/2018 DATE OF DISCHARGE: 08/27/2018 PRIMARY CARE PHYSICIAN: [facility] Call Admission. DISCHARGE DISPOSITION: Home. PRIMARY DISCHARGE DIAGNOSES: 1. Acute metabolic encephalopathy, resolved. 2. Bilateral lower extremity cellulitis/stasis dermatitis. 3. Acute hypotension, resolved. 4. Acute kidney failure, improved. SECONDARY DISCHARGE DIAGNOSES: 1. Obstructive sleep apnea. 2. Chronic venous stasis of lower extremity. 3. Chronic pain disorder. 4. Chronic atrial fibrillation. 5. Chronic anticoagulation. 6. Benign enlargement of prostate. PRIMARY PROCEDURE/OPERATION: None. RADIOLOGICAL INVESTIGATION: Chest x-ray, ultrasound of the lower extremity, and renal ultrasound. SIGNIFICANT LABORATORY DATA: WBC 8.2, hemoglobin 13.3, and platelet 394. Sodium 134 and creatinine 0.85. CRP 4.11. Cardiac enzyme negative. BNP 39.3. Urinalysis normal. Urine drug screen positive for opiates. Blood culture negative. DISCHARGE MEDICATION: 1. Tramadol 50 mg q.4 hourly p.r.n. 2. Gabapentin 800 mg p.o. t.i.d. 3. [place] 1 tablet q.6 hourly p.r.n. 4. Ranitidine 75 mg daily. 5. Flomax 0.4 mg p.o. daily. 6. Tizanidine 4 mg p.o. nightly. 7. Eliquis 5 mg p.o. b.i.d. 8. Keflex 500 mg p.o. q.6 hourly for 10 days. 9. Clotrimazole 1% topical application daily. 10. Multaq 400 mg p.o. b.i.d. 11. Flonase nasal spray daily. 12. Lisinopril 10 mg p.o. daily (does reduced). 13. Demadex 20 mg p.o. daily (dose reduced). CONTRAINDICATION: None. CODE STATUS: Full code. INPATIENT STENO TYPIST: Dr. Myles was consulted for acute kidney failure. Dr. Salvador was consulted for lower extremity edema and cellulitis. TEST RESULTS PENDING ON DISCHARGE: None. ALLERGIES: PROPOXYPHENE. DISCHARGE PLAN: Posthospital, the patient will follow up with Dr. Salvador. The patient will follow up with primary care physician and the patient is also advised to follow up with Dr. Miller for outpatient sleep study. HOSPITAL COURSE: A 58-year-old male with above-mentioned medical problem, who was admitted by Dr. Terri Grady. Please see her H and P for further details. The patient was admitted for bilateral lower extremity edema and swelling and tenderness. He was also having excessive somnolence and lethargy. He was having acute metabolic encephalopathy. He was admitted to the hospital and he was found with acute kidney failure. He was also having stasis dermatitis/cellulitis of both lower extremities. Initially, he was given broad-spectrum antibiotic therapy with meropenem and vancomycin, but Dr. Salvador consulted and he recommended to change to IV Rocephin and change to Keflex or Penicillin weekly upon discharge. This patient has received IV antibiotic therapy while in hospital. On discharge, changed to Keflex. His selected home medication was continued while in the hospital. Initially, the patient had acute kidney failure with creatinine of 4.03, which has responded to IV fluid and by the time of discharge, his creatinine was 0.85. He was hypotensive, which was responded very well to IV fluid. His blood culture remained negative. On discharge, we are changing to lisinopril 10 mg daily, dose reduced from 20 as well as torsemide 20 mg p.o. daily, dose reduced from 40. Rest of medication was continued as per previous. This patient has home health, which was resumed on discharge. I have seen and examined the patient at bedside today. REVIEW OF SYSTEMS: All review of systems reviewed with him and negative. PHYSICAL EXAMINATION: VITAL SIGNS: Currently, temperature 98.3, pulse 68, respiratory rate 20, saturation 97% on room air, and blood pressure 157/89. Weight 327 pounds. GENERAL: The patient is currently alert and awake, in no obvious acute distress. HEENT: Normocephalic and atraumatic. LUNGS: Clear to auscultation without any rhonchi or rales. CARDIAC: S1 and S2, regular without any murmur. ABDOMEN: Soft and benign. EXTREMITIES: No edema. NEUROLOGIC: Nonfocal examination. Overall, the patient is medically stable for discharge today. Job ID: [id number]
--- NOTE | 2018-08-29 05:43 | PQF ---
[employer] Private Inquiry Agent Crystal Reports Winform Viewer LUCMOLLYGUNNARSALOME DOWNS MD [id number] [id number] CLINICAL DOCUMENTATION CLARIFICATION FORM: POST DISCHARGE Addendum to original discharge summary date: ____ Late entry note date: __ DATE: 08-29-18 ATTN:Salome Daley Please exercise your independent, professional judgment in responding to the clarification form. Clinical indicators are provided on the bottom of this form for your review Can you please specify whether Sepsis is ruled in or ruled out during this encounter? Please check appropriate box(s) to clarify if the following diagnosis has been ruled in or ruled out: Sepsis [ x ] Ruled in diagnosis [ ] Continue to treat [ x ] Resolved [ ] Ruled out diagnosis [ ] Cannot rule out diagnosis [ ] Other diagnosis please specify: [ ] Unable to determine For continuity of documentation, please document condition throughout progress notes and discharge summary. Thank You. CLINICAL INDICATORS: ED 08/23 pg14 Diagnosis: Primary: Sepsis Additional: Afib with medical non compliance, Acute renal failure, elevated D dimer H&P 08/[address] Grady Altered Mental Status: This most likely metabolic toxic encephalopathy, which is multi factorial in nature H&P 08/[address] Grady Sepsis is suspected based on his presenting symptoms of worsening leg swelling, redness and hypotension H&P 08/[address] Grady Hypotension, once again seems to be more due to polypharmacy than sepsis or septic shock PN 08/[address] Hebert Cellulitis of both lower extremities, Acute metabolic encephalopathy DS 08/[address] Hebert Bilateral lower extremity cellulitis/statis dermatitis DS 08/[address] Hebert His blood culture remained negative Vital signs: Pulse=22 (08/23/18) BP= 142/67 (08/24/18) Laboratory result 08/24/18 WBC 9.4; neutrophils 6.9 RISK FACTOR: H&P Dr. Grday- Recurrent Cellulitis H&P Dr. Grady- Chronic Lymphedema H&P Dr. Grady- History of necrotizing fasciitis of legs with MRSA PN Dr. Hebert- Physical deconditioning DS: Dr. Hebert- Acute kidney injury TREATMENTS: MAY 04- Vancomycin HCL 1 gm IV MAY 04- Zosyn 4.5 gm IV MAY 04- IV Fluids Microbiology- Blood culture 08/23- No growth (This form is maintained as a part of the permanent medical record) 2014 [employer] All Rights Reserved [email or web address] [not provided] MTDD
== END 2018-08-27 17:52 | disposition home or self-care (01) | DRG 871 ==
LOC: ERS 10:07 → ERHOLD 12:26 → 2NO 17:49 → T4-B 08-25 15:53
PROVIDERS: ADMIT Internal Medicine; ATTEND Internal Medicine
DX: A41.9 Sepsis, unspecified organism (principal); G93.41 Metabolic encephalopathy; L03.116 Cellulitis of left lower limb; N17.9 Acute kidney failure, unspecified; E87.1 Hypo-osmolality and hyponatremia; E66.2 Morbid (severe) obesity with alveolar hypoventilation; Z68.42 Body mass index [BMI] 45.0-49.9, adult; L03.115 Cellulitis of right lower limb; I12.9 Hypertensive chronic kidney disease with stage 1 through stage 4 chronic kidney disease, or unspecified chronic kidney disease; N40.0 Benign prostatic hyperplasia without lower urinary tract symptoms; E86.9 Volume depletion, unspecified; E87.5 Hyperkalemia; E87.8 Other disorders of electrolyte and fluid balance, not elsewhere classified; E88.09 Other disorders of plasma-protein metabolism, not elsewhere classified; I89.0 Lymphedema, not elsewhere classified; G89.4 Chronic pain syndrome; I48.2 Chronic atrial fibrillation; N18.9 Chronic kidney disease, unspecified; I95.9 Hypotension, unspecified; I87.2 Venous insufficiency (chronic) (peripheral); Z79.899 Other long term (current) drug therapy; Z79.01 Long term (current) use of anticoagulants; Z88.5 Allergy status to narcotic agent; Z86.14 Personal history of Methicillin resistant Staphylococcus aureus infection
CPT/HCPCS: 36415; 71045; 76770; 80048; 80053; 80306; 81001; 82550; 82565; 83605; 83690; 83880; 84484; 85014; 85018; 85025; 85049; 85379; 86140; 87040; 90471; 90732; 93005; 93970; 94760; 96361; 96365; 96372; 96375; 97602; A4218; G0009; J0131; J0696; J1644; J1650; J2185; J2270; J2543; J3370; J3490

== ENCOUNTER 2018-09-05 14:24 | Outpatient (CLI) | payer MEDICARE ==
--- NOTE | 2018-09-05 16:13 | PRG ---
DATE OF SERVICE: 09/05/2018 HISTORY: Mr. Avi Herrera is a pleasant 58-year-old gentleman, accompanied by his daughter, who presents to the wound center for evaluation of a wound of the right lateral lower leg subsequent to intraoperative debridement for necrotizing fasciitis in [place], [place]. Since the patient's last visit, Mr. Herrera was admitted to [facility] with altered mental status. During the patient's hospital stay, Mr. Herrera was seen in consultation by Dr. Sanjay Salvador of Infectious Diseases. The patient was discharged to home on Keflex as per Infectious Diseases. The patient is presently receiving dressing changes of Hydrofera Blue with the assistance of home health. PHYSICAL EXAMINATION: VITAL SIGNS: Temperature 98.1, pulse 88, respirations 19, and blood pressure 129/63. EXTREMITIES: A wound of the right lateral lower leg is present, which measures approximately 10.0 x 8.0. Granulation tissue is present within the wound margins. No purulent drainage is associated with the wound. Edema of the right and left feet and lower legs are present on today's exam. ASSESSMENT AND PLAN: 1. Ulceration of right lateral lower leg, dressing changes of Hydrofera Blue, followed by an ABD, Kerlix, and an Eder bandage will be continued 3 times per week after cleansing and irrigation with the assistance of home health. I will discuss the treatment plan with the patient's home health nurse. As stated above, the patient is taking Keflex as per Infectious Diseases. I will see Mr. Herrera, again in 2 weeks. 2. Lymphedema. The patient states he is being seen by Occupational Therapy through his home health agency. 3. Hypertension. 4. History of rhabdomyolysis. Job ID: [id number]
[2018-09-05] MEDS ORDERED: Sodium Chloride 0.9% 15 ML NEB ONE (18:00)
== END 2018-09-05 14:25 | disposition home or self-care (01) ==
LOC: WCC 14:24
PROVIDERS: ATTEND Family Medicine
DX: L97.819 Non-pressure chronic ulcer of other part of right lower leg with unspecified severity (principal); I89.0 Lymphedema, not elsewhere classified; I10 Essential (primary) hypertension; Z87.39 Personal history of other diseases of the musculoskeletal system and connective tissue
CPT/HCPCS: A4218

== ENCOUNTER 2018-09-28 14:09 | Outpatient (CLI) | payer MEDICARE ==
--- NOTE | 2018-09-28 15:55 | PRG ---
DATE OF SERVICE: 09/28/2018 HISTORY: Mr. Avi Herrera is a pleasant 58-year-old gentleman, who presents to the Wound Center for evaluation of a wound of the right lateral lower leg subsequent to intraoperative debridement for necrotizing fasciitis in [place], [place]. The patient was recently admitted to [facility] with altered mental status. During the patient's hospital stay, Mr. Herrera was seen in consultation by Dr. Sanjay Salvador of Infectious Diseases. The patient was discharged to home on Keflex as per Infectious Diseases. The patient is presently receiving dressing changes 3 times per week after cleansing and irrigation with the assistance of Home Health. Unna boots are being applied to the right and left feet and lower legs at the time of dressing changes. PHYSICAL EXAMINATION: VITAL SIGNS: Temperature 98.2, pulse 60, respirations 16, and blood pressure 168/91. EXTREMITIES: A wound of the right lateral lower leg is present, which measures approximately 8.0 x 5.0 cm. Granulation tissue is present within the wound margins. No purulent drainage is associated with the wound. Less edema of the right and left feet and lower legs is present on exam today than at the time of the patient's last visit. ASSESSMENT AND PLAN: 1. Ulceration of right lateral lower leg. Unna boots will be continued 3 times per week after cleansing and irrigation with the assistance of Home Health. I will see Mr. Herrera again in 3 weeks. 2. Lymphedema. The patient again states he is being seen by Occupational Therapy through his home health agency. 3. Hypertension. 4. History of rhabdomyolysis. Job ID: [id number]
[2018-09-28] MEDS ORDERED: Sodium Chloride 0.9% 15 ML NEB ONE (18:00)
== END 2018-09-28 14:10 | disposition home or self-care (01) ==
LOC: WCC 14:09
PROVIDERS: ATTEND Family Medicine
DX: T81.89XD Other complications of procedures, not elsewhere classified, subsequent encounter (principal); I89.0 Lymphedema, not elsewhere classified; I10 Essential (primary) hypertension; Z87.39 Personal history of other diseases of the musculoskeletal system and connective tissue
CPT/HCPCS: 29581; A4218

== ENCOUNTER 2018-10-27 11:42 | Outpatient (CLI) | payer MEDICARE ==
--- NOTE | 2018-10-27 17:35 | PRG ---
DATE OF SERVICE: 10/27/2018 HISTORY: Mr. Avi Herrera is a very pleasant 58-year-old gentleman, who presents to the Wound Center for evaluation of a wound of the right lateral lower leg subsequent to intraoperative debridement for necrotizing fasciitis in [place], [place]. The patient was recently admitted to [facility] with altered mental status. During the patient's hospital stay, Mr. Herrera was seen in consultation by Dr. Sanjay Salvador of Infectious Diseases. The patient was discharged to home on Keflex as per Infectious Diseases. The patient is presently receiving dressing changes 3 times per week after cleansing and irrigation with the assistance of Home Health. Unna boots are being applied to the right and left feet and lower legs at the time of dressing changes. PHYSICAL EXAMINATION: VITAL SIGNS: Temperature 97.8, pulse 71, respirations 23, and blood pressure 133/74. EXTREMITIES: A wound of the right lateral lower leg is present, which measures approximately 5.0 x 5.0 cm. The dimensions of the wound at the time of the patient's visit on 09/28/2018 were approximately 8.0 x 5.0 cm. Granulation tissue is present within the wound margins. No purulent drainage is associated with the wound. Hyperpigmentation of the skin of the right and left lower legs is noted on exam today. Edema of the right and left feet and lower legs is present on exam today. Circumferences of the right lower extremity at the ankle, calf, and knee are 28 cm, 45 cm, and 49 cm. Circumferences of the left lower extremity at the ankle, calf, and knee are 29 cm, 41 cm, and 45 cm. ASSESSMENT AND PLAN: 1. Ulceration of right lateral lower leg. Unna boots will be continued 3 times per week after cleansing and irrigation with the assistance of Home Health. I will see Mr. Herrera again on 11/24/2018. At this time, arrangements will continue for the acquisition of a pneumatic pump. 2. Lymphedema tarda. The patient has been utilizing compression for over 4 weeks with little to no benefit. Hyperpigmentation of the skin of the right and left lower legs is noted on exam today. As stated above, arrangements will continue for the acquisition of a pneumatic pump on 11/24/2018. 3. Hypertension. 4. History of rhabdomyolysis. Job ID: [id number] [facility]
== END 2018-10-27 11:43 | disposition home or self-care (01) ==
LOC: WCC 11:42
PROVIDERS: ATTEND Family Medicine
DX: T81.89XD Other complications of procedures, not elsewhere classified, subsequent encounter (principal); I89.0 Lymphedema, not elsewhere classified; I10 Essential (primary) hypertension
CPT/HCPCS: 29581

== ENCOUNTER 2019-01-05 14:47 | Outpatient (CLI) | payer MEDICARE ==
[~2019-01-05 14:47] MED LIST: Sodium Chloride 0.9% 15 ML NEB ONE
--- NOTE | 2019-01-05 17:27 | PRG ---
DATE OF SERVICE: 01/05/2019 HISTORY: Mr. Avi Herrera is a very pleasant 58-year-old gentleman, who presents to the Wound Center for evaluation of a wound of the right lateral lower leg subsequent to intraoperative debridement for necrotizing fasciitis in [place], [place]. The patient has been receiving dressing changes with the assistance of Home Health. An Unna boot is being applied to the ulceration of the right lateral lower leg at the time of dressing changes. Mr. Herrera has no other complaints today. He denies any fever or chills. PHYSICAL EXAMINATION: VITAL SIGNS: Temperature 97.9, pulse 87, and blood pressure 159/87. EXTREMITIES: A wound of the right lateral lower leg is present, which measures approximately 2.3 x 1.7 cm. Granulation tissue is present within the wound margins. No purulent drainage is associated with the wound. No erythema of the skin surrounding the wound is present. No maceration of the skin of the periwound is noted. ASSESSMENT AND PLAN: 1. Ulceration of right lateral lower leg. The present dressing changes will be continued at the current frequency after cleansing and irrigation with the assistance of Home Health. The patient states that he has been utilizing his pneumatic pump for 1 hour each day. As per his request, the patient will contact the clinic in order to schedule his next followup appointment. 2. Lymphedema tarda. 3. Hypertension. 4. History of rhabdomyolysis. Job ID: [id number]
== END 2019-01-05 14:48 | disposition home or self-care (01) ==
LOC: WCC 14:47
PROVIDERS: ATTEND Family Medicine
DX: L97.919 Non-pressure chronic ulcer of unspecified part of right lower leg with unspecified severity (principal); I89.0 Lymphedema, not elsewhere classified; I10 Essential (primary) hypertension
CPT/HCPCS: A4218

== ENCOUNTER 2019-01-07 19:30 | Outpatient (CLI) | payer MEDICARE | END 2019-01-07 19:31 | disposition home or self-care (01) | LOC: SLEEPLAB 19:30 | PROVIDERS: ATTEND Internal Medicine | DX: G47.33 Obstructive sleep apnea (adult) (pediatric) (principal); R06.83 Snoring; R06.81 Apnea, not elsewhere classified; R51 Headache; E66.9 Obesity, unspecified; I10 Essential (primary) hypertension; R35.1 Nocturia; K21.9 Gastro-esophageal reflux disease without esophagitis | CPT/HCPCS: 95810 ==

== ENCOUNTER 2019-01-11 19:30 | Outpatient (CLI) | payer MEDICARE | END 2019-01-11 19:31 | disposition home or self-care (01) | LOC: SLEEPLAB 19:30 | PROVIDERS: ATTEND Internal Medicine | DX: G47.33 Obstructive sleep apnea (adult) (pediatric) (principal); R51 Headache; E66.9 Obesity, unspecified; K21.9 Gastro-esophageal reflux disease without esophagitis; R06.83 Snoring; R35.1 Nocturia; I10 Essential (primary) hypertension | CPT/HCPCS: 95811 ==

== ENCOUNTER 2020-02-01 18:41 | Emergency (ER) | payer MEDICARE ==
[2020-02-01] MEDS ORDERED: HYDROcodone/Acetaminophen 7.5/325 mg Tablet ONE (19:09)
[2020-02-01] MEDS ORDERED: Boostrix 0.5 ML (Tdap) VIAL ONE (19:10)
[2020-02-01] MEDS ORDERED: Lidocaine 1% (PF) 30 ML VIAL ONE (19:19)
--- NOTE | 2020-02-01 20:09 | RAD ---
TWO VIEWS LEFT TIBIA/FIBULA: 02/01/20 HISTORY: Left leg laceration with bleeding. FINDINGS: Two views of the left tibia/fibula shows no evidence of acute fracture or dislocation. No radiopaque foreign body is seen. Diffuse soft tissue swelling is seen. Phleboliths are seen in the pretibial sof t tissues and this is likely secondary to chronic venous congestion. Degenerative changes are seen i n the ankle and knee. IMPRESSION: No evidence of acute osseous abnormality. POS: EAA
[2020-02-01] MEDS ORDERED: Ketorolac Tromethamine 30 MG/ML VIAL ONE (21:02)
== END 2020-02-01 21:09 | disposition home or self-care (01) ==
LOC: ERS 18:41
DX: S81.812A Laceration without foreign body, left lower leg, initial encounter (principal); I10 Essential (primary) hypertension; F17.220 Nicotine dependence, chewing tobacco, uncomplicated; Z79.899 Other long term (current) drug therapy; W45.8XXA Other foreign body or object entering through skin, initial encounter
CPT/HCPCS: 12002; 90471; 90715; 96372; J1885; J2001

== ENCOUNTER 2020-03-05 16:45 | Emergency (ER) | payer MEDICARE | END 2020-03-05 17:30 | disposition home or self-care (01) | LOC: ERS 16:45 | DX: S81.812D Laceration without foreign body, left lower leg, subsequent encounter (principal); I10 Essential (primary) hypertension; E66.9 Obesity, unspecified; F17.220 Nicotine dependence, chewing tobacco, uncomplicated; Z79.899 Other long term (current) drug therapy ==

== ENCOUNTER 2021-04-17 14:48 | Emergency (ER) | payer MEDICARE ==
[2021-04-17 15:30] LABS: #Eosinphils 0.4 thou/uL (0.0-0.7); #Lymphocytes 1.8 thou/uL (1.20-3.40); #Monocytes 0.5 thou/uL (0.11-0.59); #Neutrophils 6.1 thou/uL (1.40-6.50); %Basophils 0.5 % (0.0-1.0); %Eosinophils 4.6 % (0.0-10.0); %Lymphocytes 20.2 % (21.0-51.0); %Monocytes 5.2 % (0.0-10.0); %Neutrophils 69.6 % (42.0-75.0); Hemoglobin 14.2 g/dL (14.0-18.0); Mean Corpuscular HGB CONC 32.7 g/dL (32.0-36.0); Mean Corpuscular Hemoglobin 30.6 pg (27.0-31.0); Mean Corpuscular Volume 93.7 fL (78.0-98.0); Mean Platelet Volume 5.8 fL (7.4-10.4); Platelet Count 395 thou/uL (130-400); Red Blood Cell (RBC) Count 4.64 mill/uL (4.70-6.10); White Blood Cell (WBC) Count 8.8 thou/uL (4.8-10.8)
[2021-04-17 15:51] LABS: ALT (SGPT) 16 U/L (8-55); AST (SGOT) 14 U/L (5-34); Albumin 4.2 g/dL (3.4-4.8); Alkaline Phosphatase 146 U/L (40-110); Anion Gap 20 mmol/L (10-20); BUN (Urea Nitrogen) 30 mg/dL (8.4-25.7); Bilirubin, Total 0.3 mg/dL (0.2-1.2); CK (CPK) 116 U/L (30-200); CRP (Inflammatory) 1.22 mg/dL (= or < 0.5); Calc. Creatinine Clearance 0 mL/min (70-130); Calcium 9.1 mg/dL (7.8-10.44); Carbon Dioxide 20 mmol/L (23-31); Chloride 104 mmol/L (98-107); Globulin 3.3 g/dL (2.4-3.5); Glucose 108 mg/dL (80-115); Potassium 4.7 mmol/L (3.5-5.1); Protein, Total 7.5 g/dL (5.8-8.1); Sodium 139 mmol/L (136-145)
== END 2021-04-17 17:00 | disposition home or self-care (01) ==
LOC: ERS 14:48
DX: I82.403 Acute embolism and thrombosis of unspecified deep veins of lower extremity, bilateral (principal); B37.2 Candidiasis of skin and nail; I10 Essential (primary) hypertension; F17.220 Nicotine dependence, chewing tobacco, uncomplicated; E66.9 Obesity, unspecified; Z68.45 Body mass index [BMI] 70 or greater, adult; Z79.899 Other long term (current) drug therapy
CPT/HCPCS: 36415; 80053; 82550; 83605; 85025; 85652; 86140; 87040; 93970

== ENCOUNTER 2021-12-21 20:39 | Emergency (ER) | payer MEDICARE ==
[2021-12-21] MEDS ORDERED: Ketorolac Tromethamine 30 MG/ML VIAL ONE (21:39)
[2021-12-21] MEDS ORDERED: Boostrix 0.5 ML (Tdap) VIAL (>/=7 yrs of age) ONE (22:06)
[2021-12-21] MEDS ORDERED: Bacitracin 1 PK ONE (22:10)
== END 2021-12-21 22:29 | disposition home or self-care (01) ==
LOC: ERS 20:39
DX: S81.812A Laceration without foreign body, left lower leg, initial encounter (principal); I10 Essential (primary) hypertension; F17.220 Nicotine dependence, chewing tobacco, uncomplicated; Z23 Encounter for immunization; W20.8XXA Other cause of strike by thrown, projected or falling object, initial encounter
CPT/HCPCS: 12002; 90471; 90715; 96372; J1885

== ENCOUNTER 2022-05-26 17:27 | Emergency (ER) | payer MEDICARE ==
[2022-05-26] MEDS ORDERED: Morphine 4 MG/ML VIAL ONE (18:14)
== END 2022-05-26 19:35 | disposition home or self-care (01) ==
LOC: ERS 17:27
DX: S01.81XA Laceration without foreign body of other part of head, initial encounter (principal); S43.492A Other sprain of left shoulder joint, initial encounter; I10 Essential (primary) hypertension; Y93.K1 Activity, walking an animal; Z79.899 Other long term (current) drug therapy
CPT/HCPCS: 12011; 70450; 70486; 96372; J2270

== ENCOUNTER 2022-11-29 11:44 | Inpatient (IN) | payer MEDICARE ==
[2022-11-29] MEDS ORDERED: Azithromycin 500 MG VIAL ONE (12:25)
[2022-11-29] MEDS ORDERED: Piperacillin/Tazobactam 4.5 GM VIAL ONE (12:26)
[2022-11-29] MEDS ORDERED: Vancomycin 1 GM/200 ML (FROZEN) BAG ONE (12:26)
[2022-11-29] MEDS ORDERED: Acetaminophen 500 MG TAB ONE (12:27)
[2022-11-29 12:55] LABS: #Eosinphils 0.1 thou/uL (0.0-0.7); #Monocytes 0.5 thou/uL (0.11-0.59); #Neutrophils 12.8 thou/uL (1.40-6.50); %Basophils 0.2 % (0.0-1.0); %Eosinophils 0.5 % (0.0-10.0); %Lymphocytes 3.9 % (21.0-51.0); %Monocytes 3.3 % (0.0-10.0); %Neutrophils 91.5 % (42.0-75.0); Hematocrit 38.2 % (42.0-52.0); Hemoglobin 13.1 g/dL (14.0-18.0); Mean Corpuscular HGB CONC 34.3 g/dL (32.0-36.0); Mean Corpuscular Hemoglobin 30.1 pg (27.0-31.0); Mean Corpuscular Volume 87.8 fl (78.0-98.0); Platelet Count 291 10x3/uL (130-400); RBC Distribution Width 12.1 % (11.5-14.5); Red Blood Cell (RBC) Count 4.35 mill/uL (4.70-6.10)
[2022-11-29 13:08] LABS: Troponin I 0.022 ng/mL (< 0.028)
[2022-11-29 13:13] LABS: INR-International Normal Ratio 5.8; PTT 87.3 sec (22.9-36.1)
[2022-11-29 13:59] LABS: SARS-CoV-2 NAA Rapid Test Not Detected (NotDetected)
[2022-11-29] MEDS ORDERED: NOREPINEPHRINE 8 MG/250 ML-D5W 250 ML ONE (14:00)
[2022-11-29] MEDS ORDERED: Senokot S 8.6-50 MG TAB PO PRN (14:15)
[2022-11-29] MEDS ORDERED: Acetaminophen 325 MG TAB PO PRN (14:15)
[2022-11-29] MEDS ORDERED: Morphine 20 MG/ML Oral Solution (ROXANOL) SL PRN (14:29)
[2022-11-29] MEDS ORDERED: HYDROcodone/Acetaminophen 5/325 mg Tablet PO PRN (14:30)
[2022-11-29 14:31] LABS: ALT (SGPT) 13 U/L (8-55); AST (SGOT) 17 U/L (5-34); Albumin 3.3 g/dL (3.4-4.8); Alkaline Phosphatase 123 U/L (40-110); Anion Gap 14 mmol/L (10-20); BUN (Urea Nitrogen) 32 mg/dL (8.4-25.7); Bilirubin, Total 0.4 mg/dL (0.2-1.2); Calc. Creatinine Clearance 0 mL/min (70-130); Calcium 8.4 mg/dL (7.8-10.44); Carbon Dioxide 16 mmol/L (23-31); Chloride 104 mmol/L (98-107); Estimated GFR 50; Globulin 2.8 g/dL (2.4-3.5); Glucose 121 mg/dL (80-115); Lipase 12 U/L (8-78); Magnesium 1.8 mg/dL (1.6-2.6); Potassium 4.3 mmol/L (3.5-5.1); Protein, Total 6.1 g/dL (5.8-8.1); Sodium 130 mmol/L (136-145)
[2022-11-29 15:00] LABS: Bilirubin Negative (Negative); Blood, Urine Negative (Negative); CAUTI Indications for Culture Alt mental st,lethar; Clarity Turbid (Clear); Glucose, Urine (Dipstick) Normal (Negative); Ketone, Urine Negative (Negative); Leukocyte 25 Leu/uL (Negative); Nitrite Negative (Negative); Protein, Urine (Dipstick) 20 mg/dL (Neg-Trace); RBC/HPF 0-3 HPF (0-3); Specific Gravity, Urine 1.021 (1.002-1.036); WBC/HPF 0-3 HPF (0-3); pH, Urine 5.5 (5.0-9.0)
[2022-11-29 15:11] LABS: Bacteria/HPF 2+ HPF (None Seen); Squamous Epithelial 0-3 HPF (0-3)
[2022-11-29 15:12] LABS: Urine Culture Reflex No No
[2022-11-29 16:40] VITALS: BMI 37.1
[2022-11-29] MEDS ORDERED: FLU VACC QS2023-24(6MOS UP)/PF 60 MCG/0.5 ML SYRINGE IM ONE (17:15)
[2022-11-29] MEDS ORDERED: NOREPINEPHRINE 8 MG/250 ML-D5W 250 ML IVPB SCH (17:15)
[2022-11-29] MEDS: Linezolid 600 MG in Premix Bag 1 BAG IVPB SCH (17:36)
[2022-11-29] MEDS: Piperacillin/Tazobactam 3.375 GM in Sodium Chloride 0.9% 100 ML IVPB SCH (17:38)
[2022-11-29] MEDS ORDERED: Sodium Chloride 0.9% 1,000 ML IV SCH (18:00)
[2022-11-29] MEDS ORDERED: Piperacillin/Tazobactam 3.375 GM in Sodium Chloride 0.9% 100 ML IVPB SCH (18:00)
[2022-11-29] MEDS: Sodium Chloride 0.9% 1,000 ML IV SCH (18:13)
[2022-11-29] MEDS ORDERED: Vancomycin 1 GM in Premix Bag 1 BAG IVPB SCH (21:00)
[2022-11-29] MEDS ORDERED: Calcium Carbonate 500 MG ChewTAB PO PRN (21:36)
[2022-11-29] MEDS ORDERED: Gabapentin 400 MG CAP PO SCH (22:00)
[2022-11-30] MEDS: Piperacillin/Tazobactam 3.375 GM in Sodium Chloride 0.9% 100 ML IVPB SCH ×3 (01:12→17:02)
[2022-11-30] MEDS ORDERED: Azelastine 137 MCG/NASAL Spray 30 ML NS PRN (03:01)
[2022-11-30] MEDS: Linezolid 600 MG in Premix Bag 1 BAG IVPB SCH ×2 (03:24→17:01)
[2022-11-30] MEDS: Sodium Chloride 0.9% 1,000 ML IV SCH ×2 (03:24→16:41)
[2022-11-30 04:14] LABS: #Basophils 0.1 thou/uL (0.0-0.2); #Eosinphils 0.6 thou/uL (0.0-0.7); #Monocytes 0.7 thou/uL (0.11-0.59); #Neutrophils 11.8 thou/uL (1.40-6.50); %Basophils 0.4 % (0.0-1.0); %Eosinophils 4.4 % (0.0-10.0); %Monocytes 4.9 % (0.0-10.0); %Neutrophils 80.8 % (42.0-75.0); Hematocrit 39.1 % (42.0-52.0); Hemoglobin 13.2 g/dL (14.0-18.0); Mean Corpuscular HGB CONC 33.8 g/dL (32.0-36.0); Mean Corpuscular Hemoglobin 29.5 pg (27.0-31.0); Mean Corpuscular Volume 87.3 fl (78.0-98.0); Mean Platelet Volume 9.1 fL (7.4-10.4); Platelet Count 292 10x3/uL (130-400); RBC Distribution Width 12.2 % (11.5-14.5); Red Blood Cell (RBC) Count 4.48 mill/uL (4.70-6.10); White Blood Cell (WBC) Count 14.6 10x3/uL (4.8-10.8)
[2022-11-30 04:29] LABS: INR-International Normal Ratio 5.8; Prothrombin Time 55.2 sec (12.0-14.7)
[2022-11-30 04:42] LABS: Anion Gap 12 mmol/L (10-20); BUN (Urea Nitrogen) 26 mg/dL (8.4-25.7); Calc. Creatinine Clearance 80 mL/min (70-130); Calcium 8.9 mg/dL (7.8-10.44); Carbon Dioxide 23 mmol/L (23-31); Chloride 105 mmol/L (98-107); Estimated GFR 56; Glucose 82 mg/dL (80-115); Potassium 4.7 mmol/L (3.5-5.1); Sodium 135 mmol/L (136-145)
[2022-11-30] MEDS: Gabapentin 400 MG CAP PO SCH ×3 (08:10→20:35)
[2022-11-30] MEDS: Topiramate 100 MG TAB PO SCH (08:11)
[2022-11-30] MEDS ORDERED: Azithromycin 500 MG in Sodium Chloride 0.9% 250 ML 250 ML IVPB SCH (16:00)
[2022-11-30] MEDS ORDERED: Warfarin Sodium 5 MG TAB PO SCH (17:00)
[2022-12-01] MEDS: Piperacillin/Tazobactam 3.375 GM in Sodium Chloride 0.9% 100 ML IVPB SCH ×3 (01:51→17:41)
[2022-12-01] MEDS: Sodium Chloride 0.9% 1,000 ML IV SCH ×3 (01:51→21:02)
[2022-12-01 06:13] LABS: #Basophils 0.1 thou/uL (0.0-0.2); #Eosinphils 0.9 thou/uL (0.0-0.7); #Monocytes 0.5 thou/uL (0.11-0.59); #Neutrophils 5.3 thou/uL (1.40-6.50); %Basophils 0.6 % (0.0-1.0); %Eosinophils 11.7 % (0.0-10.0); %Lymphocytes 15.9 % (21.0-51.0); %Monocytes 6.1 % (0.0-10.0); %Neutrophils 65.5 % (42.0-75.0); Hematocrit 37.5 % (42.0-52.0); Hemoglobin 12.7 g/dL (14.0-18.0); Mean Corpuscular HGB CONC 33.9 g/dL (32.0-36.0); Mean Corpuscular Volume 88.7 fl (78.0-98.0); Mean Platelet Volume 8.9 fL (7.4-10.4); Platelet Count 271 10x3/uL (130-400); RBC Distribution Width 12.5 % (11.5-14.5); Red Blood Cell (RBC) Count 4.23 mill/uL (4.70-6.10)
[2022-12-01 06:26] LABS: INR-International Normal Ratio 2.9; Prothrombin Time 31.8 sec (12.0-14.7)
[2022-12-01 07:22] LABS: Albumin 3.2 g/dL (3.4-4.8); Alkaline Phosphatase 111 U/L (40-110); Anion Gap 11 mmol/L (10-20); BUN (Urea Nitrogen) 14 mg/dL (8.4-25.7); Bilirubin, Total 0.5 mg/dL (0.2-1.2); CRP (Inflammatory) 5.63 mg/dL (= or < 0.5); Calc. Creatinine Clearance 93 mL/min (70-130); Calcium 8.3 mg/dL (7.8-10.44); Carbon Dioxide 20 mmol/L (23-31); Chloride 111 mmol/L (98-107); Estimated GFR 68; Globulin 2.9 g/dL (2.4-3.5); Glucose 97 mg/dL (80-115); Potassium 3.8 mmol/L (3.5-5.1); Protein, Total 6.1 g/dL (5.8-8.1); Sodium 138 mmol/L (136-145)
[2022-12-01 07:23] LABS: ALT (SGPT) 15 U/L (8-55); AST (SGOT) 15 U/L (5-34)
[2022-12-01] MEDS: Gabapentin 400 MG CAP PO SCH ×3 (09:38→20:57)
[2022-12-01] MEDS: Azithromycin 250 MG TAB PO SCH (09:38)
[2022-12-01] MEDS: Topiramate 100 MG TAB PO SCH (09:39)
[2022-12-01] MEDS ORDERED: Ondansetron PF 4 MG/2 ML Vial IVP PRN ×2 (10:13→14:44)
[2022-12-01] MEDS ORDERED: Ondansetron PF 4 MG/2 ML Vial IVP SCH (10:15)
[2022-12-01] MEDS ORDERED: Pantoprazole 40 MG VIAL IVP SCH (15:00)
[2022-12-01] MEDS: tiZANidine HCl 4 MG TAB PO SCH (20:58)
[2022-12-01] MEDS: Oxybutynin 5 MG TAB PO SCH (20:58)
[2022-12-01] MEDS: Tamsulosin HCl 0.4 MG CAP PO SCH (20:58)
[2022-12-01] MEDS: Morphine ER 30 MG TAB PO SCH (20:58)
[2022-12-02] MEDS: Piperacillin/Tazobactam 3.375 GM in Sodium Chloride 0.9% 100 ML IVPB SCH ×3 (02:04→18:06)
[2022-12-02] MEDS: Sodium Chloride 0.9% 1,000 ML IV SCH ×2 (06:29→14:42)
[2022-12-02 06:44] LABS: INR-International Normal Ratio 1.9; Prothrombin Time 22.4 sec (12.0-14.7)
[2022-12-02 06:56] LABS: ALT (SGPT) 12 U/L (8-55); AST (SGOT) 13 U/L (5-34); Albumin 3.1 g/dL (3.4-4.8); Alkaline Phosphatase 108 U/L (40-110); Anion Gap 11 mmol/L (10-20); BUN (Urea Nitrogen) 13 mg/dL (8.4-25.7); Bilirubin, Total 0.5 mg/dL (0.2-1.2); CRP (Inflammatory) 2.29 mg/dL (= or < 0.5); Calc. Creatinine Clearance 112 mL/min (70-130); Calcium 8.5 mg/dL (7.8-10.44); Carbon Dioxide 21 mmol/L (23-31); Chloride 111 mmol/L (98-107); Estimated GFR 85; Glucose 77 mg/dL (80-115); Potassium 3.8 mmol/L (3.5-5.1); Protein, Total 6.1 g/dL (5.8-8.1); Sodium 139 mmol/L (136-145)
[2022-12-02] MEDS ORDERED: Pantoprazole 40 MG VIAL IVP SCH (09:00)
[2022-12-02] MEDS: Morphine ER 30 MG TAB PO SCH ×2 (09:38→20:42)
[2022-12-02] MEDS: Lisinopril 10 MG TAB PO SCH (09:39)
[2022-12-02] MEDS: Amlodipine 10 MG TAB PO SCH (09:40)
[2022-12-02] MEDS: Azithromycin 250 MG TAB PO SCH (09:40)
[2022-12-02] MEDS: Topiramate 100 MG TAB PO SCH (09:40)
[2022-12-02] MEDS: Oxybutynin 5 MG TAB PO SCH ×2 (09:40→20:42)
[2022-12-02] MEDS: Tamsulosin HCl 0.4 MG CAP PO SCH ×2 (09:40→20:42)
[2022-12-02] MEDS: Gabapentin 400 MG CAP PO SCH ×3 (09:40→20:41)
[2022-12-02] MEDS: Warfarin Sodium 5 MG TAB PO SCH (18:05)
[2022-12-02] MEDS: tiZANidine HCl 4 MG TAB PO SCH (20:42)
[2022-12-03] MEDS: Piperacillin/Tazobactam 3.375 GM in Sodium Chloride 0.9% 100 ML IVPB SCH ×3 (01:49→16:17)
[2022-12-03 07:53] LABS: ALT (SGPT) 13 U/L (8-55); AST (SGOT) 19 U/L (5-34); Albumin 2.9 g/dL (3.4-4.8); Alkaline Phosphatase 98 U/L (40-110); Anion Gap 14 mmol/L (10-20); BUN (Urea Nitrogen) 16 mg/dL (8.4-25.7); Bilirubin, Total 0.3 mg/dL (0.2-1.2); CRP (Inflammatory) 1.17 mg/dL (= or < 0.5); Calc. Creatinine Clearance 112 mL/min (70-130); Calcium 8.2 mg/dL (7.8-10.44); Carbon Dioxide 16 mmol/L (23-31); Chloride 110 mmol/L (98-107); Estimated GFR 85; Globulin 3.3 g/dL (2.4-3.5); Glucose 83 mg/dL (80-115); Potassium 4.6 mmol/L (3.5-5.1); Protein, Total 6.2 g/dL (5.8-8.1); Sodium 135 mmol/L (136-145)
[2022-12-03] MEDS: Gabapentin 400 MG CAP PO SCH ×2 (08:24→16:17)
[2022-12-03] MEDS: Amlodipine 10 MG TAB PO SCH (08:24)
[2022-12-03] MEDS: Azithromycin 250 MG TAB PO SCH (08:24)
[2022-12-03] MEDS: Lisinopril 10 MG TAB PO SCH (08:24)
[2022-12-03] MEDS: Tamsulosin HCl 0.4 MG CAP PO SCH (08:25)
[2022-12-03] MEDS: Oxybutynin 5 MG TAB PO SCH (08:25)
[2022-12-03] MEDS: Morphine ER 30 MG TAB PO SCH (08:25)
[2022-12-03] MEDS: Topiramate 100 MG TAB PO SCH (08:25)
[2022-12-03 09:22] LABS: INR-International Normal Ratio 1.8; Prothrombin Time 21.8 sec (12.0-14.7)
[2022-12-03 14:30] LABS: Hematocrit 36.5 % (42.0-52.0); Hemoglobin 12.5 g/dL (14.0-18.0); Platelet Count 292 10x3/uL (130-400)
[2022-12-03] MEDS: Warfarin Sodium 5 MG TAB PO SCH (16:17)
[2022-12-03 16:36] VITALS: BP 129/84; TEMP 98
== END 2022-12-03 17:13 | disposition home or self-care (01) | DRG 871 ==
LOC: SUATTDRO 11:44 → ERS 11:44 → CCU 13:46 → T4-B 11-30 09:28 → T4-A 11-30 16:28 → T4-B 11-30 16:32
PROVIDERS: ADMIT Family Medicine; ATTEND Family Medicine
PROC: 3E03329 Introduction of Other Anti-infective into Peripheral Vein, Percutaneous Approach (ICD-10-PCS; principal; 2022-11-29)
PROC: 3E033XZ Introduction of Vasopressor into Peripheral Vein, Percutaneous Approach (ICD-10-PCS; 2022-11-29)
DX: A41.9 Sepsis, unspecified organism (principal); G93.41 Metabolic encephalopathy; M72.6 Necrotizing fasciitis; N17.9 Acute kidney failure, unspecified; L03.115 Cellulitis of right lower limb; L03.116 Cellulitis of left lower limb; Z20.822 Contact with and (suspected) exposure to COVID-19; R41.82 Altered mental status, unspecified; G89.29 Other chronic pain; M54.9 Dorsalgia, unspecified; R79.89 Other specified abnormal findings of blood chemistry; I87.2 Venous insufficiency (chronic) (peripheral); W55.03XA Scratched by cat, initial encounter; I12.9 Hypertensive chronic kidney disease with stage 1 through stage 4 chronic kidney disease, or unspecified chronic kidney disease; N18.9 Chronic kidney disease, unspecified; K21.9 Gastro-esophageal reflux disease without esophagitis; R53.81 Other malaise; Z88.1 Allergy status to other antibiotic agents; Z88.8 Allergy status to other drugs, medicaments and biological substances; Z79.899 Other long term (current) drug therapy; Z79.01 Long term (current) use of anticoagulants; Z98.890 Other specified postprocedural states; Z86.718 Personal history of other venous thrombosis and embolism
CPT/HCPCS: 36415; 51701; 70450; 71045; 80048; 80053; 81001; 83605; 83690; 83735; 83880; 84145; 84443; 84484; 85014; 85018; 85025; 85049; 85610; 85730; 86140; 86611; 87040; 96365; 96367; C9113; J0456; J2020; J2405; J2543; J3370-JW; J3490; J7050

== ENCOUNTER 2024-03-24 04:35 | Inpatient (IN) | payer MEDICARE, SELFPAY ==
[2024-03-24] MEDS ORDERED: NOREPINEPHRINE 8 MG/250 ML-D5W 250 ML ONE (04:55)
[2024-03-24 05:33] LABS: #Basophils 0.03 10x3/uL (0.0-0.2); %Basophils 0.2 % (0.0-1.0); %Eosinophils 0.3 % (0.0-10.0); %Lymphocytes 5.3 % (21.0-51.0); %Monocytes 6.1 % (0.0-10.0); Hematocrit 24.2 % (42.0-52.0); Hemoglobin 7.6 g/dL (14.0-18.0); Mean Corpuscular HGB CONC 31.4 g/dL (32.0-36.0); Mean Corpuscular Hemoglobin 25.6 pg (27.0-31.0); Mean Corpuscular Volume 81.5 fL (78.0-98.0); Mean Platelet Volume 8.8 fL (7.4-10.4); Platelet Count 408 10x3/uL (130-400); RBC Distribution Width 13.8 % (11.5-14.5); Red Blood Cell (RBC) Count 2.97 mill/uL (4.70-6.10)
[2024-03-24] MEDS ORDERED: fentaNYL 50 mcg/mL 1 mL Vial ONE (05:37)
[2024-03-24 05:40] LABS: Prothrombin Time 107.6 sec (12.0-14.7)
[2024-03-24 05:45] LABS: INR-International Normal Ratio 14.4; PTT 133.6 sec (22.9-36.1)
[2024-03-24 06:34] LABS: ALT (SGPT) 7 U/L (Less than 45); AST (SGOT) 18 U/L (11-34); Albumin 2.4 g/dL (3.1-4.5); Alkaline Phosphatase 125 U/L (40-110); BUN (Urea Nitrogen) 42 mg/dL (8.4-25.7); Bilirubin, Total 0.3 mg/dL (0.3-1.2); Calc. Creatinine Clearance 0 mL/min (70-130); Calcium 8.5 mg/dL (7.8-10.44); Carbon Dioxide 16 mmol/L (23-31); Estimated GFR 43; Globulin 4.4 g/dL (2.4-3.5); Glucose 105 mg/dL (80-115); Protein, Total 6.8 g/dL (5.8-8.1)
[2024-03-24 06:53] LABS: Anion Gap 15 mmol/L (10-20); Chloride 109 mmol/L (98-107); Potassium 3.8 mmol/L (3.5-5.1); Sodium 136 mmol/L (136-145)
[2024-03-24] MEDS ORDERED: Phytonadione 10 MG/ML AMP ONE (07:36)
[2024-03-24] MEDS ORDERED: Ondansetron PF 4 MG/2 ML Vial IVP PRN (07:45)
[2024-03-24] MEDS ORDERED: Glucagon 1 MG/ML KIT IM PRN (07:45)
[2024-03-24] MEDS ORDERED: hydrALAZINE 20 MG/ML VIAL SLOW IVP PRN (07:45)
[2024-03-24] MEDS ORDERED: Dextrose 50% Abboject 50 ML SYRINGE SLOW IVP PRN (07:45)
[2024-03-24] MEDS ORDERED: Dextrose 5% in Water 1,000 ML IV PRN (07:45)
[2024-03-24] MEDS ORDERED: Ipratropium/Albuterol 3 ML NEB NEB PRN (07:45)
[2024-03-24] MEDS: Acetaminophen 325 MG TAB PO PRN (08:00)
[2024-03-24] MEDS ORDERED: Acetaminophen 325 MG TAB ONE (08:37)
[2024-03-24] MEDS ORDERED: Sodium Chloride 0.9% 100 ML ONE (09:18)
[2024-03-24] MEDS ORDERED: Cefepime 2 GM VIAL ONE (09:18)
[2024-03-24] MEDS: Cefepime 2 GM in Sodium Chloride 0.9% 100 ML IVPB SCH (09:27)
[2024-03-24] MEDS: Morphine ER 15 MG TAB PO SCH ×2 (10:02→20:26)
[2024-03-24] MEDS: Sodium Chloride 0.9% 1,000 ML IV SCH (10:03)
[2024-03-24] MEDS: LevoFLOXacin 750 mg/D5W 750 MG in Premix 1 BAG IVPB SCH (11:41)
[2024-03-24] MEDS ORDERED: Iopamidol-370 76% 500 ML MDV (1 ML CHARGE) ONE (12:51)
[2024-03-24] MEDS: NOREPINEPHRINE 8 MG/250 ML-D5W 250 ML IVPB SCH (13:33)
[2024-03-24 14:55] LABS: INR-International Normal Ratio 2.3; Prothrombin Time 25.3 sec (12.0-14.7)
[2024-03-24 14:56] LABS: PTT 58.5 sec (22.9-36.1)
[2024-03-24] MEDS: Morphine 4 MG/ML VIAL SLOW IVP PRN (16:24)
[2024-03-24] MEDS: traMADol HCl 50 MG TAB PO PRN (20:25)
[2024-03-25 04:31] LABS: #Basophils 0.04 10x3/uL (0.0-0.2); %Basophils 0.2 % (0.0-1.0); %Eosinophils 0.2 % (0.0-10.0); %Neutrophils 90.9 % (42.0-75.0); Hematocrit 29.5 % (42.0-52.0); Hemoglobin 9.5 g/dL (14.0-18.0); Mean Corpuscular HGB CONC 32.2 g/dL (32.0-36.0); Mean Corpuscular Volume 80.8 fL (78.0-98.0); Platelet Count 480 10x3/uL (130-400); RBC Distribution Width 14.1 % (11.5-14.5); Red Blood Cell (RBC) Count 3.65 mill/uL (4.70-6.10)
[2024-03-25 04:44] LABS: INR-International Normal Ratio 1.9; Prothrombin Time 21.7 sec (12.0-14.7)
[2024-03-25 04:48] LABS: Anion Gap 12 mmol/L (10-20); BUN (Urea Nitrogen) 26 mg/dL (8.4-25.7); Calc. Creatinine Clearance 63 mL/min (70-130); Calcium 7.9 mg/dL (7.8-10.44); Carbon Dioxide 16 mmol/L (23-31); Chloride 114 mmol/L (98-107); Estimated GFR 76; Glucose 89 mg/dL (80-115); Potassium 3.6 mmol/L (3.5-5.1); Sodium 138 mmol/L (136-145)
[2024-03-25 12:21] LABS: Fluid, pH - Pleural Fld Less than 7.000 (7.60 - 7.66)
[2024-03-25 13:40] LABS: RBC Count-Automated (BF) 30129 /cu.mm; WBC/Nucleated-Auto (BF) 9429 /cu.mm
[2024-03-25 13:42] LABS: BF Color Red; Body Fluid Source Thoracentesis Fluid; Clarity Hazy (Clear); Tube # EDTA
[2024-03-25 13:48] LABS: Pleural Fluid, Glucose Less than 20 mg/dL; Pleural Fluid, LDH 844 U/L (Not Available); Pleural Fluid, Protein 4.2 g/dL
[2024-03-25 13:58] LABS: BF Segmented Neutrophils 88 %; Cell Count Non Hematic 7 %; Lymphocytes 5 %
[2024-03-25] MEDS: Lidocaine 1% (PF) 30 ML VIAL ONE (14:14)
[2024-03-25] MEDS ORDERED: Amiodarone 150 MG in Dextrose 5% in Water 100 ML IVPB SCH (20:15)
[2024-03-25] MEDS: Gabapentin 400 MG CAP PO SCH (20:23)
[2024-03-25] MEDS: Oxybutynin 5 MG TAB PO SCH (20:23)
[2024-03-25] MEDS: Tamsulosin HCl 0.4 MG CAP PO SCH (20:23)
[2024-03-25] MEDS: Enoxaparin 40 MG (0.4 mL) SYRINGE SC SCH (20:23)
[2024-03-25] MEDS: Morphine ER 30 MG TAB PO SCH (20:23)
[2024-03-25] MEDS ORDERED: Amiodarone 450 MG in Dextrose 5% in Water 250 ML IVPB SCH (20:30)
[2024-03-25] MEDS: Amiodarone 150 MG in Dextrose 5% in Water 100 ML IVPB SCH (20:36)
[2024-03-25] MEDS: Amiodarone 450 MG in Dextrose 5% in Water 250 ML IVPB SCH (20:58)
[2024-03-25 21:40] LABS: Troponin I Less than 0.010 ng/mL (< 0.028)
[2024-03-26] MEDS ORDERED: Electrolyte Replacement Protocol 1 EACH FS SCH (00:02)
[2024-03-26 06:45] LABS: #Basophils 0.04 10x3/uL (0.0-0.2); %Basophils 0.2 % (0.0-1.0); %Eosinophils 1.1 % (0.0-10.0); %Lymphocytes 4.2 % (21.0-51.0); %Neutrophils 88.8 % (42.0-75.0); Hematocrit 29.1 % (42.0-52.0); Hemoglobin 9.4 g/dL (14.0-18.0); Mean Corpuscular HGB CONC 32.3 g/dL (32.0-36.0); Mean Corpuscular Hemoglobin 26.2 pg (27.0-31.0); Mean Corpuscular Volume 81.1 fL (78.0-98.0); Platelet Count 451 10x3/uL (130-400); RBC Distribution Width 14.1 % (11.5-14.5); Red Blood Cell (RBC) Count 3.59 mill/uL (4.70-6.10)
[2024-03-26 07:31] LABS: Anion Gap 11 mmol/L (10-20); BUN (Urea Nitrogen) 21 mg/dL (8.4-25.7); Calc. Creatinine Clearance 125 mL/min (70-130); Calcium 8.5 mg/dL (7.8-10.44); Carbon Dioxide 19 mmol/L (23-31); Chloride 112 mmol/L (98-107); Estimated GFR 96; Glucose 127 mg/dL (80-115); Magnesium 2.1 mg/dL (1.6-2.6); Potassium 3.5 mmol/L (3.5-5.1); Sodium 138 mmol/L (136-145)
[2024-03-26] MEDS: Lisinopril 10 MG TAB PO SCH (08:36)
[2024-03-26] MEDS: Topiramate 100 MG TAB PO SCH (08:39)
[2024-03-26] MEDS: LevoFLOXacin 750 mg/D5W 750 MG in Premix 1 BAG IVPB SCH (09:28)
[2024-03-26] MEDS: Potassium Chloride 20 MEQ TAB PO SCH (12:21)
[2024-03-26 20:17] LABS: Potassium 3.7 mmol/L (3.5-5.1)
[2024-03-27 04:35] LABS: #Basophils 0.03 10x3/uL (0.0-0.2); %Basophils 0.2 % (0.0-1.0); %Eosinophils 2.4 % (0.0-10.0); %Lymphocytes 7.1 % (21.0-51.0); %Monocytes 6.4 % (0.0-10.0); %Neutrophils 82.5 % (42.0-75.0); Hematocrit 26.7 % (42.0-52.0); Hemoglobin 8.6 g/dL (14.0-18.0); Mean Corpuscular HGB CONC 32.2 g/dL (32.0-36.0); Mean Corpuscular Hemoglobin 26.1 pg (27.0-31.0); Mean Corpuscular Volume 80.9 fL (78.0-98.0); Mean Platelet Volume 8.2 fL (7.4-10.4); Platelet Count 428 10x3/uL (130-400); RBC Distribution Width 14.3 % (11.5-14.5)
[2024-03-27 04:57] LABS: Anion Gap 10 mmol/L (10-20); BUN (Urea Nitrogen) 16 mg/dL (8.4-25.7); Calc. Creatinine Clearance 139 mL/min (70-130); Calcium 8.2 mg/dL (7.8-10.44); Carbon Dioxide 17 mmol/L (23-31); Chloride 110 mmol/L (98-107); Estimated GFR 99; Glucose 94 mg/dL (80-115); Magnesium 1.9 mg/dL (1.6-2.6); Potassium 3.6 mmol/L (3.5-5.1); Sodium 133 mmol/L (136-145)
[2024-03-27 07:28] LABS: INR-International Normal Ratio 1.8; Prothrombin Time 20.8 sec (12.0-14.7)
[2024-03-27] MEDS: Magnesium 2 GM/50 ML(in water) 2 GM in Premix 1 BAG IVPB SCH (17:20)
[2024-03-27] MEDS: Cefepime 2 GM in Sodium Chloride 0.9% 100 ML IVPB SCH (17:21)
[2024-03-27] MEDS: LevoFLOXacin 750 mg/D5W 750 MG in Premix 1 BAG IVPB SCH (18:01)
[2024-03-27] MEDS: Furosemide 100 MG (10 mL) VIAL SLOW IVP SCH (18:02)
[2024-03-27] MEDS: Furosemide 40 MG (4 mL) VIAL ONE (18:03)
[2024-03-27] MEDS: Amiodarone 200 MG TAB PO SCH (20:47)
[2024-03-28 04:18] LABS: #Basophils 0.06 10x3/uL (0.0-0.2); %Basophils 0.3 % (0.0-1.0); %Eosinophils 2.6 % (0.0-10.0); %Lymphocytes 7.7 % (21.0-51.0); %Monocytes 7.2 % (0.0-10.0); Hematocrit 28.9 % (42.0-52.0); Hemoglobin 9.5 g/dL (14.0-18.0); Mean Corpuscular HGB CONC 32.9 g/dL (32.0-36.0); Mean Corpuscular Hemoglobin 25.6 pg (27.0-31.0); Mean Corpuscular Volume 77.9 fL (78.0-98.0); Mean Platelet Volume 8.3 fL (7.4-10.4); Platelet Count 517 10x3/uL (130-400); RBC Distribution Width 14.2 % (11.5-14.5); Red Blood Cell (RBC) Count 3.71 mill/uL (4.70-6.10)
[2024-03-28 04:27] LABS: Anion Gap 13 mmol/L (10-20); BUN (Urea Nitrogen) 15 mg/dL (8.4-25.7); Calc. Creatinine Clearance 127 mL/min (70-130); Calcium 8.2 mg/dL (7.8-10.44); Carbon Dioxide 24 mmol/L (23-31); Chloride 102 mmol/L (98-107); Estimated GFR 96; Glucose 91 mg/dL (80-115); Potassium 3.3 mmol/L (3.5-5.1); Sodium 136 mmol/L (136-145)
[2024-03-28 06:10] LABS: INR-International Normal Ratio 1.7
[2024-03-28] MEDS: Furosemide 40 MG (4 mL) VIAL SLOW IVP SCH (06:50)
[2024-03-28] MEDS: Potassium Chloride 20 MEQ TAB PO SCH (08:10)
[2024-03-29 05:45] LABS: #Basophils 0.07 10x3/uL (0.0-0.2); %Basophils 0.4 % (0.0-1.0); %Eosinophils 3.1 % (0.0-10.0); %Lymphocytes 8.9 % (21.0-51.0); %Neutrophils 75.2 % (42.0-75.0); Hematocrit 29.6 % (42.0-52.0); Hemoglobin 9.5 g/dL (14.0-18.0); Mean Corpuscular HGB CONC 32.1 g/dL (32.0-36.0); Mean Corpuscular Hemoglobin 25.5 pg (27.0-31.0); Mean Corpuscular Volume 79.4 fL (78.0-98.0); Mean Platelet Volume 8.3 fL (7.4-10.4); Platelet Count 506 10x3/uL (130-400); RBC Distribution Width 14.4 % (11.5-14.5); Red Blood Cell (RBC) Count 3.73 mill/uL (4.70-6.10)
[2024-03-29 06:02] LABS: INR-International Normal Ratio 1.7; Prothrombin Time 19.8 sec (12.0-14.7)
[2024-03-29] MEDS ORDERED: fentaNYL 50 mcg/mL 1 mL Vial ONE ×5 (10:54→16:15)
[2024-03-29] MEDS ORDERED: EPINEPHrine 1 MG/ML VIAL ONE (11:34)
[2024-03-29] MEDS ORDERED: Bupivacaine 0.25% HCL 30 ML VIAL ONE (11:35)
[2024-03-29] MEDS ORDERED: Lidocaine 2% PF 100 mg/5 ml Syringe ONE (11:43)
[2024-03-29] MEDS ORDERED: Rocuronium Bromide 10 MG/ML (10ML VIAL) ONE (11:43)
[2024-03-29] MEDS ORDERED: PROPOFOL 20 ML ONE (11:44)
[2024-03-29] MEDS ORDERED: Ondansetron PF 4 MG/2 ML Vial ONE (11:44)
[2024-03-29] MEDS ORDERED: Dexamethasone 20 MG/5 ML VIAL ONE (11:44)
[2024-03-29] MEDS ORDERED: Fentanyl 250 MCG/5 ML VIAL ONE (11:44)
[2024-03-29] MEDS ORDERED: Phenylephrine 40 MG/NS 250 ML 250 ML ONE (11:50)
[2024-03-29] MEDS ORDERED: PHENYLEPHRINE-NS 100 MCG/ML 10 ML SYRINGE ONE ×2 (12:29→14:30)
[2024-03-29] MEDS ORDERED: ePHEDrine Sulfate 50 MG/10 ML VIAL ONE (13:26)
[2024-03-29] MEDS ORDERED: SUGAMMADEX SODIUM 200 MG/2 ML VIAL ONE (13:56)
[2024-03-29] MEDS ORDERED: traMADol HCl 50 MG TAB PO PRN (14:10)
[2024-03-29] MEDS ORDERED: fentaNYL 50 mcg/mL 1 mL Vial SLOW IVP PRN (14:10)
[2024-03-29] MEDS ORDERED: Insulin Regular, Human 100 UNIT/ML 10 ML VIAL SC PRN (14:10)
[2024-03-29] MEDS ORDERED: Morphine 4 MG/ML VIAL SLOW IVP PRN (14:10)
[2024-03-29] MEDS ORDERED: Ondansetron PF 4 MG/2 ML Vial IVP PRN (14:10)
[2024-03-29] MEDS ORDERED: Promethazine HCl 25 MG/ML VIAL IM PRN ×2 (14:10→14:40)
[2024-03-29] MEDS ORDERED: HYDROmorphone 2 MG/ML VIAL SLOW IVP PRN (14:40)
[2024-03-29] MEDS ORDERED: Ondansetron HCl/PF 4 MG/2 ML Vial IVP PRN (14:40)
[2024-03-29] MEDS ORDERED: HYDROmorphone 0.5 MG/0.5 ML SYRINGE ONE ×2 (14:42→15:08)
[2024-03-29] MEDS ORDERED: Promethazine HCl 25 MG/ML VIAL ONE (15:21)
[2024-03-29] MEDS: Ipratropium/Albuterol 3 ML NEB NEB SCH (19:38)
[2024-03-30] MEDS: HYDROcodone/Acetaminophen 5/325 mg Tablet PO PRN (02:23)
[2024-03-30 05:48] LABS: #Basophils 0.03 10x3/uL (0.0-0.2); #Eosinophils Less than 0.03 10x3/uL (0.0-0.7); %Basophils 0.1 % (0.0-1.0); %Lymphocytes 3.9 % (21.0-51.0); %Monocytes 3.4 % (0.0-10.0); %Neutrophils 90.9 % (42.0-75.0); Hematocrit 30.4 % (42.0-52.0); Hemoglobin 9.5 g/dL (14.0-18.0); Mean Corpuscular HGB CONC 31.3 g/dL (32.0-36.0); Mean Corpuscular Hemoglobin 25.1 pg (27.0-31.0); Mean Corpuscular Volume 80.4 fL (78.0-98.0); Mean Platelet Volume 8.4 fL (7.4-10.4); Platelet Count 539 10x3/uL (130-400); RBC Distribution Width 14.3 % (11.5-14.5); Red Blood Cell (RBC) Count 3.78 mill/uL (4.70-6.10)
[2024-03-30 06:03] LABS: INR-International Normal Ratio 1.5; Prothrombin Time 17.8 sec (12.0-14.7)
[2024-03-30 06:27] LABS: Anion Gap 12 mmol/L (10-20); BUN (Urea Nitrogen) 20 mg/dL (8.4-25.7); Calc. Creatinine Clearance 135 mL/min (70-130); Calcium 8.2 mg/dL (7.8-10.44); Carbon Dioxide 24 mmol/L (23-31); Chloride 103 mmol/L (98-107); Estimated GFR 98; Glucose 130 mg/dL (80-115); Potassium 4.1 mmol/L (3.5-5.1); Sodium 135 mmol/L (136-145)
[2024-03-30] MEDS: Transdermal Patch Removal TOP SCH (07:58)
[2024-03-30] MEDS: Lidocaine 4% Patch TD SCH (16:38)
[2024-03-31] MEDS: Calcium Carbonate 500 MG ChewTAB PO PRN (00:22)
[2024-03-31 06:31] LABS: #Basophils 0.04 10x3/uL (0.0-0.2); %Basophils 0.2 % (0.0-1.0); %Eosinophils 0.4 % (0.0-10.0); %Lymphocytes 7.6 % (21.0-51.0); %Monocytes 5.4 % (0.0-10.0); %Neutrophils 83.6 % (42.0-75.0); Hematocrit 32.5 % (42.0-52.0); Hemoglobin 10.2 g/dL (14.0-18.0); Mean Corpuscular HGB CONC 31.4 g/dL (32.0-36.0); Mean Corpuscular Hemoglobin 25.5 pg (27.0-31.0); Mean Corpuscular Volume 81.3 fL (78.0-98.0); Mean Platelet Volume 8.4 fL (7.4-10.4); Platelet Count 551 10x3/uL (130-400); RBC Distribution Width 14.4 % (11.5-14.5)
[2024-03-31 06:45] LABS: INR-International Normal Ratio 1.4; Prothrombin Time 17.4 sec (12.0-14.7)
[2024-03-31] MEDS: guaiFENesin/DM ER PO SCH (08:38)
[2024-03-31] MEDS: Torsemide 20 MG TAB PO SCH (08:39)
[2024-03-31] MEDS ORDERED: VANCOMYCIN IVPB PRN (08:55)
[2024-03-31] MEDS ORDERED: Vancomycin 1 GM in Sodium Chloride 0.9% 250 ML 250 ML IVPB SCH (09:00)
[2024-03-31] MEDS: Vancomycin (BATCH) 2.5 GM in Premix 1 BAG IVPB SCH (10:20)
[2024-03-31] MEDS ORDERED: Sodium Chloride 0.9% 500 ML BAG (BAXTER) ONE (10:53)
[2024-03-31] MEDS ORDERED: Vancomycin (BATCH) 2.5 GM/500 ML BAG ONE (10:53)
[2024-03-31] MEDS: Linezolid 600 MG in Premix 1 BAG IVPB SCH ×2 (12:51→23:18)
[2024-03-31] MEDS ORDERED: VANCOMYCIN 1.25 GM/250 ML BAG 1.25 GM in Premix 1 BAG IVPB SCH (22:00)
[2024-04-01 04:13] LABS: #Basophils 0.05 10x3/uL (0.0-0.2); %Basophils 0.2 % (0.0-1.0); %Eosinophils 0.5 % (0.0-10.0); %Lymphocytes 6.8 % (21.0-51.0); %Monocytes 6.9 % (0.0-10.0); %Neutrophils 82.7 % (42.0-75.0); Hematocrit 29.1 % (42.0-52.0); Mean Corpuscular HGB CONC 30.9 g/dL (32.0-36.0); Mean Corpuscular Hemoglobin 25.6 pg (27.0-31.0); Mean Corpuscular Volume 82.7 fL (78.0-98.0); Mean Platelet Volume 8.6 fL (7.4-10.4); Platelet Count 582 10x3/uL (130-400); RBC Distribution Width 14.6 % (11.5-14.5); Red Blood Cell (RBC) Count 3.52 mill/uL (4.70-6.10)
[2024-04-01 04:24] LABS: INR-International Normal Ratio 1.5; Prothrombin Time 18.2 sec (12.0-14.7)
[2024-04-01] MEDS: Lactated Ringer's 500 ML IV SCH ×2 (13:22→14:24)
[2024-04-02] MEDS: Cyclobenzaprine 10 MG TAB PO PRN (00:18)
[2024-04-02 05:18] LABS: #Basophils 0.06 10x3/uL (0.0-0.2); %Basophils 0.3 % (0.0-1.0); %Eosinophils 1.2 % (0.0-10.0); %Monocytes 4.9 % (0.0-10.0); %Neutrophils 84.1 % (42.0-75.0); Hematocrit 27.3 % (42.0-52.0); Hemoglobin 8.6 g/dL (14.0-18.0); Mean Corpuscular HGB CONC 31.5 g/dL (32.0-36.0); Mean Corpuscular Hemoglobin 25.5 pg (27.0-31.0); Mean Platelet Volume 8.4 fL (7.4-10.4); Platelet Count 535 10x3/uL (130-400); RBC Distribution Width 14.6 % (11.5-14.5); Red Blood Cell (RBC) Count 3.37 mill/uL (4.70-6.10)
[2024-04-02 05:31] LABS: INR-International Normal Ratio 1.4
[2024-04-02 05:41] LABS: Anion Gap 13 mmol/L (10-20); BUN (Urea Nitrogen) 44 mg/dL (8.4-25.7); Calc. Creatinine Clearance 69 mL/min (70-130); Calcium 8.2 mg/dL (7.8-10.44); Carbon Dioxide 24 mmol/L (23-31); Chloride 99 mmol/L (98-107); Estimated GFR 53; Glucose 109 mg/dL (80-115); Magnesium 2.1 mg/dL (1.6-2.6); Potassium 3.9 mmol/L (3.5-5.1); Sodium 132 mmol/L (136-145)
[2024-04-03 05:45] LABS: #Basophils 0.05 10x3/uL (0.0-0.2); %Basophils 0.3 % (0.0-1.0); %Eosinophils 1.4 % (0.0-10.0); %Lymphocytes 9.2 % (21.0-51.0); %Monocytes 4.6 % (0.0-10.0); %Neutrophils 82.7 % (42.0-75.0); Hematocrit 25.4 % (42.0-52.0); Mean Corpuscular HGB CONC 31.5 g/dL (32.0-36.0); Mean Corpuscular Hemoglobin 25.5 pg (27.0-31.0); Mean Corpuscular Volume 80.9 fL (78.0-98.0); Mean Platelet Volume 8.3 fL (7.4-10.4); Platelet Count 595 10x3/uL (130-400); RBC Distribution Width 14.6 % (11.5-14.5); Red Blood Cell (RBC) Count 3.14 mill/uL (4.70-6.10)
[2024-04-03 05:59] LABS: INR-International Normal Ratio 1.3; Prothrombin Time 16.6 sec (12.0-14.7)
[2024-04-03 06:25] LABS: Anion Gap 9 mmol/L (10-20); BUN (Urea Nitrogen) 44 mg/dL (8.4-25.7); Calc. Creatinine Clearance 82 mL/min (70-130); Calcium 8.4 mg/dL (7.8-10.44); Carbon Dioxide 24 mmol/L (23-31); Chloride 103 mmol/L (98-107); Estimated GFR 66; Glucose 87 mg/dL (80-115); Magnesium 2.3 mg/dL (1.6-2.6); Sodium 132 mmol/L (136-145)
[2024-04-03 21:53] VITALS: BMI 32.6
[2024-04-04 05:41] LABS: #Basophils 0.05 10x3/uL (0.0-0.2); %Basophils 0.3 % (0.0-1.0); %Eosinophils 1.7 % (0.0-10.0); %Monocytes 4.7 % (0.0-10.0); %Neutrophils 82.2 % (42.0-75.0); Hematocrit 25.7 % (42.0-52.0); Mean Corpuscular HGB CONC 31.1 g/dL (32.0-36.0); Mean Corpuscular Hemoglobin 25.3 pg (27.0-31.0); Mean Corpuscular Volume 81.3 fL (78.0-98.0); Mean Platelet Volume 8.1 fL (7.4-10.4); Platelet Count 611 10x3/uL (130-400); RBC Distribution Width 14.5 % (11.5-14.5); Red Blood Cell (RBC) Count 3.16 mill/uL (4.70-6.10)
[2024-04-04 05:53] LABS: INR-International Normal Ratio 1.4; Prothrombin Time 17.2 sec (12.0-14.7)
[2024-04-04 06:02] LABS: Anion Gap 11 mmol/L (10-20); BUN (Urea Nitrogen) 29 mg/dL (8.4-25.7); Calc. Creatinine Clearance 96 mL/min (70-130); Calcium 8.4 mg/dL (7.8-10.44); Carbon Dioxide 23 mmol/L (23-31); Chloride 105 mmol/L (98-107); Estimated GFR 81; Glucose 85 mg/dL (80-115); Magnesium 2.2 mg/dL (1.6-2.6); Potassium 4.2 mmol/L (3.5-5.1); Sodium 135 mmol/L (136-145)
[2024-04-04 08:20] LABS: HBsAg Index 0.32 S/CO (0-0.99); HIV (1/2) Antibody/Antigen NONREACTIVE (NonReactive); HIV 1/2 INDEX 0.06 S/CO (<1.00); Hep B Surf Ag NONREACTIVE S/CO (NonReactive); Hep C IgG Ab NONREACTIVE S/CO (NonReactive); Hep C Index 0.09 S/CO (0-0.79)
[2024-04-04] MEDS: Linezolid 600 MG TAB PO SCH (11:02)
[2024-04-04] MEDS: Morphine ER 30 MG TAB PO SCH (20:42)
[2024-04-05 06:21] LABS: INR-International Normal Ratio 1.3; Prothrombin Time 15.9 sec (12.0-14.7)
[2024-04-05 09:08] LABS: #Basophils 0.05 10x3/uL (0.0-0.2); %Basophils 0.5 % (0.0-1.0); %Eosinophils 1.4 % (0.0-10.0); %Lymphocytes 11.6 % (21.0-51.0); %Monocytes 4.9 % (0.0-10.0); %Neutrophils 80.5 % (42.0-75.0); Hematocrit 25.1 % (42.0-52.0); Hemoglobin 7.8 g/dL (14.0-18.0); Mean Corpuscular HGB CONC 31.1 g/dL (32.0-36.0); Mean Corpuscular Hemoglobin 25.4 pg (27.0-31.0); Mean Corpuscular Volume 81.8 fL (78.0-98.0); Mean Platelet Volume 8.1 fL (7.4-10.4); Platelet Count 570 10x3/uL (130-400); RBC Distribution Width 14.2 % (11.5-14.5); Red Blood Cell (RBC) Count 3.07 mill/uL (4.70-6.10)
[2024-04-05 09:34] LABS: Anion Gap 10 mmol/L (10-20); BUN (Urea Nitrogen) 22 mg/dL (8.4-25.7); Calc. Creatinine Clearance 120 mL/min (70-130); Calcium 8.5 mg/dL (7.8-10.44); Carbon Dioxide 23 mmol/L (23-31); Chloride 104 mmol/L (98-107); Estimated GFR 98; Glucose 90 mg/dL (80-115); Sodium 133 mmol/L (136-145)
[2024-04-06 05:18] LABS: #Basophils 0.04 10x3/uL (0.0-0.2); %Basophils 0.4 % (0.0-1.0); %Eosinophils 0.9 % (0.0-10.0); %Lymphocytes 12.9 % (21.0-51.0); %Monocytes 5.1 % (0.0-10.0); %Neutrophils 79.6 % (42.0-75.0); Hematocrit 25.8 % (42.0-52.0); Hemoglobin 8.2 g/dL (14.0-18.0); Mean Corpuscular HGB CONC 31.8 g/dL (32.0-36.0); Mean Corpuscular Hemoglobin 25.4 pg (27.0-31.0); Mean Corpuscular Volume 79.9 fL (78.0-98.0); Mean Platelet Volume 8.1 fL (7.4-10.4); Platelet Count 617 10x3/uL (130-400); RBC Distribution Width 14.2 % (11.5-14.5); Red Blood Cell (RBC) Count 3.23 mill/uL (4.70-6.10)
[2024-04-06 05:34] LABS: INR-International Normal Ratio 1.3
[2024-04-06 05:39] LABS: Anion Gap 13 mmol/L (10-20); BUN (Urea Nitrogen) 16 mg/dL (8.4-25.7); Calc. Creatinine Clearance 117 mL/min (70-130); Calcium 8.7 mg/dL (7.8-10.44); Carbon Dioxide 21 mmol/L (23-31); Chloride 104 mmol/L (98-107); Estimated GFR 97; Glucose 86 mg/dL (80-115); Potassium 4.2 mmol/L (3.5-5.1); Sodium 134 mmol/L (136-145)
[2024-04-07 04:07] LABS: #Basophils 0.03 10x3/uL (0.0-0.2); #Eosinophils Less than 0.03 10x3/uL (0.0-0.7); %Basophils 0.4 % (0.0-1.0); %Eosinophils 0.1 % (0.0-10.0); %Lymphocytes 12.7 % (21.0-51.0); %Monocytes 4.7 % (0.0-10.0); %Neutrophils 81.5 % (42.0-75.0); Hematocrit 26.3 % (42.0-52.0); Hemoglobin 8.3 g/dL (14.0-18.0); Mean Corpuscular HGB CONC 31.6 g/dL (32.0-36.0); Mean Corpuscular Hemoglobin 25.2 pg (27.0-31.0); Mean Corpuscular Volume 79.9 fL (78.0-98.0); Platelet Count 575 10x3/uL (130-400); RBC Distribution Width 14.1 % (11.5-14.5); Red Blood Cell (RBC) Count 3.29 mill/uL (4.70-6.10)
[2024-04-07 04:17] LABS: INR-International Normal Ratio 1.4; Prothrombin Time 16.9 sec (12.0-14.7)
[2024-04-07 04:42] LABS: Anion Gap 15 mmol/L (10-20); BUN (Urea Nitrogen) 19 mg/dL (8.4-25.7); Calc. Creatinine Clearance 123 mL/min (70-130); Calcium 8.6 mg/dL (7.8-10.44); Carbon Dioxide 18 mmol/L (23-31); Chloride 108 mmol/L (98-107); Estimated GFR 99; Glucose 83 mg/dL (80-115); Potassium 3.6 mmol/L (3.5-5.1); Sodium 137 mmol/L (136-145)
[2024-04-07] MEDS: Lisinopril 10 MG TAB PO SCH (09:38)
[2024-04-07] MEDS: Apixaban 5 MG TAB PO SCH (09:38)
[2024-04-08 03:50] LABS: #Basophils 0.03 10x3/uL (0.0-0.2); %Basophils 0.4 % (0.0-1.0); %Eosinophils 0.6 % (0.0-10.0); %Lymphocytes 19.1 % (21.0-51.0); %Monocytes 7.9 % (0.0-10.0); %Neutrophils 71.3 % (42.0-75.0); Hematocrit 27.3 % (42.0-52.0); Hemoglobin 8.5 g/dL (14.0-18.0); Mean Corpuscular HGB CONC 31.1 g/dL (32.0-36.0); Mean Corpuscular Hemoglobin 24.9 pg (27.0-31.0); Mean Corpuscular Volume 79.8 fL (78.0-98.0); Platelet Count 461 10x3/uL (130-400); RBC Distribution Width 14.2 % (11.5-14.5); Red Blood Cell (RBC) Count 3.42 mill/uL (4.70-6.10)
[2024-04-08 04:02] LABS: INR-International Normal Ratio 1.8; Prothrombin Time 21.3 sec (12.0-14.7)
[2024-04-08 04:34] LABS: Anion Gap 13 mmol/L (10-20); BUN (Urea Nitrogen) 22 mg/dL (8.4-25.7); Calc. Creatinine Clearance 112 mL/min (70-130); Calcium 8.8 mg/dL (7.8-10.44); Carbon Dioxide 20 mmol/L (23-31); Chloride 109 mmol/L (98-107); Estimated GFR 96; Glucose 91 mg/dL (80-115); Potassium 4.4 mmol/L (3.5-5.1); Sodium 138 mmol/L (136-145)
[2024-04-08 05:41] VITALS: BMI 31.7
[2024-04-08 08:35] VITALS: TEMP 97.7
[2024-04-08 09:48] VITALS: BP 139/86
== END 2024-04-08 11:51 | DRG 853 ==
LOC: ERS 04:35 → ERHOLD 06:55 → CCU 10:11 → PCU 03-26 17:12
PROVIDERS: ADMIT Surgery; ATTEND Surgery
PROC: 30233K1 Transfusion of Nonautologous Frozen Plasma into Peripheral Vein, Percutaneous Approach (ICD-10-PCS; principal; 2024-03-24)
PROC: 30233N1 Transfusion of Nonautologous Red Blood Cells into Peripheral Vein, Percutaneous Approach (ICD-10-PCS; 2024-03-24)
PROC: 0W9B3ZZ Drainage of Left Pleural Cavity, Percutaneous Approach (ICD-10-PCS; 2024-03-25)
PROC: 0BNJ4ZZ Release Left Lower Lung Lobe, Percutaneous Endoscopic Approach (ICD-10-PCS; 2024-03-29)
PROC: 0B9 Respiratory System, Drainage (ICD-10-PCS; 2024-03-29)
PROC: 3E033XZ Introduction of Vasopressor into Peripheral Vein, Percutaneous Approach (ICD-10-PCS; 2024-04-08)
DX: A41.9 Sepsis, unspecified organism (principal); G93.41 Metabolic encephalopathy; J86.9 Pyothorax without fistula; R65.21 Severe sepsis with septic shock; J18.9 Pneumonia, unspecified organism; J90 Pleural effusion, not elsewhere classified; J98.11 Atelectasis; N17.9 Acute kidney failure, unspecified; E87.20 Acidosis, unspecified; F11.20 Opioid dependence, uncomplicated; E66.2 Morbid (severe) obesity with alveolar hypoventilation; G89.4 Chronic pain syndrome; R79.1 Abnormal coagulation profile; S01.91XA Laceration without foreign body of unspecified part of head, initial encounter; E11.51 Type 2 diabetes mellitus with diabetic peripheral angiopathy without gangrene; W18.30XA Fall on same level, unspecified, initial encounter; N40.0 Benign prostatic hyperplasia without lower urinary tract symptoms; N18.9 Chronic kidney disease, unspecified; D63.1 Anemia in chronic kidney disease; R53.81 Other malaise; K21.9 Gastro-esophageal reflux disease without esophagitis; I12.9 Hypertensive chronic kidney disease with stage 1 through stage 4 chronic kidney disease, or unspecified chronic kidney disease; E11.22 Type 2 diabetes mellitus with diabetic chronic kidney disease; Z86.718 Personal history of other venous thrombosis and embolism; Z79.01 Long term (current) use of anticoagulants; Z86.711 Personal history of pulmonary embolism; Z79.899 Other long term (current) drug therapy; Z68.31 Body mass index [BMI] 31.0-31.9, adult
CPT/HCPCS: 36415; 36416; 36430; 70450; 70486; 71045; 71250; 71260; 72125; 74177; 80048; 80053; 82945; 83605; 83615; 83735; 83986; 84145; 84157; 84484; 85025; 85060; 85610; 85730; 86803; 86850; 86900; 86901; 87040; 87070; 87077; 87081; 87186; 87205; 87340; 87389; 87428; 88112; 88305; 89051; 93005; 93010; 94640; 94760; 96374; 96375; J0171; J0282; J0665; J0692; J1100; J1171; J1650; J1940; J1956; J2003; J2020; J2270; J2405; J2550; J2704; J3010; J3370; J3430; J3475; J7030; J7070; J7620; P9016; P9059; Q9967

== ENCOUNTER 2024-04-17 10:39 | Inpatient (IN) | payer MEDICARE ==
[2024-04-17] MEDS ORDERED: Sodium Chloride 0.9% 100 ML ONE (11:55)
[2024-04-17] MEDS ORDERED: Cefepime 2 GM VIAL ONE (11:55)
[2024-04-17 11:57] LABS: #Basophils 0.04 10x3/uL (0.0-0.2); %Basophils 0.4 % (0.0-1.0); %Eosinophils 4.9 % (0.0-10.0); %Lymphocytes 12.1 % (21.0-51.0); %Monocytes 4.4 % (0.0-10.0); %Neutrophils 77.8 % (42.0-75.0); Hematocrit 27.1 % (42.0-52.0); Hemoglobin 8.6 g/dL (14.0-18.0); Mean Corpuscular HGB CONC 31.7 g/dL (32.0-36.0); Mean Corpuscular Hemoglobin 25.6 pg (27.0-31.0); Mean Corpuscular Volume 80.7 fL (78.0-98.0); Mean Platelet Volume 8.5 fL (7.4-10.4); Platelet Count 251 10x3/uL (130-400); RBC Distribution Width 15.7 % (11.5-14.5); Red Blood Cell (RBC) Count 3.36 mill/uL (4.70-6.10)
[2024-04-17 12:10] LABS: INR-International Normal Ratio 2.3; Prothrombin Time 25.3 sec (12.0-14.7)
[2024-04-17 12:11] LABS: PTT 59.9 sec (22.9-36.1)
[2024-04-17 12:19] LABS: ALT (SGPT) 15 U/L (Less than 45); AST (SGOT) 48 U/L (11-34); Albumin 2.8 g/dL (3.1-4.5); Alkaline Phosphatase 109 U/L (40-110); Anion Gap 18 mmol/L (10-20); BUN (Urea Nitrogen) 82 mg/dL (8.4-25.7); Bilirubin, Total 0.4 mg/dL (0.3-1.2); Calc. Creatinine Clearance 0 mL/min (70-130); Calcium 8.6 mg/dL (7.8-10.44); Carbon Dioxide 16 mmol/L (23-31); Chloride 100 mmol/L (98-107); Estimated GFR 14; Globulin 4.7 g/dL (2.4-3.5); Glucose 79 mg/dL (80-115); Magnesium 2.2 mg/dL (1.6-2.6); Potassium 5.4 mmol/L (3.5-5.1); Protein, Total 7.5 g/dL (5.8-8.1); Sodium 129 mmol/L (136-145)
[2024-04-17 12:23] LABS: Troponin I Less than 0.010 ng/mL (< 0.028)
[2024-04-17 14:44] LABS: Bilirubin Negative (Negative); Blood, Urine Negative (Negative); CAUTI Indications for Culture Alt mental st,lethar; Clarity Clear (Clear); Glucose, Urine (Dipstick) Normal (Negative); Ketone, Urine Negative (Negative); Leukocyte Negative Leu/uL (Negative); Nitrite Negative (Negative); Protein, Urine (Dipstick) Negative (Neg-Trace); RBC/HPF 0-3 HPF (0-3); Specific Gravity, Urine 1.014 (1.002-1.036); Squamous Epithelial None Seen HPF (0-3); Urobilinogen Normal mg/dL (Less than 2); WBC/HPF 0-3 HPF (0-3)
[2024-04-17 14:46] LABS: Bacteria/HPF 1+ HPF (None Seen)
[2024-04-17 14:48] LABS: Urine Culture Reflex No No
[2024-04-17] MEDS ORDERED: Dextrose 5% in Water 1,000 ML IV PRN (16:54)
[2024-04-17] MEDS ORDERED: Insulin Lispro 100 UNIT/ML 10 ML VIAL SC PRN (16:54)
[2024-04-17] MEDS ORDERED: Ondansetron ODT 4 MG TAB PO PRN (16:54)
[2024-04-17] MEDS ORDERED: Glucagon 1 MG/ML KIT IM PRN (16:54)
[2024-04-17] MEDS ORDERED: Bisacodyl 10 MG SUPP PR PRN (16:54)
[2024-04-17] MEDS ORDERED: Senokot S 8.6-50 MG TAB PO PRN (16:54)
[2024-04-17] MEDS ORDERED: Ondansetron PF 4 MG/2 ML Vial IVP PRN (16:54)
[2024-04-17] MEDS ORDERED: Bisacodyl 5 MG TAB PO PRN (16:54)
[2024-04-17] MEDS ORDERED: Dextrose 50% Abboject 50 ML SYRINGE SLOW IVP PRN (16:54)
[2024-04-17 17:06] LABS: Lactic Acid 0.74 mmol/L (0.50-2.20)
[2024-04-17] MEDS: Sodium Chloride 0.9% 1,000 ML IV SCH (17:25)
[2024-04-17] MEDS: Fluconazole In NaCl,Iso-Osm 400 MG in Premix 1 BAG IVPB SCH (17:25)
[2024-04-17] MEDS: Piperacillin/Tazobactam 3.375 GM in Sodium Chloride 0.9% 100 ML IVPB SCH ×2 (17:37→22:57)
[2024-04-17] MEDS: Acetaminophen 325 MG TAB PO SCH (17:38)
[2024-04-17] MEDS ORDERED: Piperacillin/Tazobactam 3.375 GM in Sodium Chloride 0.9% 100 ML IVPB SCH (18:00)
[2024-04-17 18:43] VITALS: BMI 27.1
[2024-04-17 19:22] LABS: Phosphorus 6.3 mg/dL (2.5-4.5)
[2024-04-17 19:23] LABS: Anion Gap 16 mmol/L (10-20); BUN (Urea Nitrogen) 78 mg/dL (8.4-25.7); Calc. Creatinine Clearance 25 mL/min (70-130); Calcium 8.3 mg/dL (7.8-10.44); Carbon Dioxide 18 mmol/L (23-31); Chloride 102 mmol/L (98-107); Estimated GFR 18; Glucose 80 mg/dL (80-115); Magnesium 2.1 mg/dL (1.6-2.6); Potassium 5.4 mmol/L (3.5-5.1); Sodium 131 mmol/L (136-145)
[2024-04-17] MEDS: Amiodarone 200 MG TAB PO SCH (22:53)
[2024-04-17] MEDS: Oxybutynin 5 MG TAB PO SCH (22:53)
[2024-04-17] MEDS: Linezolid 600 MG TAB PO SCH (22:54)
[2024-04-17] MEDS: Apixaban 5 MG TAB PO SCH (22:54)
[2024-04-17] MEDS: Tamsulosin HCl 0.4 MG CAP PO SCH (22:54)
[2024-04-17] MEDS: Nystatin/Triamcinolone Ointment 15 GM TUBE TOP SCH (22:54)
[2024-04-18 05:07] LABS: #Basophils Less than 0.03 10x3/uL (0.0-0.2); %Basophils 0.2 % (0.0-1.0); %Lymphocytes 4.3 % (21.0-51.0); %Monocytes 2.7 % (0.0-10.0); %Neutrophils 89.2 % (42.0-75.0); Hematocrit 25.8 % (42.0-52.0); Hemoglobin 8.3 g/dL (14.0-18.0); Mean Corpuscular HGB CONC 32.2 g/dL (32.0-36.0); Mean Corpuscular Hemoglobin 25.7 pg (27.0-31.0); Mean Corpuscular Volume 79.9 fL (78.0-98.0); Mean Platelet Volume 8.6 fL (7.4-10.4); Platelet Count 220 10x3/uL (130-400); RBC Distribution Width 15.7 % (11.5-14.5); Red Blood Cell (RBC) Count 3.23 mill/uL (4.70-6.10)
[2024-04-18 05:17] LABS: Hemoglobin A1c 5.5 % (4.0-6.0)
[2024-04-18 05:19] LABS: Phosphorus 5.2 mg/dL (2.5-4.5)
[2024-04-18 05:20] LABS: Anion Gap 16 mmol/L (10-20); BUN (Urea Nitrogen) 74 mg/dL (8.4-25.7); Calc. Creatinine Clearance 32 mL/min (70-130); Calcium 8.5 mg/dL (7.8-10.44); Carbon Dioxide 17 mmol/L (23-31); Chloride 103 mmol/L (98-107); Estimated GFR 24; Glucose 84 mg/dL (80-115); Potassium 5.3 mmol/L (3.5-5.1); Sodium 131 mmol/L (136-145)
[2024-04-18] MEDS: Famotidine 20 MG TAB PO SCH (08:46)
[2024-04-18] MEDS: Topiramate 100 MG TAB PO SCH (08:46)
[2024-04-18] MEDS: Sodium Chloride 0.9% 1,000 ML IV SCH ×2 (12:47→12:48)
[2024-04-18 14:56] VITALS: BMI 27.1
[2024-04-18] MEDS: Piperacillin/Tazobactam 3.375 GM in Sodium Chloride 0.9% 100 ML IVPB SCH (18:42)
[2024-04-19 10:00] LABS: #Basophils 0.05 10x3/uL (0.0-0.2); %Basophils 0.2 % (0.0-1.0); %Eosinophils 1.3 % (0.0-10.0); %Lymphocytes 2.8 % (21.0-51.0); %Monocytes 1.5 % (0.0-10.0); %Neutrophils 93.5 % (42.0-75.0); Hematocrit 26.8 % (42.0-52.0); Hemoglobin 8.7 g/dL (14.0-18.0); Mean Corpuscular HGB CONC 32.5 g/dL (32.0-36.0); Mean Corpuscular Hemoglobin 26.3 pg (27.0-31.0); Mean Platelet Volume 8.6 fL (7.4-10.4); Platelet Count 171 10x3/uL (130-400); RBC Distribution Width 16.1 % (11.5-14.5); Red Blood Cell (RBC) Count 3.31 mill/uL (4.70-6.10)
[2024-04-19 10:30] LABS: Anion Gap 19 mmol/L (10-20); BUN (Urea Nitrogen) 47 mg/dL (8.4-25.7); Calc. Creatinine Clearance 66 mL/min (70-130); Calcium 8.7 mg/dL (7.8-10.44); Carbon Dioxide 14 mmol/L (23-31); Chloride 108 mmol/L (98-107); Estimated GFR 58; Glucose 103 mg/dL (80-115); Potassium 5.1 mmol/L (3.5-5.1); Sodium 136 mmol/L (136-145)
[2024-04-20 05:41] LABS: #Basophils 0.03 10x3/uL (0.0-0.2); %Basophils 0.1 % (0.0-1.0); %Eosinophils 0.3 % (0.0-10.0); %Lymphocytes 3.3 % (21.0-51.0); %Monocytes 1.5 % (0.0-10.0); %Neutrophils 93.9 % (42.0-75.0); Hematocrit 23.5 % (42.0-52.0); Hemoglobin 7.4 g/dL (14.0-18.0); Mean Corpuscular HGB CONC 31.5 g/dL (32.0-36.0); Mean Corpuscular Hemoglobin 25.3 pg (27.0-31.0); Mean Corpuscular Volume 80.2 fL (78.0-98.0); Mean Platelet Volume 9.2 fL (7.4-10.4); Platelet Count 158 10x3/uL (130-400); RBC Distribution Width 16.4 % (11.5-14.5); Red Blood Cell (RBC) Count 2.93 mill/uL (4.70-6.10)
[2024-04-20 05:56] LABS: Anion Gap 17 mmol/L (10-20); BUN (Urea Nitrogen) 38 mg/dL (8.4-25.7); Calc. Creatinine Clearance 89 mL/min (70-130); Calcium 9.1 mg/dL (7.8-10.44); Carbon Dioxide 20 mmol/L (23-31); Chloride 112 mmol/L (98-107); Estimated GFR 82; Glucose 108 mg/dL (80-115); Potassium 5.5 mmol/L (3.5-5.1); Sodium 143 mmol/L (136-145)
[2024-04-20] MEDS: Sodium Polystyrene Sulfonate 15 GM (60 mL) BOT PO SCH (10:30)
[2024-04-20] MEDS: Dextrose 5 %-0.45 % NaCl 1,000 ML IV SCH (13:05)
[2024-04-20] MEDS: Benzocaine/Menthol 1 LOZ LOZ PO PRN (15:23)
[2024-04-20 18:31] LABS: Anion Gap 15 mmol/L (10-20); BUN (Urea Nitrogen) 36 mg/dL (8.4-25.7); Calc. Creatinine Clearance 95 mL/min (70-130); Calcium 8.8 mg/dL (7.8-10.44); Carbon Dioxide 20 mmol/L (23-31); Chloride 112 mmol/L (98-107); Estimated GFR 88; Glucose 110 mg/dL (80-115); Potassium 4.2 mmol/L (3.5-5.1); Sodium 143 mmol/L (136-145)
[2024-04-21 06:46] LABS: #Basophils Less than 0.03 10x3/uL (0.0-0.2); %Basophils 0.2 % (0.0-1.0); %Eosinophils 0.4 % (0.0-10.0); %Lymphocytes 6.4 % (21.0-51.0); %Monocytes 2.1 % (0.0-10.0); %Neutrophils 90.2 % (42.0-75.0); Hematocrit 24.5 % (42.0-52.0); Hemoglobin 7.6 g/dL (14.0-18.0); Mean Corpuscular Hemoglobin 25.2 pg (27.0-31.0); Mean Corpuscular Volume 81.4 fL (78.0-98.0); Mean Platelet Volume 9.1 fL (7.4-10.4); Platelet Count 131 10x3/uL (130-400); RBC Distribution Width 16.8 % (11.5-14.5); Red Blood Cell (RBC) Count 3.01 mill/uL (4.70-6.10)
[2024-04-21 07:01] LABS: Anion Gap 14 mmol/L (10-20); BUN (Urea Nitrogen) 33 mg/dL (8.4-25.7); Calc. Creatinine Clearance 102 mL/min (70-130); Calcium 8.4 mg/dL (7.8-10.44); Carbon Dioxide 20 mmol/L (23-31); Chloride 113 mmol/L (98-107); Estimated GFR 96; Glucose 120 mg/dL (80-115); Magnesium 1.6 mg/dL (1.6-2.6); Sodium 143 mmol/L (136-145)
[2024-04-21] MEDS: Magnesium Oxide 400 MG TAB PO SCH (08:45)
[2024-04-21] MEDS ORDERED: MAGIC MOUTHWASH 10 ML UDCUP SSP PRN (11:15)
[2024-04-21] MEDS: Morphine ER 30 MG TAB PO SCH ×2 (13:31→20:25)
[2024-04-21] MEDS: Sodium Chloride 0.9% 1,000 ML IV SCH (17:05)
[2024-04-21] MEDS ORDERED: Aluminum & Magnesium Hydroxide 60 ML, diphenhydrAMINE 150 MG, Lidocaine 2% Viscous Solu... SSW PRN (20:17)
[2024-04-21] MEDS: Nystatin Powder 15 GM BOT TOP PRN (20:26)
[2024-04-21] MEDS: MAGIC MOUTH WASH W/NYSTATIN SUSP 10 ML UDCUP SSW PRN (21:19)
[2024-04-22 05:59] LABS: Anion Gap 12 mmol/L (10-20); BUN (Urea Nitrogen) 32 mg/dL (8.4-25.7); Calc. Creatinine Clearance 99 mL/min (70-130); Calcium 8.2 mg/dL (7.8-10.44); Carbon Dioxide 21 mmol/L (23-31); Chloride 110 mmol/L (98-107); Estimated GFR 93; Glucose 82 mg/dL (80-115); Magnesium 1.6 mg/dL (1.6-2.6); Potassium 3.5 mmol/L (3.5-5.1); Sodium 139 mmol/L (136-145)
[2024-04-22 06:07] LABS: #Basophils Less than 0.03 10x3/uL (0.0-0.2); %Basophils 0.1 % (0.0-1.0); %Eosinophils 1.2 % (0.0-10.0); %Lymphocytes 11.8 % (21.0-51.0); %Monocytes 3.2 % (0.0-10.0); %Neutrophils 82.4 % (42.0-75.0); Hematocrit 23.3 % (42.0-52.0); Hemoglobin 7.3 g/dL (14.0-18.0); Mean Corpuscular HGB CONC 31.3 g/dL (32.0-36.0); Mean Corpuscular Hemoglobin 25.2 pg (27.0-31.0); Mean Corpuscular Volume 80.3 fL (78.0-98.0); Mean Platelet Volume 9.8 fL (7.4-10.4); Platelet Count 109 10x3/uL (130-400); RBC Distribution Width 16.7 % (11.5-14.5)
[2024-04-22 07:08] LABS: Anisocytosis MODERATE=16-30 cells HPF (0-5); Platelet Adequacy Comment Platelets Decreased; Polychromasia SLIGHT = 2-3 cells HPF (0-2)
[2024-04-23 05:29] LABS: #Basophils Less than 0.03 10x3/uL (0.0-0.2); %Basophils 0.3 % (0.0-1.0); %Lymphocytes 19.2 % (21.0-51.0); %Monocytes 4.1 % (0.0-10.0); %Neutrophils 73.6 % (42.0-75.0); Hematocrit 23.1 % (42.0-52.0); Hemoglobin 7.4 g/dL (14.0-18.0); Mean Corpuscular Hemoglobin 25.4 pg (27.0-31.0); Mean Corpuscular Volume 79.4 fL (78.0-98.0); Mean Platelet Volume 9.8 fL (7.4-10.4); Platelet Count 85 10x3/uL (130-400); RBC Distribution Width 16.2 % (11.5-14.5); Red Blood Cell (RBC) Count 2.91 mill/uL (4.70-6.10)
[2024-04-23 05:56] LABS: Anion Gap 11 mmol/L (10-20); BUN (Urea Nitrogen) 29 mg/dL (8.4-25.7); Calc. Creatinine Clearance 113 mL/min (70-130); Calcium 8.2 mg/dL (7.8-10.44); Carbon Dioxide 21 mmol/L (23-31); Chloride 108 mmol/L (98-107); Estimated GFR 99; Glucose 93 mg/dL (80-115); Potassium 3.8 mmol/L (3.5-5.1); Sodium 136 mmol/L (136-145)
[2024-04-23] MEDS: [UNRECOGNIZED DRUG - OTHER] SSW SCH (17:17)
[2024-04-24 06:35] LABS: #Basophils Less than 0.03 10x3/uL (0.0-0.2); %Basophils 0.4 % (0.0-1.0); %Eosinophils 2.8 % (0.0-10.0); %Lymphocytes 21.2 % (21.0-51.0); %Monocytes 6.1 % (0.0-10.0); %Neutrophils 68.8 % (42.0-75.0); Hematocrit 19.8 % (42.0-52.0); Hemoglobin 6.3 g/dL (14.0-18.0); Mean Corpuscular HGB CONC 31.8 g/dL (32.0-36.0); Mean Corpuscular Hemoglobin 25.3 pg (27.0-31.0); Mean Corpuscular Volume 79.5 fL (78.0-98.0); Mean Platelet Volume 9.6 fL (7.4-10.4); Platelet Count 61 10x3/uL (130-400); Red Blood Cell (RBC) Count 2.49 mill/uL (4.70-6.10)
[2024-04-24 06:49] LABS: Anion Gap 11 mmol/L (10-20); BUN (Urea Nitrogen) 22 mg/dL (8.4-25.7); Calc. Creatinine Clearance 101 mL/min (70-130); Carbon Dioxide 22 mmol/L (23-31); Chloride 108 mmol/L (98-107); Estimated GFR 95; Glucose 93 mg/dL (80-115); Potassium 3.6 mmol/L (3.5-5.1); Sodium 137 mmol/L (136-145)
[2024-04-24 09:30] LABS: Anion Gap 10 mmol/L (10-20); BUN (Urea Nitrogen) 21 mg/dL (8.4-25.7); Calc. Creatinine Clearance 107 mL/min (70-130); Calcium 8.2 mg/dL (7.8-10.44); Carbon Dioxide 22 mmol/L (23-31); Chloride 110 mmol/L (98-107); Estimated GFR 97; Glucose 113 mg/dL (80-115); Potassium 3.7 mmol/L (3.5-5.1); Sodium 138 mmol/L (136-145)
[2024-04-24 09:39] LABS: #Basophils Less than 0.03 10x3/uL (0.0-0.2); %Basophils 0.3 % (0.0-1.0); %Eosinophils 2.5 % (0.0-10.0); %Lymphocytes 22.4 % (21.0-51.0); %Monocytes 5.6 % (0.0-10.0); %Neutrophils 68.2 % (42.0-75.0); Hematocrit 21.6 % (42.0-52.0); Hemoglobin 6.9 g/dL (14.0-18.0); Mean Corpuscular HGB CONC 31.9 g/dL (32.0-36.0); Mean Corpuscular Hemoglobin 25.6 pg (27.0-31.0); Mean Platelet Volume 9.9 fL (7.4-10.4); Platelet Count 66 10x3/uL (130-400); RBC Distribution Width 16.1 % (11.5-14.5)
[2024-04-25 11:17] LABS: #Basophils Less than 0.03 10x3/uL (0.0-0.2); %Basophils 0.3 % (0.0-1.0); %Eosinophils 2.3 % (0.0-10.0); %Lymphocytes 23.2 % (21.0-51.0); %Monocytes 9.7 % (0.0-10.0); %Neutrophils 63.7 % (42.0-75.0); Hematocrit 23.4 % (42.0-52.0); Hemoglobin 7.8 g/dL (14.0-18.0); Mean Corpuscular HGB CONC 33.3 g/dL (32.0-36.0); Mean Corpuscular Hemoglobin 25.6 pg (27.0-31.0); Mean Corpuscular Volume 76.7 fL (78.0-98.0); Mean Platelet Volume 10.6 fL (7.4-10.4); Platelet Count 63 10x3/uL (130-400); RBC Distribution Width 15.8 % (11.5-14.5); Red Blood Cell (RBC) Count 3.05 mill/uL (4.70-6.10)
[2024-04-25 11:31] LABS: Burr Cells SLIGHT = 2-5 cells HPF (0-1); Elliptocytes SLIGHT = 2-5 cells HPF (0-1); Hypochromia SLIGHT = 6-15 cells HPF (0-5); Macrocytosis SLIGHT = 6-15 cells HPF (0-5); Platelet Adequacy Comment Platelets Decreased; Polychromasia SLIGHT = 2-3 cells HPF (0-2); Rouleaux Formation SLIGHT = 1-5 cells HPF (None Seen); Schistocytes SLIGHT = 2-5 cells HPF (0-1); Tear Drops SLIGHT = 2-5 cells HPF (0-1)
[2024-04-25 16:37] VITALS: BP 126/71; TEMP 98.6
== END 2024-04-25 16:36 | DRG 682 ==
LOC: ERS 10:39 → 2NO 14:23 → T4-A 04-20 12:09
PROVIDERS: ADMIT Hospitalist; ATTEND Internal Medicine
PROC: 30233N1 Transfusion of Nonautologous Red Blood Cells into Peripheral Vein, Percutaneous Approach (ICD-10-PCS; principal; 2024-04-24)
DX: N17.9 Acute kidney failure, unspecified (principal); G92.9 Unspecified toxic encephalopathy; J86.9 Pyothorax without fistula; D68.9 Coagulation defect, unspecified; I48.20 Chronic atrial fibrillation, unspecified; J98.11 Atelectasis; E87.20 Acidosis, unspecified; E87.1 Hypo-osmolality and hyponatremia; E86.0 Dehydration; I10 Essential (primary) hypertension; E11.9 Type 2 diabetes mellitus without complications; G89.4 Chronic pain syndrome; E66.9 Obesity, unspecified; E87.5 Hyperkalemia; D63.8 Anemia in other chronic diseases classified elsewhere; M48.061 Spinal stenosis, lumbar region without neurogenic claudication; R04.0 Epistaxis; E83.39 Other disorders of phosphorus metabolism; D69.59 Other secondary thrombocytopenia; N40.0 Benign prostatic hyperplasia without lower urinary tract symptoms; T36.8X5A Adverse effect of other systemic antibiotics, initial encounter; Z79.01 Long term (current) use of anticoagulants; Z79.899 Other long term (current) drug therapy; Z88.1 Allergy status to other antibiotic agents; Z88.8 Allergy status to other drugs, medicaments and biological substances; Z68.27 Body mass index [BMI] 27.0-27.9, adult
CPT/HCPCS: 36415; 36416; 36430; 71045; 71046; 74176; 80048; 80053; 81001; 83036; 83605; 83735; 83880; 84100; 84145; 84439; 84443; 84484; 85025; 85610; 85730; 86141; 86850; 86900; 86901; 87040; 87077; 87086; 87428; 93005; 93306; 93970; 94760; 96374; 97139; J0692; J1450; J2543; J7030; J7042; P9016